=== PATIENT | male | born 1955 | race Caucasian/White ===

== ENCOUNTER 2016-09-07 13:17 | Emergency (ER) | END 2016-09-07 21:20 | disposition home or self-care (01) | DX: R42 Dizziness and giddiness (principal); I10 Essential (primary) hypertension; E11.9 Type 2 diabetes mellitus without complications; W01.0XXA Fall on same level from slipping, tripping and stumbling without subsequent striking against object, initial encounter; Y92.9 Unspecified place or not applicable; Z79.84 Long term (current) use of oral hypoglycemic drugs; Z79.82 Long term (current) use of aspirin; Z79.4 Long term (current) use of insulin | CPT/HCPCS: 36415; 70450; 71010; 74176; 80053; 82962; 83690; 84484; 85025; 93005; 96361; 96372; 96374; 96375; J1815; J2270; J2405; J7030; Z7502 ==

== ENCOUNTER 2017-02-17 12:23 | Inpatient (IN) | payer OTHER ==
[~2017-02-17] VITALS: Ht 170.2 cm; Wt 81.0 kg
[~2017-02-17 12:23] MED LIST: ASPI-664 PO; GABA300C16 PO; LANT3I SC; LISI20TA11 PO; MECL12.574 PO; SITA1TAB5 PO
[2017-02-17] MEDS ORDERED: SOD CHLORIDE 0.9% 1,000 ML IV STA (13:41)
[2017-02-17] MEDS ORDERED: ONDANSETRON 4 MG INJ IV STA (13:41)
[2017-02-17 13:57] LABS: ADD SCAN DIFF NO
[2017-02-17 13:58] LABS: BASOPHILS % 0.2 % (0.0-2.0); EOSINOPHILS # 0.1 10^3/ul (0.0-0.5); EOSINOPHILS % 0.9 % (0.0-7.0); HEMATOCRIT 38.5 % (42.0-52.0); LYMPHOCYTES # 0.8 10^3/ul (0.8-2.9); LYMPHOCYTES % 6.7 % (15.0-51.0); MEAN CORPUSCULAR HGB CONC 36.4 g/dl (32.0-37.0); MEAN CORPUSCULAR VOLUME 87.9 fl (82.0-101.0); MEAN PLATELET VOLUME 12.3 fl (7.4-10.4); MONOCYTE # 0.4 10^3/ul (0.3-0.9); MONOCYTES % 3.3 % (0.0-11.0); NEUTROPHIL # 10.6 10^3/ul (1.6-7.5); NEUTROPHILS % 88.4 % (39.0-77.0); PLATELET COUNT 194 10^3/UL (140-415); RED BLOOD COUNT 4.38 10^6/ul (4.70-6.10); RED CELL DISTRIBUTION WIDTH 12.2 % (11.5-14.5)
[2017-02-17] MEDS ORDERED: MECLIZINE 12.5 MG TAB PO ONE (14:00)
[2017-02-17 14:15] LABS: INR 1.01; PROTIME 13.3 Sec (12.2-14.2)
[2017-02-17 14:16] LABS: PARTIAL THROMBOPLASTIN TIME 24.1 Sec (25.0-35.0)
[2017-02-17] MEDS ORDERED: INSULIN LISPRO 100 UNIT/ML VIAL SC STA (14:31)
[2017-02-17 14:34] LABS: ALANINE AMINOTRANSFERASE 37 IU/L (13-69); ALBUMIN 4.4 g/dl (3.3-4.9); ALBUMIN/GLOBULIN RATIO 1.57; ALKALINE PHOSPHATASE 114 IU/L (42-121); AMYLASE 74 U/L (11-123); ANION GAP 18 (8-16); ASPARTATE AMINO TRANSFERASE 25 IU/L (15-46); BILIRUBIN,INDIRECT 0.4 mg/dl (0-1.1); BILIRUBIN,TOTAL 0.4 mg/dl (0.2-1.3); BLOOD UREA NITROGEN 21 mg/dl (7-20); CALCIUM 8.9 mg/dl (8.4-10.2); CARBON DIOXIDE 23 mmol/L (21-31); CHLORIDE 103 mmol/L (97-110); CREATININE 0.99 mg/dl (0.61-1.24); GLUCOSE 377 mg/dl (70-220); POTASSIUM 4.5 mmol/L (3.5-5.1); SODIUM 139 mmol/L (135-144); TOTAL PROTEIN 7.2 g/dl (6.1-8.1)
[2017-02-17 14:49] LABS: TROPONIN-I < 0.012 ng/ml (0.00-0.12)
--- NOTE | 2017-02-17 14:51 | RADRPT ---
PROCEDURE: Chest Radiograph. CLINICAL INDICATION: Syncope TECHNIQUE: Single frontal chest radiograph. COMPARISON: Chest radiograph 09/07/2016 FINDINGS: Lung volumes are decreased with associated basilar atelectasis and central compressive change. No d efinite infiltrate or effusion is seen though evaluation of the lung bases is limited. The heart is magnified. The bones are intact. IMPRESSION: 1. Low lung volumes with basilar atelectasis and central compressive changes. 2. No definite evidence of acute cardiopulmonary disease. RPTAT: KK .Ronny Cole MD, MD Date Time Electronically viewed and signed by .Ronny Cole MD, MD on 02/17/2017 14:51 .B/
--- NOTE | 2017-02-17 15:47 | RADRPT ---
PROCEDURE: CT Brain without contrast. CLINICAL INDICATION: Syncope TECHNIQUE: A CT of the brain was performed on a multidetector CT scanner utilizing axial sections from the skull base through the vertex without contrast. Images were reviewed on a high-resolution Svpply workstation. Exam CTDI = 41.59 mGy and the DLP = 720.23 mGy-cm. One or more of the following dose reduction techniques were used: Automated exposure control Adjustment of the mA and/or kV according to patient size. Use of iterative reconstruction technique. COMPARISON: CT head 09/07/2016. FINDINGS: There is age appropriate mild generalized volume loss. There is no evidence of intracranial hemorrh age, mass effect or midline shift. No abnormal intra-axial or extra-axial fluid collections are see n. The density of the brain is normal and the leavitt/white matter differentiation is well preserved. The osseous structures are unremarkable. Paranasal sinuses are clear. There is suboccipital subcut aneous fatty infiltration left of the midline. IMPRESSION: 1. No intracranial hemorrhage, mass effect or midline shift. 2. Suboccipital subcutaneous fatty infiltration, not significantly changed. RPTAT: BB .Wu Claire MD, Date Time Electronically viewed and signed by .Wu Claire MD, on 02/17/2017 15:47 .O/
[2017-02-17] MEDS ORDERED: ASPIRIN (EC) 81 MG TAB PO ONE (17:30)
[2017-02-17] MEDS ORDERED: ONDANSETRON 4 MG INJ IV PRN (18:00)
[2017-02-17] MEDS ORDERED: ACETAMINOPHEN 325 MG TAB PO PRN ×2 (18:00→18:30)
--- NOTE | 2017-02-17 18:15 | ERA ---
ER Documentation Chief Complaint Date/Time DATE: 02/17/17 TIME: 18:12 Chief Complaint "passed out, hit head, x 1 hour ago HPI This is a very pleasant 61-year-old male that presents to the emergency department after he stated he had a brief transient loss of consciousness, with loss of postural tone, that lasted for roughly 30 seconds, roughly 1 hour prior to arrival. The patient also indicates he had a similar episode at 7 AM yesterday, over 24 hours prior to arrival. The patient stated prior to the syncope episode he felt lightheaded and dizzy. He felt as though the room was spinning around him but denied any tinnitus. The patient denies any shortness of breath at rest or exertion. The patient also denies any chest pain or pressure that radiates to the neck arm back or jaw. His stated that she had witnessed his last syncope episode that occurred an hour prior to arrival and he had fallen and hit the back of his head onto a tiled surface. He states he is feeling very nauseous but again has not experienced any hemoptysis hematemesis or melanotic stools. ROS All systems reviewed and are negative except as per history of present illness. Medications Home Meds Reported Medications Aspirin* (Aspirin* EC) 81 Mg Tablet.dr, 81 MG PO DAILY, TAB 09/07/16 Gabapentin* (Gabapentin*) 300 Mg Capsule, 300 MG PO TID, #90 CAP 09/07/16 Sitagliptin Phos/Metformin HCl (Janumet 50-1,000 mg Tablet) 1 Each Tablet, 1 EACH PO WITH BREAKFAST DINNE, TAB 09/07/16 Lisinopril* (Lisinopril*) 20 Mg Tablet, 20 MG PO DAILY, #30 TAB 09/07/16 Insulin Glargine* (Lantus*) 100 Unit/Ml Soln, 20 UNIT SC QHS, #1 VIAL 09/07/16 Discontinued Scripts Meclizine Hcl* (Antivert*) 12.5 Mg Tab, 25 MG PO Q6H Y for DIZZINESS, #20 TAB Prov:MONA SALGADO MD 09/07/16 Allergies Allergies: Coded Allergies: No Known Allergy (Unverified , 02/17/17) PMhx/Soc History of Surgery: No Anesthesia Reaction: No Hx Neurological Disorder: Yes Hx Respiratory Disorders: No Hx Cardiac Disorders: Yes (HTN) Hx Psychiatric Problems: No Hx Miscellaneous Medical Probl: Yes (DM, PVD, diabetic foot ulcers, neuropathy) Hx Alcohol Use: No Hx Substance Use: No Hx Tobacco Use: No Smoking Status: Never smoker Physical Exam Vitals Vital Signs Date Time Temp Pulse Resp B/P Pulse Ox O2 Delivery O2 Flow Rate FiO2 02/17/17 16:58 53 16 180/73 100 Room Air 02/17/17 12:25 97.2 57 20 159/80 100 Physical Exam Constitutional:Well-developed. Well-nourished. HEENT:Normocephalic. Atraumatic.Pupils were equal round reactive to light. Moist mucous membranes.No tonsillar exudates. No nasal septal hematoma. No hemotympanum. No bulging erythremia the tympanic membranes. Neck: No nuchal rigidity. No lymphadenopathy. No posterior cervical spine tenderness or step-offs. Respiratory: Not using accessory muscles of respiration.Lungs were clear to auscultation bilaterally. No rhonchi. No rales. No wheezing. Cardiovascular: Regular rate regular rhythm.No murmurs. No rubs were appreciated.S1, S2 normal. Distal pulses are palpable 2+ bilaterally. GI: Abdomen was soft. Nontender. Non Distended. No pulsatile abdominal masses or bruits. No rebound. No guarding. Bowel sounds were present and normal. Muscle skeletal: Full range of motion of both the upper and lower extremities bilaterally.Normal muscle tone.No assymetrical calf tenderness or swelling. Skin: No petechia, no purpura. No lesions on the palms or the soles of the feet. No maculopapular rash. NEURO: Patient was alert, awake, orientated x3.No facial droop. Gait observed and normal with no ataxia.Speech had regular rate and rhythm. No focal neurological deficits. No nystagmus Result Diagram: 02/17/17 1351 02/17/17 1351 Results 24 hrs Laboratory Tests Test 02/17/17 13:33 02/17/17 13:51 02/17/17 14:51 Bedside Glucose 367mg/dL 330mg/dL White Blood Count 12.010^3/ul Red Blood Count 4.3810^6/ul Hemoglobin 14.0g/dl Hematocrit 38.5% Mean Corpuscular Volume 87.9fl Mean Corpuscular Hemoglobin 32.0pg Mean Corpuscular Hemoglobin Concent 36.4g/dl Red Cell Distribution Width 12.2% Platelet Count 74592^3/UL Mean Platelet Volume 12.3fl Neutrophils % 88.4% Lymphocytes % 6.7% Monocytes % 3.3% Eosinophils % 0.9% Basophils % 0.2% Nucleated Red Blood Cells % 0.0/100WBC Neutrophils # 10.610^3/ul Lymphocytes # 0.810^3/ul Monocytes # 0.410^3/ul Eosinophils # 0.110^3/ul Basophils # 0.010^3/ul Nucleated Red Blood Cells # 0.010^3/ul Prothrombin Time 13.3Sec Prothrombin Time Ratio 1.0 INR International Normalized Ratio 1.01 Activated Partial Thromboplast Time 24.1Sec Sodium Level 139mmol/L Potassium Level 4.5mmol/L Chloride Level 103mmol/L Carbon Dioxide Level 23mmol/L Anion Gap 18 Blood Urea Nitrogen 21mg/dl Creatinine 0.99mg/dl Glucose Level 377mg/dl Calcium Level 8.9mg/dl Total Bilirubin 0.4mg/dl Direct Bilirubin 0.00mg/dl Indirect Bilirubin 0.4mg/dl Aspartate Amino Transf (AST/SGOT) 25IU/L Alanine Aminotransferase (ALT/SGPT) 37IU/L Alkaline Phosphatase 114IU/L Troponin I < 0.012ng/ml Total Protein 7.2g/dl Albumin 4.4g/dl Globulin 2.80g/dl Albumin/Globulin Ratio 1.57 Amylase Level 74U/L Lipase 69U/L Current Medications Medications (Trade) Dose Ordered Sig/Leelee Route PRN Reason Start Time Stop Time Status Last Admin Dose Admin Sodium Chloride (NS) 1,000 ml @ 1,000 mls/hr Q1H STAT IV 02/17/17 13:41 02/17/17 14:40 DC 02/17/17 14:04 Ondansetron HCl (Zofran Inj) 4 mg ONCE STAT IV 02/17/17 13:41 02/17/17 13:44 DC 02/17/17 13:59 Meclizine HCl (Antivert) 25 mg ONCE ONCE PO 02/17/17 14:00 02/17/17 14:01 DC 02/17/17 13:59 Insulin Human Lispro (Humalog) 10 unit ONCE STAT SC 02/17/17 14:31 02/17/17 14:32 DC 02/17/17 14:58 Aspirin (Halfprin) 81 mg ONCE ONCE PO 02/17/17 17:30 02/17/17 17:31 DC 02/17/17 17:46 Ondansetron HCl (Zofran Inj) 4 mg ER BRIDGE PRN IV NAUSEA AND/OR VOMITING 02/17/17 18:00 02/18/17 17:59 Acetaminophen (Tylenol Tab) 650 mg ER BRIDGE PRN PO MILD PAIN/FEVER 02/17/17 18:00 02/18/17 17:59 Aspirin (Halfprin) 81 mg DAILY PO 02/18/17 09:00 UNV Gabapentin (Neurontin) 300 mg TID PO 02/17/17 21:00 UNV Insulin Glargine (Lantus) 20 unit QHS SC 02/17/17 21:00 UNV Lisinopril (Zestril) 20 mg DAILY PO 02/18/17 09:00 UNV Procedures/MDM The patient presented to the emergency department with a transient loss of consciousness with loss of postural tone, suggestive of a syncope episode. The differential diagnosis of syncope is vast but my workup considered common benign disorders to life-threatening processes. Therefore my differential diagnosis included but was not limited to reflex-mediated syncope such as vasovagal or carotid sinus syncope from coughing, sneezing, micturition, or GI stimulation (eg, defecation). Other etiologies in my workup included orthostatic hypotension which could cause syncope from an abrupt drop in venous return to heart from volume depletion. An EKG and cardiac enzymes were obtained to rule out cardiac arrhythmias or ischemia. Cardiopulmonary disease such as valvular disease, hypertrophic cardiomyopathy, pericardial tamponade, or pulmonary embolism were considered as a factor causing the patients syncope episode. The patient had no difference in blood pressure in both arms that could suggest aortic dissection or subclavian steal syndrome. Rectal exam was negative for fecal occult blood that could suggest GI bleeding. Ancillary laboratory work was obtained to evaluate for metabolic or electrolyte abnormalities. The patient had no witnessed brief tonic movements that could suggest postictal confusion. The patient was placed on a cardiac surgeon, continuous pulse oximetry and IV access established by nursing staff. The patient received a liter bolus of 0.9 normal saline IV Zofran and meclizine. I obtained a CT scan of the patient's head given his symptoms and there is no signs of intracerebral hemorrhage mass-effect or midline shift. 12 Lead EKG tracing ordered and reviewed by myself showed: Sinus bradycardia 52 bpm and no arrhythmia. IL interval normal. QRS duration normal. No ST segment elevation No ST segment depression. No changes consistent with acute ischemia. Left axis deviation The patient is a known history of diabetes. He had hyperglycemia without ketosis. His blood glucose resolved with IV fluids I did feel the patient required admission for further evaluation into the syncope episodes. He will be admitted to the hospitalist Dr. Holloway in serious condition for observation to the telemetry service Departure Diagnosis: Primary Impression: Syncope Qualified Code: R55 - Syncope, unspecified syncope type Additional Impression: Hyperglycemia without ketosis Condition: Serious JUHI HALL Feb 17, 2017 18:15
--- NOTE | 2017-02-17 18:27 | HP ---
Date/Time of Note Date/Time of Note DATE: 02/17/17 TIME: 18:20 Assessment/Plan VTE Prophylaxis VTE Prophylaxis Intervention: SCD's Assessment/Plan Assessment/Plan 61 yo M with DM2 with neuropathy, presents with 3 syncopal episodes in the past 2 days. Broad differential includes hypoglycemia (given poor PO in recent days) , cardiogenic syncope/arrhythmia, autonomic neuropathy, v other. No chest pain and troponin negative speaks against UT. PLAN cont tele orthostatic vital signs TTE ordered cont home insulin with accuchecks and SSI PT/OT evals cont home BP meds NS given hyperglycemia HR a little on the low side. Not on bb at home. cont tele HPI/ROS Admit Date/Time Admit Date/Time Hx of Present Illness CC: syncope hebrew language line used to facilitate communication 61 yo M with pmhx diabetes cb neuropathy, HTN presents with report of 3 episodes of ALOC since yesterday. Per , pt passed out yesterday and 5p and 8p and again this morning. During all 3 episodes pt was seated, began to appear diaphoretic then lost consciousness for ~1 minute. Pt also reports poor appetite with decreased PO intake over this interval, with occ vomiting. NO chest pain or SOB. No tongue biting or shaking or loss of bladder control associated with episodes. Pt never checks his blood sugars during episodes. No recent changes to his home meds. Also states he feels diffusely weak x 1 hr after each episode PMH/Family/Social Past Surgical History Past Surgical Hx: no surgical history Social History Smoking Status: Never smoker Exam/Review of Systems Vital Signs Vitals Vital Signs Date Time Temp Pulse Resp B/P Pulse Ox O2 Delivery O2 Flow Rate FiO2 02/17/17 16:58 53 16 180/73 100 Room Air 02/17/17 12:25 97.2 Exam Exam nad, sitting up in bed, voraciously eating sandwich MMM EOMI no mrg lungs clear abd soft no rashes no LE edema CN 2-12intact sensoirum grossly intact to light touch bl U and LEs, 5/5 strength bl U and LEs Labs Result Diagram: 02/17/17 1351 02/17/17 1351 Medications Medications Current Medications Aspirin (Halfprin) 81 mg DAILY PO ; Start 02/18/17 at 09:00; Status UNV Gabapentin (Neurontin) 300 mg TID PO ; Start 02/17/17 at 21:00; Status UNV Insulin Glargine (Lantus) 20 unit QHS SC ; Start 02/17/17 at 21:00; Status UNV Lisinopril (Zestril) 20 mg DAILY PO ; Start 02/18/17 at 09:00; Status UNV Procedures Procedures labs notable for mildly elevated WBCs, sig hyperglycemia, CXR clear, head CT clear TERESE WATERMAN MD Feb 17, 2017 18:27
[2017-02-17] MEDS ORDERED: DOCUSATE SODIUM 100 MG CAP PO PRN (18:30)
[2017-02-17] MEDS ORDERED: MAGNESIUM HYDROXIDE 30ML CUP PO PRN (18:30)
[2017-02-17] MEDS ORDERED: NACL 0.9% 3 ML SYG IV SCH (18:30)
[2017-02-17] MEDS ORDERED: HYDROCODONE/APAP (5/325) TAB PO PRN (18:30)
[2017-02-17] MEDS ORDERED: DEXTROSE 50% 50 ML SYRINGE IV PRN ×2 (19:00)
[2017-02-17] MEDS ORDERED: GLUCOSE GEL 15 GRAM TUBE BUCCAL PRN (19:00)
[2017-02-17] MEDS ORDERED: GLUCAGON 1 MG INJ IM PRN (19:00)
[2017-02-17] MEDS ORDERED: GLUCOSE GEL 15 GRAM TUBE PO PRN ×2 (19:00)
[2017-02-17 20:36] VITALS: TEMP 98.9
[2017-02-17 21:33] VITALS: PULSE 61
[2017-02-17 21:53] VITALS: Ht 170.2 cm; Wt 81.0 kg
[2017-02-17] MEDS: GABAPENTIN 300 MG CAP PO SCH (22:42)
[2017-02-17] MEDS: INSULIN GLARGINE [LANtus] 3 ML PEN SC SCH (22:45)
[2017-02-17] MEDS: SOD CHLORIDE 0.9% 1,000 ML IV SCH (22:45)
[2017-02-17] MEDS: INSULIN ASPART [NOVOLOG] 3 ML PEN SC SCH (22:57)
[2017-02-18] VITALS (15 sets, daily range): BP systolic 143–183; BP diastolic 72–82; PULSE 52–95; RESP 17–19
[2017-02-18] MEDS: hydrALAzine 20 MG INJ IV PRN (01:23)
[2017-02-18] MEDS: SOD CHLORIDE 0.9% 1,000 ML IV SCH ×4 (01:24→23:45)
[2017-02-18] MEDS: ACCU-CHEK XX SCH (01:44)
[2017-02-18 06:32] LABS: ADD SCAN DIFF NO
[2017-02-18 06:37] LABS: BASOPHILS % 0.2 % (0.0-2.0); EOSINOPHILS # 0.2 10^3/ul (0.0-0.5); EOSINOPHILS % 1.7 % (0.0-7.0); HEMATOCRIT 35.6 % (42.0-52.0); HEMOGLOBIN 12.7 g/dl (14.0-18.0); LYMPHOCYTES # 1.4 10^3/ul (0.8-2.9); LYMPHOCYTES % 16.4 % (15.0-51.0); MEAN CORPUSCULAR HEMOGLOBIN 31.9 pg (29.0-33.0); MEAN CORPUSCULAR HGB CONC 35.7 g/dl (32.0-37.0); MEAN CORPUSCULAR VOLUME 89.4 fl (82.0-101.0); MONOCYTE # 0.4 10^3/ul (0.3-0.9); NEUTROPHIL # 6.7 10^3/ul (1.6-7.5); NEUTROPHILS % 76.4 % (39.0-77.0); PLATELET COUNT 184 10^3/UL (140-415); RED BLOOD COUNT 3.98 10^6/ul (4.70-6.10); RED CELL DISTRIBUTION WIDTH 12.7 % (11.5-14.5); WHITE BLOOD COUNT 8.8 10^3/ul (4.8-10.8)
[2017-02-18] MEDS: INSULIN ASPART [NOVOLOG] 3 ML PEN SC SCH ×4 (08:05→20:46)
[2017-02-18] MEDS: LISINOPRIL 20 MG TAB PO SCH (08:43)
[2017-02-18] MEDS: ASPIRIN (EC) 81 MG TAB PO SCH (08:43)
[2017-02-18] MEDS: GABAPENTIN 300 MG CAP PO SCH ×3 (08:43→20:43)
[2017-02-18] MEDS: ENOXAPARIN 40 MG/0.4 ML SYG SC SCH (09:11)
--- NOTE | 2017-02-18 13:07 | PN ---
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 Given hyperglycemia and elevated a1c suspect autonomic neuropathy v dehydration from osmotic dieuresis from hyperglycemia PLAN cont tele orthostatic vital signs TTE ordered cont home insulin with accuchecks and SSI PT/OT evals cont home BP meds NS given hyperglycemia HR a little on the low side. Not on bb at home. cont tele DM education and RD evals if TTE nl and HR remains >50 on tele, will likely discharge in the AM Subjective 24 Hr Interval Summary Free Text/Dictation Family member served as front desk agent Pt feeling a little better. Was not totally adherent to DM med regimen at home Exam/Review of Systems Vital Signs Vitals Vital Signs Date Time Temp Pulse Resp B/P Pulse Ox O2 Delivery O2 Flow Rate FiO2 02/18/17 12:26 64 02/18/17 12:22 98.5 18 165/78 96 02/18/17 12:20 Room Air Intake and Output 02/17/17 02/17/17 02/18/17 15:00 23:00 07:00 Intake Total 1640 ml Balance 1640 ml Exam nad laying in bed no mrg lungs clear abd soft no rashes a1c 11.6 Results Result Diagram: 02/18/17 0617 02/17/17 1351 Results 24 hrs Laboratory Tests Test 02/17/17 13:33 02/17/17 13:51 02/17/17 14:51 02/17/17 22:16 Bedside Glucose 367 H 330 H 265 H White Blood Count 12.0 H Red Blood Count 4.38 L Hemoglobin 14.0 Hematocrit 38.5 L Mean Corpuscular Volume 87.9 Mean Corpuscular Hemoglobin 32.0 Mean Corpuscular Hemoglobin Concent 36.4 Red Cell Distribution Width 12.2 Platelet Count 194 Mean Platelet Volume 12.3 H Neutrophils % 88.4 H Lymphocytes % 6.7 L Monocytes % 3.3 Eosinophils % 0.9 Basophils % 0.2 Nucleated Red Blood Cells % 0.0 Neutrophils # 10.6 H Lymphocytes # 0.8 Monocytes # 0.4 Eosinophils # 0.1 Basophils # 0.0 Nucleated Red Blood Cells # 0.0 Prothrombin Time 13.3 Prothrombin Time Ratio 1.0 INR International Normalized Ratio 1.01 Activated Partial Thromboplast Time 24.1 L Sodium Level 139 Potassium Level 4.5 Chloride Level 103 Carbon Dioxide Level 23 Anion Gap 18 H Blood Urea Nitrogen 21 H Creatinine 0.99 Glucose Level 377 H Calcium Level 8.9 Total Bilirubin 0.4 Direct Bilirubin 0.00 Indirect Bilirubin 0.4 Aspartate Amino Transf (AST/SGOT) 25 Alanine Aminotransferase (ALT/SGPT) 37 Alkaline Phosphatase 114 Troponin I < 0.012 Total Protein 7.2 Albumin 4.4 Globulin 2.80 Albumin/Globulin Ratio 1.57 Amylase Level 74 Lipase 69 Test 02/18/17 01:25 02/18/17 06:17 02/18/17 07:47 02/18/17 12:03 Bedside Glucose 151 162 217 White Blood Count 8.8 # Red Blood Count 3.98 L Hemoglobin 12.7 L Hematocrit 35.6 L Mean Corpuscular Volume 89.4 Mean Corpuscular Hemoglobin 31.9 Mean Corpuscular Hemoglobin Concent 35.7 Red Cell Distribution Width 12.7 Platelet Count 184 Mean Platelet Volume 12.0 H Neutrophils % 76.4 Lymphocytes % 16.4 Monocytes % 5.0 Eosinophils % 1.7 Basophils % 0.2 Nucleated Red Blood Cells % 0.0 Neutrophils # 6.7 Lymphocytes # 1.4 Monocytes # 0.4 Eosinophils # 0.2 Basophils # 0.0 Nucleated Red Blood Cells # 0.0 Hemoglobin A1c 11.4 H Medications Medications Current Medications Aspirin (Halfprin) 81 mg DAILY PO Last administered on 02/18/17 08:43; Admin Dose 81 MG; Start 02/18/17 at 09:00 Gabapentin (Neurontin) 300 mg TID PO Last administered on 02/18/17 12:36; Admin Dose 300 MG; Start 02/17/17 at 21:00 Insulin Glargine (Lantus) 20 unit QHS SC Last administered on 02/17/17 22:45; Admin Dose 20 UNIT; Start 02/17/17 at 21:00 Lisinopril (Zestril) 20 mg DAILY PO Last administered on 02/18/17 08:43; Admin Dose 20 MG; Start 02/18/17 at 09:00 Acetaminophen (Tylenol Tab) 650 mg Q6H PRN PO PAIN LEVEL 1-3 OR FEVER; Start at 18:30 Acetaminophen/ Hydrocodone Bitart ([place] (5/325)) 1 tab Q6H PRN PO MODERATE PAIN LEVEL 4-6; Start 02/17/17 at 18:30 Docusate Sodium (Colace) 100 mg Q12H PRN PO CONSTIPATION; Start 02/17/17 at 18: 30 Magnesium Hydroxide (Milk Of Mag) 30 ml DAILY PRN PO CONSTIPATION; Start at 18:30 Enoxaparin Sodium (Lovenox) 40 mg DAILY SC Last administered on 02/18/17 09:11 ; Admin Dose 40 MG; Start 02/18/17 at 09:00 Diagnostic Test (Pha) 1 ea 1 ea 02 XX ; Start 02/18/17 at 02:00 Sodium Chloride (NS) 1,000 ml @ 125 mls/hr Q8H IV Last administered on 01:24; Admin Dose 125 MLS/HR; Start 02/17/17 at 19:00 Miscellaneous Information 1 ea NOTE XX ; Start 02/17/17 at 19:00 Glucose (Glutose) 15 gm Q15M PRN PO DECREASED GLUCOSE; Start 02/17/17 at 19:00 Glucose (Glutose) 22.5 gm Q15M PRN PO DECREASED GLUCOSE; Start 02/17/17 at 19: 00 Dextrose (D50w Syringe) 25 ml Q15M PRN IV DECREASED GLUCOSE; Start 02/17/17 at 19:00 Dextrose (D50w Syringe) 50 ml Q15M PRN IV DECREASED GLUCOSE; Start 02/17/17 at 19:00 Glucagon (Glucagen) 1 mg Q15M PRN IM DECREASED GLUCOSE; Start 02/17/17 at 19:00 Glucose (Glutose) 15 gm Q15M PRN BUCCAL DECREASED GLUCOSE; Start 02/17/17 at 19 :00 Hydralazine HCl (Apresoline) 10 mg Q6H PRN IV SBP >160 Last administered on 01:23; Admin Dose 10 MG; Start 02/18/17 at 00:30 TERESE WATERMAN MD Feb 18, 2017 13:07
--- NOTE | 2017-02-18 14:26 | RADRPT ---
Echocardiogram Report Patient Name: TC CID Gender: Male Date: 1955 Study Date: 18-Feb-2017 Health Education Assistant: Apple [facility] Location: [id number] Ref. Physician: TERESE WATERMAN Quality: Adequate Procedures: Transthoracic echocardiogram with complete 2D, M-Mode, and doppler examination. Indications: Syncope. 2D/M Mode Doppler Measurement Value Normal Ranges Measurement Value Normal Ranges LVIDd 2D 5.0 3.5 - 5.6 cm AV Peak Malcolm 2.1 m/sec LVIDs 2D 3.3 2.1 - 4.1 cm AV Peak PG 18.0 mmHg FS 2D 32.9 % LVOT Peak Malcolm 1.2 m/sec LVPWd 2D 1.1 0.6 - 1.1 cm LVOT Peak PG 6.0 mmHg IVSd 2D 1.1 0.6 - 1.1 cm MV E Peak Malcolm 0.8 m/sec IVS/LVPW 2D 1.0 MV A Peak Malcolm 0.9 m/sec AoR Diam 2D 2.3 2.0 - 3.7 cm MV E/A 0.9 LA/Ao 2D 2 0 - 1 MV Decel Time 271 msec EDV 2D 122.0 cm3 MV E/A 0.9 ESV 2D 36.9 cm3 TR Peak Malcolm 3.2 m/sec LA Dimen 2D 4.4 2.3 - 4.0 cm TR Peak PG 41.0 mmHg RVSP 45.0 mmHg Findings Left Ventricle: Normal left ventricular systolic function. Normal left ventricular cavity size. Mild concentric left ventricular hypertrophy. Ejection fraction is visually estimated at 60 %. Tissue Doppler/Mitral Doppler indices are consistent with impaired relaxation (Stage I diastolic dysfunction). Right Ventricle: Normal right ventricular size. Normal right ventricular systolic function. Left Atrium: There is mild enlargement of left atrium. Right Atrium: The right atrium is normal in size. Mitral Valve: Normal appearance and function of the mitral valve with trace physiologic regurgitation. Trace mitral regurgitation. Aortic Valve: No significant aortic stenosis or insufficiency. Aortic sclerosis without stenosis. Tricuspid Valve: Normal appearance of the tricuspid valve. Estimated peak PA systolic pressure 45 mmHg. There is mild tricuspid regurgitation. Pulmonic Valve: Pulmonic valve not well visualized. There is trace pulmonic regurgitation. Pericardium: Normal pericardium with no significant pericardial effusion. Aorta: Normal aortic root. IVC: Normal size and normal respiratory collapse consistent with normal right atrial pressure. Conclusions 1.Normal left ventricular systolic function. Normal left ventricular cavity size. Mild concentric left ventricular hypertrophy. Ejection fraction is visually estimated at 60 %. Tissue Doppler/Mitral Doppler indices are consistent with impaired relaxation (Stage I diastolic dysfunction). 2.No significant valvular stenosis or regurgitation seen. 3.Estimated peak PA systolic pressure 45 mmHg based on RA pressure of 3 mmHg. Electronically Signed By: Wali Valente 18-Feb-2017 14:25:08 0700 Patient Name: TC CID Study Date: 18-Feb-2017 [id number]
[2017-02-18] MEDS: INSULIN GLARGINE [LANtus] 3 ML PEN SC SCH (20:46)
[2017-02-19] VITALS (15 sets, daily range): BP systolic 140–188; BP diastolic 57–83; PULSE 40–74; RESP 18–20
[2017-02-19] MEDS: SOD CHLORIDE 0.9% 1,000 ML IV SCH ×3 (02:28→11:00)
[2017-02-19] MEDS: ACCU-CHEK XX SCH (02:28)
[2017-02-19] MEDS: INSULIN ASPART [NOVOLOG] 3 ML PEN SC SCH ×2 (07:47→11:53)
[2017-02-19] MEDS: ENOXAPARIN 40 MG/0.4 ML SYG SC SCH (08:44)
[2017-02-19] MEDS: GABAPENTIN 300 MG CAP PO SCH ×2 (09:05→12:21)
[2017-02-19] MEDS: LISINOPRIL 20 MG TAB PO SCH (09:05)
[2017-02-19] MEDS: ASPIRIN (EC) 81 MG TAB PO SCH (09:05)
[2017-02-19] MEDS: hydrALAzine 20 MG INJ IV PRN (12:21)
--- NOTE | 2017-02-19 14:00 | PDOCDIS ---
Discharge Instructions CONDITION Patient Condition: Stable HOME CARE INSTRUCTIONS: Special Diet: CARB CONTROLLED FOLLOW UP/APPOINTMENTS Follow-up Plan Follow up with your regular doctor within 5 days. Your diabetes is very poorly controlled. Talk to your regular doctor about increasing your insulin. The diabetes has likely adversely impacted the nerves in your blood vessels that are supposed to squeeze when you change positions. This likely contributed to you passing out. In addition, your heart rate went down to 40 when you were sleeping. Please ask your regular doctor if he/she wants you to see a heart doctor. Claudio un seguimiento con villa mdico habitual dentro de los 5 chavis. Villa diabetes est muy mal controlada. Hable con villa mdico habitual sobre el aumento de la insulina. La diabetes probablemente frey afectado negativamente los nervios de los vasos sanguneos que se supone que deben apretar cuando cambia de posicin. Probablemente esto contribuy a que te desmayes. Adems, villa ritmo cardaco baj a 40 cuando usted estaba durmiendo. Pregntele a villa mdico si quiere que consulte a un mdico del umer. TERESE WATERMAN MD Feb 19, 2017 13:59
--- NOTE | 2017-02-19 14:02 | DS ---
Date/Time of Note Date/Time of Note DATE: 02/19/17 TIME: 14:01 Discharge Summary Admission/Discharge Info Admit Date/Time Feb 18, 2017 at 11:10 Discharge Date/Time Patient Condition: Stable Procedures TTE Conclusions 1. Normal left ventricular systolic function. Normal left ventricular cavity size. Mild concentric left ventricular hypertrophy. Ejection fraction is visually estimated at 60 %. Tissue Doppler/Mitral Doppler indices are consistent with impaired relaxation (Stage I diastolic dysfunction). 2. No significant valvular stenosis or regurgitation seen. 3. Estimated peak PA systolic pressure 45 mmHg based on RA pressure of 3 NCCT head: 1. No intracranial hemorrhage, mass effect or midline shift. 2. Suboccipital subcutaneous fatty infiltration, not significantly changed. a1c 11.4 orthostatic vitals: + 7.15 (HR increased 25 bpm between from supine to standing) Hx of Present Illness CC: syncope vietnamese language line used to facilitate communication 61 yo M with pmhx diabetes cb neuropathy, HTN presents with report of 3 episodes of ALOC since yesterday. Per , pt passed out yesterday and 5p and 8p and again this morning. During all 3 episodes pt was seated, began to appear diaphoretic then lost consciousness for ~1 minute. Pt also reports poor appetite with decreased PO intake over this interval, with occ vomiting. NO chest pain or SOB. No tongue biting or shaking or loss of bladder control associated with episodes. Pt never checks his blood sugars during episodes. No recent changes to his home meds. Also states he feels diffusely weak x 1 hr after each episode Hospital Course No further syncopal episodes following admission. TTE and neuroimaging unremarkable. Pt with very poor diabetes control-->a1c 11.4. Home insulin continued with SSI. Of note, pt found to have + orthostatics (HR increased 25 bpm between supine and standing). Suspect autonomic neuropathy contributing to syncope. HR berna 40 while asleep. Otherwise consistently >50. no changes from admit meds. pt advised to f/u with PCP for further w/u Home Meds Reported Medications Aspirin* (Aspirin* EC) 81 Mg Tablet., 81 MG PO DAILY, TAB 09/07/16 Gabapentin* (Gabapentin*) 300 Mg Capsule, 300 MG PO TID, #90 CAP 09/07/16 Sitagliptin Phos/Metformin HCl (Janumet 50-1,000 mg Tablet) 1 Each Tablet, 1 EACH PO WITH BREAKFAST DINNE, TAB 09/07/16 Lisinopril* (Lisinopril*) 20 Mg Tablet, 20 MG PO DAILY, #30 TAB 09/07/16 Insulin Glargine* (Lantus*) 100 Unit/Ml Soln, 20 UNIT SC QHS, #1 VIAL 09/07/16 Discontinued Scripts Meclizine Hcl* (Antivert*) 12.5 Mg Tab, 25 MG PO Q6H Y for DIZZINESS, #20 TAB Prov:MONA SALGADO MD 09/07/16 Follow-up Plan f/u with PCP within 5 days for improved BG control, possibly cardiology eval for HR berna 40 while asleep Primary Care Provider [place] [facility] Time spent on discharge: > 30 minutes Pending Labs Laboratory Tests Test 02/18/17 17:59 02/18/17 20:15 02/19/17 02:19 02/19/17 07:46 Bedside Glucose 256mg/dL (70-220) 222mg/dL (70-220) 114mg/dL (70-220) 137mg/dL (70-220) Test 02/19/17 11:52 Bedside Glucose 309mg/dL (70-220) TERESE WATERMAN MD Feb 19, 2017 14:02
== END 2017-02-19 15:30 | disposition home or self-care (01) | DRG 74 ==
LOC: E/R 12:23 → TEL 17:36 → UNDOADMOB 21:27 → OBSVTOIN 02-18 11:10 → TEL 02-18 19:18
PROVIDERS: ADMIT Internal Medicine; ATTEND Internal Medicine
DX: E11.43 Type 2 diabetes mellitus with diabetic autonomic (poly)neuropathy (principal); E11.65 Type 2 diabetes mellitus with hyperglycemia; I10 Essential (primary) hypertension
CPT/HCPCS: 36415; 70450; 71010; 80053; 82150; 82962; 83036; 83690; 84484; 85025; 85610; 85730; 93005; 93306; 96372; 96374; G0378; J0360; J1650; J1815; J2405; J7030

== ENCOUNTER 2018-01-13 23:34 | Emergency (ER) | END 2018-01-14 02:07 | disposition home or self-care (01) ==

== ENCOUNTER 2018-05-09 02:19 | Inpatient (IN) | END 2018-05-15 18:18 | disposition home or self-care (01) | DRG 571 ==

== ENCOUNTER 2018-10-23 08:53 | Emergency (ER) | payer MEDICARE, OTHER ==
[~2018-10-23] VITALS: Ht 170.2 cm; Wt 90.1 kg
[~2018-10-23 08:53] MED LIST changes: +ACET500C5 PO; +AMLO-147 PO; -ASPI-664 PO; +ASPI-817 PO; +CIPR750T3 PO; +HYDR-3601 PO; +Insulin Glargine SC; -LANT3I SC; +LISI-471 PO; -LISI20TA11 PO; -MECL12.574 PO; +METO-335 PO; +OFLO5DRO46 BOTH EYES
[2018-10-23 08:59] VITALS: Ht 170.2 cm; Wt 90.1 kg
--- NOTE | 2018-10-23 09:59 | ERD ---
ER Documentation Chief Complaint Chief Complaint diabetic foot ( left toe) HPI 63-year-old man complaining of pain swelling, ulcer to the right foot times a few months, states it is getting worse. He has pressure ulcer to the plantar aspect of the ball of the right foot and has had discharge for the last few months, states his last course of antibiotics was about a year ago. Patient denies fevers or chills, no vomiting or diarrhea, no chest pain or shortness of breath. ROS All systems reviewed and are negative except as per history of present illness. Medications Home Meds Active Scripts Sulfamethoxazole/Trimethoprim* (Bactrim Ds* Tablet) 1 Each Tablet, 1 TAB PO DAILY, #10 TAB Prov:ONEIDA SOUSA MD 10/23/18 Cephalexin* (Keflex*) 500 Mg Capsule, 500 MG PO QID for 10 Days, CAP Prov:ONEIDA SOUSA MD 10/23/18 Reported Medications Insulin Glargine,Hum.rec.anlog (Basaglar Kwikpen U-100) 100 Unit/1 Ml Insuln.pen, 50 UNIT SC QHS, EA 10/23/18 Insulin Lispro (Humalog Kwikpen U-100) 100 Unit/1 Ml Insuln.pen, 20 UNIT SQ BID WITH MEALS, EA 10 MINUTES BEFORE MEALS 10/23/18 Atorvastatin* (Atorvastatin*) 40 Mg Tablet, 40 MG PO QHS, #30 TAB 10/23/18 Sitagliptin* (Januvia*) 100 Mg Tablet, 100 MG PO DAILY, #30 TAB 10/23/18 Metoprolol Succinate* (Toprol XL*) 25 Mg Tab.sr.24h, 25 MG PO DAILY, #30 TAB 05/09/18 Amlodipine Besylate* (Amlodipine Besylate*) 10 Mg Tablet, 10 MG PO DAILY, #30 TAB 05/09/18 Aspirin* (Aspirin* EC) 81 Mg Tablet.dr, 81 MG PO DAILY, TAB 09/07/16 Gabapentin* (Gabapentin*) 300 Mg Capsule, 300 MG PO TID, #90 CAP 09/07/16 Lisinopril* (Lisinopril*) 20 Mg Tablet, 20 MG PO DAILY, #30 TAB 09/07/16 Discontinued Reported Medications Ofloxacin* (Ocuflox*) 0.3%-5 Ml Ophth Drops, 1 DROP BOTH EYES QID, BOTTLE 05/09/18 Discontinued Scripts Ciprofloxacin Hcl* (Ciprofloxacin Hcl*) 750 Mg Tablet, 750 MG PO BID for 7 Days, #14 TAB Prov:LINDSEY CAMPBELL. 05/15/18 [Insulin Glargine] 100 UNITS/ML SOLN No Conflict Check, 32 UNITS SC QHS, #1 BOTTLE 3 Refills Prov:LINDSEY CAMPBELL S. 05/15/18 Hydrocodone Bit-Acetaminophen (Hydrocodone Bit-APAP) 5-325MG Tablet, 1 TAB PO Q6H PRN for MODERATE PAIN LEVEL 4-6, #14 TAB Prov:LINDSEY CAMPBELL S. 05/15/18 Sitagliptin Phos/Metformin HCl (Janumet 50-1,000 mg Tablet) 1 Each Tablet, 1 EACH PO WITH BREAKFAST DINNE, #60 TAB 3 Refills Prov:LINDSEY CAMPBELL S. 05/15/18 Acetaminophen* (Tylophen*) 500 Mg Capsule, 1 CAP PO Q6H PRN for PAIN AND OR ELEVATED TEMP, #20 CAP Prov:BHUMI PATTEN NP 01/14/18 Allergies Allergies: Coded Allergies: No Known Allergy (Unverified , 10/23/18) PMhx/Soc Chronic lower extremity ulcerations, hypertension, diabetes mellitus History of Surgery: No Anesthesia Reaction: No Hx Neurological Disorder: No Hx Respiratory Disorders: No Hx Cardiac Disorders: Yes (HTN) Hx Psychiatric Problems: No Hx Miscellaneous Medical Probl: No Hx Alcohol Use: No Hx Substance Use: No Hx Tobacco Use: No FmHx Family History: diabetes Physical Exam Vitals Vital Signs Date Temp Pulse Resp B/P (MAP) Pulse Ox O2 O2 Flow FiO2 Time Delivery Rate 10/23/18 57 16 164/89 98 Room Air 11:48 (114) 10/23/18 97.4 78 18 188/93 97 08:59 (124) Physical Exam GENERAL: Well-developed, well-nourished, well-hydrated, afebrile, no apparent distress HEENT: Moist mucous membranes, pink conjunctiva, no cervical spine tenderness or step-off deformities, no goiter, no jaundice or icterus, extraocular movements intact without pain. No submandibular induration, and no pharyngeal erythema CARDIAC: Regular rate and rhythm, no murmurs rubs or gallops LUNGS: Clear bilaterally no wheezing crackles or stridor SKIN: Warm and dry to touch, quarter sized circular ulcer to the plantar aspect of the right foot near the first MTP joint, no purulent discharge or surrounding skin induration noted EXTREMITIES: No clubbing cyanosis, 1+ pitting edema in the lower extremities bilaterally. Calves are bilaterally symmetrical, no Homans sign, no popliteal cord sign. Distal pulses equal and bilateral PSYCH: Normal affect without agitation or irritability Result Diagram: 10/23/18 1042 10/23/18 1042 Results 24 hrs Laboratory Tests Test 10/23/18 10:42 10/23/18 11:43 White Blood Count 7.4 10^3/ul Red Blood Count 4.27 10^6/ul Hemoglobin 12.7 g/dl Hematocrit 35.9 % Mean Corpuscular Volume 84.1 fl Mean Corpuscular Hemoglobin 29.7 pg Mean Corpuscular Hemoglobin Concent 35.4 g/dl Red Cell Distribution Width 13.0 % Platelet Count 209 10^3/UL Mean Platelet Volume 12.0 fl Immature Granulocytes % 0.500 % Neutrophils % 74.8 % Lymphocytes % 15.3 % Monocytes % 5.4 % Eosinophils % 3.6 % Basophils % 0.4 % Nucleated Red Blood Cells % 0.0 /100WBC Immature Granulocytes # 0.040 10^3/ul Neutrophils # 5.6 10^3/ul Lymphocytes # 1.1 10^3/ul Monocytes # 0.4 10^3/ul Eosinophils # 0.3 10^3/ul Basophils # 0.0 10^3/ul Nucleated Red Blood Cells # 0.0 10^3/ul Sodium Level 133 mmol/L Potassium Level 4.8 mmol/L Chloride Level 102 mmol/L Carbon Dioxide Level 25 mmol/L Anion Gap 6 Blood Urea Nitrogen 20 mg/dl Creatinine 1.33 mg/dl Est Glomerular Filtrat Rate mL/min 54 mL/min Glucose Level 484 mg/dl Calcium Level 8.4 mg/dl Total Bilirubin 0.4 mg/dl Direct Bilirubin 0.00 mg/dl Indirect Bilirubin 0.4 mg/dl Aspartate Amino Transf (AST/SGOT) 22 IU/L Alanine Aminotransferase (ALT/SGPT) 21 IU/L Alkaline Phosphatase 170 IU/L Total Protein 6.1 g/dl Albumin 2.8 g/dl Globulin 3.30 g/dl Albumin/Globulin Ratio 0.84 Lipase 67 U/L Bedside Glucose 425 mg/dL Current Medications Medications Dose Sig/Leelee Start Time Status Last (Trade) Ordered Route PRN Stop Time Admin Dose Reason Admin Clonidine 0.1 mg ONCE ONCE 10/23/18 DC 10/23/18 (Catapres) PO 10:30 10:35 10/23/18 10:31 Sodium 500 ml @ Q1H STAT 10/23/18 DC 10/23/18 Chloride 500 mls/hr IV 10:04 10:34 10/23/18 11:03 Ketorolac 15 mg ONCE STAT 10/23/18 DC 10/23/18 Tromethamine IV 10:04 10:35 (Toradol) 10/23/18 10:07 Insulin 12 unit ONCE ONCE 10/23/18 DC 10/23/18 Human SC 11:30 11:46 Lispro 10/23/18 11:31 (Humalog) Procedures/MDM IV line was established patient was placed on monitoring coordinator rhythm strip revealed a sinus rhythm at about 80 bpm with upright P and T waves. Patient was afebrile, wound cultures have been ordered results are pending I will follow-up. I administered Toradol 15 mg IV x1 and clonidine 0.1 mg p.o. for hypertension. X-ray left foot 3V Interpreted by me: Bones: No fracture Joints: Arthritic changes noted throughout the foot Foreign body: None CBC and electrolytes were unremarkable although blood sugar was elevated at 484, no signs of DKA. Liver function tests were normal Patient also received 1 L normal saline IV and lispro insulin subcutaneous injection. Patient's blood sugar improved and is falling and he has no complaints of pain. He is able to ambulate without difficulty and will be given a prescription for 2 separate antibiotics times 10 days and I recommend that he follow-up at wound clinic on fourth floor. Patient also has a PMD. Differential diagnoses considered, included but not limited to acute coronary syndrome, pulmonary embolism, aortic dissection, abdominal aortic aneurysm, sepsis, stroke, meningitis, encephalitis, pneumonia, appendicitis, cholecystitis, bowel obstruction, pyelonephritis, nephrolithiasis, cystitis, as well as metabolic, hematologic, and electrolyte abnormalities. As well as abscess, cellulitis, fractures, and dislocations. Patient feels much better at this time, and vital signs are normal, symptoms have improved. I did give strict instructions to return to the ED if symptoms continue or worsen, patient will otherwise follow-up with primary care physician. Patient understood instructions and agreed to plan. Disclaimer: Inadvertent spelling and grammatical errors are likely due to EHR/dictation software use and do not reflect on the overall quality of patient care. Also, please note that the electronic time recorded on this note does not necessarily reflect the actual time of the patient encounter. Departure Diagnosis: Primary Impression: Diabetic foot ulcer Diabetic foot ulcer location: toe Diabetes mellitus type: type 2 Laterality: left Non-pressure ulcer stage: limited to breakdown of skin Qualified Codes: E11.621 - Type 2 diabetes mellitus with foot ulcer; L97.521 - Non-pressure chronic ulcer of other part of left foot limited to breakdown of skin Additional Impression: Hyperglycemia Condition: Good ONEIDA SOUSA MD Oct 23, 2018 09:59
[2018-10-23] MEDS ORDERED: SOD CHLORIDE 0.9% 500 ML IV STA (10:04)
[2018-10-23] MEDS ORDERED: KETOROLAC 15 MG INJ IV STA (10:04)
[2018-10-23] MEDS ORDERED: SITA100T11 PO (10:32)
[2018-10-23] MEDS ORDERED: ATOR40TA68 PO (10:33)
[2018-10-23] MEDS ORDERED: INSU100I12 SQ (10:34)
[2018-10-23] MEDS ORDERED: INSU100I33 SC (10:35)
[2018-10-23] MEDS ORDERED: INSULIN LISPRO 100 UNIT/ML VIAL SC ONE (11:30)
[2018-10-23] MEDS ORDERED: SULF1TAB31 PO (12:43)
[2018-10-23] MEDS ORDERED: CEPH-443 PO (12:43)
[2018-10-23] MEDS ORDERED: INSULIN REGULAR, HUMAN 100 UNIT/1 ML 3ML VIAL IVP STA (13:22)
[2018-10-23] MEDS ORDERED: SOD CHLORIDE 0.9% 1,000 ML IV ONE (13:30)
[2018-10-23] MEDS ORDERED: DEXTROSE 50% 50 ML SYRINGE IV PRN (13:30)
[2018-10-23 14:36] VITALS: BP 143/78; PULSE 72; RESP 18
== END 2018-10-23 14:38 | disposition home or self-care (01) ==
LOC: E/R 08:53
DX: E11.621 Type 2 diabetes mellitus with foot ulcer (principal); L97.521 Non-pressure chronic ulcer of other part of left foot limited to breakdown of skin; E11.65 Type 2 diabetes mellitus with hyperglycemia; I10 Essential (primary) hypertension
CPT/HCPCS: 36415; 73630; 80053; 82962; 83690; 85025; 87070; 96372; 96374; 96375; 99284; J1815; J1885; J7030; J7040

== ENCOUNTER 2018-12-24 11:18 | Inpatient (IN) | payer MEDICARE, OTHER ==
[~2018-12-24] VITALS: Ht 172.7 cm; Wt 87.8 kg
[~2018-12-24 11:18] MED LIST changes: -ACET500C5 PO; +ATOR40TA68 PO; +CEPH-443 PO; -CIPR750T3 PO; -HYDR-3601 PO; +INSU100I12 SQ; +INSU100I33 SC; -Insulin Glargine SC; -OFLO5DRO46 BOTH EYES; +SITA100T11 PO; -SITA1TAB5 PO; +SULF1TAB31 PO
[2018-12-24] MEDS ORDERED: VANCOMYCIN 1 GM (PMX) 250 ML IVPB ONE (12:30)
[2018-12-24] MEDS ORDERED: PIPER-TAZO 3.375 GM IV (PMX) 100 ML IVPB ONE (12:30)
[2018-12-24] MEDS ORDERED: morphine 2 MG INJ IV PRN (13:00)
[2018-12-24] MEDS ORDERED: DOCUSATE SODIUM 100 MG CAP PO PRN (13:00)
[2018-12-24] MEDS ORDERED: MAGNESIUM HYDROXIDE 30ML CUP PO PRN (13:00)
[2018-12-24] MEDS ORDERED: HYDROCODONE/APAP (5/325) TAB PO PRN ×2 (13:00)
[2018-12-24] MEDS ORDERED: ONDANSETRON 4 MG INJ IV PRN (13:00)
[2018-12-24] MEDS ORDERED: NACL 0.9% 3 ML SYG IV SCH (13:00)
[2018-12-24] MEDS ORDERED: INSULIN LISPRO 100 UNIT/ML VIAL SC ONE (13:30)
[2018-12-24] MEDS ORDERED: VANCOMYCIN IV PER PHARMACY XX SCH (13:30)
[2018-12-24] MEDS ORDERED: SOD CHLORIDE 0.9% 1,000 ML IV ONE (13:30)
[2018-12-24] MEDS ORDERED: ACCU-CHEK XX ONE (13:30)
--- NOTE | 2018-12-24 13:50 | HP ---
Date/Time of Note Date/Time of Note DATE: 12/24/18 TIME: 13:35 Assessment/Plan VTE Prophylaxis SCD applied (from Nsg): Yes Pharmacological prophylaxis: NA/contraindicated Pharm contraindication: low risk/ambulating Lines/Catheters IV Catheter Type (from Nrsg): Saline Lock Assessment/Plan Assessment/Plan 1. Right toe abrasion/erythema - Patient failed outpatient antibiotics with increase in swelling - ID consulted for antibiotic recommendations - Podiatry consulted for recommendations - Continue broad spectrum IV antibiotic - Xray results noted but will order MRI to rule out osteomyelitis - pain control 2. Uncontrolled diabetes Mellitus - A1c noted, 13 - Diabetic education consultation placed - Lantus continued and will adjust as needed - ISS and accuchecks 3. MAMTA on ?CKD - possibly secondary to ATN but in setting of poorly controlled sugars will check renal US for medical disease - IVF on board and avoid nephrotoxic agents - will hold PASHA inhibitor - If no improvement, will consult nephrology 4. Hyponatremia - due to hyperglycemia. Corrected Na is 138 5. Anemia - will check iron levels - most likely in setting of infection and chronic disease 6. Diet - Carb controlled 7. DVT ppx - SCD 8. Disposition - Admit to Med/surg for treatment and evaluation of right toe ulcer Result Diagram: 12/24/18 1216 12/24/18 1216 Results 24hrs Laboratory Tests Test 12/24/18 12:16 12/24/18 12:17 White Blood Count 15.5 #H Red Blood Count 4.17 L Hemoglobin 12.5 L Hematocrit 35.8 L Mean Corpuscular Volume 85.9 Mean Corpuscular Hemoglobin 30.0 Mean Corpuscular Hemoglobin Concent 34.9 Red Cell Distribution Width 12.2 Platelet Count 275 # Mean Platelet Volume 12.2 H Immature Granulocytes % 0.500 H Neutrophils % 88.6 H Lymphocytes % 4.8 L Monocytes % 5.7 Eosinophils % 0.1 Basophils % 0.3 Nucleated Red Blood Cells % 0.0 Immature Granulocytes # 0.070 H Neutrophils # 13.7 H Lymphocytes # 0.8 Monocytes # 0.9 Eosinophils # 0.0 Basophils # 0.0 Nucleated Red Blood Cells # 0.0 Sodium Level 127 L Potassium Level 4.5 Chloride Level 96 L Carbon Dioxide Level 24 Anion Gap 7 Blood Urea Nitrogen 27 H Creatinine 1.75 H Est Glomerular Filtrat Rate mL/min 39 L Glucose Level 562 *H Hemoglobin A1c 13.2 H Calcium Level 8.0 L Total Bilirubin 0.5 Direct Bilirubin 0.00 Indirect Bilirubin 0.5 Aspartate Amino Transf (AST/SGOT) 17 Alanine Aminotransferase (ALT/SGPT) 14 Alkaline Phosphatase 175 H Total Protein 6.1 Albumin 2.7 L Globulin 3.40 H Albumin/Globulin Ratio 0.79 Urine Color YELLOW Urine Clarity SLIGHTLY CLOUDY A Urine pH 6.0 Urine Specific [place] 1.025 Urine Ketones TRACE A Urine Nitrite NEGATIVE Urine Bilirubin NEGATIVE Urine Urobilinogen NEGATIVE Urine Leukocyte Esterase NEGATIVE Urine Microscopic RBC 6 H Urine Microscopic WBC 2 Urine Hemoglobin 1+ H Urine Glucose 3+ H Urine Total Protein 3+ H HPI/ROS Admit Date/Time Admit Date/Time 12/24/18 Hx of Present Illness 63 yo M with PMH Diabetes mellitus, HTN, and HLD presented to ED with worsening swelling and redness of right 4th toe over the last 2 weeks. Patient believes its secondary to irritation from his shoes. Denies any severe pain and sensation is intact. Denies any fevers, chills, nausea, vomiting, chest pain, shortness of breath, abdominal issues, or urinary issues. He does not follow with a anchorer regularly. He tried outpatient PO antibiotics with no improvement in erythema and swelling. ROS All 12 systems reviewed and pertinent positives as per HPI. All others negative. Constitutional: No chills, No fatigue, No nausea Eyes: No discharge ENT: No congestion Respiratory: No cough, No shortness of breath, No sputum, No wheezing Cardiovascular: No chest pain, No lightheadedness, No palpitations Gastrointestinal: No pain, No constipation, No diarrhea, No nausea, No vomiting Genitourinary: no complaints Musculoskeletal: swelling (right foot swelling lateral aspect) Skin: erythema, skin lesions Neurologic: No confusion, No focal-weakness, No syncope Endocrine: no complaints Lymphatic: no complaints Psychological: nl mood/affect Immunologic: no complaints PMH/Family/Social Past Medical History Medical History: diabetes, high cholesterol, hypertension Medications Current Medications Vancomycin HCl 250 ml @ 125 mls/hr ONCE ONCE IVPB ; Start 12/24/18 at 12:30; Stop 12/24/18 at 14:29 Amlodipine Besylate (Norvasc) 10 mg DAILY PO ; Start 12/25/18 at 09:00; Status UNV Aspirin (Halfprin) 81 mg DAILY PO ; Start 12/25/18 at 09:00; Status UNV Atorvastatin Calcium (Lipitor) 40 mg QHS PO ; Start 12/24/18 at 21:00; Status UNV Gabapentin (Neurontin) 300 mg TID PO ; Start 12/24/18 at 13:00; Status UNV Metoprolol Succinate (Toprol Xl) 25 mg DAILY PO ; Start 12/25/18 at 09:00; Status UNV IV Flush (NS 3 ml) 3 ml PER PROTOCOL IV ; Start 12/24/18 at 13:00; Status UNV Ondansetron HCl (Zofran Inj) 4 mg Q6H PRN IV NAUSEA/VOMITING; Start 12/24/18 at 13:00; Status UNV Acetaminophen (Tylenol Tab) 650 mg Q6H PRN PO .PAIN 1-3 OR TEMP; Start 12/24/18 at 13:00; Status UNV Acetaminophen/ Hydrocodone Bitart ([place] (5/325)) 1 tab Q6H PRN PO .MOD PAIN 4- 6; Start 12/24/18 at 13:00; Status UNV Acetaminophen/ Hydrocodone Bitart (Vining (5/325)) 2 tab Q6H PRN PO .SEVERE PAIN 7-10; Start 12/24/18 at 13:00; Status UNV Morphine Sulfate (morphine) 2 mg Q4H PRN IV .SEVERE PAIN 7-10; Start 12/24/18 at 13:00; Status UNV Docusate Sodium (Colace) 100 mg Q12H PRN PO .CONSTIPATION; Start 12/24/18 at 13:00; Status UNV Magnesium Hydroxide (Milk Of Mag) 30 ml DAILY PRN PO .CONSTIPATION; Start 12/24/18 at 13:00; Status UNV Vancomycin HCl (Vanco Iv Per Pharmacy) VANCOMYCIN PER PHARMACY PER PROTOCOL XX ; Start 12/24/18 at 13:30; Status UNV Piperacillin Sod/ Tazobactam Sod 100 ml @ 200 mls/hr Q8 IVPB ; Start 12/24/18 at 14:00; Status UNV Sodium Chloride 1,000 ml @ 1,000 mls/hr Q1H ONCE IV ; Start 12/24/18 at 13:30; Stop 12/24/18 at 14:29 Insulin Glargine (Lantus) 35 unit BID SC ; Start 12/24/18 at 21:00; Status UNV Sodium Chloride 1,000 ml @ 75 mls/hr [id number] IV ; Start 12/24/18 at 14:00; Status UNV Insulin Aspart (Novolog Insulin Pen) NOVOLOG *MODERATE* ALGORITHM WITH MEALS BEDTIME SC ; Start 12/24/18 at 18:00; Status UNV Miscellaneous Information (* Miscellaneous Pharmacy Order) Discontinue all previ... ONCE ONCE XX ; Start 12/24/18 at 14:00; Stop 12/24/18 at 14:01; Status UNV Coded Allergies: No Known Allergy (Unverified , 10/23/18) Past Surgical History Past Surgical Hx: no surgical history Family History Significant Family History: no pertinent family hx Social History Alcohol Use: none Smoking Status: Never smoker Drug Use: none Exam/Review of Systems Vital Signs Vitals Vital Signs Date Temp Pulse Resp B/P (MAP) Pulse Ox O2 O2 Flow FiO2 Time Delivery Rate 12/24/18 98.6 88 16 168/82 99 11:23 (110) Exam Exam General: Patient is well-developed well-nourished. no acute distress. HEENT: Atraumatic, normocephalic. The pupils are equal, round and reactive. Extraocular motor are intact Neck: Supple with full range of motion. No rigidity or meningismus Chest: Nontender Lungs: Clear to auscultation bilaterally no crackles rales or wheezing Heart: Normal S1-S2, Regular rhythm and rate. No murmur, S3, or S4 Abdomen: Soft , nontender, nondistended , bowel sounds are present. No guarding no rebound tenderness , No masses or organomegaly. No costovertebral temporal angle mass Extremities: moving all extremities. no edema or clubbing appreciated. Skin: demarcated area of erythema right lateral aspect of foot. Abrasion appreciated right 4th toe with erythema, swelling, and purple hue. no purulent drainage appreciated. Neurologic: Normal mental status, speech normal, cranial nerves II through XII are intact, motor and sensory are intact, no focal weakness Additional Comments Home medications reviewed PROCEDURE: XR RIGHT FOOT. CLINICAL INDICATION: Toe pain. Injury. History of diabetes. TECHNIQUE: Three views of the right foot were obtained. COMPARISON: No prior studies are available for comparison. FINDINGS: There is mild arthrosis of the first metatarsal phalangeal joint and minimal hallux valgus. No evidence for fracture. Atherosclerotic calcifications are seen. No evidence for bone destructive or erosive change. There is calcaneal en thesopathy.. IMPRESSION: 1. No fracture identified. 2. Calcaneal enthesopathy. 3. No evidence for bone destructive or erosive change. 4. Atherosclerosis. RPTAT: XX .Suman Flores MD, MD Date Time Electronically viewed and signed by .Suman Flores MD, MD on 12/24/2018 13:12 JAD POWERS MD December 24, 2018 13:50
[2018-12-24 15:09] VITALS: Ht 172.7 cm; Wt 87.8 kg
[2018-12-24 15:24] VITALS: BP 143/74; PULSE 77; RESP 18
[2018-12-24] MEDS ORDERED: GLUCOSE GEL 15 GRAM TUBE BUCCAL PRN (15:30)
[2018-12-24] MEDS ORDERED: GLUCOSE GEL 15 GRAM TUBE PO PRN ×2 (15:30)
[2018-12-24] MEDS ORDERED: GLUCAGON 1 MG INJ IM PRN (15:30)
[2018-12-24] MEDS ORDERED: DEXTROSE 50% 50 ML SYRINGE IV PRN ×2 (15:30)
[2018-12-24] MEDS: GABAPENTIN 300 MG CAP PO SCH ×2 (15:55→22:08)
[2018-12-24] MEDS ORDERED: VANCOMYCIN 750 MG (PMX) 250 ML IVPB SCH (16:00)
[2018-12-24] MEDS: SOD CHLORIDE 0.9% 1,000 ML IV SCH ×2 (16:09→18:50)
--- NOTE | 2018-12-24 16:23 | ERD ---
ER Documentation Chief Complaint Chief Complaint rt foot pain x 2 weeks from injury from shower door HPI Patient is a 63-year-old male with past medical history of DM type II, insulin- dependent with poor compliance, hypertension, hyperlipidemia, who presents to the ER for concerns of discoloration and skin peeling of his right fourth toe. Patient states for last 2 weeks he is noticed that his fourth toe has been "purple". Patient states he was drying his toe off today after showering and the skin peeled off. Patient states he often does not feel pain on his foot pain on his feet patient states that he often does not feel pain on his feet secondary to diabetic neuropathy. Patient denies any fevers or chills. Patient denies any falls or trauma. ROS All systems reviewed and are negative except as per history of present illness. Medications Home Meds Active Scripts Sulfamethoxazole/Trimethoprim* (Bactrim Ds* Tablet) 1 Each Tablet, 1 TAB PO DAILY, #10 TAB Prov:ONEIDA SOUSA MD 10/23/18 Cephalexin* (Keflex*) 500 Mg Capsule, 500 MG PO QID for 10 Days, CAP Prov:ONEIDA SOUSA MD 10/23/18 Reported Medications Insulin Glargine,Hum.rec.anlog (Basaglar Kwikpen U-100) 100 Unit/1 Ml Insuln.pen, 50 UNIT SC QHS, EA 10/23/18 Insulin Lispro (Humalog Kwikpen U-100) 100 Unit/1 Ml Insuln.pen, 20 UNIT SQ BID WITH MEALS, EA 10 MINUTES BEFORE MEALS 10/23/18 Atorvastatin* (Atorvastatin*) 40 Mg Tablet, 40 MG PO QHS, #30 TAB 10/23/18 Sitagliptin* (Januvia*) 100 Mg Tablet, 100 MG PO DAILY, #30 TAB 10/23/18 Metoprolol Succinate* (Toprol XL*) 25 Mg Tab.sr.24h, 25 MG PO DAILY, #30 TAB 05/09/18 Amlodipine Besylate* (Amlodipine Besylate*) 10 Mg Tablet, 10 MG PO DAILY, #30 TAB 05/09/18 Aspirin* (Aspirin* EC) 81 Mg Tablet.dr, 81 MG PO DAILY, TAB 09/07/16 Gabapentin* (Gabapentin*) 300 Mg Capsule, 300 MG PO TID, #90 CAP 2/1/17 Lisinopril* (Lisinopril*) 20 Mg Tablet, 20 MG PO DAILY, #30 TAB 09/07/16 Allergies Allergies: Coded Allergies: No Known Allergy (Unverified , 10/23/18) PMhx/Soc History of Surgery: No Anesthesia Reaction: No Hx Neurological Disorder: No Hx Respiratory Disorders: No Hx Cardiac Disorders: Yes (HTN, HLD) Hx Psychiatric Problems: No Hx Miscellaneous Medical Probl: No Hx Alcohol Use: No Hx Substance Use: No Hx Tobacco Use: No Smoking Status: Never smoker FmHx Family History: diabetes Physical Exam Vitals Vital Signs Date Temp Pulse Resp B/P (MAP) Pulse Ox O2 O2 Flow FiO2 Time Delivery Rate 12/24/18 98.6 88 16 168/82 99 11:23 (110) Physical Exam GENERAL: Well-developed, well-nourished male. Appears in no acute distress. HEAD: Normocephalic, atraumatic. EYES: Pupils are equally reactive bilaterally. EOMs grossly intact. No conjunctival erythema. ENT: Moist mucous membranes. No uvula deviation. No kissing tonsils. NECK: Supple. No meningismus. Normal range of motion of the neck. LUNG: Clear to auscultation bilaterally. No rhonchi, wheezing, rales or coarse breath sounds. HEART: Regular rate and rhythm. No murmurs, rubs or gallops. EXTREMITIES: Equal pulses bilaterally. No peripheral clubbing, cyanosis or edema. No unilateral leg swelling. NEUROLOGIC: Alert and oriented. Moving all four extremities without any difficulty. Normal speech. Steady gait. SKIN: 4th toe discoloration noted. Toe appears to be purple in color. Skin a vulsion with macerated skin noted to the fourth right digit. No bleeding or purulent drainage at this time. 14cm x 5 cm area redness and swelling noted down to the midfoot. No streaking. Mild warmth. Area was marked and dated. Result Diagram: 12/24/18 1216 12/24/18 1216 Results 24 hrs Laboratory Tests Test 12/24/18 12:16 12/24/18 12:17 White Blood Count 15.5 10^3/ul Red Blood Count 4.17 10^6/ul Hemoglobin 12.5 g/dl Hematocrit 35.8 % Mean Corpuscular Volume 85.9 fl Mean Corpuscular Hemoglobin 30.0 pg Mean Corpuscular Hemoglobin Concent 34.9 g/dl Red Cell Distribution Width 12.2 % Platelet Count 275 10^3/UL Mean Platelet Volume 12.2 fl Immature Granulocytes % 0.500 % Neutrophils % 88.6 % Lymphocytes % 4.8 % Monocytes % 5.7 % Eosinophils % 0.1 % Basophils % 0.3 % Nucleated Red Blood Cells % 0.0 /100WBC Immature Granulocytes # 0.070 10^3/ul Neutrophils # 13.7 10^3/ul Lymphocytes # 0.8 10^3/ul Monocytes # 0.9 10^3/ul Eosinophils # 0.0 10^3/ul Basophils # 0.0 10^3/ul Nucleated Red Blood Cells # 0.0 10^3/ul Sodium Level 127 mmol/L Potassium Level 4.5 mmol/L Chloride Level 96 mmol/L Carbon Dioxide Level 24 mmol/L Anion Gap 7 Blood Urea Nitrogen 27 mg/dl Creatinine 1.75 mg/dl Est Glomerular Filtrat Rate mL/min 39 mL/min Glucose Level 562 mg/dl Hemoglobin A1c 13.2 % Calcium Level 8.0 mg/dl Total Bilirubin 0.5 mg/dl Direct Bilirubin 0.00 mg/dl Indirect Bilirubin 0.5 mg/dl Aspartate Amino Transf (AST/SGOT) 17 IU/L Alanine Aminotransferase (ALT/SGPT) 14 IU/L Alkaline Phosphatase 175 IU/L Total Protein 6.1 g/dl Albumin 2.7 g/dl Globulin 3.40 g/dl Albumin/Globulin Ratio 0.79 Urine Color YELLOW Urine Clarity SLIGHTLY CLOUDY Urine pH 6.0 Urine Specific [place] 1.025 Urine Ketones TRACE mg/dL Urine Nitrite NEGATIVE mg/dL Urine Bilirubin NEGATIVE mg/dL Urine Urobilinogen NEGATIVE mg/dL Urine Leukocyte Esterase NEGATIVE [place]/ul Urine Microscopic RBC 6 /HPF Urine Microscopic WBC 2 /HPF Urine Hemoglobin 1+ mg/dL Urine Glucose 3+ mg/dL Urine Total Protein 3+ mg/dl Current Medications Medications Dose Sig/Leelee Start Time Status Last (Trade) Ordered Route PRN Stop Time Admin Dose Reason Admin Piperacillin 100 ml @ ONCE ONCE 12/24/18 DC 12/24/18 Sod/ 200 mls/hr IVPB 12:30 12:46 Tazobactam 12/24/18 12:59 Sod Vancomycin 250 ml @ ONCE ONCE 12/24/18 DC 12/24/18 HCl 125 mls/hr IVPB 12:30 13:35 12/24/18 14:29 Procedures/MDM ED COURSE: The patient was stable throughout ED course. I kept the patient and/or family informed of laboratory and diagnostic imaging results throughout the ED course. DIAGNOSTIC IMAGING: Read by radiologist. DIAGNOSTIC IMAGING REPORT Patient: TC CID : [id number] Age: 63 Sex: M MR #: [id number] DOS: 12/24/18 1212 Ordering MD: SASHA PEPE PA-C Location: [facility] Room/Bed: PROCEDURE: XR RIGHT FOOT. CLINICAL INDICATION: Toe pain. Injury. History of diabetes. TECHNIQUE: Three views of the right foot were obtained. COMPARISON: No prior studies are available for comparison. FINDINGS: There is mild arthrosis of the first metatarsal phalangeal joint and minimal hallux valgus. No evidence for fracture. Atherosclerotic calcifications are seen. No evidence for bone destructive or erosive change. There is calcaneal enthesopathy.. IMPRESSION: 1. No fracture identified. 2. Calcaneal enthesopathy. 3. No evidence for bone destructive or erosive change. 4. Atherosclerosis. RPTAT: XX .Suman Flores MD, MD Date Time Electronically viewed and signed by .Suman Flores MD, MD on 12/24/2018 13:12 .T/ CC: SASHA PEPE PA-C [id number] PROCEDURES: None. MEDICATIONS GIVEN: Zosyn, vancomycin, IV fluids, Humalog Patient tolerated medication well with no adverse reactions. Patient reported improvement in pain. MEDICAL DECISION MAKING: Patient is a 63-year-old male with past medical history of DM type II, insulin- dependent with poor compliance, hypertension, hyperlipidemia, presents the ER for concerns of right 4th toe discoloration as well as swelling and redness to his right foot. Patient denies any fevers or chills. Vital signs were reviewed. Patient is afebrile. Patient was not hypoxic. Patient was hemodynamically stable. Patient was nontoxic in appearance. IV line was established. Blood work was obtained. Patient's WBC count was noted to be 15.5. Hemoglobin was noted to be 12.5, hematocrit of 35.8. CBC showed no evidence of systemic infection or severe anemia. CMP showed sodium of 127, chloride of 96, BUN of 24, creatinine of 1.75, GFR of 39, glucose of 56. Liver enzymes within normal limits. Bicarb is within normal limits. Urine did show trace ketones and 3+ glucose. No evidence of DKA at this time. Patient was given IV fluids and Humalog for concerns of hyperglycemia. Patient also has signs of acute renal injury. Likely due to dehydration and poor diabetes control however patient will require further work-up. X-ray imaging of the foot was unremarkable. No evidence of fracture dislocation. Case was discussed with supervising physician Dr. Sousa. Dr. Sousa will assist with admitting patient to the appropriate hospitalist team. Patient will be admitted for further management and work-up of his toe necrosis, cellulitis of his foot, hyperglycemia, acute renal injury. Patient was given Zosyn and vancomycin here in the ER prior to being admitted. Blood cultures were obtained prior to antibiotic administration. Patient was stable throughout ED course. Low suspicion for sepsis at this time. Departure Diagnosis: Primary Impression: Toe necrosis Additional Impressions: Hyperglycemia Cellulitis of foot, right Dehydration Uncontrolled diabetes mellitus Diabetes mellitus type: other specified (including CARMEN) Glycemic state: with hyperglycemia Qualified Codes: E13.65 - Other specified diabetes mellitus with hyperglycemia Acute renal injury Condition: SASHA Jay PA-C December 24, 2018 16:23
--- NOTE | 2018-12-24 17:29 | CONS ---
Assessment/Plan Assessment/Plan Assessment/Plan (Daily) Diabetic foot ulcers b/l R foot cellulitis DM2 with peripheral neuropathy MAMTA on CKD Leukocytosis Anemia Plan Consent was obtained and performed excisional debridement of left foot ulcer of skin/subQ using a scalpel blade. Biofilm and hyperkeratotic tissue was removed. 1cm2 of area was debrided. Wound cultures were obtained of the right 4th digit wound site. Plan for OR debridement tomorrow for right 4th digit. NPO after midnight tonight and prepare consent. Dressing instructions provided to the nursing staff. 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 Continue with IV abx as recommended. Non invasive arterial studies ordered. X-rays ordered and reviewed, MRI studies pending. Consultation Date/Type/Reason Admit Date/Time 12/24/18 Date/Time of Note DATE: 12/24/18 TIME: 17:17 Hx of Present Illness 63 y/o diabetic M patient presents to the floor with bilateral wounds to his feet. Patient states his shoes were causing a lot of friction rubbing and leading to ulcerations of both feet. Patient states ulcerations began 2 weeks ago. Patient had attempted conservative local wound care but did not appreciate any improvement. Patient states he had previously followed up in the wound care clinic but has not returned for some time. Denies any fevers, chills, nausea, vomiting, chest pain, shortness of breath, abdominal issues, or urinary issues. He does not follow with a family practitioner regularly. He tried outpatient PO antib iotics with no improvement in erythema and swelling. ROS Negative except for HPI Past Medical History Medical History: diabetes, high cholesterol, hypertension Home Meds Active Scripts Sulfamethoxazole/Trimethoprim* (Bactrim Ds* Tablet) 1 Each Tablet, 1 TAB PO DAILY, #10 TAB Prov:ONEIDA SOUSA MD 10/23/18 Cephalexin* (Keflex*) 500 Mg Capsule, 500 MG PO QID for 10 Days, CAP Prov:ONEIDA SOUSA MD 10/23/18 Reported Medications Insulin Glargine,Hum.rec.anlog (Basaglar Kwikpen U-100) 100 Unit/1 Ml Insuln.pen, 50 UNIT SC QHS, EA 10/23/18 Insulin Lispro (Humalog Kwikpen U-100) 100 Unit/1 Ml Insuln.pen, 20 UNIT SQ BID WITH MEALS, EA 10 MINUTES BEFORE MEALS 10/23/18 Atorvastatin* (Atorvastatin*) 40 Mg Tablet, 40 MG PO QHS, #30 TAB 10/23/18 Sitagliptin* (Januvia*) 100 Mg Tablet, 100 MG PO DAILY, #30 TAB 10/23/18 Metoprolol Succinate* (Toprol XL*) 25 Mg Tab.sr.24h, 25 MG PO DAILY, #30 TAB 05/09/18 Amlodipine Besylate* (Amlodipine Besylate*) 10 Mg Tablet, 10 MG PO DAILY, #30 TAB 05/09/18 Aspirin* (Aspirin* EC) 81 Mg Tablet.dr, 81 MG PO DAILY, TAB 09/07/16 Gabapentin* (Gabapentin*) 300 Mg Capsule, 300 MG PO TID, #90 CAP 09/07/16 Lisinopril* (Lisinopril*) 20 Mg Tablet, 20 MG PO DAILY, #30 TAB 09/07/16 Medications Current Medications Amlodipine Besylate (Norvasc) 10 mg DAILY PO ; Start 12/25/18 at 09:00 Aspirin (Halfprin) 81 mg DAILY PO ; Start 12/25/18 at 09:00 Atorvastatin Calcium (Lipitor) 40 mg QHS PO ; Start 12/24/18 at 21:00 Gabapentin (Neurontin) 300 mg TID PO Last administered on 12/24/18at 15:55; Admin Dose 300 MG; Start 12/24/18 at 13:00 Metoprolol Succinate (Toprol Xl) 25 mg DAILY PO ; Start 12/25/18 at 09:00 IV Flush (NS 3 ml) 3 ml PER PROTOCOL IV ; Start 12/24/18 at 13:00 Ondansetron HCl (Zofran Inj) 4 mg Q6H PRN IV NAUSEA/VOMITING; Start 12/24/18 at 13:00 Acetaminophen (Tylenol Tab) 650 mg Q6H PRN PO .PAIN 1-3 OR TEMP; Start 12/24/18 at 13:00 Acetaminophen/ Hydrocodone Bitart ([place] (5/325)) 1 tab Q6H PRN PO .MOD PAIN 4- 6; Start 12/24/18 at 13:00 Acetaminophen/ Hydrocodone Bitart ([place] (5/325)) 2 tab Q6H PRN PO .SEVERE PAIN 7-10; Start 12/24/18 at 13:00 Morphine Sulfate (morphine) 2 mg Q4H PRN IV .SEVERE PAIN 7-10; Start 12/24/18 at 13:00 Docusate Sodium (Colace) 100 mg Q12H PRN PO .CONSTIPATION; Start 12/24/18 at 1 3:00 Magnesium Hydroxide (Milk Of Mag) 30 ml DAILY PRN PO .CONSTIPATION; Start 12/24/18 at 13:00 Vancomycin HCl (Vanco Iv Per Pharmacy) VANCOMYCIN PER PHARMACY PER PROTOCOL XX ; Start 12/24/18 at 13:30 Piperacillin Sod/ Tazobactam Sod 100 ml @ 200 mls/hr Q8 IVPB ; Start 12/24/18 at 22:00 Insulin Glargine (Lantus) 35 units BID SC ; Start 12/24/18 at 21:00 Sodium Chloride 1,000 ml @ 75 mls/hr [id number] IV ; Start 12/24/18 at 14:00 Insulin Aspart (Novolog Insulin Pen) NOVOLOG *MODERATE* ALGORITHM WITH MEALS BEDTIME SC ; Start 12/24/18 at 18:00 Hydralazine HCl (Apresoline) 10 mg Q4H PRN IV SBP >170; Start 12/24/18 at 14:00 Miscellaneous Information 1 ea NOTE XX ; Start 12/24/18 at 15:30 Glucose (Glutose) 15 gm Q15M PRN PO DECREASED GLUCOSE; Start 12/24/18 at 15:30 Glucose (Glutose) 22.5 gm Q15M PRN PO DECREASED GLUCOSE; Start 12/24/18 at 15:30 Dextrose (D50w Syringe) 25 ml Q15M PRN IV DECREASED GLUCOSE; Start 12/24/18 at 15:30 Dextrose (D50w Syringe) 50 ml Q15M PRN IV DECREASED GLUCOSE; Start 12/24/18 at 15:30 Glucagon (Glucagen) 1 mg Q15M PRN IM DECREASED GLUCOSE; Start 12/24/18 at 15:30 Glucose (Glutose) 15 gm Q15M PRN BUCCAL DECREASED GLUCOSE; Start 12/24/18 at 15:30 Vancomycin/Sodium Chloride 250 ml @ 125 mls/hr ONCE IVPB Last administered on 12/24/18at 15:57; Admin Dose 125 MLS/HR; Start 12/24/18 at 16:00; Stop 12/24/18 at 17:59 Vancomycin HCl 250 ml @ 125 mls/hr Q24H IVPB ; Start 12/25/18 at 16:00 Allergies: Coded Allergies: No Known Allergy (Unverified , 10/23/18) Past Surgical History Past Surgical Hx: no surgical history Social History Alcohol Use: none Smoking Status: Never smoker Drug Use: none Exam/Review of Systems Exam Vitals Vital Signs Date Temp Pulse Resp B/P (MAP) Pulse Ox O2 O2 Flow FiO2 Time Delivery Rate 12/24/18 97.7 77 18 143/74 99 Room Air 15:24 (97) Exam DP/PT pulses palpable Absent protective sensations. Left foot plantar 1st metatarsal ulceration 1 x 1 x 0.2cm no purulence to the wound bed, no probing to bone, no erythema Left 4th digit ulcer 1.5 x 3 x 0.4cm ulcer with scant purulence appreciated, wound probing to bone, and erythema extending from 4th digit No pain on palpation to ulceration sites Muscle strength 5/5 in all compartments of the foot Pedal hairs present. Results Result Diagram: 12/24/18 1216 12/24/18 1216 Results 24hrs Laboratory Tests Test 12/24/18 12:16 12/24/18 12:17 12/24/18 13:39 12/24/18 14:24 White Blood Count 15.5 #H Red Blood Count 4.17 L Hemoglobin 12.5 L Hematocrit 35.8 L Mean Corpuscular 85.9 Volume Mean Corpuscular 30.0 Hemoglobin Mean Corpuscular 34.9 Hemoglobin Concen t Red Cell 12.2 Distribution Width Platelet Count 275 # Mean Platelet 12.2 H Volume Immature 0.500 H Granulocytes % Neutrophils % 88.6 H Lymphocytes % 4.8 L Monocytes % 5.7 Eosinophils % 0.1 Basophils % 0.3 Nucleated Red 0.0 Blood Cells % Immature 0.070 H Granulocytes # Neutrophils # 13.7 H Lymphocytes # 0.8 Monocytes # 0.9 Eosinophils # 0.0 Basophils # 0.0 Nucleated Red 0.0 Blood Cells # Sodium Level 127 L Potassium Level 4.5 Chloride Level 96 L Carbon Dioxide 24 Level Anion Gap 7 Blood Urea 27 H Nitrogen Creatinine 1.75 H Est Glomerular 39 L Filtrat Rate mL/min Glucose Level 562 *H Hemoglobin A1c 13.2 H Calcium Level 8.0 L Total Bilirubin 0.5 Direct Bilirubin 0.00 Indirect 0.5 Bilirubin Aspartate Amino 17 Transf (AST/SGOT) Alanine 14 Aminotransferase (ALT/SGPT) Alkaline 175 H Phosphatase Total Protein 6.1 Albumin 2.7 L Globulin 3.40 H Albumin/Globulin 0.79 Ratio Urine Color YELLOW Urine Clarity SLIGHTLY CLOUDY A Urine pH 6.0 Urine Specific 1.025 [place] Urine Ketones TRACE A Urine Nitrite NEGATIVE Urine Bilirubin NEGATIVE Urine NEGATIVE Urobilinogen Urine Leukocyte NEGATIVE Esterase Urine Microscopic 6 H RBC Urine Microscopic 2 WBC Urine Hemoglobin 1+ H Urine Glucose 3+ H Urine Total 3+ H Protein Bedside Glucose 497 *H 504 *H Test 12/24/18 16:10 Bedside Glucose 331 H Medications Medication Current Medications Amlodipine Besylate (Norvasc) 10 mg DAILY PO ; Start 12/25/18 at 09:00 Aspirin (Halfprin) 81 mg DAILY PO ; Start 12/25/18 at 09:00 Atorvastatin Calcium (Lipitor) 40 mg QHS PO ; Start 12/24/18 at 21:00 Gabapentin (Neurontin) 300 mg TID PO Last administered on 12/24/18at 15:55; Admin Dose 300 MG; Start 12/24/18 at 13:00 Metoprolol Succinate (Toprol Xl) 25 mg DAILY PO ; Start 12/25/18 at 09:00 IV Flush (NS 3 ml) 3 ml PER PROTOCOL IV ; Start 12/24/18 at 13:00 Ondansetron HCl (Zofran Inj) 4 mg Q6H PRN IV NAUSEA/VOMITING; Start 12/24/18 at 13:00 Acetaminophen (Tylenol Tab) 650 mg Q6H PRN PO .PAIN 1-3 OR TEMP; Start 12/24/18 at 13:00 Acetaminophen/ Hydrocodone Bitart ([place] (5/325)) 1 tab Q6H PRN PO .MOD PAIN 4- 6; Start 12/24/18 at 13:00 Acetaminophen/ Hydrocodone Bitart ([place] (5/325)) 2 tab Q6H PRN PO .SEVERE PAIN 7-10; Start 12/24/18 at 13:00 Morphine Sulfate (morphine) 2 mg Q4H PRN IV .SEVERE PAIN 7-10; Start 12/24/18 at 13:00 Docusate Sodium (Colace) 100 mg Q12H PRN PO .CONSTIPATION; Start 12/24/18 at 13:00 Magnesium Hydroxide (Milk Of Mag) 30 ml DAILY PRN PO .CONSTIPATION; Start 12/24/18 at 13:00 Vancomycin HCl (Vanco Iv Per Pharmacy) VANCOMYCIN PER PHARMACY PER PROTOCOL XX ; Start 12/24/18 at 13:30 Piperacillin Sod/ Tazobactam Sod 100 ml @ 200 mls/hr Q8 IVPB ; Start 12/24/18 at 22:00 Insulin Glargine (Lantus) 35 units BID SC ; Start 12/24/18 at 21:00 Sodium Chloride 1,000 ml @ 75 mls/hr [id number] IV ; Start 12/24/18 at 14:00 Insulin Aspart (Novolog Insulin Pen) NOVOLOG *MODERATE* ALGORITHM WITH MEALS BEDTIME SC ; Start 12/24/18 at 18:00 Hydralazine HCl (Apresoline) 10 mg Q4H PRN IV SBP >170; Start 12/24/18 at 14:00 Miscellaneous Information 1 ea NOTE XX ; Start 12/24/18 at 15:30 Glucose (Glutose) 15 gm Q15M PRN PO DECREASED GLUCOSE; Start 12/24/18 at 15:30 Glucose (Glutose) 22.5 gm Q15M PRN PO DECREASED GLUCOSE; Start 12/24/18 at 15:30 Dextrose (D50w Syringe) 25 ml Q15M PRN IV DECREASED GLUCOSE; Start 12/24/18 at 15:30 Dextrose (D50w Syringe) 50 ml Q15M PRN IV DECREASED GLUCOSE; Start 12/24/18 at 15:30 Glucagon (Glucagen) 1 mg Q15M PRN IM DECREASED GLUCOSE; Start 12/24/18 at 15:30 Glucose (Glutose) 15 gm Q15M PRN BUCCAL DECREASED GLUCOSE; Start 12/24/18 at 15 :30 Vancomycin/Sodium Chloride 250 ml @ 125 mls/hr ONCE IVPB Last administered on 12/24/18at 15:57; Admin Dose 125 MLS/HR; Start 12/24/18 at 16:00; Stop 12/24/18 at 17:59 Vancomycin HCl 250 ml @ 125 mls/hr Q24H IVPB ; Start 12/25/18 at 16:00 ROSE GUSMAN DPM December 24, 2018 17:29
[2018-12-24] MEDS: INSULIN ASPART [NOVOLOG] 3 ML PEN SC SCH ×2 (18:49→22:13)
[2018-12-24 19:45] VITALS: BP 146/75; PULSE 77; RESP 17
[2018-12-24] MEDS ORDERED: INSULIN GLARGINE [LANtus] 3 ML PEN SC SCH (21:00)
[2018-12-24] MEDS: ATORVASTATIN 40 MG TAB PO SCH (22:08)
[2018-12-24] MEDS: INSULIN GLARGINE [LANTus] (100 UNITS/ML) SYG SC SCH (22:12)
[2018-12-24] MEDS: PIPER-TAZO 3.375 GM IV (PMX) 100 ML IVPB SCH (22:13)
[2018-12-25] VITALS (10 sets, daily range): BP systolic 108–163; BP diastolic 63–77; PULSE 60–80; RESP 13–20
--- NOTE | 2018-12-25 01:12 | CONS ---
DATE OF ADMISSION: 12/24/2018 DATE OF CONSULTATION: 12/24/2018 TYPE OF CONSULTATION: Infectious Disease. REASON FOR CONSULTATION: Antibiotic management. HISTORY OF PRESENT ILLNESS: Farhad Barrientos is a 63-year-old male with right foot pain for 2 weeks se condary to an injury from a shower door. His problems include: 1. Adult-onset diabetes mellitus with insulin dependency and poor compliance. 2. Hypertension. 3. Hyperlipidemia. The patient presents with discoloration and skin peeling of his right 4th toe which has gone on for t he last 2 weeks. His fourth toe has been purple. He was showering and the skin peeled off today and he does not feel any pain in his feet secondary to diabetic neuropathy. The patient was on Bactrim and Keflex. He has a history of hypertension and hyperlipidemia as well. PAST MEDICAL HISTORY: As outlined. FAMILY HISTORY: Noncontributory. SOCIAL HISTORY: Does not smoke, drink or abuse drugs. ALLERGIES: NONE TO PENICILLIN, SULFA OR FOODS. MEDICATIONS: Per chart. REVIEW OF SYSTEMS: As per HPI. ANCILLARY LABORATORY DATA: In the emergency room, his white count is 15.5, H and H of 12.5 and 35.8, platelet count 275,000. BUN and creatinine 27/1.75. Random glucose of 562. HOSPITAL COURSE: The patient was seen by Dr. Cantu in podiatric consultation. He noted right fo ot cellulitis, diabetes with peripheral neuropathy, acute renal failure on top of chronic renal failu re, leukocytosis and anemia. He performed an excisional debridement of left foot ulcer of the skin a nd subcutaneous tissue using a scalpel blade. Biofilm hyperkeratotic tissue were removed. Cultures were done. Plan for OR debridement tomorrow for right 4th digit. MRI studies pending. PHYSICAL EXAMINATION: GENERAL: The patient is well-developed, well-nourished male, awake, responsive, in no acute distress . VITAL SIGNS: Stable. He is afebrile. SKIN: As noted, he has 4th toe discoloration which was debrided and now is bandaged. HEENT: Within normal limits. NECK: Supple. LYMPH NODES: None palpable. CHEST: Decreased breath sounds at the bases. HEART: Without murmur or gallop. ABDOMEN: Soft, nontender, without organosplenomegaly or masses. EXTREMITIES: Right foot is bandaged. He had a 14 x 5 cm area of redness and swelling noted. IMPRESSION AND PLAN: As we said before, his white count was 15.5. His neutrophils were 89%. The pa amy was started on vancomycin and Zosyn. I will dictate my findings to the hospitalist and Dr. Augustine dueñas. Dictated By: SACHIN FOX MD, JD/KENNETH Conf#: [id number] DID#: [id number]
[2018-12-25] MEDS: PIPER-TAZO 3.375 GM IV (PMX) 100 ML IVPB SCH ×2 (05:51→13:32)
[2018-12-25] MEDS: Insulin NOVOLOG SS MODERATE Algorithm(NPO/TPN/ENTERAL FEEDS) SC SCH ×4 (05:52→17:33)
[2018-12-25] MEDS: ASPIRIN (EC) 81 MG TAB PO SCH (08:52)
[2018-12-25] MEDS: GABAPENTIN 300 MG CAP PO SCH ×3 (08:52→20:07)
[2018-12-25] MEDS: AMLODIPINE 10 MG TAB PO SCH (08:54)
[2018-12-25] MEDS: METOPROLOL (XL) 25 MG TAB PO SCH (08:54)
[2018-12-25] MEDS ORDERED: INSULIN ASPART [NOVOLOG] 3 ML PEN SC SCH ×2 (09:00→21:00)
[2018-12-25] MEDS ORDERED: LISINOPRIL 20 MG TAB PO SCH (09:00)
[2018-12-25] MEDS: INSULIN GLARGINE [LANTus] (100 UNITS/ML) SYG SC SCH ×2 (09:04→21:33)
[2018-12-25] MEDS ORDERED: POLYMYXIN/BACITRACIN 1L IRRIG ONE (10:53)
[2018-12-25] MEDS ORDERED: PROPOFOL 0 ML ONE (10:58)
[2018-12-25] MEDS ORDERED: FENTAnyl 50 MCG/ML VIAL ONE (10:58)
[2018-12-25] MEDS ORDERED: MIDAZOLAM 1 MG/ML 2 ML INJ ONE (10:58)
--- NOTE | 2018-12-25 11:05 | PREAC ---
Date/Time of Note Date/Time of Note DATE: 12/25/18 TIME: 11:04 Anesthesia Eval and Record Evaluation Time Pre-Procedure Interview DATE: 12/25/18 TIME: 11:04 Age 63 Sex male NPO: 8 hrs Preoperative diagnosis Diabetic Ulcer R. Foot Planned procedure I&D Past Medical History Past Medical History: Includes Cardio: HTN, Dyslipidemia Endo: Diabetes GI: Obesity Surgery & Anesthesia Issues No known issue Meds Anticoagulation: No Beta Rio within 24 hr: Yes Active Scripts Sulfamethoxazole/Trimethoprim* (Bactrim Ds* Tablet) 1 Each Tablet, 1 TAB PO DAILY, #10 TAB Prov:ONEIDA SOUSA MD 10/23/18 Cephalexin* (Keflex*) 500 Mg Capsule, 500 MG PO QID for 10 Days, CAP Prov:ONEIDA SOUSA MD 10/23/18 Reported Medications Insulin Glargine,Hum.rec.anlog (Basaglar Kwikpen U-100) 100 Unit/1 Ml Insuln.pen, 50 UNIT SC QHS, EA 10/23/18 Insulin Lispro (Humalog Kwikpen U-100) 100 Unit/1 Ml Insuln.pen, 20 UNIT SQ BID WITH MEALS, EA 10 MINUTES BEFORE MEALS 10/23/18 Atorvastatin* (Atorvastatin*) 40 Mg Tablet, 40 MG PO QHS, #30 TAB 10/23/18 Sitagliptin* (Januvia*) 100 Mg Tablet, 100 MG PO DAILY, #30 TAB 10/23/18 Metoprolol Succinate* (Toprol XL*) 25 Mg Tab.sr.24h, 25 MG PO DAILY, #30 TAB 05/09/18 Amlodipine Besylate* (Amlodipine Besylate*) 10 Mg Tablet, 10 MG PO DAILY, #30 TAB 05/09/18 Aspirin* (Aspirin* EC) 81 Mg Tablet.dr, 81 MG PO DAILY, TAB 09/07/16 Gabapentin* (Gabapentin*) 300 Mg Capsule, 300 MG PO TID, #90 CAP 09/07/16 Lisinopril* (Lisinopril*) 20 Mg Tablet, 20 MG PO DAILY, #30 TAB 09/07/16 Current Medications Amlodipine Besylate (Norvasc) 10 mg DAILY PO Last administered on 12/25/18at 08:54; Admin Dose 10 MG; Start 12/25/18 at 09:00 Aspirin (Halfprin) 81 mg DAILY PO ; Start 12/25/18 at 09:00 Atorvastatin Calcium (Lipitor) 40 mg QHS PO Last administered on 12/24/18at 22:08; Admin Dose 40 MG; Start 12/24/18 at 21:00 Gabapentin (Neurontin) 300 mg TID PO Last administered on 12/24/18at 22:08; Admin Dose 300 MG; Start 12/24/18 at 13:00 Metoprolol Succinate (Toprol Xl) 25 mg DAILY PO Last administered on 12/25/18at 08:54; Admin Dose 25 MG; Start 12/25/18 at 09:00 IV Flush (NS 3 ml) 3 ml PER PROTOCOL IV ; Start 12/24/18 at 13:00 Ondansetron HCl (Zofran Inj) 4 mg Q6H PRN IV NAUSEA/VOMITING; Start 12/24/18 at 13:00 Acetaminophen (Tylenol Tab) 650 mg Q6H PRN PO .PAIN 1-3 OR TEMP; Start 12/24/18 at 13:00 Acetaminophen/ Hydrocodone Bitart ([place] (5/325)) 1 tab Q6H PRN PO .MOD PAIN 4- 6; Start 12/24/18 at 13:00 Acetaminophen/ Hydrocodone Bitart ([place] (5/325)) 2 tab Q6H PRN PO .SEVERE PAIN 7-10; Start 12/24/18 at 13:00 Morphine Sulfate (morphine) 2 mg Q4H PRN IV .SEVERE PAIN 7-10; Start 12/24/18 at 13:00 Docusate Sodium (Colace) 100 mg Q12H PRN PO .CONSTIPATION; Start 12/24/18 at 13:00 Magnesium Hydroxide (Milk Of Mag) 30 ml DAILY PRN PO .CONSTIPATION; Start 12/24/18 at 13:00 Vancomycin HCl (Vanco Iv Per Pharmacy) VANCOMYCIN PER PHARMACY PER PROTOCOL XX ; Start 12/24/18 at 13:30 Piperacillin Sod/ Tazobactam Sod 100 ml @ 200 mls/hr Q8 IVPB Last administered on 12/25/18at 05:51; Admin Dose 200 MLS/HR; Start 12/24/18 at 22:00 Insulin Glargine (Lantus) 35 units BID SC Last administered on 12/25/18at 09:04; Admin Dose 35 UNITS; Start 12/24/18 at 21:00 Sodium Chloride 1,000 ml @ 75 mls/hr [id number] IV Last administered on 12/24/18at 18:50; Admin Dose 75 MLS/HR; Start 12/24/18 at 14:00 Hydralazine HCl (Apresoline) 10 mg Q4H PRN IV SBP >170; Start 12/24/18 at 14:00 Miscellaneous Information 1 ea NOTE XX ; Start 12/24/18 at 15:30 Glucose (Glutose) 15 gm Q15M PRN PO DECREASED GLUCOSE; Start 12/24/18 at 15:30 Glucose (Glutose) 22.5 gm Q15M PRN PO DECREASED GLUCOSE; Start 12/24/18 at 15:30 Dextrose (D50w Syringe) 25 ml Q15M PRN IV DECREASED GLUCOSE; Start 12/24/18 at 15:30 Dextrose (D50w Syringe) 50 ml Q15M PRN IV DECREASED GLUCOSE; Start 12/24/18 at 15:30 Glucagon (Glucagen) 1 mg Q15M PRN IM DECREASED GLUCOSE; Start 12/24/18 at 15:30 Glucose (Glutose) 15 gm Q15M PRN BUCCAL DECREASED GLUCOSE; Start 12/24/18 at 15:30 Vancomycin HCl 250 ml @ 125 mls/hr Q24H IVPB ; Start 12/25/18 at 16:00 Insulin Aspart (Novolog Insulin Pen) (Adult SC Insulin - Moder... Q4 SC Last administered on 12/25/18at 09:04; Admin Dose 4 UNIT; Start 12/25/18 at 05:00 Meds reviewed: Yes Allergies Coded Allergies: No Known Allergy (Unverified , 10/23/18) Allergies Reviewed: Yes Labs/Studies Labs Reviewed: Reviewed by anesthesiologist Result Diagram: 12/25/18 0645 12/25/18 0645 Laboratory Tests 12/25/18 06:45 test: N/A Pre-procedure Exam Last vitals Vital Signs Date Temp Pulse Resp B/P (MAP) Pulse Ox O2 O2 Flow FiO2 Time Delivery Rate 12/25/18 97.8 68 18 160/77 95 07:54 (104) 12/24/18 Room Air 15:24 Airway: Adequate mouth opening Mallampati: Mallampati III Teeth: Normal Lung: Normal Heart: Normal ASA Physical Status ASA physical status: 3 Emergency: None Planned Anesthetic General/MAC: LMA Pre-operative Attestations Prior to commencing anesthesia and surgery, the patient was re-evaluated, there was verification of: *The patient's identity *The results of appropriate recent lab work and preoperative vital signs *The above evaluation not changing prior to induction *Anesthetic plan, risk benefits, alternative and complications discussed with patient/family; questions answered; patient/family understands, accepts and wishes to proceed. JEFFREY BRITTON MD December 25, 2018 11:05
[2018-12-25] MEDS ORDERED: PROPOFOL 20 ML ONE (11:11)
--- NOTE | 2018-12-25 11:16 | HPN ---
Date/Time of Note Date/Time of Note DATE: 12/25/18 TIME: 11:16 Interval H&P Admission Note Pt. seen H&P reviewed: No system changes ROSE GUSMAN DPM December 25, 2018 11:16
[2018-12-25] MEDS ORDERED: LIDOCAINE 2% (MDV) 20 ML INJ ONE (11:31)
--- NOTE | 2018-12-25 12:11 | SIPON ---
Date/Time of Note Date/Time of Note DATE: 12/25/18 TIME: 12:11 Operative Report Preoperative Diagnosis Right foot diabetic ulcer R foot cellulitis Right foot abscess DM2 with peripheral neuropathy Right foot osteomyelitis Right foot gangrene Postoperative Diagnosis Right foot diabetic ulcer R foot cellulitis Right foot abscess DM2 with peripheral neuropathy Right foot osteomyelitis Right foot gangrene Operation/Procedure Performed Excisional debridement Right 4th digit arthroplasty Surgeon see signature line virtual office assistant none Anesthesia: MAC Estimated blood loss: 0 - 10 ml's Transfusion Required none Specimen right 4th digit bone pathology right 4th digit wound culture Grafts/Implants none Complications none ROSE GUSMAN DPM December 25, 2018 12:11
--- NOTE | 2018-12-25 12:17 | PAC ---
Date/Time of Note Date/Time of Note DATE: 12/25/18 TIME: 12:17 Post-Anesthesia Notes Post-Anesthesia Note Last documented vital signs Vital Signs Date Temp Pulse Resp B/P (MAP) Pulse Ox O2 O2 Flow FiO2 Time Delivery Rate 12/25/18 97.8 68 18 160/77 95 07:54 (104) 12/24/18 Room Air 15:24 Activity: WNL Respiratory function: WNL Cardiovascular function: WNL Mental status: Baseline Pain reasonably controlled: Yes Hydration appropriate: Yes Nausea/Vomiting absent: Yes JEFFREY BRITTON MD December 25, 2018 12:17
--- NOTE | 2018-12-25 12:17 | OPR ---
Date/Time of Note Date/Time of Note DATE: 12/25/18 TIME: 12:17 Operative Report Preoperative Diagnosis Right foot diabetic ulcer R foot cellulitis Right foot abscess DM2 with peripheral neuropathy Right foot osteomyelitis Right foot gangrene Postoperative Diagnosis Right foot diabetic ulcer R foot cellulitis Right foot abscess DM2 with peripheral neuropathy Right foot osteomyelitis Right foot gangrene Operation/Procedure Performed Excisional debridement Right 4th digit arthroplasty Surgeon see signature line Forming Machine Upkeep Mechanic Helper none Anesthesia Type: MAC Estimated Blood Loss: 0 - 10 ml's Transfusion none Specimen right 4th digit bone pathology right 4th digit wound culture Grafts/Implants none Complications none Indications 63 y/o poorly controlled diabetic patient who had a 4th digit ulcer which developed gangrene and osteomyelitis. There is concern for distal phalanx 5th digit osteomyelitis however there is no wound communicating to the bone for the 5th digit. Patient was amenable to surgical intervention for the 4th digit and excisional debridement. The 4th digit has poor prognosis and understands that a digit amputation is likely. All of the patient's questions and concerns were addressed and no promises or guarantees were given. Procedure Description Patient was brought into the OR and placed on the OR table in the supine position. The right lower extremity was scrubbed, prepped, and draped in the usual aseptic manner. A formal time out was conducted,. Attention was directed to the right 4th digit. There was gangrene tissue noted to the dorsal aspect of the digit which extended to the lateral aspect. The dimensions of the wound was 3 x 1.5cm indeterminate depth. Excisional debridement of skin/subQ/fascia was performed using a scalpel and pickup/scissors. Necrotic and fibrotic tissue was removed. 4.5cm2 area was debrided. There was exposed bone which had a leavitt and chung appearance. There was 2mL of purulence that was also removed from the wound bed. Subsequently, using a sagittal saw on power a right 4th digit arthroplasty was performed where by the head of the proximal phalanx and middle phalanx were removed and sent for pathology studies. Copious irrigation was utilized at the surgical site. Wound cultures were also obtained. Local anesthesia was used for a digital block. The surgical site was packed with 1/4in iodoform packing, and betadine 4x4 gauze, and wrapped with dry sterile dressings. Patient was transferred to PACU with vital signs and neurovascular status intact. ROSE GUSMAN DPM December 25, 2018 12:17
[2018-12-25] MEDS ORDERED: ACETAMINOPHEN 325 MG TAB PO ONE (13:00)
[2018-12-25] MEDS: SOD CHLORIDE 0.9% 1,000 ML IV SCH (13:20)
--- NOTE | 2018-12-25 15:31 | CONS ---
Assessment/Plan Assessment/Plan Hospital Course (Demo Recall) No acute events overnight patient is awake looks comfortable denies pain no fevers overnight. WBC today 10.2 neutrophils 78.9 ESR on admission to 125 BUN 28 creatinine 1.89 Microbiology: Blood cultures preliminary negative wound culture pending MRI of right foot revealed osteomyelitis of the mid to distal fourth proximal phalanx and the fourth middle phalanx no evidence of acute fracture renal ultrasound showed several alissa unremarkable Allergies none Antimicrobials: Vancomycin, Zosyn Physical examination: Well-developed elderly man who is awake in no distress. Head atraumatic normocephalic neck is supple chest rise symmetrical breath sounds diminished bases heart: S1-S2 abdomen soft bowel sounds present extremities with bilateral lower extremities dressing intact Assessment: 1. Right foot cellulitis with osteomyelitis of the toe, status post surgical intervention this morning 2. Diabetes with diabetic neuropathy 3. Acute on chronic kidney disease Plan: Patient is stable, will change Zosyn to cefepime, continue vancomycin, monitor renal function closely and follow final cultures and report of surgical operation Consultation Date/Type/Reason Admit Date/Time December 24, 2018 at 12:42 Initial Consult Date Type of Consult id Date/Time of Note DATE: 12/25/18 TIME: 15:30 Exam/Review of Systems Exam Vitals Vital Signs Date Temp Pulse Resp B/P (MAP) Pulse Ox O2 O2 Flow FiO2 Time Delivery Rate 12/25/18 97.6 68 16 140/73 96 14:45 (95) 12/25/18 Room Air 13:27 Intake and Output 12/24/18 12/24/18 12/25/18 1515:00 23:00 07:00 IntakeIntake Total 100 ml 1250 ml BalanceBalance 100 ml 1250 ml Results Result Diagram: 12/25/18 0645 12/25/18 0645 Results 24hrs Laboratory Tests Test 12/24/18 16:10 12/24/18 18:47 12/24/18 19:18 12/24/18 22:09 Bedside Glucose 331 H 199 284 H Erythrocyte 125 H Sedimentation Rate C-Reactive Protein 19.1 H Procalcitonin 0.47 H Test 12/25/18 02:44 12/25/18 05:42 12/25/18 06:45 12/25/18 08:58 Bedside Glucose 241 H 232 H 195 White Blood Count 10.2 # Red Blood Count 3.67 L Hemoglobin 10.9 L Hematocrit 31.7 L Mean Corpuscular 86.4 Volume Mean Corpuscular 29.7 Hemoglobin Mean Corpuscular 34.4 Hemoglobin Concent Red Cell 12.3 Distribution Width Platelet Count 237 Mean Platelet Volume 11.8 H Immature 0.300 Granulocytes % Neutrophils % 78.9 H Lymphocytes % 12.1 L Monocytes % 7.0 Eosinophils % 1.4 Basophils % 0.3 Nucleated Red Blood 0.0 Cells % Immature 0.030 Granulocytes # Neutrophils # 8.1 H Lymphocytes # 1.2 Monocytes # 0.7 Eosinophils # 0.1 Basophils # 0.0 Nucleated Red Blood 0.0 Cells # Sodium Level 132 L Potassium Level 4.1 Chloride Level 102 Carbon Dioxide Level 25 Anion Gap 5 Blood Urea Nitrogen 28 H Creatinine 1.89 H Est Glomerular 36 L Filtrat Rate mL/min Glucose Level 218 # Calcium Level 7.7 L Magnesium Level 1.9 Iron Level 11 L Total Iron Binding 165 L Capacity Percent Iron 7 L Saturation Test 12/25/18 10:56 12/25/18 13:14 Bedside Glucose 186 168 Medications Medication Current Medications Amlodipine Besylate (Norvasc) 10 mg DAILY PO Last administered on 12/25/18at 08:54; Admin Dose 10 MG; Start 12/25/18 at 09:00 Aspirin (Halfprin) 81 mg DAILY PO ; Start 12/25/18 at 09:00 Atorvastatin Calcium (Lipitor) 40 mg QHS PO Last administered on 12/24/18at 22:08; Admin Dose 40 MG; Start 12/24/18 at 21:00 Gabapentin (Neurontin) 300 mg TID PO Last administered on 12/24/18at 22:08; Admin Dose 300 MG; Start 12/24/18 at 13:00 Metoprolol Succinate (Toprol Xl) 25 mg DAILY PO Last administered on 12/25/18at 08:54; Admin Dose 25 MG; Start 12/25/18 at 09:00 IV Flush (NS 3 ml) 3 ml PER PROTOCOL IV ; Start 12/24/18 at 13:00 Ondansetron HCl (Zofran Inj) 4 mg Q6H PRN IV NAUSEA/VOMITING; Start 12/24/18 at 13:00 Acetaminophen (Tylenol Tab) 650 mg Q6H PRN PO .PAIN 1-3 OR TEMP; Start 12/24/18 at 13:00 Acetaminophen/ Hydrocodone Bitart ([place] (5/325)) 1 tab Q6H PRN PO .MOD PAIN 4- 6; Start 12/24/18 at 13:00 Acetaminophen/ Hydrocodone Bitart ([place] (5/325)) 2 tab Q6H PRN PO .SEVERE PAIN 7-10; Start 12/24/18 at 13:00 Morphine Sulfate (morphine) 2 mg Q4H PRN IV .SEVERE PAIN 7-10; Start 12/24/18 at 13:00 Docusate Sodium (Colace) 100 mg Q12H PRN PO .CONSTIPATION; Start 12/24/18 at 13:00 Magnesium Hydroxide (Milk Of Mag) 30 ml DAILY PRN PO .CONSTIPATION; Start 12/24/18 at 13:00 Vancomycin HCl (Vanco Iv Per Pharmacy) VANCOMYCIN PER PHARMACY PER PROTOCOL XX ; Start 12/24/18 at 13:30 Piperacillin Sod/ Tazobactam Sod 100 ml @ 200 mls/hr Q8 IVPB Last administered on 12/25/18at 13:32; Admin Dose 200 MLS/HR; Start 12/24/18 at 22:00 Insulin Glargine (Lantus) 35 units BID SC Last administered on 12/25/18at 09:04; Admin Dose 35 UNITS; Start 12/24/18 at 21:00 Sodium Chloride 1,000 ml @ 75 mls/hr [id number] IV Last administered on 12/25/18at 13:20; Admin Dose 75 MLS/HR; Start 12/24/18 at 14:00 Hydralazine HCl (Apresoline) 10 mg Q4H PRN IV SBP >170; Start 12/24/18 at 14:00 Miscellaneous Information 1 ea NOTE XX ; Start 12/24/18 at 15:30 Glucose (Glutose) 15 gm Q15M PRN PO DECREASED GLUCOSE; Start 12/24/18 at 15:30 Glucose (Glutose) 22.5 gm Q15M PRN PO DECREASED GLUCOSE; Start 12/24/18 at 15:30 Dextrose (D50w Syringe) 25 ml Q15M PRN IV DECREASED GLUCOSE; Start 12/24/18 at 15:30 Dextrose (D50w Syringe) 50 ml Q15M PRN IV DECREASED GLUCOSE; Start 12/24/18 at 15:30 Glucagon (Glucagen) 1 mg Q15M PRN IM DECREASED GLUCOSE; Start 12/24/18 at 15:30 Glucose (Glutose) 15 gm Q15M PRN BUCCAL DECREASED GLUCOSE; Start 12/24/18 at 15:30 Vancomycin HCl 250 ml @ 125 mls/hr Q24H IVPB ; Start 12/25/18 at 16:00 Insulin Aspart (Novolog Insulin Pen) (Adult SC Insulin - Moder... Q4 SC Last administered on 12/25/18at 13:17; Admin Dose 2 UNIT; Start 12/25/18 at 05:00 PARK DUEÑAS NP December 25, 2018 15:31
[2018-12-25] MEDS ORDERED: VANCOMYCIN 1 GM 250 ML IVPB SCH (16:00)
--- NOTE | 2018-12-25 16:13 | PN ---
Date/Time of Note Date/Time of Note DATE: 12/25/18 TIME: 16:13 Objective Vitals Vital Signs Date Temp Pulse Resp B/P (MAP) Pulse Ox O2 O2 Flow FiO2 Time Delivery Rate 12/25/18 97.6 68 16 140/73 96 14:45 (95) 12/25/18 Room Air 13:27 Intake and Output 12/24/18 12/24/18 12/25/18 1515:00 23:00 07:00 IntakeIntake Total 100 ml 1250 ml BalanceBalance 100 ml 1250 ml Results Result Diagram: 12/25/1845 12/25/1845 Medications Medications Current Medications Amlodipine Besylate (Norvasc) 10 mg DAILY PO Last administered on 12/25/18at 08:54; Admin Dose 10 MG; Start 12/25/18 at 09:00 Aspirin (Halfprin) 81 mg DAILY PO ; Start 12/25/18 at 09:00 Atorvastatin Calcium (Lipitor) 40 mg QHS PO Last administered on 12/24/18at 22:08; Admin Dose 40 MG; Start 12/24/18 at 21:00 Gabapentin (Neurontin) 300 mg TID PO Last administered on 12/24/18at 22:08; Admin Dose 300 MG; Start 12/24/18 at 13:00 Metoprolol Succinate (Toprol Xl) 25 mg DAILY PO Last administered on 12/25/18at 08:54; Admin Dose 25 MG; Start 12/25/18 at 09:00 IV Flush (NS 3 ml) 3 ml PER PROTOCOL IV ; Start 12/24/18 at 13:00 Ondansetron HCl (Zofran Inj) 4 mg Q6H PRN IV NAUSEA/VOMITING; Start 12/24/18 at 13:00 Acetaminophen (Tylenol Tab) 650 mg Q6H PRN PO .PAIN 1-3 OR TEMP; Start 12/24/18 at 13:00 Acetaminophen/ Hydrocodone Bitart ([place] (5/325)) 1 tab Q6H PRN PO .MOD PAIN 4- 6; Start 12/24/18 at 13:00 Acetaminophen/ Hydrocodone Bitart ([place] (5/325)) 2 tab Q6H PRN PO .SEVERE PAIN 7-10; Start 12/24/18 at 13:00 Morphine Sulfate (morphine) 2 mg Q4H PRN IV .SEVERE PAIN 7-10; Start 12/24/18 at 13:00 Docusate Sodium (Colace) 100 mg Q12H PRN PO .CONSTIPATION; Start 12/24/18 at 13:00 Magnesium Hydroxide (Milk Of Mag) 30 ml DAILY PRN PO .CONSTIPATION; Start 12/24/18 at 13:00 Vancomycin HCl (Vanco Iv Per Pharmacy) VANCOMYCIN PER PHARMACY PER PROTOCOL XX ; Start 12/24/18 at 13:30 Insulin Glargine (Lantus) 35 units BID SC Last administered on 12/25/18at 09:04; Admin Dose 35 UNITS; Start 12/24/18 at 21:00 Sodium Chloride 1,000 ml @ 75 mls/hr [id number] IV Last administered on 12/25/18at 13:20; Admin Dose 75 MLS/HR; Start 12/24/18 at 14:00 Hydralazine HCl (Apresoline) 10 mg Q4H PRN IV SBP >170; Start 12/24/18 at 14:00 Miscellaneous Information 1 ea NOTE XX ; Start 12/24/18 at 15:30 Glucose (Glutose) 15 gm Q15M PRN PO DECREASED GLUCOSE; Start 12/24/18 at 15:30 Glucose (Glutose) 22.5 gm Q15M PRN PO DECREASED GLUCOSE; Start 12/24/18 at 15:30 Dextrose (D50w Syringe) 25 ml Q15M PRN IV DECREASED GLUCOSE; Start 12/24/18 at 15:30 Dextrose (D50w Syringe) 50 ml Q15M PRN IV DECREASED GLUCOSE; Start 12/24/18 at 15:30 Glucagon (Glucagen) 1 mg Q15M PRN IM DECREASED GLUCOSE; Start 12/24/18 at 15:30 Glucose (Glutose) 15 gm Q15M PRN BUCCAL DECREASED GLUCOSE; Start 12/24/18 at 15:30 Vancomycin HCl 250 ml @ 125 mls/hr Q24H IVPB ; Start 12/25/18 at 16:00 Insulin Aspart (Novolog Insulin Pen) (Adult SC Insulin - Moder... Q4 SC Last administered on 12/25/18at 13:17; Admin Dose 2 UNIT; Start 12/25/18 at 05:00 Cefepime HCl 50 ml @ 100 mls/hr Q12 IVPB ; Start 12/25/18 at 21:00 VTE Prophylaxis Risk score (from Nsg)>0 risk: 2 SCD applied (from Ns): Yes Lines/Catheters IV Catheter Type: Strange in Place: No Assessment/Plan Hospital Course Subjective Patient doing well status post surgery Objective Physical exam General: Patient is laying in bed and answers questions appropriately Mentation: Patient is alert and oriented 4, Head: Normocephalic atraumatic Eyes: EOMI, pupils reactive to light Neck: Supple, nontender, midline Respiratory: Clear to auscultation bilaterally Cardiovascular: regular rate, no obvious murmurs Gastrointestinal: non-tender to palpation, bowel sounds heard. Neurological: Moves all extremities spontaneously Skin: Surgical site, bandage, CDI Assessment/Plan 1. Right toe osteomyelitis, status post excisional debridement and right fourth digit arthroplasty - ID consulted for antibiotic recommendations - Podiatry performed surgery on December 25, 2018 - Continue broad spectrum IV antibiotic -Pending pathology taken during surgery - pain control 2. Uncontrolled diabetes Mellitus - A1c noted, 13 - Diabetic education consultation placed - Lantus continued and will adjust as needed - ISS and accuchecks 3. MAMTA on ?CKD - possibly secondary to ATN? Nephrology consulted - IVF on board and avoid nephrotoxic agents - will hold PASHA inhibitor 4. Hyponatremia - due to hyperglycemia. Resolving 5. Anemia -Low iron levels - most likely in setting of infection and chronic disease 6. Diet - Carb controlled 7. DVT ppx - SCD 8. Disposition -Nephrology recommendations appreciated, will touch base with infectious disease and podiatry for further antibiotic recommendations and eventual discharge recommendations that will be upcoming. ONEIDA PAUL December 25, 2018 16:13
[2018-12-25] MEDS: ATORVASTATIN 40 MG TAB PO SCH (20:07)
[2018-12-25] MEDS: CEFEPIME 1GM/50 ML (PMX) 50 ML IVPB SCH (20:07)
[2018-12-25] MEDS: Insulin NOVOLOG SS MODERATE Algorithm (SS with meals and bedtime) SC SCH (21:32)
[2018-12-26 02:06] VITALS: BP 146/71; PULSE 75; RESP 18
[2018-12-26] MEDS: SOD CHLORIDE 0.9% 1,000 ML IV SCH ×2 (05:15→08:17)
[2018-12-26] MEDS: Insulin NOVOLOG SS MODERATE Algorithm (SS with meals and bedtime) SC SCH ×4 (07:56→20:41)
[2018-12-26] MEDS: INSULIN GLARGINE [LANTus] (100 UNITS/ML) SYG SC SCH ×2 (07:58→20:42)
[2018-12-26 08:15] VITALS: BP 133/64; PULSE 73; RESP 18
--- NOTE | 2018-12-26 08:33 | CONS ---
DATE OF ADMISSION: 12/24/2018 DATE OF CONSULTATION: 12/26/2018 TYPE OF CONSULTATION: Nephrology. REASON FOR CONSULTATION: Acute kidney injury, chronic kidney disease. PHYSICIAN REQUESTING CONSULT: Dr. Willoughby. HISTORY OF PRESENT ILLNESS: This is a 63-year-old male with a past medical history of diabetes, hype rtension, dyslipidemia who presents to [facility] with worsening redness of her rig ht 4th toe. The patient states that he believes the etiology was due to irritation of shoes. He den ies any severe pain. The patient, as a result, came into the emergency room and was subsequently adm itted for evaluation of cellulitis of his right foot and toe. The patient was placed on antibiotic t herapy. In terms of patient's renal history, the patient denies any prior history of having chronic kidney di sease or acute kidney injury. He denies any hemoptysis, hematemesis or hematochezia. The patient do es take Bactrim as well as PASHA inhibitor in outpatient. He denied any NSAID use. PAST MEDICAL HISTORY: History of diabetes, history of hypertension, history of anemia. PAST SURGICAL HISTORY: None. FAMILY HISTORY: No family history of kidney disease. SOCIAL HISTORY: He does not drink, smoke or do drugs. MEDICATIONS: The patient's medications have been reviewed. REVIEW OF SYSTEMS: A 14-point review of systems was conducted. Pertinent positives stated in HPI, o therwise negative. PHYSICAL EXAMINATION: VITAL SIGNS: Blood pressure is 146/71, respirations 18, pulse 75, temperature 98.4. HEENT: Head is normocephalic. NECK: Supple. HEART: Regular rate. LUNGS: Show diminished breath sounds at the base. ABDOMEN: Soft, nontender to palpation without rebound or guarding. EXTREMITIES: Negative for clubbing, cyanosis. Noted dressings over the patient's right foot. DERMATOLOGIC: No rashes. MUSCULOSKELETAL: No joint effusion. NEUROLOGIC: No change in exam. LABORATORY DATA: Reviewed. ASSESSMENT AND PLAN: 1. Nonoliguric acute kidney injury with previous baseline creatinine around 1.1 to 1.2 mg/dL. Etiol ogy of current acute kidney injury may be multifactorial secondary to PASHA inhibitor, Bactrim effect, possibility of tubular injury is a consideration. The patient's initial urinalysis shows only mild p yuria, positive proteinuria. Lower suspicion for acute glomerulonephritis or vasculitis at this time . Recommendation is to check repeat UA with microanalysis. We will quantify patient's proteinuria. We would continue current antibiotic therapy, consider discontinuing vancomycin if possible. Will d eescalate IV fluids as the patient appears volume replete. We will otherwise continue supportive car e, renally dose all medications and avoid nephrotoxins. 2. Hypernatremia, likely secondary to acute kidney injury with decreased free water urinary excretio n. We will continue to monitor and limit free water intake. 3. Anemia with iron deficiency. The patient will be started on IV iron. 4. Mineral bone disorder, monitor calcium and phosphorus levels. 5. Hypertension. Continue current blood pressure regimen. 6. Diabetes. Continue current insulin regimen. 7. Right toe cellulitis. The patient is status post debridement and arthroplasty. We will continue to monitor. Followup with podiatry. Thank you, Dr. Willoughby, for this interesting consult. It will be a pleasure to follow the patient with lulú sal throughout the hospital course. Dictated By: HERB HOOD DO NR/NTS Conf#: [id number] DID#: [id number] CC: JAD POWERS MD; SACHIN FOX MD; ONEIDA WILLOUGHBY MD;*EndCC*
[2018-12-26] MEDS: GABAPENTIN 300 MG CAP PO SCH ×3 (09:34→20:41)
[2018-12-26] MEDS: FERROUS SULFATE (EC) 325 MG TAB PO SCH (09:34)
[2018-12-26] MEDS: ASPIRIN (EC) 81 MG TAB PO SCH (09:34)
[2018-12-26] MEDS: AMLODIPINE 10 MG TAB PO SCH (09:34)
[2018-12-26] MEDS: CEFEPIME 1GM/50 ML (PMX) 50 ML IVPB SCH (09:35)
[2018-12-26] MEDS: METOPROLOL (XL) 25 MG TAB PO SCH (09:35)
[2018-12-26 14:00] VITALS: BP 146/68; PULSE 65; RESP 17
--- NOTE | 2018-12-26 14:42 | PN ---
Date/Time of Note Date/Time of Note DATE: 12/26/18 TIME: 14:42 Objective Vitals Vital Signs Date Temp Pulse Resp B/P (MAP) Pulse Ox O2 O2 Flow FiO2 Time Delivery Rate 12/26/18 98.4 73 18 133/64 94 Room Air 08:15 (87) Intake and Output 12/25/18 12/25/18 12/26/18 1515:00 23:00 07:00 IntakeIntake Total 760 ml 975 ml 825 ml OutputOutput Total 5 ml 300 ml BalanceBalance 755 ml 675 ml 825 ml Results Result Diagram: 12/26/18 0630 12/26/18 0630 Medications Medications Current Medications Amlodipine Besylate (Norvasc) 10 mg DAILY PO Last administered on 12/26/18at 09:34; Admin Dose 10 MG; Start 12/25/18 at 09:00 Aspirin (Halfprin) 81 mg DAILY PO Last administered on 12/26/18at 09:34; Admin Dose 81 MG; Start 12/25/18 at 09:00 Atorvastatin Calcium (Lipitor) 40 mg QHS PO Last administered on 12/25/18at 20:07; Admin Dose 40 MG; Start 12/24/18 at 21:00 Gabapentin (Neurontin) 300 mg TID PO Last administered on 12/26/18at 12:44; Admin Dose 300 MG; Start 12/24/18 at 13:00 Metoprolol Succinate (Toprol Xl) 25 mg DAILY PO Last administered on 12/26/18at 09:35; Admin Dose 25 MG; Start 12/25/18 at 09:00 IV Flush (NS 3 ml) 3 ml PER PROTOCOL IV ; Start 12/24/18 at 13:00 Ondansetron HCl (Zofran Inj) 4 mg Q6H PRN IV NAUSEA/VOMITING; Start 12/24/18 at 13:00 Acetaminophen (Tylenol Tab) 650 mg Q6H PRN PO .PAIN 1-3 OR TEMP; Start 12/24/18 at 13:00 Acetaminophen/ Hydrocodone Bitart ([place] (5/325)) 1 tab Q6H PRN PO .MOD PAIN 4- 6; Start 12/24/18 at 13:00 Acetaminophen/ Hydrocodone Bitart ([place] (5/325)) 2 tab Q6H PRN PO .SEVERE PAIN 7-10; Start 12/24/18 at 13:00 Morphine Sulfate (morphine) 2 mg Q4H PRN IV .SEVERE PAIN 7-10; Start 12/24/18 at 13:00 Docusate Sodium (Colace) 100 mg Q12H PRN PO .CONSTIPATION; Start 12/24/18 at 13:00 Magnesium Hydroxide (Milk Of Mag) 30 ml DAILY PRN PO .CONSTIPATION; Start 12/24/18 at 13:00 Vancomycin HCl (Vanco Iv Per Pharmacy) VANCOMYCIN PER PHARMACY PER PROTOCOL XX ; Start 12/24/18 at 13:30 Insulin Glargine (Lantus) 35 units BID SC Last administered on 12/26/18at 07:58; Admin Dose 35 UNITS; Start 12/24/18 at 21:00 Sodium Chloride 1,000 ml @ 20 mls/hr Q24H IV Last administered on 12/26/18at 08:17; Admin Dose 20 MLS/HR; Start 12/24/18 at 14:00 Hydralazine HCl (Apresoline) 10 mg Q4H PRN IV SBP >170; Start 12/24/18 at 14:00 Miscellaneous Information 1 ea NOTE XX ; Start 12/24/18 at 15:30 Glucose (Glutose) 15 gm Q15M PRN PO DECREASED GLUCOSE; Start 12/24/18 at 15:30 Glucose (Glutose) 22.5 gm Q15M PRN PO DECREASED GLUCOSE; Start 12/24/18 at 15:30 Dextrose (D50w Syringe) 25 ml Q15M PRN IV DECREASED GLUCOSE; Start 12/24/18 at 15:30 Dextrose (D50w Syringe) 50 ml Q15M PRN IV DECREASED GLUCOSE; Start 12/24/18 at 15:30 Glucagon (Glucagen) 1 mg Q15M PRN IM DECREASED GLUCOSE; Start 12/24/18 at 15:30 Glucose (Glutose) 15 gm Q15M PRN BUCCAL DECREASED GLUCOSE; Start 12/24/18 at 15:30 Vancomycin HCl 250 ml @ 125 mls/hr Q24H IVPB Last administered on 12/25/18at 16:22; Admin Dose 125 MLS/HR; Start 12/25/18 at 16:00 Cefepime HCl 50 ml @ 100 mls/hr Q12 IVPB Last administered on 12/26/18at 09:35; Admin Dose 100 MLS/HR; Start 12/25/18 at 21:00 Ferrous Sulfate (Ferrous Sulfate (Ec)) 325 mg DAILY PO Last administered on 12/26/18at 09:34; Admin Dose 325 MG; Start 12/26/18 at 09:00 Insulin Aspart (Novolog Insulin Pen) (Adult SC Insulin - Moder... WITH MEALS B EDTIME SC Last administered on 12/26/18at 12:13; Admin Dose 6 UNIT; Start 12/25/18 at 21:00 VTE Prophylaxis Risk score (from Ns)>0 risk: 2 SCD applied (from Ns): Yes Lines/Catheters IV Catheter Type: Strange in Place: No Assessment/Plan Hospital Course Subjective Patient doing well status post surgery, does not complain of foot pain Objective Physical exam General: Patient is laying in bed and answers questions appropriately Mentation: Patient is alert and oriented 4, Head: Normocephalic atraumatic Eyes: EOMI, pupils reactive to light Neck: Supple, nontender, midline Respiratory: Clear to auscultation bilaterally Cardiovascular: regular rate, no obvious murmurs Gastrointestinal: non-tender to palpation, bowel sounds heard. Neurological: Moves all extremities spontaneously Skin: Surgical site, bandage, CDI Assessment/Plan 1. Right toe osteomyelitis, status post excisional debridement and right fourth digit arthroplasty - ID consulted for antibiotic recommendations - Podiatry performed surgery on December 25, 2018 - Continue broad spectrum IV antibiotic -Pending pathology taken during surgery - pain control 2. Uncontrolled diabetes Mellitus - A1c noted, 13 - Diabetic education consultation placed - Lantus continued and will adjust as needed - ISS and accuchecks 3. MAMTA on ?CKD - possibly secondary to ATN? Nephrology consulted - IVF on board and avoid nephrotoxic agents - will hold PASHA inhibitor 4. Hyponatremia - due to hyperglycemia. Resolving 5. Anemia -Low iron levels - most likely in setting of infection and chronic disease 6. Diet - Carb controlled 7. DVT ppx - SCD 8. Disposition -Nephrology recommendations appreciated, will touch base with infectious disease and podiatry for further antibiotic recommendations and eventual discharge recommendations that will be upcoming. ONEIDA PAUL December 26, 2018 14:42
--- NOTE | 2018-12-26 15:33 | CONS ---
Assessment/Plan Assessment/Plan Hospital Course (Demo Recall) Patient is awake looks comfortable no fevers overnight vital signs stable. Microbiology: Wound culture growing gamma hemolytic strep species, blood culture grew gram-positive rods 1 out of 2 sets Antimicrobials: Cefepime vancomycin MRI of right foot revealed osteomyelitis of the mid to distal fourth proximal phalanx and the fourth middle phalanx no evidence of acute fracture renal ultra sound showed several alissa unremarkable Allergies none Physical examination: Well-developed elderly man who is awake in no distress. Head atraumatic normocephalic neck is supple chest rise symmetrical breath sounds diminished bases heart: S1-S2 abdomen soft bowel sounds present extremities with bilateral lower extremities dressing intact Assessment: 1. Right foot cellulitis with osteomyelitis of the toe, status post surgical intervention 2. Diabetes with diabetic neuropathy 3. Acute on chronic kidney disease . Gram-positive philomena bacteremia consistent with contaminant Plan: Patient is stable, we will discontinue vancomycin, change cefepime to Rocephin, follow final cultures. Per discussion with podiatry patient will require staged debridement with likely amputation of infected toe and may not need to be on long-term IV antibiotics Consultation Date/Type/Reason Admit Date/Time December 24, 2018 at 12:42 Initial Consult Date Type of Consult id Date/Time of Note DATE: 12/26/18 TIME: 15:31 Exam/Review of Systems Exam Vitals Vital Signs Date Temp Pulse Resp B/P (MAP) Pulse Ox O2 O2 Flow FiO2 Time Delivery Rate 12/26/18 98.4 73 18 133/64 94 Room Air 08:15 (87) Intake and Output 12/25/18 12/25/18 12/26/18 1515:00 23:00 07:00 IntakeIntake Total 760 ml 975 ml 825 ml OutputOutput Total 5 ml 300 ml BalanceBalance 755 ml 675 ml 825 ml Results Result Diagram: 12/26/18 0630 12/26/18 0630 Results 24hrs Laboratory Tests Test 12/25/18 17:21 12/25/18 21:29 12/26/18 01:56 12/26/18 06:30 Bedside Glucose 287 H 271 H 237 H White Blood Count 9.3 Red Blood Count 3.37 L Hemoglobin 10.2 L Hematocrit 28.7 L Mean Corpuscular 85.2 Volume Mean Corpuscular 30.3 Hemoglobin Mean Corpuscular 35.5 Hemoglobin Concen t Red Cell 12.4 Distribution Width Platelet Count 243 Mean Platelet 12.0 H Volume Immature 0.500 H Granulocytes % Neutrophils % 74.1 Lymphocytes % 15.7 Monocytes % 7.7 Eosinophils % 1.8 Basophils % 0.2 Nucleated Red 0.0 Blood Cells % Immature 0.050 H Granulocytes # Neutrophils # 6.9 Lymphocytes # 1.5 Monocytes # 0.7 Eosinophils # 0.2 Basophils # 0.0 Nucleated Red 0.0 Blood Cells # Sodium Level 136 Potassium Level 3.6 Chloride Level 107 Carbon Dioxide 26 Level Anion Gap 3 L Blood Urea 20 Nitrogen Creatinine 1.74 H Est Glomerular 40 L Filtrat Rate mL/min Glucose Level 118 # Calcium Level 7.9 L Phosphorus Level 4.0 Magnesium Level 1.9 Test 12/26/18 07:56 12/26/18 10:00 12/26/18 12:10 Bedside Glucose 117 239 H Urine Color YELLOW Urine Clarity SLIGHTLY CLOUDY A Urine pH 6.0 Urine Specific 1.013 [place] Urine Ketones NEGATIVE Urine Nitrite NEGATIVE Urine Bilirubin NEGATIVE Urine NEGATIVE Urobilinogen Urine Leukocyte NEGATIVE Esterase Urine Microscopic 6 H RBC Urine Microscopic 4 WBC Urine Squamous FEW Epithelial Cells Urine Bacteria FEW A Urine Yeast FEW A (Budding) Urine Hemoglobin NEGATIVE Urine Random 66.66 Creatinine Urine Random 41 Sodium Urine Glucose 2+ H Urine Total Protein Medications Medication Current Medications Amlodipine Besylate (Norvasc) 10 mg DAILY PO Last administered on 12/26/18 09:34; Admin Dose 10 MG; Start 12/25/18 at 09:00 Aspirin (Halfprin) 81 mg DAILY PO Last administered on 12/26/18 09:34; Admin D ose 81 MG; Start 12/25/18 at 09:00 Atorvastatin Calcium (Lipitor) 40 mg QHS PO Last administered on 12/25/18at 20:07; Admin Dose 40 MG; Start 12/24/18 at 21:00 Gabapentin (Neurontin) 300 mg TID PO Last administered on 12/26/18at 12:44; Admin Dose 300 MG; Start 12/24/18 at 13:00 Metoprolol Succinate (Toprol Xl) 25 mg DAILY PO Last administered on 12/26/18at 09:35; Admin Dose 25 MG; Start 12/25/18 at 09:00 IV Flush (NS 3 ml) 3 ml PER PROTOCOL IV ; Start 12/24/18 at 13:00 Ondansetron HCl (Zofran Inj) 4 mg Q6H PRN IV NAUSEA/VOMITING; Start 12/24/18 at 13:00 Acetaminophen (Tylenol Tab) 650 mg Q6H PRN PO .PAIN 1-3 OR TEMP; Start 12/24/18 at 13:00 Acetaminophen/ Hydrocodone Bitart ([place] (5/325)) 1 tab Q6H PRN PO .MOD PAIN 4- 6; Start 12/24/18 at 13:00 Acetaminophen/ Hydrocodone Bitart ([place] (5/325)) 2 tab Q6H PRN PO .SEVERE PAIN 7-10; Start 12/24/18 at 13:00 Morphine Sulfate (morphine) 2 mg Q4H PRN IV .SEVERE PAIN 7-10; Start 12/24/18 at 13:00 Docusate Sodium (Colace) 100 mg Q12H PRN PO .CONSTIPATION; Start 12/24/18 at 13:00 Magnesium Hydroxide (Milk Of Mag) 30 ml DAILY PRN PO .CONSTIPATION; Start 12/24/18 at 13:00 Vancomycin HCl (Vanco Iv Per Pharmacy) VANCOMYCIN PER PHARMACY PER PROTOCOL XX ; Start 12/24/18 at 13:30 Insulin Glargine (Lantus) 35 units BID SC Last administered on 12/26/18at 07:58; Admin Dose 35 UNITS; Start 12/24/18 at 21:00 Hydralazine HCl (Apresoline) 10 mg Q4H PRN IV SBP >170; Start 12/24/18 at 14:00 Miscellaneous Information 1 ea NOTE XX ; Start 12/24/18 at 15:30 Glucose (Glutose) 15 gm Q15M PRN PO DECREASED GLUCOSE; Start 12/24/18 at 15:30 Glucose (Glutose) 22.5 gm Q15M PRN PO DECREASED GLUCOSE; Start 12/24/18 at 15:30 Dextrose (D50w Syringe) 25 ml Q15M PRN IV DECREASED GLUCOSE; Start 12/24/18 at 15:30 Dextrose (D50w Syringe) 50 ml Q15M PRN IV DECREASED GLUCOSE; Start 12/24/18 at 15:30 Glucagon (Glucagen) 1 mg Q15M PRN IM DECREASED GLUCOSE; Start 12/24/18 at 15:30 Glucose (Glutose) 15 gm Q15M PRN BUCCAL DECREASED GLUCOSE; Start 12/24/18 at 15:30 Vancomycin HCl 250 ml @ 125 mls/hr Q24H IVPB Last administered on 12/25/18at 16:22; Admin Dose 125 MLS/HR; Start 12/25/18 at 16:00 Cefepime HCl 50 ml @ 100 mls/hr Q12 IVPB Last administered on 12/26/18at 09:35; Admin Dose 100 MLS/HR; Start 12/25/18 at 21:00 Ferrous Sulfate (Ferrous Sulfate (Ec)) 325 mg DAILY PO Last administered on 12/26/18at 09:34; Admin Dose 325 MG; Start 12/26/18 at 09:00 Insulin Aspart (Novolog Insulin Pen) (Adult SC Insulin - Moder... WITH MEALS BEDTIME SC Last administered on 12/26/18at 12:13; Admin Dose 6 UNIT; Start 12/25/18 at 21:00 Insulin Aspart (Novolog Insulin Pen) 6 unit WITH MEALS SC ; Start 12/26/18 at 17:35 PARK DUEÑAS NP December 26, 2018 15:33
[2018-12-26] MEDS: CEFTRIAXONE 1 GM/50 ML (PMX) 50 ML IVPB SCH (16:02)
[2018-12-26] MEDS: INSULIN ASPART [NOVOLOG] 3 ML PEN SC SCH (17:35)
--- NOTE | 2018-12-26 19:00 | CONS ---
Assessment/Plan Assessment/Plan Assessment/Plan (Daily) Right foot diabetic ulcer R foot cellulitis Right foot abscess DM2 with peripheral neuropathy Right foot osteomyelitis Right foot gangrene Plan Discussed with patient that due to the osteomyelitis 4th digit amputation would be needed. Continue with antibiotics. Offload heels with pillows. Patient will be planned for OR procedure possibly Monday if there is OR availability. Otherwise plan for Monday procedure. Daily dressing changes. Wound Cx showing gamma hemolytic strep and strep group B. Consultation Date/Type/Reason Admit Date/Time December 24, 2018 at 12:42 Initial Consult Date Date/Time of Note DATE: 12/26/18 TIME: 18:58 24 HR Interval Summary Free Text/Dictation No acute events overnight Exam/Review of Systems Exam Vitals Vital Signs Date Temp Pulse Resp B/P (MAP) Pulse Ox O2 O2 Flow FiO2 Time Delivery Rate 12/26/18 98.4 73 18 133/64 94 Room Air 08:15 (87) Intake and Output 12/25/18 12/25/18 12/26/18 1515:00 23:00 07:00 IntakeIntake Total 760 ml 975 ml 825 ml OutputOutput Total 5 ml 300 ml BalanceBalance 755 ml 675 ml 825 ml Exam Surrounding skin edges with gangrene to surgery site Bone exposed which appears lindsey and yellow There is CFT less than 3 seconds to the medial aspect of the 4th digit Absent protective sensations. No proximal streaking appreciated. No ulceration appreciated to the right 5th digit and unable to probe to bone. Results Result Diagram: 12/26/18 0630 12/26/18 0630 Results 24hrs Laboratory Tests Test 12/25/18 21:29 12/26/18 01:56 12/26/18 06:30 12/26/18 07:56 Bedside Glucose 271 H 237 H 117 White Blood Count 9.3 Red Blood Count 3.37 L Hemoglobin 10.2 L Hematocrit 28.7 L Mean Corpuscular 85.2 Volume Mean Corpuscular 30.3 Hemoglobin Mean Corpuscular 35.5 Hemoglobin Concen t Red Cell 12.4 Distribution Width Platelet Count 243 Mean Platelet 12.0 H Volume Immature 0.500 H Granulocytes % Neutrophils % 74.1 Lymphocytes % 15.7 Monocytes % 7.7 Eosinophils % 1.8 Basophils % 0.2 Nucleated Red 0.0 Blood Cells % Immature 0.050 H Granulocytes # Neutrophils # 6.9 Lymphocytes # 1.5 Monocytes # 0.7 Eosinophils # 0.2 Basophils # 0.0 Nucleated Red 0.0 Blood Cells # Sodium Level 136 Potassium Level 3.6 Chloride Level 107 Carbon Dioxide 26 Level Anion Gap 3 L Blood Urea 20 Nitrogen Creatinine 1.74 H Est Glomerular 40 L Filtrat Rate mL/min Glucose Level 118 # Calcium Level 7.9 L Phosphorus Level 4.0 Magnesium Level 1.9 Test 12/26/18 10:00 12/26/18 12:10 12/26/18 17:31 Urine Color YELLOW Urine Clarity SLIGHTLY CLOUDY A Urine pH 6.0 Urine Specific 1.013 [place] Urine Ketones NEGATIVE Urine Nitrite NEGATIVE Urine Bilirubin NEGATIVE Urine NEGATIVE Urobilinogen Urine Leukocyte NEGATIVE Esterase Urine Microscopic 6 H RBC Urine Microscopic 4 WBC Urine Squamous FEW Epithelial Cells Urine Bacteria FEW A Urine Yeast FEW A (Budding) Urine Hemoglobin NEGATIVE Urine Random 66.66 Creatinine Urine Random 41 Sodium Urine Glucose 2+ H Urine Total Protein Bedside Glucose 239 H 196 Medications Medication Current Medications Amlodipine Besylate (Norvasc) 10 mg DAILY PO Last administered on 12/26/18 09:34; Admin Dose 10 MG; Start 12/25/18 at 09:00 Aspirin (Halfprin) 81 mg DAILY PO Last administered on 12/26/18 09:34; Admin Dose 81 MG; Start 12/25/18 at 09:00 Atorvastatin Calcium (Lipitor) 40 mg QHS PO Last administered on 12/25/18at 20:07; Admin Dose 40 MG; Start 12/24/18 at 21:00 Gabapentin (Neurontin) 300 mg TID PO Last administered on 12/26/18at 12:44; Admin Dose 300 MG; Start 12/24/18 at 13:00 Metoprolol Succinate (Toprol Xl) 25 mg DAILY PO Last administered on 12/26/18at 09:35; Admin Dose 25 MG; Start 12/25/18 at 09:00 IV Flush (NS 3 ml) 3 ml PER PROTOCOL IV ; Start 12/24/18 at 13:00 Ondansetron HCl (Zofran Inj) 4 mg Q6H PRN IV NAUSEA/VOMITING; Start 12/24/18 at 13:00 Acetaminophen (Tylenol Tab) 650 mg Q6H PRN PO .PAIN 1-3 OR TEMP; Start 12/24/18 at 13:00 Acetaminophen/ Hydrocodone Bitart ([place] (5/325)) 1 tab Q6H PRN PO .MOD PAIN 4- 6; Start 12/24/18 at 13:00 Acetaminophen/ Hydrocodone Bitart ([place] (5/325)) 2 tab Q6H PRN PO .SEVERE PAIN 7-10; Start 12/24/18 at 13:00 Morphine Sulfate (morphine) 2 mg Q4H PRN IV .SEVERE PAIN 7-10; Start 12/24/18 at 13:00 Docusate Sodium (Colace) 100 mg Q12H PRN PO .CONSTIPATION; Start 12/24/18 at 13:00 Magnesium Hydroxide (Milk Of Mag) 30 ml DAILY PRN PO .CONSTIPATION; Start 12/24/18 at 13:00 Insulin Glargine (Lantus) 35 units BID SC Last administered on 12/26/18at 07:58; Admin Dose 35 UNITS; Start 12/24/18 at 21:00 Hydralazine HCl (Apresoline) 10 mg Q4H PRN IV SBP >170; Start 12/24/18 at 14:00 Miscellaneous Information 1 ea NOTE XX ; Start 12/24/18 at 15:30 Glucose (Glutose) 15 gm Q15M PRN PO DECREASED GLUCOSE; Start 12/24/18 at 15:30 Glucose (Glutose) 22.5 gm Q15M PRN PO DECREASED GLUCOSE; Start 12/24/18 at 15:30 Dextrose (D50w Syringe) 25 ml Q15M PRN IV DECREASED GLUCOSE; Start 12/24/18 at 15:30 Dextrose (D50w Syringe) 50 ml Q15M PRN IV DECREASED GLUCOSE; Start 12/24/18 at 15:30 Glucagon (Glucagen) 1 mg Q15M PRN IM DECREASED GLUCOSE; Start 12/24/18 at 15:30 Glucose (Glutose) 15 gm Q15M PRN BUCCAL DECREASED GLUCOSE; Start 12/24/18 at 15:30 Ferrous Sulfate (Ferrous Sulfate (Ec)) 325 mg DAILY PO Last administered on 12/26/18at 09:34; Admin Dose 325 MG; Start 12/26/18 at 09:00 Insulin Aspart (Novolog Insulin Pen) (Adult SC Insulin - Moder... WITH MEALS BEDTIME SC Last administered on 12/26/18at 17:35; Admin Dose 4 UNIT; Start 12/25/18 at 21:00 Insulin Aspart (Novolog Insulin Pen) 6 unit WITH MEALS SC Last administered on 12/26/18at 17:35; Admin Dose 6 UNIT; Start 12/26/18 at 17:35 Ceftriaxone Sodium 50 ml @ 100 mls/hr Q24H IVPB Last administered on 12/26/18at 16:02; Admin Dose 100 MLS/HR; Start 12/26/18 at 16:00 ROSE GUSMAN DPM December 26, 2018 19:00
[2018-12-26 20:00] VITALS: BP 149/75; PULSE 71; RESP 18
[2018-12-26] MEDS: ATORVASTATIN 40 MG TAB PO SCH (20:40)
[2018-12-27 01:47] VITALS: BP 164/84; PULSE 84; RESP 18
[2018-12-27] MEDS: Insulin NOVOLOG SS MODERATE Algorithm (SS with meals and bedtime) SC SCH ×4 (07:52→21:10)
[2018-12-27 08:00] VITALS: BP 166/85; PULSE 65; RESP 17
[2018-12-27] MEDS: AMLODIPINE 10 MG TAB PO SCH (08:23)
[2018-12-27] MEDS: FERROUS SULFATE (EC) 325 MG TAB PO SCH (08:23)
[2018-12-27] MEDS: ASPIRIN (EC) 81 MG TAB PO SCH (08:23)
[2018-12-27] MEDS: METOPROLOL (XL) 25 MG TAB PO SCH (08:23)
[2018-12-27] MEDS: ASCORBIC ACID 500 MG TAB PO SCH ×2 (08:23→21:10)
[2018-12-27] MEDS: GABAPENTIN 300 MG CAP PO SCH ×3 (08:23→21:11)
[2018-12-27] MEDS: INSULIN GLARGINE [LANTus] (100 UNITS/ML) SYG SC SCH ×2 (08:24→21:11)
[2018-12-27] MEDS: INSULIN ASPART [NOVOLOG] 3 ML PEN SC SCH ×3 (08:26→17:37)
--- NOTE | 2018-12-27 09:37 | PN ---
DATE: 12/27/2018 SUBJECTIVE: The patient is stable, no events overnight. No fevers, chills, nausea or vomiting. OBJECTIVE: VITAL SIGNS: Blood pressure is 166/85, respirations 17, pulse 85, temperature 97.6. HEENT: Head is normocephalic. NECK: Supple. HEART: Regular rate. LUNGS: Show diminished breath sounds at the base. ABDOMEN: Soft, nontender to palpation. No rebound or guarding. EXTREMITIES: Negative for clubbing, cyanosis. Positive dressing clean, dry, and intact. DERMATOLOGIC: No rashes. MUSCULOSKELETAL: No joint effusion. NEUROLOGIC: No change in exam. MEDICATIONS: Reviewed. LABORATORY DATA: Reviewed. ASSESSMENT AND PLAN: 1. Nonoliguric acute kidney injury on top of chronic kidney disease with previous baseline creatinin e around 1.3 to 1.4 mg/dL. Etiology of acute kidney injury may be multifactorial secondary to PASHA in hibitor effect, Bactrim effect, questionable tubular injury. Renal function has improved in last 24 hours. At this point, we will continue current treatment plan, supportive care, renally dose all med ications. 2. Hypernatremia, improved. Continue to monitor. 3. Anemia with iron deficiency, we will start the patient on IV iron. 4. Mineral bone disorder. Monitor calcium and phosphorus levels. 5. Diabetes. Continue current insulin regimen. 6. Right toe cellulitis, status post debridement. Continue to monitor. Continue wound care, follow up with podiatry. Dictated By: HERB HOOD DO NR/NTS Conf#: [id number] DID#: [id number] CC: SACHIN FOX MD; ONEIDA PAUL MD; JAD POWERS MD;*EndCC*
[2018-12-27 10:39] VITALS: BP 179/86; PULSE 62
[2018-12-27] MEDS: hydrALAzine 20 MG INJ IV PRN (10:39)
[2018-12-27 11:10] VITALS: BP 147/79; PULSE 69
--- NOTE | 2018-12-27 13:44 | PN ---
Date/Time of Note Date/Time of Note DATE: 12/27/18 TIME: 13:43 Objective Vitals Vital Signs Date Temp Pulse Resp B/P (MAP) Pulse Ox O2 O2 Flow FiO2 Time Delivery Rate 12/27/18 69 147/79 11:10 (101) 12/27/18 97.7 17 96 Room Air 08:00 Intake and Output 12/26/18 12/26/18 12/27/18 1515:00 23:00 07:00 IntakeIntake Total 995 ml 250 ml 240 ml OutputOutput Total 600 ml 1350 ml 740 ml BalanceBalance 395 ml -1100 ml -500 ml Results Result Diagram: 12/27/18 0553 12/27/18 0553 Medications Medications Current Medications Amlodipine Besylate (Norvasc) 10 mg DAILY PO Last administered on 12/27/18at 08:23; Admin Dose 10 MG; Start 12/25/18 at 09:00 Aspirin (Halfprin) 81 mg DAILY PO Last administered on 12/27/18 08:23; Admin Dose 81 MG; Start 12/25/18 at 09:00 Atorvastatin Calcium (Lipitor) 40 mg QHS PO Last administered on 12/26/18 20:40; Admin Dose 40 MG; Start 12/24/18 at 21:00 Gabapentin (Neurontin) 300 mg TID PO Last administered on 12/27/18at 12:03; Admin Dose 300 MG; Start 12/24/18 at 13:00 Metoprolol Succinate (Toprol Xl) 25 mg DAILY PO Last administered on 12/27/18 08:23; Admin Dose 25 MG; Start 12/25/18 at 09:00 IV Flush (NS 3 ml) 3 ml PER PROTOCOL IV ; Start 12/24/18 at 13:00 Ondansetron HCl (Zofran Inj) 4 mg Q6H PRN IV NAUSEA/VOMITING; Start 12/24/18 at 13:00 Acetaminophen (Tylenol Tab) 650 mg Q6H PRN PO .PAIN 1-3 OR TEMP; Start 12/24/18 at 13:00 Acetaminophen/ Hydrocodone Bitart ([place] (5/325)) 1 tab Q6H PRN PO .MOD PAIN 4- 6; Start 12/24/18 at 13:00 Acetaminophen/ Hydrocodone Bitart ([place] (5/325)) 2 tab Q6H PRN PO .SEVERE PAIN 7-10; Start 12/24/18 at 13:00 Morphine Sulfate (morphine) 2 mg Q4H PRN IV .SEVERE PAIN 7-10; Start 12/24/18 at 13:00 Docusate Sodium (Colace) 100 mg Q12H PRN PO .CONSTIPATION; Start 12/24/18 at 13:00 Magnesium Hydroxide (Milk Of Mag) 30 ml DAILY PRN PO .CONSTIPATION; Start 12/24/18 at 13:00 Insulin Glargine (Lantus) 35 units BID SC Last administered on 12/27/18at 08:24; Admin Dose 35 UNITS; Start 12/24/18 at 21:00 Hydralazine HCl (Apresoline) 10 mg Q4H PRN IV SBP >170 Last administered on 12/27/18at 10:39; Admin Dose 10 MG; Start 12/24/18 at 14:00 Miscellaneous Information 1 ea NOTE XX ; Start 12/24/18 at 15:30 Glucose (Glutose) 15 gm Q15M PRN PO DECREASED GLUCOSE; Start 12/24/18 at 15:30 Glucose (Glutose) 22.5 gm Q15M PRN PO DECREASED GLUCOSE; Start 12/24/18 at 15:30 Dextrose (D50w Syringe) 25 ml Q15M PRN IV DECREASED GLUCOSE; Start 12/24/18 at 15:30 Dextrose (D50w Syringe) 50 ml Q15M PRN IV DECREASED GLUCOSE; Start 12/24/18 at 15:30 Glucagon (Glucagen) 1 mg Q15M PRN IM DECREASED GLUCOSE; Start 12/24/18 at 15:30 Glucose (Glutose) 15 gm Q15M PRN BUCCAL DECREASED GLUCOSE; Start 12/24/18 at 15:30 Ferrous Sulfate (Ferrous Sulfate (Ec)) 325 mg DAILY PO Last administered on 12/27/18at 08:23; Admin Dose 325 MG; Start 12/26/18 at 09:00 Insulin Aspart (Novolog Insulin Pen) (Adult SC Insulin - Moder... WITH MEALS BEDTIME SC Last administered on 12/27/18at 12:05; Admin Dose 6 UNIT; Start 12/25/18 at 21:00 Ceftriaxone Sodium 50 ml @ 100 mls/hr Q24H IVPB Last administered on 12/26/18at 16:02; Admin Dose 100 MLS/HR; Start 12/26/18 at 16:00 Ascorbic Acid (Vitamin C) 500 mg BID PO Last administered on 12/27/18at 08:23; Admin Dose 500 MG; Start 12/27/18 at 09:00 Insulin Aspart (Novolog Insulin Pen) 8 unit WITH MEALS SC ; Start 12/27/18 at 17:35 VTE Prophylaxis Risk score (from [facility] [place])>0 risk: 2 SCD applied (from [facility] [place]): Yes Lines/Catheters IV Catheter Type: Strange in Place: No Assessment/Plan Hospital Course Subjective Patient doing well status post surgery, does not complain of foot pain Objective Physical exam General: Patient is laying in bed and answers questions appropriately Mentation: Patient is alert and oriented 4, Head: Normocephalic atraumatic Eyes: EOMI, pupils reactive to light Neck: Supple, nontender, midline Respiratory: Clear to auscultation bilaterally Cardiovascular: regular rate, no obvious murmurs Gastrointestinal: non-tender to palpation, bowel sounds heard. Neurological: Moves all extremities spontaneously Skin: Surgical site, bandage, CDI Assessment/Plan 1. Right toe osteomyelitis, status post excisional debridement and right fourth digit arthroplasty - ID consulted for antibiotic recommendations - Podiatry performed surgery on December 25, 2018 - Continue broad spectrum IV antibiotic -Pending pathology taken during surgery - pain control 2. Uncontrolled diabetes Mellitus - A1c noted, 13 - Diabetic education consultation placed - Lantus continued and will adjust as needed - ISS and accuchecks 3. MAMTA on ?CKD - possibly secondary to ATN? Nephrology consulted - IVF on board and avoid nephrotoxic agents - will hold PASHA inhibitor 4. Hyponatremia - due to hyperglycemia. Resolving 5. Anemia -Low iron levels - most likely in setting of infection and chronic disease 6. Diet - Carb controlled 7. DVT ppx - SCD 8. Disposition -possible additional surgery tomorrow or next week. ONEIDA PAUL December 27, 2018 13:44
[2018-12-27 14:00] VITALS: BP 157/74; PULSE 71; RESP 18
--- NOTE | 2018-12-27 16:13 | CONS ---
Assessment/Plan Assessment/Plan Hospital Course (Demo Recall) Patient is awake looks comfortable no fevers overnight Microbiology: Wound culture growing strep staph aureus, blood culture grew gram-positive rods 1 out of 2 sets Antimicrobials: Rocephin vancomycin MRI of right foot revealed osteomyelitis of the mid to distal fourth proximal phalanx and the fourth middle phalanx no evidence of acute fracture renal ultrasound showed several alissa unremarkable Allergies none Physical examination: Well-developed elderly man who is awake in no distress. Head atraumatic normocephalic neck is supple chest rise symmetrical breath sounds diminished bases heart: S1-S2 abdomen soft bowel sounds present extremities with bilateral lower extremities dressing intact Assessment: 1. Right foot cellulitis with osteomyelitis of the toe, status post surgical intervention 2. Diabetes with diabetic neuropathy 3. Acute on chronic kidney disease . Gram-positive philomena bacteremia consistent with contaminant Plan: Patient is stable, restart vancomycin until we get final wound cultures, repeat blood cultures. Per discussion with podiatry patient will require staged debridement with likely amputation of infected toe and may not need to be on l gypsy-term IV antibiotics Consultation Date/Type/Reason Admit Date/Time December 24, 2018 at 12:42 Initial Consult Date Type of Consult id Date/Time of Note DATE: 12/27/18 TIME: 16:12 Exam/Review of Systems Exam Vitals Vital Signs Date Temp Pulse Resp B/P (MAP) Pulse Ox O2 O2 Flow FiO2 Time Delivery Rate 12/27/18 98.2 71 18 157/74 97 14:00 (101) 12/27/18 Room Air 08:00 Intake and Output 12/26/18 12/26/18 12/27/18 1515:00 23:00 07:00 IntakeIntake Total 995 ml 250 ml 240 ml OutputOutput Total 600 ml 1350 ml 740 ml BalanceBalance 395 ml -1100 ml -500 ml Results Result Diagram: 12/27/18 0553 12/27/18 0553 Results 24hrs Laboratory Tests Test 12/26/18 17:31 12/26/18 19:24 12/26/18 20:38 12/27/18 02:06 Bedside Glucose 196 232 H 128 Erythrocyte 130 H Sedimentation Rate C-Reactive Protein 14.7 H Procalcitonin 0.34 H Test 12/27/18 05:53 12/27/18 07:52 12/27/18 12:02 White Blood Count 9.1 Red Blood Count 3.62 L Hemoglobin 10.9 L Hematocrit 31.2 L Mean Corpuscular 86.2 Volume Mean Corpuscular 30.1 Hemoglobin Mean Corpuscular 34.9 Hemoglobin Concent Red Cell 12.0 Distribution Width Platelet Count 274 Mean Platelet Volume 11.1 H Immature 0.400 Granulocytes % Neutrophils % 69.2 Lymphocytes % 20.4 Monocytes % 7.3 Eosinophils % 2.5 Basophils % 0.2 Nucleated Red Blood 0.0 Cells % Immature 0.040 H Granulocytes # Neutrophils # 6.3 Lymphocytes # 1.9 Monocytes # 0.7 Eosinophils # 0.2 Basophils # 0.0 Nucleated Red Blood 0.0 Cells # Sodium Level 140 Potassium Level 3.9 Chloride Level 110 Carbon Dioxide Level 27 Anion Gap 3 L Blood Urea Nitrogen 17 Creatinine 1.59 H Est Glomerular 44 L Filtrat Rate mL/min Glucose Level 95 Calcium Level 8.0 L Phosphorus Level 4.1 Magnesium Level 2.0 Bedside Glucose 95 258 H Medications Medication Current Medications Amlodipine Besylate (Norvasc) 10 mg DAILY PO Last administered on 12/27/18 08:23; Admin Dose 10 MG; Start 12/25/18 at 09:00 Aspirin (Halfprin) 81 mg DAILY PO Last administered on 12/27/18 08:23; Admin Dose 81 MG; Start 12/25/18 at 09:00 Atorvastatin Calcium (Lipitor) 40 mg QHS PO Last administered on 12/26/18 20:40; Admin Dose 40 MG; Start 12/24/18 at 21:00 Gabapentin (Neurontin) 300 mg TID PO Last administered on 12/27/18 12:03; Admin Dose 300 MG; Start 12/24/18 at 13:00 Metoprolol Succinate (Toprol Xl) 25 mg DAILY PO Last administered on 12/27/18 08:23; Admin Dose 25 MG; Start 12/25/18 at 09:00 IV Flush (NS 3 ml) 3 ml PER PROTOCOL IV ; Start 12/24/18 at 13:00 Ondansetron HCl (Zofran Inj) 4 mg Q6H PRN IV NAUSEA/VOMITING; Start 12/24/18 at 13:00 Acetaminophen (Tylenol Tab) 650 mg Q6H PRN PO .PAIN 1-3 OR TEMP; Start 12/24/18 at 13:00 Acetaminophen/ Hydrocodone Bitart ([place] (5/325)) 1 tab Q6H PRN PO .MOD PAIN 4- 6; Start 12/24/18 at 13:00 Acetaminophen/ Hydrocodone Bitart ([place] (5/325)) 2 tab Q6H PRN PO .SEVERE PAIN 7-10; Start 12/24/18 at 13:00 Morphine Sulfate (morphine) 2 mg Q4H PRN IV .SEVERE PAIN 7-10; Start 12/24/18 at 13:00 Docusate Sodium (Colace) 100 mg Q12H PRN PO .CONSTIPATION; Start 12/24/18 at 13:00 Magnesium Hydroxide (Milk Of Mag) 30 ml DAILY PRN PO .CONSTIPATION; Start 12/24/18 at 13:00 Insulin Glargine (Lantus) 35 units BID SC Last administered on 12/27/18at 08:24; Admin Dose 35 UNITS; Start 12/24/18 at 21:00 Hydralazine HCl (Apresoline) 10 mg Q4H PRN IV SBP >170 Last administered on 12/27/18at 10:39; Admin Dose 10 MG; Start 12/24/18 at 14:00 Miscellaneous Information 1 ea NOTE XX ; Start 12/24/18 at 15:30 Glucose (Glutose) 15 gm Q15M PRN PO DECREASED GLUCOSE; Start 12/24/18 at 15:30 Glucose (Glutose) 22.5 gm Q15M PRN PO DECREASED GLUCOSE; Start 12/24/18 at 15:30 Dextrose (D50w Syringe) 25 ml Q15M PRN IV DECREASED GLUCOSE; Start 12/24/18 at 15:30 Dextrose (D50w Syringe) 50 ml Q15M PRN IV DECREASED GLUCOSE; Start 12/24/18 at 15:30 Glucagon (Glucagen) 1 mg Q15M PRN IM DECREASED GLUCOSE; Start 12/24/18 at 15:30 Glucose (Glutose) 15 gm Q15M PRN BUCCAL DECREASED GLUCOSE; Start 12/24/18 at 15:30 Ferrous Sulfate (Ferrous Sulfate (Ec)) 325 mg DAILY PO Last administered on 12/27/18at 08:23; Admin Dose 325 MG; Start 12/26/18 at 09:00 Insulin Aspart (Novolog Insulin Pen) (Adult SC Insulin - Moder... WITH MEALS BEDTIME SC Last administered on 12/27/18at 12:05; Admin Dose 6 UNIT; Start 12/25/18 at 21:00 Ceftriaxone Sodium 50 ml @ 100 mls/hr Q24H IVPB Last administered on 12/26/18at 16:02; Admin Dose 100 MLS/HR; Start 12/26/18 at 16:00 Ascorbic Acid (Vitamin C) 500 mg BID PO Last administered on 12/27/18at 08:23; Admin Dose 500 MG; Start 12/27/18 at 09:00 Insulin Aspart (Novolog Insulin Pen) 8 unit WITH MEALS SC ; Start 12/27/18 at 17:35 PARK DUEÑAS NP December 27, 2018 16:13
[2018-12-27] MEDS: CEFTRIAXONE 1 GM/50 ML (PMX) 50 ML IVPB SCH (16:25)
[2018-12-27] MEDS ORDERED: VANCOMYCIN IV PER PHARMACY XX SCH (16:30)
[2018-12-27] MEDS: VANCOMYCIN HCL 1.25 GM in SOD CHLORIDE 0.9% 250 ML IVPB SCH (17:39)
[2018-12-27 20:44] VITALS: BP 107/58; PULSE 72; RESP 16
[2018-12-27] MEDS: ATORVASTATIN 40 MG TAB PO SCH (21:10)
[2018-12-28] VITALS (13 sets, daily range): BP systolic 117–181; BP diastolic 72–91; PULSE 62–90; RESP 16–23
[2018-12-28] MEDS: INSULIN ASPART [NOVOLOG] 3 ML PEN SC SCH ×7 (01:27→17:26)
[2018-12-28] MEDS: GABAPENTIN 300 MG CAP PO SCH ×3 (08:01→20:07)
[2018-12-28] MEDS: ASPIRIN (EC) 81 MG TAB PO SCH (08:01)
[2018-12-28] MEDS: ASCORBIC ACID 500 MG TAB PO SCH ×2 (08:01→20:07)
[2018-12-28] MEDS: AMLODIPINE 10 MG TAB PO SCH (08:01)
[2018-12-28] MEDS: METOPROLOL (XL) 25 MG TAB PO SCH (08:01)
[2018-12-28] MEDS: FERROUS SULFATE (EC) 325 MG TAB PO SCH (08:01)
--- NOTE | 2018-12-28 08:59 | PREAC ---
Date/Time of Note Date/Time of Note DATE: 12/28/18 TIME: 08:56 Anesthesia Eval and Record Evaluation Time Pre-Procedure Interview DATE: 12/28/18 TIME: 08:56 Age 63 Sex male NPO: 8 hrs (lunch 12/27/18) Preoperative diagnosis right foot osteomyelitis Planned procedure right 4th digit amputation Past Medical History Past Medical History: Includes Cardio: HTN, Dyslipidemia Endo: Diabetes (uncontrolled DM [id number]) Renal: MAMTA (MAMTA on CKD) GI: Obesity Heme: Anemia Surgery & Anesthesia Issues No known issue Meds Anticoagulation: No Beta Rio within 24 hr: Yes Active Scripts Sulfamethoxazole/Trimethoprim* (Bactrim Ds* Tablet) 1 Each Tablet, 1 TAB PO DAILY, #10 TAB Prov:ONEIDA SOUSA MD 10/23/18 Cephalexin* (Keflex*) 500 Mg Capsule, 500 MG PO QID for 10 Days, CAP Prov:ONEIDA SOUSA MD 10/23/18 Reported Medications Insulin Glargine,Hum.rec.anlog (Basaglar Kwikpen U-100) 100 Unit/1 Ml Insuln.pen, 50 UNIT SC QHS, EA 10/23/18 Insulin Lispro (Humalog Kwikpen U-100) 100 Unit/1 Ml Insuln.pen, 20 UNIT SQ BID WITH MEALS, EA 10 MINUTES BEFORE MEALS 10/23/18 Atorvastatin* (Atorvastatin*) 40 Mg Tablet, 40 MG PO QHS, #30 TAB 10/23/18 Sitagliptin* (Januvia*) 100 Mg Tablet, 100 MG PO DAILY, #30 TAB 10/23/18 Metoprolol Succinate* (Toprol XL*) 25 Mg Tab.sr.24h, 25 MG PO DAILY, #30 TAB 05/09/18 Amlodipine Besylate* (Amlodipine Besylate*) 10 Mg Tablet, 10 MG PO DAILY, #30 TAB 05/09/18 Aspirin* (Aspirin* EC) 81 Mg Tablet.dr, 81 MG PO DAILY, TAB 09/07/16 Gabapentin* (Gabapentin*) 300 Mg Capsule, 300 MG PO TID, #90 CAP 09/07/16 Lisinopril* (Lisinopril*) 20 Mg Tablet, 20 MG PO DAILY, #30 TAB 09/07/16 Current Medications Amlodipine Besylate (Norvasc) 10 mg DAILY PO Last administered on 12/27/18 08:23; Admin Dose 10 MG; Start 12/25/18 at 09:00 Aspirin (Halfprin) 81 mg DAILY PO Last administered on 12/27/18 08:23; Admin Dose 81 MG; Start 12/25/18 at 09:00 Atorvastatin Calcium (Lipitor) 40 mg QHS PO Last administered on 12/27/18 21:10; Admin Dose 40 MG; Start 12/24/18 at 21:00 Gabapentin (Neurontin) 300 mg TID PO Last administered on 12/27/18 21:11; Admin Dose 300 MG; Start 12/24/18 at 13:00 Metoprolol Succinate (Toprol Xl) 25 mg DAILY PO Last administered on 12/27/18 08:23; Admin Dose 25 MG; Start 12/25/18 at 09:00 IV Flush (NS 3 ml) 3 ml PER PROTOCOL IV ; Start 12/24/18 at 13:00 Ondansetron HCl (Zofran Inj) 4 mg Q6H PRN IV NAUSEA/VOMITING; Start 12/24/18 at 13:00 Acetaminophen (Tylenol Tab) 650 mg Q6H PRN PO .PAIN 1-3 OR TEMP; Start 12/24/18 at 13:00 Acetaminophen/ Hydrocodone Bitart ([place] (5/325)) 1 tab Q6H PRN PO .MOD PAIN 4- 6; Start 12/24/18 at 13:00 Acetaminophen/ Hydrocodone Bitart ([place] (5/325)) 2 tab Q6H PRN PO .SEVERE PAIN 7-10; Start 12/24/18 at 13:00 Morphine Sulfate (morphine) 2 mg Q4H PRN IV .SEVERE PAIN 7-10; Start 12/24/18 at 13:00 Docusate Sodium (Colace) 100 mg Q12H PRN PO .CONSTIPATION; Start 12/24/18 at 13:00 Magnesium Hydroxide (Milk Of Mag) 30 ml DAILY PRN PO .CONSTIPATION; Start 12/24/18 at 13:00 Insulin Glargine (Lantus) 35 units BID SC Last administered on 12/27/18 21:11; Admin Dose 35 UNITS; Start 12/24/18 at 21:00 Hydralazine HCl (Apresoline) 10 mg Q4H PRN IV SBP >170 Last administered on 5/23/19at 10:39; Admin Dose 10 MG; Start 12/24/18 at 14:00 Miscellaneous Information 1 ea NOTE XX ; Start 12/24/18 at 15:30 Glucose (Glutose) 15 gm Q15M PRN PO DECREASED GLUCOSE; Start 12/24/18 at 15:30 Glucose (Glutose) 22.5 gm Q15M PRN PO DECREASED GLUCOSE; Start 12/24/18 at 15:30 Dextrose (D50w Syringe) 25 ml Q15M PRN IV DECREASED GLUCOSE; Start 12/24/18 at 15:30 Dextrose (D50w Syringe) 50 ml Q15M PRN IV DECREASED GLUCOSE; Start 12/24/18 at 15:30 Glucagon (Glucagen) 1 mg Q15M PRN IM DECREASED GLUCOSE; Start 12/24/18 at 15:30 Glucose (Glutose) 15 gm Q15M PRN BUCCAL DECREASED GLUCOSE; Start 12/24/18 at 15:30 Ferrous Sulfate (Ferrous Sulfate (Ec)) 325 mg DAILY PO Last administered on 12/27/18at 08:23; Admin Dose 325 MG; Start 12/26/18 at 09:00 Ceftriaxone Sodium 50 ml @ 100 mls/hr Q24H IVPB Last administered on 12/27/18at 16:25; Admin Dose 100 MLS/HR; Start 12/26/18 at 16:00 Ascorbic Acid (Vitamin C) 500 mg BID PO Last administered on 12/27/18at 21:10; Admin Dose 500 MG; Start 12/27/18 at 09:00 Insulin Aspart (Novolog Insulin Pen) 8 unit WITH MEALS SC Last administered on 12/27/18at 17:37; Admin Dose 8 UNIT; Start 12/27/18 at 17:35 Vancomycin HCl (Vanco Iv Per Pharmacy) VANCOMYCIN PER PHARMACY PER PROTOCOL XX ; Start 12/27/18 at 16:30 Vancomycin HCl 1.25 gm/Sodium Chloride 250 ml @ 83.333 mls/ hr Q24H IVPB Last administered on 12/27/18at 17:39; Admin Dose 83.333 MLS/HR; Start 12/27/18 at 18:30 Insulin Aspart (Novolog Insulin Pen) NOVOLOG *MODERATE* ALGORI... Q4 SC Last administered on 12/28/18at 01:27; Admin Dose 4 UNIT; Start 12/28/18 at 01:00 Meds reviewed: Yes Allergies Coded Allergies: No Known Allergy (Unverified , 10/23/18) Allergies Reviewed: Yes Labs/Studies Labs Reviewed: Reviewed by anesthesiologist Result Diagram: 12/27/18 0553 12/28/18 0656 Laboratory Tests 12/28/18 06:56 test: N/A Studies: ECG (ordered, results pending. ) Pre-procedure Exam Last vitals Vital Signs Date Temp Pulse Resp B/P (MAP) Pulse Ox O2 O2 Flow FiO2 Time Delivery Rate 12/28/18 98.1 71 16 117/72 97 Room Air 07:30 (87) Airway: Adequate mouth opening, Adequate thyromental dist Mallampati: Mallampati II Teeth: Normal Lung: Normal Heart: Normal ASA Physical Status ASA physical status: 3 Emergency: None Planned Anesthetic General/MAC: LMA Nerve block: Other (popliteal or ankle block per surgeon and anesthesiologist ) Planned Pain Management Single shot nerve block, Parenteral pain med, Local by surgeon Pre-operative Attestations Prior to commencing anesthesia and surgery, the patient was re-evaluated, there was verification of: *The patient's identity *The results of appropriate recent lab work and preoperative vital signs *The above evaluation not changing prior to induction *Anesthetic plan, risk benefits, alternative and complications discussed with patient/family; questions answered; patient/family understands, accepts and w ishes to proceed. QI DUNHAM December 28, 2018 08:59
[2018-12-28] MEDS: INSULIN GLARGINE [LANTus] (100 UNITS/ML) SYG SC SCH ×2 (09:00→20:20)
[2018-12-28] MEDS: DEXTROSE 5%-0.45% NACL 1,000 ML IV SCH ×2 (09:50→16:04)
--- NOTE | 2018-12-28 10:06 | PN ---
DATE: 12/28/2018 SUBJECTIVE: The patient is stable, no events overnight. No fevers, chills, nausea or vomiting. OBJECTIVE: VITAL SIGNS: Blood pressure is 117/72, pulse 71, respirations 16, temperature 98.1. HEENT: Head is normocephalic. NECK: Supple. HEART: Regular rate. LUNGS: Show diminished breath sounds at the base. ABDOMEN: Soft, nontender to palpation without rebound or guarding. EXTREMITIES: Negative for clubbing, cyanosis, no edema. DERMATOLOGIC: No rashes. MUSCULOSKELETAL: No joint effusion. NEUROLOGIC: No change in exam. MEDICATIONS: Have been reviewed. LABORATORY DATA: Has been reviewed. ASSESSMENT AND PLAN: 1. Nonoliguric acute kidney injury on top of chronic kidney disease with previous baseline creatinin e 1.3 to 1.4 mg/dL. Etiology of acute kidney injury is multifactorial. Renal function has been impr oving. Continue current treatment plan, supportive care, renally dose all meds. 2. Hypernatremia, improved. 3. Anemia with iron deficiency. Continue IV iron. Monitor hemoglobin and hematocrit levels. 4. Mineral bone disorder, monitor calcium and phosphorus levels. 5. Diabetes. Continue current insulin regimen. 6. Right foot cellulitis, osteomyelitis. The patient is status post intervention, pending further s urgical debridement today. Follow up with podiatry. Dictated By: HERB CORDON/KENNETH Conf#: [id number] DID#: [id number] CC: JAD POWERS MD;*EndCC*
[2018-12-28] MEDS ORDERED: INSULIN GLARGINE [LANTus] (100 UNITS/ML) SYG SC ONE (10:30)
--- NOTE | 2018-12-28 12:20 | HPN ---
Date/Time of Note Date/Time of Note DATE: 12/28/18 TIME: 12:20 Interval H&P Admission Note Pt. seen H&P reviewed: No system changes ROSE GUSMAN DPM December 28, 2018 12:20
--- NOTE | 2018-12-28 12:29 | PN ---
Date/Time of Note Date/Time of Note DATE: 12/28/18 TIME: 12:29 Objective Vitals Vital Signs Date Temp Pulse Resp B/P (MAP) Pulse Ox O2 O2 Flow FiO2 Time Delivery Rate 12/28/18 98.1 71 16 117/72 97 Room Air 07:30 (87) Intake and Output 12/27/18 12/27/18 12/28/18 1515:00 23:00 07:00 IntakeIntake Total 600 ml 720.000 ml OutputOutput Total 1200 ml 400 ml BalanceBalance -600 ml 320.000 ml Results Result Diagram: 12/27/18 0553 12/28/18 0656 Medications Medications Current Medications Amlodipine Besylate (Norvasc) 10 mg DAILY PO Last administered on 12/27/18at 08:23; Admin Dose 10 MG; Start 12/25/18 at 09:00 Aspirin (Halfprin) 81 mg DAILY PO Last administered on 12/27/18at 08:23; Admin Dose 81 MG; Start 12/25/18 at 09:00 Atorvastatin Calcium (Lipitor) 40 mg QHS PO Last administered on 12/27/18at 21:10; Admin Dose 40 MG; Start 12/24/18 at 21:00 Gabapentin (Neurontin) 300 mg TID PO Last administered on 12/27/18at 21:11; Admin Dose 300 MG; Start 12/24/18 at 13:00 Metoprolol Succinate (Toprol Xl) 25 mg DAILY PO Last administered on 12/27/18at 08:23; Admin Dose 25 MG; Start 12/25/18 at 09:00 IV Flush (NS 3 ml) 3 ml PER PROTOCOL IV ; Start 12/24/18 at 13:00 Ondansetron HCl (Zofran Inj) 4 mg Q6H PRN IV NAUSEA/VOMITING; Start 12/24/18 at 13:00 Acetaminophen (Tylenol Tab) 650 mg Q6H PRN PO .PAIN 1-3 OR TEMP; Start 12/24/18 at 13:00 Acetaminophen/ Hydrocodone Bitart ([place] (5/325)) 1 tab Q6H PRN PO .MOD PAIN 4- 6; Start 12/24/18 at 13:00 Acetaminophen/ Hydrocodone Bitart ([place] (5/325)) 2 tab Q6H PRN PO .SEVERE PAIN 7-10; Start 12/24/18 at 13:00 Morphine Sulfate (morphine) 2 mg Q4H PRN IV .SEVERE PAIN 7-10; Start 12/24/18 at 13:00 Docusate Sodium (Colace) 100 mg Q12H PRN PO .CONSTIPATION; Start 12/24/18 at 13:00 Magnesium Hydroxide (Milk Of Mag) 30 ml DAILY PRN PO .CONSTIPATION; Start 12/24/18 at 13:00 Insulin Glargine (Lantus) 35 units BID SC Last administered on 12/27/18at 21:11; Admin Dose 35 UNITS; Start 12/24/18 at 21:00 Hydralazine HCl (Apresoline) 10 mg Q4H PRN IV SBP >170 Last administered on 12/27/18at 10:39; Admin Dose 10 MG; Start 12/24/18 at 14:00 Miscellaneous Information 1 ea NOTE XX ; Start 12/24/18 at 15:30 Glucose (Glutose) 15 gm Q15M PRN PO DECREASED GLUCOSE; Start 12/24/18 at 15:30 Glucose (Glutose) 22.5 gm Q15M PRN PO DECREASED GLUCOSE; Start 12/24/18 at 15:30 Dextrose (D50w Syringe) 25 ml Q15M PRN IV DECREASED GLUCOSE; Start 12/24/18 at 15:30 Dextrose (D50w Syringe) 50 ml Q15M PRN IV DECREASED GLUCOSE; Start 12/24/18 at 15:30 Glucagon (Glucagen) 1 mg Q15M PRN IM DECREASED GLUCOSE; Start 12/24/18 at 15:30 Glucose (Glutose) 15 gm Q15M PRN BUCCAL DECREASED GLUCOSE; Start 12/24/18 at 15:30 Ferrous Sulfate (Ferrous Sulfate (Ec)) 325 mg DAILY PO Last administered on 12/27/18at 08:23; Admin Dose 325 MG; Start 12/26/18 at 09:00 Ceftriaxone Sodium 50 ml @ 100 mls/hr Q24H IVPB Last administered on 12/27/18at 16:25; Admin Dose 100 MLS/HR; Start 12/26/18 at 16:00 Ascorbic Acid (Vitamin C) 500 mg BID PO Last administered on 12/27/18at 21:10; Admin Dose 500 MG; Start 12/27/18 at 09:00 Insulin Aspart (Novolog Insulin Pen) 8 unit WITH MEALS SC Last administered on 12/27/18at 17:37; Admin Dose 8 UNIT; Start 12/27/18 at 17:35 Vancomycin HCl (Vanco Iv Per Pharmacy) VANCOMYCIN PER PHARMACY PER PROTOCOL XX ; Start 12/27/18 at 16:30 Vancomycin HCl 1.25 gm/Sodium Chloride 250 ml @ 83.333 mls/ hr Q24H IVPB Last administered on 12/27/18at 17:39; Admin Dose 83.333 MLS/HR; Start 12/27/18 at 18:30 Insulin Aspart (Novolog Insulin Pen) NOVOLOG *MODERATE* ALGORI... Q4 SC Last administered on 12/28/18at 01:27; Admin Dose 4 UNIT; Start 12/28/18 at 01:00 Dextrose/Sodium Chloride 1,000 ml @ 120 mls/hr Q8H20M IV Last administered on 12/28/18at 09:50; Admin Dose 120 MLS/HR; Start 12/28/18 at 10:00 VTE Prophylaxis Risk score (from Ns)>0 risk: 2 SCD applied (from [facility] [place] Yes Lines/Catheters IV Catheter Type: Strange in Place: No Assessment/Plan Hospital Course Subjective Patient awaiting repeat surgery today Objective Physical exam General: Patient is laying in bed and answers questions appropriately Mentation: Patient is alert and oriented 4, Head: Normocephalic atraumatic Eyes: EOMI, pupils reactive to light Neck: Supple, nontender, midline Respiratory: Clear to auscultation bilaterally Cardiovascular: regular rate, no obvious murmurs Gastrointestinal: non-tender to palpation, bowel sounds heard. Neurological: Moves all extremities spontaneously Skin: Surgical site, bandage, CDI Assessment/Plan 1. Right toe osteomyelitis, status post excisional debridement and right fourth digit arthroplasty - ID consulted for antibiotic recommendations - Podiatry performed surgery on December 25, 2018, repeat pending, possibly today - Continue broad spectrum IV antibiotic -Pending pathology taken during surgery - pain control 2. Uncontrolled diabetes Mellitus - A1c noted, 13 - Diabetic education consultation placed - Lantus continued and will adjust as needed - ISS and accuchecks 3. MAMTA on ?CKD - possibly secondary to ATN? Nephrology consulted - IVF on board and avoid nephrotoxic agents - will hold PASHA inhibitor 4. Hyponatremia - due to hyperglycemia. Resolving 5. Anemia -Low iron levels - most likely in setting of infection and chronic disease 6. Diet - Carb controlled 7. DVT ppx - SCD 8. Disposition -possible additional surgery today/tomorrow/monday ONEIDA PAUL December 28, 2018 12:29
[2018-12-28] MEDS ORDERED: BUPIVACAINE 0.5% (SDV) 30 ML INJ ONE (13:26)
[2018-12-28] MEDS ORDERED: BUPIVACAINE 0.5% 30 ML VIAL INJ ONE (14:00)
[2018-12-28] MEDS ORDERED: POLYMYXIN/BACITRACIN 1L IRRIG IRR ONE (14:20)
--- NOTE | 2018-12-28 14:49 | SIPON ---
Date/Time of Note Date/Time of Note DATE: 12/28/18 TIME: 14:48 Operative Report Preoperative Diagnosis Right 4th digit osteomyelitis Right foot diabetic ulcer DM2 with peripheral neuropathy Postoperative Diagnosis Right 4th digit osteomyelitis Right foot diabetic ulcer DM2 with peripheral neuropathy Operation/Procedure Performed Right 4th digit amputation Surgeon see signature line media assistant none Anesthesia: MAC Estimated blood loss: 0 - 10 ml's Transfusion Required none Specimen right 4th digit pathology right 4th digit wound culture Grafts/Implants none Complications none ROSE GUSMAN DPM December 28, 2018 14:48
--- NOTE | 2018-12-28 14:50 | OPR ---
Date/Time of Note Date/Time of Note DATE: 12/28/18 TIME: 14:50 Operative Report Preoperative Diagnosis Right 4th digit osteomyelitis Right foot diabetic ulcer DM2 with peripheral neuropathy Postoperative Diagnosis Right 4th digit osteomyelitis Right foot diabetic ulcer DM2 with peripheral neuropathy Operation/Procedure Performed Right 4th digit amputation Surgeon see signature line Director Plans none Anesthesia Type: MAC Estimated Blood Loss: 0 - 10 ml's Transfusion none Specimen right 4th digit pathology right 4th digit wound culture Grafts/Implants none Complications none Indications 63 y/o diabetic M patient with a right 4th digit ulceration, and confirmed osteomyelitis. There was gangrenous changes and an initial partial 4th digit amputation was performed the and skin edges of the toe were allowed to be demarcated. At this time the skin edges were demarcated and is amenable to complete the total 4th digit amputation. Addressed all of the patient's questions and concerns no promises or guarantees were given. Procedure Description Patient was brought into the OR and placed on the OR table in the supine position. The right lower extremity was scrubbed, prepped, and draped in the usual aseptic manner. A formal time out was conducted. Attention was directed to the right 4th digit where there was exposed bone of the proximal phalanx which had a leavitt and chung appearance. There was surrounding rim of gangrenous tissue to the periphery of the wound site. The ulceration measured 2.6 x 1.4 x 0.9cm. there was a fibrogranular wound bed. No active purulent drainage can be appreciated at this time. Capillary refill time to the distal aspect of the digit was less than 3 seconds. Using a scalpel the bone and soft tissue contents of the digit was disarticulated from the 4th metatarsophalangeal joint. Copious antibiotic infused saline irrigation was used at the ulceration site. Right 4th digit wound culture was obtained and right 4th digit was sent for pathology. The remaining viable skin flap of the digit was used to flap back to provide coverage to the amputation site. Dry sterile dressings were applied to the right foot and surgical site. Patient was transferred to PACU with vital signs stable and neurovascular status intact. ROSE GUSMAN DPM December 28, 2018 14:50
--- NOTE | 2018-12-28 14:57 | CONS ---
Assessment/Plan Assessment/Plan Hospital Course (Demo Recall) No acute events. Patient is status post surgical intervention, right fourth digit amputation Microbiology: Wound culture growing strep, oxacillin sensitive staph aureus, coag negative staph species, blood culture grew Corynebacterium Antimicrobials: Rocephin vancomycin MRI of right foot revealed osteomyelitis of the mid to distal fourth proximal phalanx and the fourth middle phalanx no evidence of acute fracture renal ultrasound showed several alissa unremarkable Allergies none Physical examination: Well-developed elderly man who is awake in no distress. Head atraumatic normocephalic neck is supple chest rise symmetrical breath sounds diminished bases heart: S1-S2 abdomen soft bowel sounds present extremities with bilateral lower extremities dressing intact Assessment: 1. Right foot cellulitis with osteomyelitis of the toe, status post debridement with amputation 2. Diabetes with diabetic neuropathy 3. Acute on chronic kidney disease . Gram-positive philomena bacteremia consistent with contaminant Plan: Patient is stable, dc vancomycin continue other antibiotics, wound care per podiatry recommendations. Patient may not need to be on long-term IV antibiotics, will discuss with podiatry final recommendations Consultation Date/Type/Reason Admit Date/Time December 24, 2018 at 12:42 Initial Consult Date Type of Consult id Date/Time of Note DATE: 12/28/18 TIME: 14:54 Exam/Review of Systems Exam Vitals Vital Signs Date Temp Pulse Resp B/P (MAP) Pulse Ox O2 O2 Flow FiO2 Time Delivery Rate 12/28/18 98.1 71 16 117/72 97 Room Air 07:30 (87) Intake and Output 12/27/18 12/27/18 12/28/18 1515:00 23:00 07:00 IntakeIntake Total 600 ml 720.000 ml OutputOutput Total 1200 ml 400 ml BalanceBalance -600 ml 320.000 ml Results Result Diagram: 12/27/18 0553 12/28/18 0656 Results 24hrs Laboratory Tests Test 12/27/18 17:34 12/27/18 21:08 12/28/18 01:22 12/28/18 05:49 Bedside Glucose 151 220 217 95 Test 12/28/18 06:56 12/28/18 09:17 12/28/18 10:39 Sodium Level 140 Potassium Level 3.7 Chloride Level 110 Carbon Dioxide Level 27 Anion Gap 3 L Blood Urea Nitrogen 16 Creatinine 1.43 H Est Glomerular 50 L Filtrat Rate mL/min Glucose Level 91 Calcium Level 8.1 L Phosphorus Level 4.0 Magnesium Level 1.9 Bedside Glucose 107 118 Medications Medication Current Medications Amlodipine Besylate (Norvasc) 10 mg DAILY PO Last administered on 12/27/18at 08:23; Admin Dose 10 MG; Start 12/25/18 at 09:00 Aspirin (Halfprin) 81 mg DAILY PO Last administered on 12/27/18 08:23; Admin Dose 81 MG; Start 12/25/18 at 09:00 Atorvastatin Calcium (Lipitor) 40 mg QHS PO Last administered on 12/27/18 21:10; Admin Dose 40 MG; Start 12/24/18 at 21:00 Gabapentin (Neurontin) 300 mg TID PO Last administered on 12/27/18 21:11; Admin Dose 300 MG; Start 12/24/18 at 13:00 Metoprolol Succinate (Toprol Xl) 25 mg DAILY PO Last administered on 12/27/18 08:23; Admin Dose 25 MG; Start 12/25/18 at 09:00 IV Flush (NS 3 ml) 3 ml PER PROTOCOL IV ; Start 12/24/18 at 13:00 Ondansetron HCl (Zofran Inj) 4 mg Q6H PRN IV NAUSEA/VOMITING; Start 12/24/18 at 13:00 Acetaminophen (Tylenol Tab) 650 mg Q6H PRN PO .PAIN 1-3 OR TEMP; Start 12/24/18 at 13:00 Acetaminophen/ Hydrocodone Bitart ([place] (5/325)) 1 tab Q6H PRN PO .MOD PAIN 4- 6; Start 12/24/18 at 13:00 Acetaminophen/ Hydrocodone Bitart ([place] (5/325)) 2 tab Q6H PRN PO .SEVERE PAIN 7-10; Start 12/24/18 at 13:00 Morphine Sulfate (morphine) 2 mg Q4H PRN IV .SEVERE PAIN 7-10; Start 12/24/18 at 13:00 Docusate Sodium (Colace) 100 mg Q12H PRN PO .CONSTIPATION; Start 12/24/18 at 13:00 Magnesium Hydroxide (Milk Of Mag) 30 ml DAILY PRN PO .CONSTIPATION; Start 12/24/18 at 13:00 Insulin Glargine (Lantus) 35 units BID SC Last administered on 12/27/18at 21:11; Admin Dose 35 UNITS; Start 12/24/18 at 21:00 Hydralazine HCl (Apresoline) 10 mg Q4H PRN IV SBP >170 Last administered on 12/27/18at 10:39; Admin Dose 10 MG; Start 12/24/18 at 14:00 Miscellaneous Information 1 ea NOTE XX ; Start 12/24/18 at 15:30 Glucose (Glutose) 15 gm Q15M PRN PO DECREASED GLUCOSE; Start 12/24/18 at 15:30 Glucose (Glutose) 22.5 gm Q15M PRN PO DECREASED GLUCOSE; Start 12/24/18 at 15:30 Dextrose (D50w Syringe) 25 ml Q15M PRN IV DECREASED GLUCOSE; Start 12/24/18 at 15:30 Dextrose (D50w Syringe) 50 ml Q15M PRN IV DECREASED GLUCOSE; Start 12/24/18 at 15:30 Glucagon (Glucagen) 1 mg Q15M PRN IM DECREASED GLUCOSE; Start 12/24/18 at 15:30 Glucose (Glutose) 15 gm Q15M PRN BUCCAL DECREASED GLUCOSE; Start 12/24/18 at 15:30 Ferrous Sulfate (Ferrous Sulfate (Ec)) 325 mg DAILY PO Last administered on 12/27/18at 08:23; Admin Dose 325 MG; Start 12/26/18 at 09:00 Ceftriaxone Sodium 50 ml @ 100 mls/hr Q24H IVPB Last administered on 12/27/18at 16:25; Admin Dose 100 MLS/HR; Start 12/26/18 at 16:00 Ascorbic Acid (Vitamin C) 500 mg BID PO Last administered on 12/27/18at 21:10; Admin Dose 500 MG; Start 12/27/18 at 09:00 Insulin Aspart (Novolog Insulin Pen) 8 unit WITH MEALS SC Last administered on 12/27/18at 17:37; Admin Dose 8 UNIT; Start 12/27/18 at 17:35 Vancomycin HCl (Vanco Iv Per Pharmacy) VANCOMYCIN PER PHARMACY PER PROTOCOL XX ; Start 12/27/18 at 16:30 Vancomycin HCl 1.25 gm/Sodium Chloride 250 ml @ 83.333 mls/ hr Q24H IVPB Last administered on 12/27/18at 17:39; Admin Dose 83.333 MLS/HR; Start 12/27/18 at 18:30 Insulin Aspart (Novolog Insulin Pen) NOVOLOG *MODERATE* ALGORI... Q4 SC Last administered on 12/28/18at 01:27; Admin Dose 4 UNIT; Start 12/28/18 at 01:00 Dextrose/Sodium Chloride 1,000 ml @ 120 mls/hr Q8H20M IV Last administered on 12/28/18at 09:50; Admin Dose 120 MLS/HR; Start 12/28/18 at 10:00 PARK DUEÑAS NP December 28, 2018 14:57
[2018-12-28] MEDS: hydrALAzine 20 MG INJ IV PRN (15:31)
[2018-12-28] MEDS: CEFTRIAXONE 1 GM/50 ML (PMX) 50 ML IVPB SCH (16:00)
[2018-12-28] MEDS: Insulin NOVOLOG SS MODERATE Algorithm (SS with meals and bedtime) SC SCH ×2 (17:27→20:14)
[2018-12-28] MEDS: VANCOMYCIN HCL 1.25 GM in SOD CHLORIDE 0.9% 250 ML IVPB SCH ×2 (17:28→18:30)
[2018-12-28] MEDS ORDERED: INSULIN ASPART [NOVOLOG] 3 ML PEN SC SCH (17:35)
--- NOTE | 2018-12-28 18:52 | RADRPT ---
Vent Rate: 66 bpm RR Interval: 904 msec [place] Interval: 172 msec QRS Duration: 93 msec QT Interval: 398 msec QTC Interval: 419 msec P-R-T [place]: 40 - -31 - 20 degrees Sinus rhythm...normal P axis, V-rate 50- 99 Left axis deviation...QRS axis (-30,-90) Electronically Signed By: Mohan Barahona
[2018-12-28] MEDS: ATORVASTATIN 40 MG TAB PO SCH (20:07)
[2018-12-28] MEDS: ACETAMINOPHEN 325 MG TAB PO PRN (20:12)
[2018-12-29 01:44] VITALS: BP 154/77; PULSE 73; RESP 18
[2018-12-29] MEDS: ACCUCHECK AT 2AM (Patients on SS coverage) XX SCH (02:00)
[2018-12-29] MEDS: ACETAMINOPHEN 325 MG TAB PO PRN (02:32)
[2018-12-29 07:30] VITALS: BP 153/72; PULSE 70; RESP 16
[2018-12-29] MEDS: Insulin NOVOLOG SS MODERATE Algorithm (SS with meals and bedtime) SC SCH ×4 (08:00→21:00)
[2018-12-29] MEDS: INSULIN ASPART [NOVOLOG] 3 ML PEN SC SCH ×3 (08:48→17:23)
[2018-12-29] MEDS: INSULIN GLARGINE [LANTus] (100 UNITS/ML) SYG SC SCH ×2 (08:49→21:30)
[2018-12-29] MEDS: GABAPENTIN 300 MG CAP PO SCH ×3 (08:50→21:23)
[2018-12-29] MEDS: ASPIRIN (EC) 81 MG TAB PO SCH (08:50)
[2018-12-29] MEDS: AMLODIPINE 10 MG TAB PO SCH (08:51)
[2018-12-29] MEDS: FERROUS SULFATE (EC) 325 MG TAB PO SCH (08:51)
[2018-12-29] MEDS: METOPROLOL (XL) 25 MG TAB PO SCH (08:51)
[2018-12-29] MEDS: ASCORBIC ACID 500 MG TAB PO SCH ×2 (08:51→21:23)
--- NOTE | 2018-12-29 09:24 | PN ---
DATE: 12/29/2018 SUBJECTIVE: The patient is stable, no events overnight. No fevers, chills, nausea or vomiting. OBJECTIVE: VITAL SIGNS: Blood pressure is 153/72, pulse 70, respirations 16, temperature 98.2. HEENT: Head is normocephalic. NECK: Supple. HEART: Regular rate. LUNGS: Show diminished breath sounds at the base. ABDOMEN: Soft, nontender to palpation without rebound or guarding. EXTREMITIES: Negative for clubbing, cyanosis, no edema. DERMATOLOGIC: No rashes. MUSCULOSKELETAL: No joint effusion. NEUROLOGIC: No change in exam. MEDICATIONS: The patient's medications have been reviewed. LABORATORY DATA: Reviewed. ASSESSMENT AND PLAN: 1. Nonoliguric acute kidney injury on top of chronic kidney disease with previous baseline creatinin e of 1.3 to 1.4 mg/dL. Etiology of acute kidney injury is multifactorial. Renal function is improvi ng, currently at baseline. Continue current treatment plans, supportive care, renally dose all medic ations. 2. Hypernatremia, improved. 3. Anemia with iron deficiency. Continue IV iron. Monitor hemoglobin and hematocrit levels. 4. Mineral bone disorder, monitor calcium and phosphorus levels. 5. Diabetes. Continue current insulin regimen. 6. Osteomyelitis, right foot ulcer. The patient is status post amputation of fourth digit. Continu e to monitor. Follow up with podiatry. Continue wound care. Continue antibiotic therapy. Dictated By: HERB HOOD DO NR/NTS Conf#: [id number] DID#: [id number] CC: JAD POWERS MD; SACHIN FOX MD; ONEIDA PAUL MD;*EndCC*
--- NOTE | 2018-12-29 11:01 | CONS ---
Assessment/Plan Assessment/Plan Assessment/Plan (Daily) Right 4th digit osteomyelitis and gangrene - s/p R 4th digit amputation (DOS: 12/28/18) Left foot diabetic ulceration R foot cellulitis Right foot abscess - resolved DM2 with peripheral neuropathy Plan Patient may weight bear as tolerated with surgical shoe to the right foot. Recommend PO abx for 10-14 days. Offload heels with pillows. Right foot dressings to remain clean dry and intact. Left foot daily dressing changes with dakins irrigation betadine 4x4 gauze, kerlix and chanda wrap. Patient stable from podiatry standpoint to follow up in outpatient wound clinic at [facility]. Appreciate ID recommendations for antibiotics. Consultation Date/Type/Reason Admit Date/Time December 24, 2018 at 12:42 Initial Consult Date Date/Time of Note DATE: 12/29/18 TIME: 11:01 24 HR Interval Summary Free Text/Dictation No acute events overnight. Exam/Review of Systems Exam Vitals Vital Signs Date Temp Pulse Resp B/P (MAP) Pulse Ox O2 O2 Flow FiO2 Time Delivery Rate 12/29/18 98.2 70 16 153/72 95 Room Air 07:30 (99) Intake and Output 12/28/18 12/28/18 12/29/18 1515:00 23:00 07:00 IntakeIntake Total 490 ml 540 ml 800 ml OutputOutput Total 3 ml 1900 ml BalanceBalance 487 ml 540 ml -1100 ml Exam Mild ecchymosis noted to the medial portion of surgical site R 4th digit amputation skin incision sites approximated with suture without dehiscence or gapping Absent protective sensations CFT less than 3 seconds Left plantar 1st metatarsal ulcer site with dry granular ulceration 1 x 1 x 0.2cm with mild hyperkeratotic tissue, does not probe to bone, no purulent drainage, no proximal streaking or erythema. Results Result Diagram: 12/29/18 0556 12/29/18 0556 Results 24hrs Laboratory Tests Test 12/28/18 16:00 12/28/18 17:23 12/28/18 20:09 12/29/18 02:26 Bedside Glucose 104 175 272 H 123 Test 12/29/18 05:56 12/29/18 07:54 White Blood Count 10.0 Red Blood Count 3.56 L Hemoglobin 10.7 L Hematocrit 30.6 L Mean Corpuscular 86.0 Volume Mean Corpuscular 30.1 Hemoglobin Mean Corpuscular 35.0 Hemoglobin Concent Red Cell 12.3 Distribution Width Platelet Count 328 Mean Platelet Volume 10.9 H Immature 0.400 Granulocytes % Neutrophils % 75.6 Lymphocytes % 13.8 L Monocytes % 7.6 Eosinophils % 2.4 Basophils % 0.2 Nucleated Red Blood 0.0 Cells % Immature 0.040 H Granulocytes # Neutrophils # 7.5 Lymphocytes # 1.4 Monocytes # 0.8 Eosinophils # 0.2 Basophils # 0.0 Nucleated Red Blood 0.0 Cells # Sodium Level 139 Potassium Level 3.5 Chloride Level 109 Carbon Dioxide Level 26 Anion Gap 4 L Blood Urea Nitrogen 13 Creatinine 1.30 H Est Glomerular 55 L Filtrat Rate mL/min Glucose Level 91 Calcium Level 7.8 L Phosphorus Level 4.4 Magnesium Level 1.7 Bedside Glucose 96 Medications Medication Current Medications Amlodipine Besylate (Norvasc) 10 mg DAILY PO Last administered on 12/29/18 08:51; Admin Dose 10 MG; Start 12/25/18 at 09:00 Aspirin (Halfprin) 81 mg DAILY PO Last administered on 12/29/18 08:50; Admin Dose 81 MG; Start 12/25/18 at 09:00 Atorvastatin Calcium (Lipitor) 40 mg QHS PO Last administered on 12/28/18 20:07; Admin Dose 40 MG; Start 12/24/18 at 21:00 Gabapentin (Neurontin) 300 mg TID PO Last administered on 12/29/18 08:50; Admin Dose 300 MG; Start 12/24/18 at 13:00 Metoprolol Succinate (Toprol Xl) 25 mg DAILY PO Last administered on 12/29/18 08:51; Admin Dose 25 MG; Start 12/25/18 at 09:00 IV Flush (NS 3 ml) 3 ml PER PROTOCOL IV ; Start 12/24/18 at 13:00 Ondansetron HCl (Zofran Inj) 4 mg Q6H PRN IV NAUSEA/VOMITING; Start 12/24/18 at 13:00 Acetaminophen (Tylenol Tab) 650 mg Q6H PRN PO .PAIN 1-3 OR TEMP Last administered on 12/29/18 02:32; Admin Dose 650 MG; Start 12/24/18 at 13:00 Acetaminophen/ Hydrocodone Bitart ([place] (5/325)) 1 tab Q6H PRN PO .MOD PAIN 4- 6; Start 12/24/18 at 13:00 Acetaminophen/ Hydrocodone Bitart ([place] (5/325)) 2 tab Q6H PRN PO .SEVERE PAIN 7-10; Start 12/24/18 at 13:00 Morphine Sulfate (morphine) 2 mg Q4H PRN IV .SEVERE PAIN 7-10 Last administered on 12/28/18at 20:06; Admin Dose 2 MG; Start 12/24/18 at 13:00 Docusate Sodium (Colace) 100 mg Q12H PRN PO .CONSTIPATION Last administered on 12/28/18at 20:07; Admin Dose 100 MG; Start 12/24/18 at 13:00 Magnesium Hydroxide (Milk Of Mag) 30 ml DAILY PRN PO .CONSTIPATION; Start 12/24/18 at 13:00 Hydralazine HCl (Apresoline) 10 mg Q4H PRN IV SBP >170 Last administered on 12/28/18at 15:31; Admin Dose 10 MG; Start 12/24/18 at 14:00 Miscellaneous Information 1 ea NOTE XX ; Start 12/24/18 at 15:30 Glucose (Glutose) 15 gm Q15M PRN PO DECREASED GLUCOSE; Start 12/24/18 at 15:30 Glucose (Glutose) 22.5 gm Q15M PRN PO DECREASED GLUCOSE; Start 12/24/18 at 15:30 Dextrose (D50w Syringe) 25 ml Q15M PRN IV DECREASED GLUCOSE; Start 12/24/18 at 15:30 Dextrose (D50w Syringe) 50 ml Q15M PRN IV DECREASED GLUCOSE; Start 12/24/18 at 15:30 Glucagon (Glucagen) 1 mg Q15M PRN IM DECREASED GLUCOSE; Start 12/24/18 at 15:30 Glucose (Glutose) 15 gm Q15M PRN BUCCAL DECREASED GLUCOSE; Start 12/24/18 at 15:30 Ferrous Sulfate (Ferrous Sulfate (Ec)) 325 mg DAILY PO Last administered on 12/29/18at 08:51; Admin Dose 325 MG; Start 12/26/18 at 09:00 Ceftriaxone Sodium 50 ml @ 100 mls/hr Q24H IVPB Last administered on 12/28/18at 16:00; Admin Dose 100 MLS/HR; Start 12/26/18 at 16:00 Ascorbic Acid (Vitamin C) 500 mg BID PO Last administered on 12/29/18at 08:51; Admin Dose 500 MG; Start 12/27/18 at 09:00 Insulin Aspart (Novolog Insulin Pen) 8 unit WITH MEALS SC Last administered on 12/29/18at 08:48; Admin Dose 8 UNIT; Start 12/27/18 at 17:35 Vancomycin HCl (Vanco Iv Per Pharmacy) VANCOMYCIN PER PHARMACY PER PROTOCOL XX ; Start 12/27/18 at 16:30 Vancomycin HCl 1.25 gm/Sodium Chloride 250 ml @ 83.333 mls/ hr Q24H IVPB Last administered on 12/28/18at 18:30; Admin Dose 83.333 MLS/HR; Start 12/27/18 at 18:30 Insulin Aspart (Novolog Insulin Pen) (Adult SC Insulin - Moder... WITH MEALS BEDTIME SC Last administered on 12/28/18at 20:14; Admin Dose 3 UNIT; Start 12/28/18 at 18:05 Diagnostic Test (Pha) (Accu-Chek) 1 ea 02 XX ; Start 12/29/18 at 02:00 Insulin Glargine (Lantus) 35 units BID SC ; Start 12/29/18 at 21:00 ROSE GUSMAN DPM December 29, 2018 11:01
[2018-12-29] MEDS: DAKINS 0.0125%(1/40) 473 ML SOLUTION TP SCH (13:00)
--- NOTE | 2018-12-29 14:03 | CONS ---
Assessment/Plan Assessment/Plan Hospital Course (Demo Recall) ID PROGRESS NOTE CURRENT ABX: DAY #=> Ceftriaxone s/p Vanco IV DC'd 12/28/18 12/29/18 0556 12/29/18 0556 24H INTERVAL SUMMARY * A/A/O, no fevers, VSS, NAD -- BLEXT feet are wrapped -- he tells me that he wants crutches to help him ambulate at home -- There is a walker at bedside, I explained to him that I will let others know about this request in my notes; however my role is limited to making ABX recommendations only. IMAGING * 12/27/18 CXR: * 12/24/09 MRI FOOT: IMPRESSION: * 1. Osteomyelitis of the mid to distal fourth proximal phalanx, and the fourth middle phalanx. * 2. Osteomyelitis at the tuft of the distal phalanx of the fifth digit, with osseous destruction. * 3. No evident acute fracture. * 4. Hallux valgus and bunion. * 5. Early neuropathic changes in the right forefoot. MICRO/OTHER * 12/28/18 TOE CX: GRAM STAIN Final POLYMORPH. LEUKOCYTE NONE SEEN . NO ORGANISM SEEN WOUND CULTURE Preliminary No growth after 1 day * 12/25/18 BCX (-) * 12/25/18 TOE CX: WOUND CULTURE Final Organism 1 GAMMA HEMOLYTIC STREP SPP QUANTITY 2+ Organism 2 STREP AGALACTIAE - (GROUP B) QUANTITY SCANT GROWTH * 12/24/18 R-4TH TOE: WOUND CULTURE Final Organism 1 GAMMA HEMOLYTIC STREP SPP QUANTITY 4+ Organism 2 STREP AGALACTIAE - (GROUP B) QUANTITY 2+ Organism 3 STAPHYLOCOCCUS AUREUS QUANTITY SCANT GROWTH Organism 4 COAGULASE NEGATIVE STAPH QUANTITY 2+ * 12/24/18 BCX (+) / bottles only : Organism 1 CORYNEBACTERIUM SPECIES PHYSICAL EXAMINATION: GENERAL: VSS, NAD, HEENT: AT, NC, NECK: WNL CHEST: Equal chest rise bilaterally without dyspnea on observation ABD: Soft, ND EXTREMITIES: Warm, dry SKIN: No rash, no diaphoresis ID ASSESSMENT 63 yo M admit with: Right 4th digit osteomyelitis and gangrene - s/p R 4th digit amputation (DOS: 12/28/18) Left foot diabetic ulceration R foot cellulitis Right foot abscess - resolved DM2 with peripheral neuropathy Acute on chronic kidney disease Gram-positive philomena bacteremia consistent with contaminant (?)MRSA Nares ABX ALLERGIES: NKDA INVASIVES: PIV CURRENT ABX: DAY # =>Ceftriaxone s/p Vanco IV DC'd 12/28/18 ID RECOMMENDATIONS/PLAN: 1. When cleared for DC home - may DC home on Augmentin 875mg po Q12H x 14 days which is approved for [place] Guide to ABX Management for diabetic foot infection. 2. Patient is requesting crutches to help him ambulate at home -- There is a walker at bedside, I explained to him that I will let others know about this request in my notes; however my role is limited to making ABX recommendations only. . Consultation Date/Type/Reason Admit Date/Time December 24, 2018 at 12:42 Initial Consult Date Date/Time of Note DATE: 12/29/18 TIME: 14:03 Exam/Review of Systems Exam Vitals Vital Signs Date Temp Pulse Resp B/P (MAP) Pulse Ox O2 O2 Flow FiO2 Time Delivery Rate 12/29/18 98.2 70 16 153/72 95 Room Air 07:30 (99) Intake and Output 12/28/18 12/28/18 12/29/18 1515:00 23:00 07:00 IntakeIntake Total 490 ml 540 ml 800 ml OutputOutput Total 3 ml 1900 ml BalanceBalance 487 ml 540 ml -1100 ml Results Result Diagram: 12/29/18 0556 12/29/18 0556 Results 24hrs Laboratory Tests Test 12/28/18 16:00 12/28/18 17:23 12/28/18 20:09 12/29/18 02:26 Bedside Glucose 104 175 272 H 123 Test 12/29/18 05:56 12/29/18 07:54 12/29/18 12:08 White Blood Count 10.0 Red Blood Count 3.56 L Hemoglobin 10.7 L Hematocrit 30.6 L Mean Corpuscular 86.0 Volume Mean Corpuscular 30.1 Hemoglobin Mean Corpuscular 35.0 Hemoglobin Concent Red Cell 12.3 Distribution Width Platelet Count 328 Mean Platelet Volume 10.9 H Immature 0.400 Granulocytes % Neutrophils % 75.6 Lymphocytes % 13.8 L Monocytes % 7.6 Eosinophils % 2.4 Basophils % 0.2 Nucleated Red Blood 0.0 Cells % Immature 0.040 H Granulocytes # Neutrophils # 7.5 Lymphocytes # 1.4 Monocytes # 0.8 Eosinophils # 0.2 Basophils # 0.0 Nucleated Red Blood 0.0 Cells # Sodium Level 139 Potassium Level 3.5 Chloride Level 109 Carbon Dioxide Level 26 Anion Gap 4 L Blood Urea Nitrogen 13 Creatinine 1.30 H Est Glomerular 55 L Filtrat Rate mL/min Glucose Level 91 Calcium Level 7.8 L Phosphorus Level 4.4 Magnesium Level 1.7 Bedside Glucose 96 140 Medications Medication Current Medications Amlodipine Besylate (Norvasc) 10 mg DAILY PO Last administered on 12/29/18 08:51; Admin Dose 10 MG; Start 12/25/18 at 09:00 Aspirin (Halfprin) 81 mg DAILY PO Last administered on 12/29/18 08:50; Admin Dose 81 MG; Start 12/25/18 at 09:00 Atorvastatin Calcium (Lipitor) 40 mg QHS PO Last administered on 12/28/18 20:07; Admin Dose 40 MG; Start 12/24/18 at 21:00 Gabapentin (Neurontin) 300 mg TID PO Last administered on 12/29/18 12:37; Admin Dose 300 MG; Start 12/24/18 at 13:00 Metoprolol Succinate (Toprol Xl) 25 mg DAILY PO Last administered on 12/29/18 08:51; Admin Dose 25 MG; Start 12/25/18 at 09:00 IV Flush (NS 3 ml) 3 ml PER PROTOCOL IV ; Start 12/24/18 at 13:00 Ondansetron HCl (Zofran Inj) 4 mg Q6H PRN IV NAUSEA/VOMITING; Start 12/24/18 at 13:00 Acetaminophen (Tylenol Tab) 650 mg Q6H PRN PO .PAIN 1-3 OR TEMP Last administered on 12/29/18 02:32; Admin Dose 650 MG; Start 12/24/18 at 13:00 Acetaminophen/ Hydrocodone Bitart ([place] (5/325)) 1 tab Q6H PRN PO .MOD PAIN 4- 6; Start 12/24/18 at 13:00 Acetaminophen/ Hydrocodone Bitart ([place] (5/325)) 2 tab Q6H PRN PO .SEVERE PAIN 7-10; Start 12/24/18 at 13:00 Morphine Sulfate (morphine) 2 mg Q4H PRN IV .SEVERE PAIN 7-10 Last administered on 12/28/18 20:06; Admin Dose 2 MG; Start 12/24/18 at 13:00 Docusate Sodium (Colace) 100 mg Q12H PRN PO .CONSTIPATION Last administered on 12/28/18 20:07; Admin Dose 100 MG; Start 12/24/18 at 13:00 Magnesium Hydroxide (Milk Of Mag) 30 ml DAILY PRN PO .CONSTIPATION; Start 12/24/18 at 13:00 Hydralazine HCl (Apresoline) 10 mg Q4H PRN IV SBP >170 Last administered on 12/28/18 15:31; Admin Dose 10 MG; Start 12/24/18 at 14:00 Miscellaneous Information 1 ea NOTE XX ; Start 12/24/18 at 15:30 Glucose (Glutose) 15 gm Q15M PRN PO DECREASED GLUCOSE; Start 12/24/18 at 15:30 Glucose (Glutose) 22.5 gm Q15M PRN PO DECREASED GLUCOSE; Start 12/24/18 at 15:30 Dextrose (D50w Syringe) 25 ml Q15M PRN IV DECREASED GLUCOSE; Start 12/24/18 at 15:30 Dextrose (D50w Syringe) 50 ml Q15M PRN IV DECREASED GLUCOSE; Start 12/24/18 at 15:30 Glucagon (Glucagen) 1 mg Q15M PRN IM DECREASED GLUCOSE; Start 12/24/18 at 15:30 Glucose (Glutose) 15 gm Q15M PRN BUCCAL DECREASED GLUCOSE; Start 12/24/18 at 15:30 Ferrous Sulfate (Ferrous Sulfate (Ec)) 325 mg DAILY PO Last administered on 12/29/18 08:51; Admin Dose 325 MG; Start 12/26/18 at 09:00 Ceftriaxone Sodium 50 ml @ 100 mls/hr Q24H IVPB Last administered on 12/28/18 16:00; Admin Dose 100 MLS/HR; Start 12/26/18 at 16:00 Ascorbic Acid (Vitamin C) 500 mg BID PO Last administered on 12/29/18 08:51; Admin Dose 500 MG; Start 12/27/18 at 09:00 Insulin Aspart (Novolog Insulin Pen) 8 unit WITH MEALS SC Last administered on 12/29/18 12:37; Admin Dose 8 UNIT; Start 12/27/18 at 17:35 Vancomycin HCl (Vanco Iv Per Pharmacy) VANCOMYCIN PER PHARMACY PER PROTOCOL XX ; Start 12/27/18 at 16:30 Vancomycin HCl 1.25 gm/Sodium Chloride 250 ml @ 83.333 mls/ hr Q24H IVPB Last administered on 12/28/18at 18:30; Admin Dose 83.333 MLS/HR; Start 12/27/18 at 18:30 Insulin Aspart (Novolog Insulin Pen) (Adult SC Insulin - Moder... WITH MEALS BEDTIME SC Last administered on 12/28/18at 20:14; Admin Dose 3 UNIT; Start 12/28/18 at 18:05 Diagnostic Test (Pha) (Accu-Chek) 1 ea 02 XX ; Start 12/29/18 at 02:00 Insulin Glargine (Lantus) 35 units BID SC ; Start 12/29/18 at 21:00 Sodium Hypochlorite (Dakins Diluted ()) 1 applic DAILY TP ; Start 12/29/18 at 13:00 ROBINSON ACUÑA NP December 29, 2018 14:03
--- NOTE | 2018-12-29 16:01 | PN ---
Date/Time of Note Date/Time of Note DATE: 12/29/18 TIME: 15:58 Assessment/Plan VTE Prophylaxis Risk score (from Nsg)>0 risk: 5 SCD applied (from Nsg): Yes Pharmacological prophylaxis: heparin Lines/Catheters IV Catheter Type (from Nrsg): Saline Lock Urinary Cath still in place: No Assessment/Plan Hospital Course SUBJECTIVE: B/L feet pain well controlled. OBJECTIVE: Physical Exam General: Adequately build 63 year-old male lying in bed in no apparent distress. HEENT: Normocephalic, atraumatic. Eyes: Anicteric sclerae, conjunctivae clear. ENT: Nasal septum midline, oral mucosa moist. Neck supple, no JVD noticed. Respiratory: Bilaterally clear breath sounds. No use of accessory muscles of respiration. No adventitious breath sounds. Cardiovascular: S1, S2 heard. Regular rate and rhythm. Abdomen: Soft, nontender, and nondistended. Bowel sounds positive in all 4 quadrants. Genitourinary: Deferred. Extremities: No cyanosis, no clubbing, no edema. Bilateral lower extremity Storm wrap. Neurologic: Cranial nerves II through XII grossly intact. The patient is awake, alert, and oriented. Skin: Normal skin turgor. No skin rashes. Labs & Vitals per chart ASSESSMENT & PLAN 61-year-old male with comorbidities including diabetes mellitus, hypertension, and peripheral neuropathy who presented to the emergency room with a chief complaint of right foot diabetic ulcer and was admitted to inpatient setting for further treatment and evaluation. 1. Right foot diabetic ulcer. -Status post right foot excisional debridement and a right fourth digit arthroplasty on 12/25/2018. -Local dressing changes as per podiatry. 2. Right fourth digit osteomyelitis. -Status post right fourth digit amputation on 12/28/2018. -Continue antimicrobials as per ID. -Local dressing changes as per podiatry. 3. Left foot diabetic ulceration. -Continue local wound care as per ID. 4. Diabetes mellitus. -Uncontrolled. Hemoglobin A1c 13. -Continue sliding scale insulin along with pre-meal insulin and basal insulin. 5. Acute on chronic kidney disease. -Being followed by nephrology. -Use nephrotoxic drugs with caution. 6. Normocytic, normochromic anemia -Underlying iron deficiency. -Continue iron supplements. 7. Hypertension. -Continue antihypertensives. 8. Dyslipidemia. -Continue statins. 9. Fluids, electrolytes, and nutrition. -Carbohydrate controlled diet. 10. DVT prophylaxis. -Subcutaneous heparin. 11. Plan. -Continue antimicrobials as per ID. -Continue physical therapy. -May need HHPT upon discharge. The patient was seen in collaboration with . Result Diagram: 12/29/18 0556 12/29/18 0556 Results 24hrs Laboratory Tests Test 12/28/18 16:00 12/28/18 17:23 12/28/18 20:09 12/29/18 02:26 Bedside Glucose 104 175 272 H 123 Test 12/29/18 05:56 12/29/18 07:54 12/29/18 12:08 White Blood Count 10.0 Red Blood Count 3.56 L Hemoglobin 10.7 L Hematocrit 30.6 L Mean Corpuscular 86.0 Volume Mean Corpuscular 30.1 Hemoglobin Mean Corpuscular 35.0 Hemoglobin Concent Red Cell 12.3 Distribution Width Platelet Count 328 Mean Platelet Volume 10.9 H Immature 0.400 Granulocytes % Neutrophils % 75.6 Lymphocytes % 13.8 L Monocytes % 7.6 Eosinophils % 2.4 Basophils % 0.2 Nucleated Red Blood 0.0 Cells % Immature 0.040 H Granulocytes # Neutrophils # 7.5 Lymphocytes # 1.4 Monocytes # 0.8 Eosinophils # 0.2 Basophils # 0.0 Nucleated Red Blood 0.0 Cells # Sodium Level 139 Potassium Level 3.5 Chloride Level 109 Carbon Dioxide Level 26 Anion Gap 4 L Blood Urea Nitrogen 13 Creatinine 1.30 H Est Glomerular 55 L Filtrat Rate mL/min Glucose Level 91 Calcium Level 7.8 L Phosphorus Level 4.4 Magnesium Level 1.7 Bedside Glucose 96 140 Exam/Review of Systems Exam Vitals Vital Signs Date Temp Pulse Resp B/P (MAP) Pulse Ox O2 O2 Flow FiO2 Time Delivery Rate 12/29/18 98.2 70 16 153/72 95 Room Air 07:30 (99) Intake and Output 12/28/18 12/28/18 12/29/18 1515:00 23:00 07:00 IntakeIntake Total 490 ml 540 ml 800 ml OutputOutput Total 3 ml 1900 ml BalanceBalance 487 ml 540 ml -1100 ml Results Results 24hrs Laboratory Tests Test 12/28/18 16:00 12/28/18 17:23 12/28/18 20:09 12/29/18 02:26 Bedside Glucose 104 175 272 H 123 Test 12/29/18 05:56 12/29/18 07:54 12/29/18 12:08 White Blood Count 10.0 Red Blood Count 3.56 L Hemoglobin 10.7 L Hematocrit 30.6 L Mean Corpuscular 86.0 Volume Mean Corpuscular 30.1 Hemoglobin Mean Corpuscular 35.0 Hemoglobin Concent Red Cell 12.3 Distribution Width Platelet Count 328 Mean Platelet Volume 10.9 H Immature 0.400 Granulocytes % Neutrophils % 75.6 Lymphocytes % 13.8 L Monocytes % 7.6 Eosinophils % 2.4 Basophils % 0.2 Nucleated Red Blood 0.0 Cells % Immature 0.040 H Granulocytes # Neutrophils # 7.5 Lymphocytes # 1.4 Monocytes # 0.8 Eosinophils # 0.2 Basophils # 0.0 Nucleated Red Blood 0.0 Cells # Sodium Level 139 Potassium Level 3.5 Chloride Level 109 Carbon Dioxide Level 26 Anion Gap 4 L Blood Urea Nitrogen 13 Creatinine 1.30 H Est Glomerular 55 L Filtrat Rate mL/min Glucose Level 91 Calcium Level 7.8 L Phosphorus Level 4.4 Magnesium Level 1.7 Bedside Glucose 96 140 Medications Medication Current Medications Amlodipine Besylate (Norvasc) 10 mg DAILY PO Last administered on 12/29/18 08 :51; Admin Dose 10 MG; Start 12/25/18 at 09:00 Aspirin (Halfprin) 81 mg DAILY PO Last administered on 12/29/18 08:50; Admin Dose 81 MG; Start 12/25/18 at 09:00 Atorvastatin Calcium (Lipitor) 40 mg QHS PO Last administered on 12/28/18 20:07; Admin Dose 40 MG; Start 12/24/18 at 21:00 Gabapentin (Neurontin) 300 mg TID PO Last administered on 12/29/18 12:37; Admin Dose 300 MG; Start 12/24/18 at 13:00 Metoprolol Succinate (Toprol Xl) 25 mg DAILY PO Last administered on 12/29/18 08:51; Admin Dose 25 MG; Start 12/25/18 at 09:00 IV Flush (NS 3 ml) 3 ml PER PROTOCOL IV ; Start 12/24/18 at 13:00 Ondansetron HCl (Zofran Inj) 4 mg Q6H PRN IV NAUSEA/VOMITING; Start 12/24/18 at 13:00 Acetaminophen (Tylenol Tab) 650 mg Q6H PRN PO .PAIN 1-3 OR TEMP Last administered on 12/29/18at 02:32; Admin Dose 650 MG; Start 12/24/18 at 13:00 Acetaminophen/ Hydrocodone Bitart ([place] (5/325)) 1 tab Q6H PRN PO .MOD PAIN 4- 6; Start 12/24/18 at 13:00 Acetaminophen/ Hydrocodone Bitart ([place] (5/325)) 2 tab Q6H PRN PO .SEVERE PAIN 7-10; Start 12/24/18 at 13:00 Morphine Sulfate (morphine) 2 mg Q4H PRN IV .SEVERE PAIN 7-10 Last administered on 12/28/18at 20:06; Admin Dose 2 MG; Start 12/24/18 at 13:00 Docusate Sodium (Colace) 100 mg Q12H PRN PO .CONSTIPATION Last administered on 12/28/18at 20:07; Admin Dose 100 MG; Start 12/24/18 at 13:00 Magnesium Hydroxide (Milk Of Mag) 30 ml DAILY PRN PO .CONSTIPATION; Start 12/24/18 at 13:00 Hydralazine HCl (Apresoline) 10 mg Q4H PRN IV SBP >170 Last administered on 12/28/18at 15:31; Admin Dose 10 MG; Start 12/24/18 at 14:00 Miscellaneous Information 1 ea NOTE XX ; Start 12/24/18 at 15:30 Glucose (Glutose) 15 gm Q15M PRN PO DECREASED GLUCOSE; Start 12/24/18 at 15:30 Glucose (Glutose) 22.5 gm Q15M PRN PO DECREASED GLUCOSE; Start 12/24/18 at 15:30 Dextrose (D50w Syringe) 25 ml Q15M PRN IV DECREASED GLUCOSE; Start 12/24/18 at 15:30 Dextrose (D50w Syringe) 50 ml Q15M PRN IV DECREASED GLUCOSE; Start 12/24/18 at 15:30 Glucagon (Glucagen) 1 mg Q15M PRN IM DECREASED GLUCOSE; Start 12/24/18 at 15:30 Glucose (Glutose) 15 gm Q15M PRN BUCCAL DECREASED GLUCOSE; Start 12/24/18 at 15:30 Ferrous Sulfate (Ferrous Sulfate (Ec)) 325 mg DAILY PO Last administered on 12/29/18at 08:51; Admin Dose 325 MG; Start 12/26/18 at 09:00 Ceftriaxone Sodium 50 ml @ 100 mls/hr Q24H IVPB Last administered on 12/28/18at 16:00; Admin Dose 100 MLS/HR; Start 12/26/18 at 16:00 Ascorbic Acid (Vitamin C) 500 mg BID PO Last administered on 12/29/18 08:51; Admin Dose 500 MG; Start 12/27/18 at 09:00 Insulin Aspart (Novolog Insulin Pen) 8 unit WITH MEALS SC Last administered on 12/29/18at 12:37; Admin Dose 8 UNIT; Start 12/27/18 at 17:35 Insulin Aspart (Novolog Insulin Pen) (Adult SC Insulin - Moder... WITH MEALS BEDTIME SC Last administered on 12/28/18at 20:14; Admin Dose 3 UNIT; Start 12/28/18 at 18:05 Diagnostic Test (Pha) (Accu-Chek) 1 ea 02 XX ; Start 12/29/18 at 02:00 Insulin Glargine (Lantus) 35 units BID SC ; Start 12/29/18 at 21:00 Sodium Hypochlorite (Dakins Diluted (/40)) 1 applic DAILY TP ; Start 12/29/18 at 13:00 SANJAY MORAN NP December 29, 2018 16:01
[2018-12-29] MEDS: CEFTRIAXONE 1 GM/50 ML (PMX) 50 ML IVPB SCH (16:54)
[2018-12-29 19:47] VITALS: BP 133/66; PULSE 69; RESP 20
[2018-12-29] MEDS ORDERED: HEPARIN 5,000 UNIT/1 ML VIAL ONE (20:51)
[2018-12-29] MEDS: ATORVASTATIN 40 MG TAB PO SCH (21:23)
[2018-12-29] MEDS: HEPARIN 5,000 UNIT/1 ML VIAL SC SCH (21:24)
[2018-12-30] MEDS: ACCUCHECK AT 2AM (Patients on SS coverage) XX SCH (02:00)
[2018-12-30 02:06] VITALS: BP 135/65; PULSE 61; RESP 18
[2018-12-30] MEDS: HEPARIN 5,000 UNIT/1 ML VIAL SC SCH ×3 (06:30→20:25)
[2018-12-30 07:27] VITALS: BP 160/69; PULSE 61; RESP 16
--- NOTE | 2018-12-30 07:49 | PN ---
Date/Time of Note Date/Time of Note DATE: 12/30/18 TIME: 07:49 Assessment/Plan VTE Prophylaxis Risk score (from Nsg)>0 risk: 6 SCD applied (from Nsg): Yes Pharmacological prophylaxis: heparin Lines/Catheters IV Catheter Type (from Nrsg): Saline Lock Urinary Cath still in place: No Assessment/Plan Hospital Course SUBJECTIVE: B/L feet pain well controlled. OBJECTIVE: Physical Exam General: Adequately build 63 year-old male lying in bed in no apparent distress. HEENT: Normocephalic, atraumatic. Eyes: Anicteric sclerae, conjunctivae clear. ENT: Nasal septum midline, oral mucosa moist. Neck supple, no JVD noticed. Respiratory: Bilaterally clear breath sounds. No use of accessory muscles of respiration. No adventitious breath sounds. Cardiovascular: S1, S2 heard. Regular rate and rhythm. Abdomen: Soft, nontender, and nondistended. Bowel sounds positive in all 4 quadrants. Genitourinary: Deferred. Extremities: No cyanosis, no clubbing, no edema. Bilateral lower extremity Storm wrap. Neurologic: Cranial nerves II through XII grossly intact. The patient is awake, alert, and oriented. Skin: Normal skin turgor. No skin rashes. Labs & Vitals per chart ASSESSMENT & PLAN 61-year-old male with comorbidities including diabetes mellitus, hypertension, and peripheral neuropathy who presented to the emergency room with a chief complaint of right foot diabetic ulcer and was admitted to inpatient setting for further treatment and evaluation. 1. Right foot diabetic ulcer. -Status post right foot excisional debridement and a right fourth digit arthroplasty on 12/25/2018. -Local dressing changes as per podiatry. 2. Right fourth digit osteomyelitis. -Status post right fourth digit amputation on 12/28/2018. -Continue antimicrobials as per ID. -Local dressing changes as per podiatry. 3. Left foot diabetic ulceration. -Continue local wound care as per ID. 4. Diabetes mellitus. -Uncontrolled. Hemoglobin A1c 13. -Continue sliding scale insulin along with pre-meal insulin and basal insulin. 5. Acute on chronic kidney disease. -Being followed by nephrology. -Use nephrotoxic drugs with caution. 6. Normocytic, normochromic anemia -Underlying iron deficiency. -Continue iron supplements. 7. Hypertension. -Continue antihypertensives. 8. Dyslipidemia. -Continue statins. 9. Fluids, electrolytes, and nutrition. -Carbohydrate controlled diet. 10. DVT prophylaxis. -Subcutaneous heparin. 11. Plan. -Continue antimicrobials as per ID. -Obtain physical therapy re-evaluation. -May need HHPT upon discharge. Case management order put in. The patient was seen in collaboration with . Result Diagram: 12/30/18 0608 12/30/18 0608 Results 24hrs Laboratory Tests Test 12/29/18 07:54 12/29/18 12:08 12/29/18 17:06 12/29/18 21:25 Bedside Glucose 96 140 129 133 Test 12/30/18 06:08 White Blood Count 9.8 Red Blood Count 3.73 L Hemoglobin 11.2 L Hematocrit 32.2 L Mean Corpuscular 86.3 Volume Mean Corpuscular 30.0 Hemoglobin Mean Corpuscular 34.8 Hemoglobin Concent Red Cell 12.0 Distribution Width Platelet Count 352 Mean Platelet Volume 10.5 H Immature 0.500 H Granulocytes % Neutrophils % 80.3 H Lymphocytes % 10.7 L Monocytes % 6.6 Eosinophils % 1.6 Basophils % 0.3 Nucleated Red Blood 0.0 Cells % Immature 0.050 H Granulocytes # Neutrophils # 7.9 H Lymphocytes # 1.1 Monocytes # 0.7 Eosinophils # 0.2 Basophils # 0.0 Nucleated Red Blood 0.0 Cells # Sodium Level 140 Potassium Level 3.7 Chloride Level 107 Carbon Dioxide Level 28 Anion Gap 5 Blood Urea Nitrogen 13 Creatinine 1.33 H Est Glomerular 54 L Filtrat Rate mL/min Glucose Level 80 Calcium Level 7.9 L Phosphorus Level 4.7 Magnesium Level 1.9 Exam/Review of Systems Exam Vitals Vital Signs Date Temp Pulse Resp B/P (MAP) Pulse Ox O2 O2 Flow FiO2 Time Delivery Rate 12/30/18 98.2 61 18 135/65 97 02:06 (88) 12/29/18 Room Air 07:30 Intake and Output 12/29/18 12/29/18 12/30/18 1515:00 23:00 07:00 IntakeIntake Total 480 ml 800 ml OutputOutput Total 750 ml 350 ml BalanceBalance 480 ml 50 ml -350 ml Results Results 24hrs Laboratory Tests Test 12/29/18 07:54 12/29/18 12:08 12/29/18 17:06 12/29/18 21:25 Bedside Glucose 96 140 129 133 Test 12/30/18 06:08 White Blood Count 9.8 Red Blood Count 3.73 L Hemoglobin 11.2 L Hematocrit 32.2 L Mean Corpuscular 86.3 Volume Mean Corpuscular 30.0 Hemoglobin Mean Corpuscular 34.8 Hemoglobin Concent Red Cell 12.0 Distribution Width Platelet Count 352 Mean Platelet Volume 10.5 H Immature 0.500 H Granulocytes % Neutrophils % 80.3 H Lymphocytes % 10.7 L Monocytes % 6.6 Eosinophils % 1.6 Basophils % 0.3 Nucleated Red Blood 0.0 Cells % Immature 0.050 H Granulocytes # Neutrophils # 7.9 H Lymphocytes # 1.1 Monocytes # 0.7 Eosinophils # 0.2 Basophils # 0.0 Nucleated Red Blood 0.0 Cells # Sodium Level 140 Potassium Level 3.7 Chloride Level 107 Carbon Dioxide Level 28 Anion Gap 5 Blood Urea Nitrogen 13 Creatinine 1.33 H Est Glomerular 54 L Filtrat Rate mL/min Glucose Level 80 Calcium Level 7.9 L Phosphorus Level 4.7 Magnesium Level 1.9 Medications Medication Current Medications Amlodipine Besylate (Norvasc) 10 mg DAILY PO Last administered on 12/29/18 08:51; Admin Dose 10 MG; Start 12/25/18 at 09:00 Aspirin (Halfprin) 81 mg DAILY PO Last administered on 12/29/18 08:50; Admin Dose 81 MG; Start 12/25/18 at 09:00 Atorvastatin Calcium (Lipitor) 40 mg QHS PO Last administered on 12/29/18 21:23; Admin Dose 40 MG; Start 12/24/18 at 21:00 Gabapentin (Neurontin) 300 mg TID PO Last administered on 12/29/18 21:23; Admin Dose 300 MG; Start 12/24/18 at 13:00 Metoprolol Succinate (Toprol Xl) 25 mg DAILY PO Last administered on 12/29/18 08:51; Admin Dose 25 MG; Start 12/25/18 at 09:00 IV Flush (NS 3 ml) 3 ml PER PROTOCOL IV ; Start 12/24/18 at 13:00 Ondansetron HCl (Zofran Inj) 4 mg Q6H PRN IV NAUSEA/VOMITING; Start 12/24/18 at 13:00 Acetaminophen (Tylenol Tab) 650 mg Q6H PRN PO .PAIN 1-3 OR TEMP Last administered on 5/25/19at 02:32; Admin Dose 650 MG; Start 12/24/18 at 13:00 Acetaminophen/ Hydrocodone Bitart ([place] (5/325)) 1 tab Q6H PRN PO .MOD PAIN 4- 6; Start 12/24/18 at 13:00 Acetaminophen/ Hydrocodone Bitart ([place] (5/325)) 2 tab Q6H PRN PO .SEVERE PAIN 7-10; Start 12/24/18 at 13:00 Morphine Sulfate (morphine) 2 mg Q4H PRN IV .SEVERE PAIN 7-10 Last administered on 12/28/18 20:06; Admin Dose 2 MG; Start 12/24/18 at 13:00 Docusate Sodium (Colace) 100 mg Q12H PRN PO .CONSTIPATION Last administered on 12/28/18at 20:07; Admin Dose 100 MG; Start 12/24/18 at 13:00 Magnesium Hydroxide (Milk Of Mag) 30 ml DAILY PRN PO .CONSTIPATION; Start 12/24/18 at 13:00 Hydralazine HCl (Apresoline) 10 mg Q4H PRN IV SBP >170 Last administered on 12/28/18at 15:31; Admin Dose 10 MG; Start 12/24/18 at 14:00 Miscellaneous Information 1 ea NOTE XX ; Start 12/24/18 at 15:30 Glucose (Glutose) 15 gm Q15M PRN PO DECREASED GLUCOSE; Start 12/24/18 at 15:30 Glucose (Glutose) 22.5 gm Q15M PRN PO DECREASED GLUCOSE; Start 12/24/18 at 15:30 Dextrose (D50w Syringe) 25 ml Q15M PRN IV DECREASED GLUCOSE; Start 12/24/18 at 15:30 Dextrose (D50w Syringe) 50 ml Q15M PRN IV DECREASED GLUCOSE; Start 12/24/18 at 15:30 Glucagon (Glucagen) 1 mg Q15M PRN IM DECREASED GLUCOSE; Start 12/24/18 at 15:30 Glucose (Glutose) 15 gm Q15M PRN BUCCAL DECREASED GLUCOSE; Start 12/24/18 at 15:30 Ferrous Sulfate (Ferrous Sulfate (Ec)) 325 mg DAILY PO Last administered on 12/29/18at 08:51; Admin Dose 325 MG; Start 12/26/18 at 09:00 Ceftriaxone Sodium 50 ml @ 100 mls/hr Q24H IVPB Last administered on 12/29/18 16:54; Admin Dose 100 MLS/HR; Start 12/26/18 at 16:00 Ascorbic Acid (Vitamin C) 500 mg BID PO Last administered on 12/29/18 21:23; Admin Dose 500 MG; Start 12/27/18 at 09:00 Insulin Aspart (Novolog Insulin Pen) 8 unit WITH MEALS SC Last administered on 12/29/18 17:23; Admin Dose 8 UNIT; Start 12/27/18 at 17:35 Insulin Aspart (Novolog Insulin Pen) (Adult SC Insulin - Moder... WITH MEALS BEDTIME SC Last administered on 12/28/18 20:14; Admin Dose 3 UNIT; Start 12/28/18 at 18:05 Diagnostic Test (Pha) (Accu-Chek) 1 ea 02 XX ; Start 12/29/18 at 02:00 Insulin Glargine (Lantus) 35 units BID SC Last administered on 12/29/18 21:30; Admin Dose 35 UNITS; Start 12/29/18 at 21:00 Sodium Hypochlorite (Dakins Diluted (/40)) 1 applic DAILY TP ; Start 12/29/18 at 13:00 Heparin Sodium (Porcine) (Heparin (5000 Units/1ml)) 5,000 unit Q8 SC Last administered on 12/30/18 06:30; Admin Dose 5,000 UNIT; Start 12/29/18 at 22:00 SANJAY MORAN NP December 30, 2018 07:49
[2018-12-30] MEDS: Insulin NOVOLOG SS MODERATE Algorithm (SS with meals and bedtime) SC SCH ×4 (08:00→20:20)
[2018-12-30] MEDS: INSULIN ASPART [NOVOLOG] 3 ML PEN SC SCH ×3 (08:11→17:25)
[2018-12-30] MEDS: INSULIN GLARGINE [LANTus] (100 UNITS/ML) SYG SC SCH ×2 (08:11→20:24)
[2018-12-30] MEDS: ASCORBIC ACID 500 MG TAB PO SCH ×2 (08:11→20:19)
[2018-12-30] MEDS: FERROUS SULFATE (EC) 325 MG TAB PO SCH (08:12)
[2018-12-30] MEDS: METOPROLOL (XL) 25 MG TAB PO SCH (08:12)
[2018-12-30] MEDS: ASPIRIN (EC) 81 MG TAB PO SCH (08:12)
[2018-12-30] MEDS: GABAPENTIN 300 MG CAP PO SCH ×3 (08:12→20:19)
[2018-12-30] MEDS: AMLODIPINE 10 MG TAB PO SCH (08:13)
[2018-12-30] MEDS: DAKINS 0.0125%(1/40) 473 ML SOLUTION TP SCH (08:13)
--- NOTE | 2018-12-30 10:59 | PN ---
DATE: 12/30/2018 SUBJECTIVE: The patient is stable, no events overnight. No fever, chills, nausea or vomiting. OBJECTIVE: VITAL SIGNS: Blood pressure is 160/69, pulse 61, respirations 16, temperature 97.4. HEENT: Head is normocephalic. NECK: Supple. HEART: Regular rate. LUNGS: Show diminished breath sounds at the base. ABDOMEN: Soft, nontender to palpation without rebound or guarding. EXTREMITIES: Negative for clubbing, cyanosis, no edema. DERMATOLOGIC: No rashes. MUSCULOSKELETAL: No joint effusion. NEUROLOGIC: No change in exam. MEDICATIONS: The patient's medications have been reviewed. LABORATORY DATA: Has been reviewed. ASSESSMENT AND PLAN: 1. Nonoliguric acute kidney injury on top of chronic kidney disease with previous baseline creatinin e 1.3 to 1.4 mg/dL. Etiology of MAMTA is multifactorial. Renal function is improving. Continue [facility] nt treatment plan, supportive care, renally dose all medications. Patient's renal function appears t o be back to previous baseline. 2. Hypernatremia, improved. 3. Anemia with iron deficiency. Continue IV iron. Monitor hemoglobin and hematocrit levels. 4. Mineral bone disorder. Monitor calcium and phosphorus levels. 5. Diabetes. Continue current insulin regimen. 6. Right foot osteomyelitis as the patient is status post amputation fourth digit. Continue to [facility]. Continue wound care, podiatry care and antibiotic therapy. Dictated By: HERB HOOD DO NR/NTS Conf#: [id number] DID#: [id number] CC: ONEIDA PAUL MD; JAD POWERS MD; SACHIN FOX MD;*End*
[2018-12-30 14:31] VITALS: BP 126/67; PULSE 66; RESP 16
[2018-12-30] MEDS: CEFTRIAXONE 1 GM/50 ML (PMX) 50 ML IVPB SCH (15:03)
--- NOTE | 2018-12-30 18:35 | CONS ---
Assessment/Plan Assessment/Plan Hospital Course (Demo Recall) ID PROGRESS NOTE CURRENT ABX: DAY #=> Ceftriaxone s/p Vanco IV DC'd 12/28/18 12/30/18 0608 12/30/18 0608 24H INTERVAL SUMMARY * Doing well -- no new issues -- A/A/O, no fevers, VSS, NAD -- BLEXT feet are wrapped IMAGING * 12/27/18 CXR: * 12/24/09 MRI FOOT: IMPRESSION: * 1. Osteomyelitis of the mid to distal fourth proximal phalanx, and the fourth middle phalanx. * 2. Osteomyelitis at the tuft of the distal phalanx of the fifth digit, with osseous destruction. * 3. No evident acute fracture. * 4. Hallux valgus and bunion. * 5. Early neuropathic changes in the right forefoot. MICRO/OTHER * 12/28/18 TOE CX: WOUND CULTURE Preliminary Organism 1 GAMMA HEMOLYTIC STREP SPP QUANTITY SCANT GROWTH * 12/25/18 BCX (-) * 12/25/18 TOE CX: WOUND CULTURE Final Organism 1 GAMMA HEMOLYTIC STREP SPP QUANTITY 2+ Organism 2 STREP AGALACTIAE - (GROUP B) QUANTITY SCANT GROWTH * 12/24/18 R-4TH TOE: WOUND CULTURE Final Organism 1 GAMMA HEMOLYTIC STREP SPP QUANTITY 4+ Organism 2 STREP AGALACTIAE - (GROUP B) QUANTITY 2+ Organism 3 STAPHYLOCOCCUS AUREUS QUANTITY SCANT GROWTH Organism 4 COAGULASE NEGATIVE STAPH QUANTITY 2+ * 12/24/18 BCX (+) 1/2 bottles only : Organism 1 CORYNEBACTERIUM SPECIES PHYSICAL EXAMINATION: GENERAL: VSS, NAD, HEENT: AT, NC, NECK: WNL CHEST: Equal chest rise bilaterally without dyspnea on observation ABD: Soft, ND EXTREMITIES: Warm, dry -- BLEXT DSG c/D/I SKIN: No rash, no diaphoresis ID ASSESSMENT 63 yo M admit with: Right 4th digit osteomyelitis and gangrene - s/p R 4th digit amputation (DOS: 12/28/18) Left foot diabetic ulceration R foot cellulitis Right foot abscess - resolved DM2 with peripheral neuropathy Acute on chronic kidney disease Gram-positive philomena bacteremia consistent with contaminant (?)MRSA Nares ABX ALLERGIES: NKDA INVASIVES: PIV CURRENT ABX: DAY # =>Ceftriaxone s/p Vanco IV DC'd 5/24/19 ID RECOMMENDATIONS/PLAN: 1. When cleared for DC home - december DC home on Augmentin 875mg po Q12H x 14 days which is approved for [place] Guide to ABX Management for diabetic foot infection. . Consultation Date/Type/Reason Admit Date/Time December 24, 2018 at 12:42 Initial Consult Date Date/Time of Note DATE: 12/30/18 TIME: 18:32 Exam/Review of Systems Exam Vitals Vital Signs Date Temp Pulse Resp B/P (MAP) Pulse Ox O2 O2 Flow FiO2 Time Delivery Rate 12/30/18 97.6 66 16 126/67 96 Room Air 14:31 (86) Intake and Output 12/29/18 12/29/18 12/30/18 1515:00 23:00 07:00 IntakeIntake Total 480 ml 800 ml OutputOutput Total 750 ml 350 ml BalanceBalance 480 ml 50 ml -350 ml Results Result Diagram: 12/30/18 0608 12/30/18 0608 Results 24hrs Laboratory Tests Test 12/29/18 21:25 12/30/18 06:08 12/30/18 07:56 12/30/18 12:03 Bedside Glucose 133 87 121 White Blood Count 9.8 Red Blood Count 3.73 L Hemoglobin 11.2 L Hematocrit 32.2 L Mean Corpuscular 86.3 Volume Mean Corpuscular 30.0 Hemoglobin Mean Corpuscular 34.8 Hemoglobin Concent Red Cell 12.0 Distribution Width Platelet Count 352 Mean Platelet Volume 10.5 H Immature 0.500 H Granulocytes % Neutrophils % 80.3 H Lymphocytes % 10.7 L Monocytes % 6.6 Eosinophils % 1.6 Basophils % 0.3 Nucleated Red Blood 0.0 Cells % Immature 0.050 H Granulocytes # Neutrophils # 7.9 H Lymphocytes # 1.1 Monocytes # 0.7 Eosinophils # 0.2 Basophils # 0.0 Nucleated Red Blood 0.0 Cells # Sodium Level 140 Potassium Level 3.7 Chloride Level 107 Carbon Dioxide Level 28 Anion Gap 5 Blood Urea Nitrogen 13 Creatinine 1.33 H Est Glomerular 54 L Filtrat Rate mL/min Glucose Level 80 Calcium Level 7.9 L Phosphorus Level 4.7 Magnesium Level 1.9 Test 12/30/18 17:06 Bedside Glucose 144 Medications Medication Current Medications Amlodipine Besylate (Norvasc) 10 mg DAILY PO Last administered on 12/30/18at 08:13; Admin Dose 10 MG; Start 12/25/18 at 09:00 Aspirin (Halfprin) 81 mg DAILY PO Last administered on 12/30/18 08:12; Admin Dose 81 MG; Start 12/25/18 at 09:00 Atorvastatin Calcium (Lipitor) 40 mg QHS PO Last administered on 12/29/18 21: 23; Admin Dose 40 MG; Start 12/24/18 at 21:00 Gabapentin (Neurontin) 300 mg TID PO Last administered on 12/30/18 12:21; Admin Dose 300 MG; Start 12/24/18 at 13:00 Metoprolol Succinate (Toprol Xl) 25 mg DAILY PO Last administered on 12/30/18 08:12; Admin Dose 25 MG; Start 12/25/18 at 09:00 IV Flush (NS 3 ml) 3 ml PER PROTOCOL IV ; Start 12/24/18 at 13:00 Ondansetron HCl (Zofran Inj) 4 mg Q6H PRN IV NAUSEA/VOMITING; Start 12/24/18 at 13:00 Acetaminophen (Tylenol Tab) 650 mg Q6H PRN PO .PAIN 1-3 OR TEMP Last administered on 12/29/18 02:32; Admin Dose 650 MG; Start 12/24/18 at 13:00 Acetaminophen/ Hydrocodone Bitart ([place] (5/325)) 1 tab Q6H PRN PO .MOD PAIN 4- 6; Start 12/24/18 at 13:00 Acetaminophen/ Hydrocodone Bitart ([place] (5/325)) 2 tab Q6H PRN PO .SEVERE PAIN 7-10; Start 12/24/18 at 13:00 Morphine Sulfate (morphine) 2 mg Q4H PRN IV .SEVERE PAIN 7-10 Last administered on 12/28/18 20:06; Admin Dose 2 MG; Start 12/24/18 at 13:00 Docusate Sodium (Colace) 100 mg Q12H PRN PO .CONSTIPATION Last administered on 12/28/18 20:07; Admin Dose 100 MG; Start 12/24/18 at 13:00 Magnesium Hydroxide (Milk Of Mag) 30 ml DAILY PRN PO .CONSTIPATION; Start 12/24/18 at 13:00 Hydralazine HCl (Apresoline) 10 mg Q4H PRN IV SBP >170 Last administered on 5/24/19at 15:31; Admin Dose 10 MG; Start 12/24/18 at 14:00 Miscellaneous Information 1 ea NOTE XX ; Start 12/24/18 at 15:30 Glucose (Glutose) 15 gm Q15M PRN PO DECREASED GLUCOSE; Start 12/24/18 at 15:30 Glucose (Glutose) 22.5 gm Q15M PRN PO DECREASED GLUCOSE; Start 12/24/18 at 15:30 Dextrose (D50w Syringe) 25 ml Q15M PRN IV DECREASED GLUCOSE; Start 12/24/18 at 15:30 Dextrose (D50w Syringe) 50 ml Q15M PRN IV DECREASED GLUCOSE; Start 12/24/18 at 15:30 Glucagon (Glucagen) 1 mg Q15M PRN IM DECREASED GLUCOSE; Start 12/24/18 at 15:30 Glucose (Glutose) 15 gm Q15M PRN BUCCAL DECREASED GLUCOSE; Start 12/24/18 at 15:30 Ferrous Sulfate (Ferrous Sulfate (Ec)) 325 mg DAILY PO Last administered on 12/30/18at 08:12; Admin Dose 325 MG; Start 12/26/18 at 09:00 Ceftriaxone Sodium 50 ml @ 100 mls/hr Q24H IVPB Last administered on 12/30/18at 15:03; Admin Dose 100 MLS/HR; Start 12/26/18 at 16:00 Ascorbic Acid (Vitamin C) 500 mg BID PO Last administered on 12/30/18at 08:11; Admin Dose 500 MG; Start 12/27/18 at 09:00 Insulin Aspart (Novolog Insulin Pen) 8 unit WITH MEALS SC Last administered on 12/30/18at 17:25; Admin Dose 8 UNIT; Start 12/27/18 at 17:35 Insulin Aspart (Novolog Insulin Pen) (Adult SC Insulin - Moder... WITH MEALS B EDTIME SC Last administered on 12/30/18at 17:26; Admin Dose 2 UNIT; Start 12/28/18 at 18:05 Diagnostic Test (Pha) (Accu-Chek) 1 ea 02 XX ; Start 12/29/18 at 02:00 Insulin Glargine (Lantus) 35 units BID SC Last administered on 12/30/18at 08:11; Admin Dose 35 UNITS; Start 12/29/18 at 21:00 Sodium Hypochlorite (Dakins Diluted ()) 1 applic DAILY TP Last administered on 12/30/18at 08:13; Admin Dose 1 APPLIC; Start 12/29/18 at 13:00 Heparin Sodium (Porcine) (Heparin (5000 Units/1ml)) 5,000 unit Q8 SC Last administered on 12/30/18at 15:03; Admin Dose 5,000 UNIT; Start 12/29/18 at 22:00 ROBINSON ACUÑA NP December 30, 2018 18:35
[2018-12-30 20:00] VITALS: BP 152/75; PULSE 67; RESP 18
[2018-12-30] MEDS: ATORVASTATIN 40 MG TAB PO SCH (20:19)
[2018-12-31] MEDS: ACCUCHECK AT 2AM (Patients on SS coverage) XX SCH (01:41)
[2018-12-31 02:00] VITALS: BP 140/68; PULSE 68; RESP 18
[2018-12-31] MEDS: HEPARIN 5,000 UNIT/1 ML VIAL SC SCH ×3 (05:53→21:31)
[2018-12-31 07:30] VITALS: BP 145/67; PULSE 74; RESP 17
[2018-12-31] MEDS: Insulin NOVOLOG SS MODERATE Algorithm (SS with meals and bedtime) SC SCH ×4 (08:00→21:00)
[2018-12-31] MEDS: FERROUS SULFATE (EC) 325 MG TAB PO SCH (08:15)
[2018-12-31] MEDS: ASCORBIC ACID 500 MG TAB PO SCH ×2 (08:16→21:30)
[2018-12-31] MEDS: ASPIRIN (EC) 81 MG TAB PO SCH (08:16)
[2018-12-31] MEDS: METOPROLOL (XL) 25 MG TAB PO SCH (08:18)
[2018-12-31] MEDS: AMLODIPINE 10 MG TAB PO SCH (08:18)
[2018-12-31] MEDS: GABAPENTIN 300 MG CAP PO SCH ×3 (08:18→21:30)
[2018-12-31] MEDS: INSULIN ASPART [NOVOLOG] 3 ML PEN SC SCH ×3 (08:19→17:18)
[2018-12-31] MEDS: INSULIN GLARGINE [LANTus] (100 UNITS/ML) SYG SC SCH ×2 (08:21→21:32)
--- NOTE | 2018-12-31 08:53 | PN ---
DATE: 12/31/2018 SUBJECTIVE: The patient is stable, no events overnight. OBJECTIVE: VITAL SIGNS: Blood pressure is 140/68, respiration 18, pulse 68, temperature 98.4. HEENT: Head is normocephalic. NECK: Supple. HEART: Regular rate. LUNGS: Show diminished breath sounds at the base. ABDOMEN: Soft, nontender to palpation without rebound or guarding. EXTREMITIES: Negative for clubbing, cyanosis, no edema. DERMATOLOGIC: No rashes. MUSCULOSKELETAL: No joint effusion. NEUROLOGIC: No change in exam. MEDICATIONS: Reviewed. LABORATORY DATA: Reviewed. ASSESSMENT AND PLAN: 1. Nonoliguric acute kidney injury on top of chronic kidney disease stage III with a baseline creati nine of 1.3 to 1.4 mg/dL. Etiology of acute kidney injury is multifactorial. Renal function is impr se, currently at baseline. Continue current treatment plan, supportive care and renally dose all m edications. 2. Chronic kidney disease, stage III. The patient is currently in acute kidney injury as stated abo ve. Continue disease factor modification. 3. Hypernatremia, improved. 4. Anemia with iron deficiency. The patient is completing course of IV iron. Monitor hemoglobin an d hematocrit levels. We will give Epogen as needed. 5. Mineral bone disorder, monitor calcium and phosphorus levels. 6. Diabetes. Continue current insulin regimen. 7. Right foot osteomyelitis, status post amputation. Continue wound care, continue antibiotic thera py. Followup with podiatry. Dictated By: HERB HOOD DO NR/NTS Conf#: [id number] DID#: [id number] CC: ONEIDA PAUL MD; JAD POWERS MD; SACHIN FOX MD;*EndCC*
[2018-12-31] MEDS: DAKINS 0.0125%(1/40) 473 ML SOLUTION TP SCH (12:02)
[2018-12-31 14:00] VITALS: BP 155/75; PULSE 65; RESP 17
--- NOTE | 2018-12-31 15:06 | PN ---
Date/Time of Note Date/Time of Note DATE: 12/31/18 TIME: 15:05 Assessment/Plan VTE Prophylaxis Risk score (from Nsg)>0 risk: 6 SCD applied (from Nsg): Yes Pharmacological prophylaxis: heparin Lines/Catheters IV Catheter Type (from Nrsg): Saline Lock Urinary Cath still in place: No Assessment/Plan Hospital Course SUBJECTIVE: B/L feet pain well controlled. OBJECTIVE: Physical Exam General: Adequately build 63 year-old male lying in bed in no apparent distress. HEENT: Normocephalic, atraumatic. Eyes: Anicteric sclerae, conjunctivae clear. ENT: Nasal septum midline, oral mucosa moist. Neck supple, no JVD noticed. Respiratory: Bilaterally clear breath sounds. No use of accessory muscles of respiration. No adventitious breath sounds. Cardiovascular: S1, S2 heard. Regular rate and rhythm. Abdomen: Soft, nontender, and nondistended. Bowel sounds positive in all 4 quadrants. Genitourinary: Deferred. Extremities: No cyanosis, no clubbing, no edema. Bilateral lower extremity Storm wrap. Neurologic: Cranial nerves II through XII grossly intact. The patient is awake, alert, and oriented. Skin: Normal skin turgor. No skin rashes. Labs & Vitals per chart ASSESSMENT & PLAN 61-year-old male with comorbidities including diabetes mellitus, hypertension, and peripheral neuropathy who presented to the emergency room with a chief complaint of right foot diabetic ulcer and was admitted to inpatient setting for further treatment and evaluation. 1. Right foot diabetic ulcer. -Status post right foot excisional debridement and a right fourth digit arthroplasty on 12/25/2018. -Local dressing changes as per podiatry. 2. Right fourth digit osteomyelitis. -Status post right fourth digit amputation on 12/28/2018. -Continue antimicrobials as per ID. -Local dressing changes as per podiatry. 3. Left foot diabetic ulceration. -Continue local wound care as per ID. 4. Diabetes mellitus. -Uncontrolled. Hemoglobin A1c 13. -Continue sliding scale insulin along with pre-meal insulin and basal insulin. 5. Acute on chronic kidney disease. -Being followed by nephrology. -Use nephrotoxic drugs with caution. 6. Normocytic, normochromic anemia -Underlying iron deficiency. -Continue iron supplements. 7. Hypertension. -Continue antihypertensives. 8. Dyslipidemia. -Continue statins. 9. Fluids, electrolytes, and nutrition. -Carbohydrate controlled diet. 10. DVT prophylaxis. -Subcutaneous heparin. 11. Plan. -Continue antimicrobials as per ID. -Obtain physical therapy re-evaluation. -May need HHPT upon discharge. The patient was seen in collaboration with . Result Diagram: 12/31/18 0543 12/31/18 0543 Results 24hrs Laboratory Tests Test 12/30/18 17:06 12/30/18 20:16 12/31/18 05:43 12/31/18 08:06 Bedside Glucose 144 108 91 White Blood Count 7.8 # Red Blood Count 3.61 L Hemoglobin 10.8 L Hematocrit 31.6 L Mean Corpuscular 87.5 Volume Mean Corpuscular 29.9 Hemoglobin Mean Corpuscular 34.2 Hemoglobin Concent Red Cell 11.9 Distribution Width Platelet Count 344 Mean Platelet Volume 10.4 Immature 0.400 Granulocytes % Neutrophils % 68.9 Lymphocytes % 18.7 Monocytes % 7.1 Eosinophils % 4.5 Basophils % 0.4 Nucleated Red Blood 0.0 Cells % Immature 0.030 Granulocytes # Neutrophils # 5.3 Lymphocytes # 1.5 Monocytes # 0.6 Eosinophils # 0.4 Basophils # 0.0 Nucleated Red Blood 0.0 Cells # Sodium Level 139 Potassium Level 4.0 Chloride Level 108 Carbon Dioxide Level 27 Anion Gap 4 L Blood Urea Nitrogen 17 Creatinine 1.32 H Est Glomerular 54 L Filtrat Rate mL/min Glucose Level 108 Calcium Level 7.9 L Phosphorus Level 4.1 Magnesium Level 1.8 Test 12/31/18 11:58 Bedside Glucose 144 Exam/Review of Systems Exam Vitals Vital Signs Date Temp Pulse Resp B/P (MAP) Pulse Ox O2 O2 Flow FiO2 Time Delivery Rate 12/31/18 97.8 74 17 145/67 99 Room Air 07:30 (93) Intake and Output 12/30/18 12/30/18 12/31/18 1515:00 23:00 07:00 IntakeIntake Total 600 ml 290 ml 800 ml OutputOutput Total 1600 ml BalanceBalance 600 ml 290 ml -800 ml Results Results 24hrs Laboratory Tests Test 12/30/18 17:06 12/30/18 20:16 12/31/18 05:43 12/31/18 08:06 Bedside Glucose 144 108 91 White Blood Count 7.8 # Red Blood Count 3.61 L Hemoglobin 10.8 L Hematocrit 31.6 L Mean Corpuscular 87.5 Volume Mean Corpuscular 29.9 Hemoglobin Mean Corpuscular 34.2 Hemoglobin Concent Red Cell 11.9 Distribution Width Platelet Count 344 Mean Platelet Volume 10.4 Immature 0.400 Granulocytes % Neutrophils % 68.9 Lymphocytes % 18.7 Monocytes % 7.1 Eosinophils % 4.5 Basophils % 0.4 Nucleated Red Blood 0.0 Cells % Immature 0.030 Granulocytes # Neutrophils # 5.3 Lymphocytes # 1.5 Monocytes # 0.6 Eosinophils # 0.4 Basophils # 0.0 Nucleated Red Blood 0.0 Cells # Sodium Level 139 Potassium Level 4.0 Chloride Level 108 Carbon Dioxide Level 27 Anion Gap 4 L Blood Urea Nitrogen 17 Creatinine 1.32 H Est Glomerular 54 L Filtrat Rate mL/min Glucose Level 108 Calcium Level 7.9 L Phosphorus Level 4.1 Magnesium Level 1.8 Test 12/31/18 11:58 Bedside Glucose 144 Medications Medication Current Medications Amlodipine Besylate (Norvasc) 10 mg DAILY PO Last administered on 12/31/18 08:18; Admin Dose 10 MG; Start 12/25/18 at 09:00 Aspirin (Halfprin) 81 mg DAILY PO Last administered on 12/31/18 08:16; Admin Dose 81 MG; Start 12/25/18 at 09:00 Atorvastatin Calcium (Lipitor) 40 mg QHS PO Last administered on 12/30/18 20:19; Admin Dose 40 MG; Start 12/24/18 at 21:00 Gabapentin (Neurontin) 300 mg TID PO Last administered on 12/31/18 12:04; Ad min Dose 300 MG; Start 12/24/18 at 13:00 Metoprolol Succinate (Toprol Xl) 25 mg DAILY PO Last administered on 12/31/18 08:18; Admin Dose 25 MG; Start 12/25/18 at 09:00 IV Flush (NS 3 ml) 3 ml PER PROTOCOL IV ; Start 12/24/18 at 13:00 Ondansetron HCl (Zofran Inj) 4 mg Q6H PRN IV NAUSEA/VOMITING; Start 12/24/18 at 13:00 Acetaminophen (Tylenol Tab) 650 mg Q6H PRN PO .PAIN 1-3 OR TEMP Last adminis tered on 12/29/18 02:32; Admin Dose 650 MG; Start 12/24/18 at 13:00 Acetaminophen/ Hydrocodone Bitart ([place] (5/325)) 1 tab Q6H PRN PO .MOD PAIN 4- 6; Start 12/24/18 at 13:00 Acetaminophen/ Hydrocodone Bitart ([place] (5/325)) 2 tab Q6H PRN PO .SEVERE PAIN 7-10; Start 12/24/18 at 13:00 Morphine Sulfate (morphine) 2 mg Q4H PRN IV .SEVERE PAIN 7-10 Last administered on 12/28/18at 20:06; Admin Dose 2 MG; Start 12/24/18 at 13:00 Docusate Sodium (Colace) 100 mg Q12H PRN PO .CONSTIPATION Last administered on 12/28/18at 20:07; Admin Dose 100 MG; Start 12/24/18 at 13:00 Magnesium Hydroxide (Milk Of Mag) 30 ml DAILY PRN PO .CONSTIPATION; Start 12/24/18 at 13:00 Hydralazine HCl (Apresoline) 10 mg Q4H PRN IV SBP >170 Last administered on 12/28/18at 15:31; Admin Dose 10 MG; Start 12/24/18 at 14:00 Miscellaneous Information 1 ea NOTE XX ; Start 12/24/18 at 15:30 Glucose (Glutose) 15 gm Q15M PRN PO DECREASED GLUCOSE; Start 12/24/18 at 15:30 Glucose (Glutose) 22.5 gm Q15M PRN PO DECREASED GLUCOSE; Start 12/24/18 at 15:30 Dextrose (D50w Syringe) 25 ml Q15M PRN IV DECREASED GLUCOSE; Start 12/24/18 at 15:30 Dextrose (D50w Syringe) 50 ml Q15M PRN IV DECREASED GLUCOSE; Start 12/24/18 at 15:30 Glucagon (Glucagen) 1 mg Q15M PRN IM DECREASED GLUCOSE; Start 12/24/18 at 15:30 Glucose (Glutose) 15 gm Q15M PRN BUCCAL DECREASED GLUCOSE; Start 12/24/18 at 15:30 Ferrous Sulfate (Ferrous Sulfate (Ec)) 325 mg DAILY PO Last administered on 12/31/18at 08:15; Admin Dose 325 MG; Start 12/26/18 at 09:00 Ceftriaxone Sodium 50 ml @ 100 mls/hr Q24H IVPB Last administered on 12/30/18 15:03; Admin Dose 100 MLS/HR; Start 12/26/18 at 16:00 Ascorbic Acid (Vitamin C) 500 mg BID PO Last administered on 12/31/18 08:16; Admin Dose 500 MG; Start 12/27/18 at 09:00 Insulin Aspart (Novolog Insulin Pen) 8 unit WITH MEALS SC Last administered on 12/31/18 12:03; Admin Dose 8 UNIT; Start 12/27/18 at 17:35 Insulin Aspart (Novolog Insulin Pen) (Adult SC Insulin - Moder... WITH MEALS BEDTIME SC Last administered on 12/31/18 12:03; Admin Dose 2 UNIT; Start 12/28/18 at 18:05 Diagnostic Test (Pha) (Accu-Chek) 1 ea 02 XX ; Start 12/29/18 at 02:00 Insulin Glargine (Lantus) 35 units BID SC Last administered on 12/31/18 08:21; Admin Dose 35 UNITS; Start 12/29/18 at 21:00 Sodium Hypochlorite (Dakins Diluted (40)) 1 applic DAILY TP Last administered on 12/31/18 12:02; Admin Dose 1 APPLIC; Start 12/29/18 at 13:00 Heparin Sodium (Porcine) (Heparin (5000 Units/1ml)) 5,000 unit Q8 SC Last administered on 12/31/18 14:25; Admin Dose 5,000 UNIT; Start 12/29/18 at 22:00 SANJAY MORAN NP December 31, 2018 15:06
[2018-12-31] MEDS: CEFTRIAXONE 1 GM/50 ML (PMX) 50 ML IVPB SCH (15:33)
--- NOTE | 2018-12-31 16:54 | CONS ---
Assessment/Plan Assessment/Plan Hospital Course (Demo Recall) ID PROGRESS NOTE CURRENT ABX: DAY #=> Ceftriaxone s/p Vanco IV DC'd 12/28/18 12/31/18 0543 12/31/18 0543 24H INTERVAL SUMMARY * CLINICALLY STATUS QUO -- NO new issues, No complaints * -- A/A/O, no fevers, VSS, NAD -- BLEXT feet are wrapped IMAGING * 12/27/18 CXR: * 12/24/09 MRI FOOT: IMPRESSION: * 1. Osteomyelitis of the mid to distal fourth proximal phalanx, and the fourth middle phalanx. * 2. Osteomyelitis at the tuft of the distal phalanx of the fifth digit, with osseous destruction. * 3. No evident acute fracture. * 4. Hallux valgus and bunion. * 5. Early neuropathic changes in the right forefoot. MICRO/OTHER * 12/28/18 TOE CX: WOUND CULTURE Preliminary Organism 1 GAMMA HEMOLYTIC STREP SPP QUANTITY SCANT GROWTH * 12/25/18 BCX (-) * 12/25/18 TOE CX: WOUND CULTURE Final Organism 1 GAMMA HEMOLYTIC STREP SPP QUANTITY 2+ Organism 2 STREP AGALACTIAE - (GROUP B) QUANTITY SCANT GROWTH * 12/24/18 R-4TH TOE: WOUND CULTURE Final Organism 1 GAMMA HEMOLYTIC STREP SPP QUANTITY 4+ Organism 2 STREP AGALACTIAE - (GROUP B) QUANTITY 2+ Organism 3 STAPHYLOCOCCUS AUREUS QUANTITY SCANT GROWTH Organism 4 COAGULASE NEGATIVE STAPH QUANTITY 2+ * 12/24/18 BCX (+) 1/2 bottles only : Organism 1 CORYNEBACTERIUM SPECIES PHYSICAL EXAMINATION: GENERAL: VSS, NAD, HEENT: AT, NC, NECK: WNL CHEST: Equal chest rise bilaterally without dyspnea on observation ABD: Soft, ND EXTREMITIES: Warm, dry -- BLEXT DSG c/D/I SKIN: No rash, no diaphoresis ID ASSESSMENT 63 yo M admit with: Right 4th digit osteomyelitis and gangrene - s/p R 4th digit amputation (DOS: 12/28/18) Left foot diabetic ulceration R foot cellulitis Right foot abscess - resolved DM2 with peripheral neuropathy Acute on chronic kidney disease Gram-positive philomena bacteremia consistent with contaminant (-)MRSA Nares ABX ALLERGIES: NKDA INVASIVES: PIV CURRENT ABX: DAY # =>Ceftriaxone s/p Vanco IV DC'd 12/28/18 ID RECOMMENDATIONS/PLAN: 1. When cleared for DC home - may DC home on Augmentin 875mg po Q12H x 14 days which is approved for Normal Guide to ABX Management for diabetic foot infection. . Consultation Date/Type/Reason Admit Date/Time December 24, 2018 at 12:42 Initial Consult Date Date/Time of Note DATE: 12/31/18 TIME: 16:52 Exam/Review of Systems Exam Vitals Vital Signs Date Temp Pulse Resp B/P (MAP) Pulse Ox O2 O2 Flow FiO2 Time Delivery Rate 12/31/18 98.4 65 17 155/75 97 Room Air 14:00 (101) Intake and Output 12/30/18 12/30/18 12/31/18 1515:00 23:00 07:00 IntakeIntake Total 600 ml 290 ml 800 ml OutputOutput Total 1600 ml BalanceBalance 600 ml 290 ml -800 ml Results Result Diagram: 12/31/18 0543 12/31/18 0543 Results 24hrs Laboratory Tests Test 12/30/18 17:06 12/30/18 20:16 12/31/18 05:43 12/31/18 08:06 Bedside Glucose 144 108 91 White Blood Count 7.8 # Red Blood Count 3.61 L Hemoglobin 10.8 L Hematocrit 31.6 L Mean Corpuscular 87.5 Volume Mean Corpuscular 29.9 Hemoglobin Mean Corpuscular 34.2 Hemoglobin Concent Red Cell 11.9 Distribution Width Platelet Count 344 Mean Platelet Volume 10.4 Immature 0.400 Granulocytes % Neutrophils % 68.9 Lymphocytes % 18.7 Monocytes % 7.1 Eosinophils % 4.5 Basophils % 0.4 Nucleated Red Blood 0.0 Cells % Immature 0.030 Granulocytes # Neutrophils # 5.3 Lymphocytes # 1.5 Monocytes # 0.6 Eosinophils # 0.4 Basophils # 0.0 Nucleated Red Blood 0.0 Cells # Sodium Level 139 Potassium Level 4.0 Chloride Level 108 Carbon Dioxide Level 27 Anion Gap 4 L Blood Urea Nitrogen 17 Creatinine 1.32 H Est Glomerular 54 L Filtrat Rate mL/min Glucose Level 108 Calcium Level 7.9 L Phosphorus Level 4.1 Magnesium Level 1.8 Test 12/31/18 11:58 Bedside Glucose 144 Medications Medication Current Medications Amlodipine Besylate (Norvasc) 10 mg DAILY PO Last administered on 12/31/18at 08:18; Admin Dose 10 MG; Start 12/25/18 at 09:00 Aspirin (Halfprin) 81 mg DAILY PO Last administered on 12/31/18 08:16; Admin Dose 81 MG; Start 12/25/18 at 09:00 Atorvastatin Calcium (Lipitor) 40 mg QHS PO Last administered on 12/30/18 20:19; Admin Dose 40 MG; Start 12/24/18 at 21:00 Gabapentin (Neurontin) 300 mg TID PO Last administered on 12/31/18 12:04; Admin Dose 300 MG; Start 12/24/18 at 13:00 Metoprolol Succinate (Toprol Xl) 25 mg DAILY PO Last administered on 12/31/18 08:18; Admin Dose 25 MG; Start 12/25/18 at 09:00 IV Flush (NS 3 ml) 3 ml PER PROTOCOL IV ; Start 12/24/18 at 13:00 Ondansetron HCl (Zofran Inj) 4 mg Q6H PRN IV NAUSEA/VOMITING; Start 12/24/18 at 13:00 Acetaminophen (Tylenol Tab) 650 mg Q6H PRN PO .PAIN 1-3 OR TEMP Last administered on 12/29/18 02:32; Admin Dose 650 MG; Start 12/24/18 at 13:00 Acetaminophen/ Hydrocodone Bitart ([place] (5/325)) 1 tab Q6H PRN PO .MOD PAIN 4- 6; Start 12/24/18 at 13:00 Acetaminophen/ Hydrocodone Bitart ([place] (5/325)) 2 tab Q6H PRN PO .SEVERE PAIN 7-10; Start 12/24/18 at 13:00 Morphine Sulfate (morphine) 2 mg Q4H PRN IV .SEVERE PAIN 7-10 Last administered on 12/28/18 20:06; Admin Dose 2 MG; Start 12/24/18 at 13:00 Docusate Sodium (Colace) 100 mg Q12H PRN PO .CONSTIPATION Last administered on 12/28/18 20:07; Admin Dose 100 MG; Start 12/24/18 at 13:00 Magnesium Hydroxide (Milk Of Mag) 30 ml DAILY PRN PO .CONSTIPATION; Start 12/06 at 13:00 Hydralazine HCl (Apresoline) 10 mg Q4H PRN IV SBP >170 Last administered on 12/28/18at 15:31; Admin Dose 10 MG; Start 12/24/18 at 14:00 Miscellaneous Information 1 ea NOTE XX ; Start 12/24/18 at 15:30 Glucose (Glutose) 15 gm Q15M PRN PO DECREASED GLUCOSE; Start 12/24/18 at 15:30 Glucose (Glutose) 22.5 gm Q15M PRN PO DECREASED GLUCOSE; Start 12/24/18 at 15:30 Dextrose (D50w Syringe) 25 ml Q15M PRN IV DECREASED GLUCOSE; Start 12/24/18 at 15:30 Dextrose (D50w Syringe) 50 ml Q15M PRN IV DECREASED GLUCOSE; Start 12/24/18 at 15:30 Glucagon (Glucagen) 1 mg Q15M PRN IM DECREASED GLUCOSE; Start 12/24/18 at 15:30 Glucose (Glutose) 15 gm Q15M PRN BUCCAL DECREASED GLUCOSE; Start 12/24/18 at 15:30 Ferrous Sulfate (Ferrous Sulfate (Ec)) 325 mg DAILY PO Last administered on 12/31/18at 08:15; Admin Dose 325 MG; Start 12/26/18 at 09:00 Ceftriaxone Sodium 50 ml @ 100 mls/hr Q24H IVPB Last administered on 12/31/18at 15:33; Admin Dose 100 MLS/HR; Start 12/26/18 at 16:00 Ascorbic Acid (Vitamin C) 500 mg BID PO Last administered on 12/31/18at 08:16; Admin Dose 500 MG; Start 12/27/18 at 09:00 Insulin Aspart (Novolog Insulin Pen) 8 unit WITH MEALS SC Last administered on 12/31/18at 12:03; Admin Dose 8 UNIT; Start 12/27/18 at 17:35 Insulin Aspart (Novolog Insulin Pen) (Adult SC Insulin - Moder... WITH MEALS BEDTIME SC Last administered on 12/31/18at 12:03; Admin Dose 2 UNIT; Start 12/28/18 at 18:05 Diagnostic Test (Pha) (Accu-Chek) 1 ea 02 XX ; Start 12/29/18 at 02:00 Insulin Glargine (Lantus) 35 units BID SC Last administered on 12/31/18at 08:21; Admin Dose 35 UNITS; Start 12/29/18 at 21:00 Sodium Hypochlorite (Dakins Diluted (40)) 1 applic DAILY TP Last administered on 12/31/18at 12:02; Admin Dose 1 APPLIC; Start 12/29/18 at 13:00 Heparin Sodium (Porcine) (Heparin (5000 Units/1ml)) 5,000 unit Q8 SC Last administered on 12/31/18at 14:25; Admin Dose 5,000 UNIT; Start 12/29/18 at 22:00 ROBINSON ACUÑA NP December 31, 2018 16:54
[2018-12-31 20:35] VITALS: BP 158/83; PULSE 65; RESP 16
[2018-12-31] MEDS: ATORVASTATIN 40 MG TAB PO SCH (21:34)
[2019-01-01] MEDS: ACCUCHECK AT 2AM (Patients on SS coverage) XX SCH (00:36)
[2019-01-01 02:33] VITALS: BP 143/74; PULSE 65; RESP 16
[2019-01-01] MEDS: HEPARIN 5,000 UNIT/1 ML VIAL SC SCH ×2 (05:12→14:38)
[2019-01-01 07:40] VITALS: BP 159/78; PULSE 56; RESP 16
[2019-01-01] MEDS: Insulin NOVOLOG SS MODERATE Algorithm (SS with meals and bedtime) SC SCH ×2 (08:00→12:00)
[2019-01-01] MEDS: GABAPENTIN 300 MG CAP PO SCH ×2 (08:05→12:27)
[2019-01-01] MEDS: AMLODIPINE 10 MG TAB PO SCH (08:05)
[2019-01-01] MEDS: ASPIRIN (EC) 81 MG TAB PO SCH (08:05)
[2019-01-01] MEDS: FERROUS SULFATE (EC) 325 MG TAB PO SCH (08:05)
[2019-01-01] MEDS: ASCORBIC ACID 500 MG TAB PO SCH (08:06)
[2019-01-01] MEDS: METOPROLOL (XL) 25 MG TAB PO SCH (08:06)
[2019-01-01] MEDS: INSULIN ASPART [NOVOLOG] 3 ML PEN SC SCH ×2 (08:07→12:25)
[2019-01-01] MEDS: INSULIN GLARGINE [LANTus] (100 UNITS/ML) SYG SC SCH (08:08)
[2019-01-01] MEDS: DAKINS 0.0125%(1/40) 473 ML SOLUTION TP SCH (08:09)
--- NOTE | 2019-01-01 08:55 | PN ---
DATE: 01/01/2019 SUBJECTIVE: The patient is stable. No events overnight. OBJECTIVE: VITAL SIGNS: Blood pressure is 159/78, pulse 56, respirations 16, temperature 97.4. HEENT: Head is normocephalic. NECK: Supple. HEART: Regular rate. LUNGS: Show diminished breath sounds at the base. ABDOMEN: Soft, nontender to palpation without rebound or guarding. EXTREMITIES: Negative for clubbing, cyanosis, no edema. The patient has a dressing over ulcer, it i s clean, dry and intact. DERMATOLOGIC: No rashes. MUSCULOSKELETAL: No joint effusion. NEUROLOGIC: No change in exam. MEDICATIONS: Reviewed. LABORATORY DATA: Reviewed. ASSESSMENT AND PLAN: 1. Nonoliguric acute kidney injury on top of chronic kidney disease stage III with baseline creatini ne between 1.3 and 1.4 mg/dL. Etiology of acute kidney injury is multifactorial. Renal function is improved, currently at baseline. Continue current treatment plan, supportive care and renally dose a ll medications. 2. Chronic kidney disease stage III. The patient is currently in acute kidney injury as stated joelv e. Continue disease factor modification. 3. Hypernatremia, improved. 4. Anemia with iron deficiency. The patient is completing course of IV iron. Monitor hemoglobin an d hematocrit levels. 5. Mineral bone disorder, monitor calcium and phosphorus levels. 6. Diabetes. Continue current insulin regimen. 7. Right foot osteomyelitis. The patient is status post amputation of fourth toe. Continue wound c are. Continue antibiotic therapy. Follow up with podiatry. Dictated By: HERB HODO DO NR/NTS Conf#: [id number] DID#: [id number] CC: ONEIDA PAUL MD; JAD POWERS MD; SACHIN FOX MD;*EndCC*
[2019-01-01] MEDS ORDERED: AMOX1TAB10 PO (12:27)
--- NOTE | 2019-01-01 12:31 | PDOCDIS ---
Discharge Instructions CONDITION [id number] Patient Condition: [id number] Stable HOME CARE INSTRUCTIONS: [id number] Diet Instructions: [id number] Low Fat /Cholesterol (Low carbohydrate) [id number] Special Diet: Blizi0n Low carbohydrate FOLLOW UP/APPOINTMENTS Follow-up Plan Dr. Mcrae/Dr. Cantu at [facility] wound care clinic. . OTHER ORDERS: Other Orders: 1. Resume home medications. 2. Follow a low-cholesterol, low carbohydrate diet. 3. Follow-up with podiatry Dr. Mcare/Dr. Cantu in 1 week. Please call for appointment. 4. Resume activities with as tolerated. 5. Please go to the nearest emergency room if you have any significant pain in the feet, persistent fevers, or any other unusual signs/symptoms. SANJAY MORAN NP January 01, 2019 12:31
--- NOTE | 2019-01-01 12:35 | DS ---
Date/Time of Note Date/Time of Note DATE: 01/01/19 TIME: 12:34 Discharge Summary Admission/Discharge Info Admit Date/Time December 24, 2018 at 12:42 Discharge Date/Time Discharge Diagnosis 1. Right foot diabetic ulcer. Status post right foot excisional debridement and a right fourth digit arthroplasty on 12/25/2018. 2. Right fourth digit osteomyelitis. Status post right fourth digit amputation on 12/28/2018. 3. Left foot diabetic ulceration. 4. Diabetes mellitus. Hemoglobin A1c 13. 5. Acute on chronic kidney disease. 6. Normocytic, normochromic anemia 7. Hypertension. 8. Dyslipidemia. Patient Condition: Stable Consults 1. Yovani Cantu DPM, Podiatry. 2. Harinder Phillips MD, Infectious Diseases. 3. Miguel Byrne DO, Nephrology. Procedures DATE: 12/25/18 TIME: 12:17 Operative Report Operative Report Preoperative Diagnosis Right foot diabetic ulcer R foot cellulitis Right foot abscess DM2 with peripheral neuropathy Right foot osteomyelitis Right foot gangrene Postoperative Diagnosis Right foot diabetic ulcer R foot cellulitis Right foot abscess DM2 with peripheral neuropathy Right foot osteomyelitis Right foot gangrene Operation/Procedure Performed Excisional debridement Right 4th digit arthroplasty DATE: 12/28/18 TIME: 14:50 Operative Report Operative Report Preoperative Diagnosis Right 4th digit osteomyelitis Right foot diabetic ulcer DM2 with peripheral neuropathy Postoperative Diagnosis Right 4th digit osteomyelitis Right foot diabetic ulcer DM2 with peripheral neuropathy Operation/Procedure Performed Right 4th digit amputation Right Foot MRI IMPRESSION: 1. Osteomyelitis of the mid to distal fourth proximal phalanx, and the fourth middle phalanx. 2. Osteomyelitis at the tuft of the distal phalanx of the fifth digit, with osseous destruction. 3. No evident acute fracture. 4. Hallux valgus and bunion. 5. Early neuropathic changes in the right forefoot. Hx of Present Illness This is a 61-year-old male with comorbidities including diabetes mellitus, hypertension, and peripheral neuropathy who presented to the emergency room with a chief complaint of right foot diabetic ulcer and was admitted to inpatient setting for further treatment and evaluation. Hospital Course ID, podiatry, and nephrology consult was obtained. The patient underwent an excisional debridement and right fourth digit arthroplasty on 12/25/2018. The patient underwent a right foot MRI that was showing evidence of osteomyelitis of the fourth proximal phalanx and fourth middle phalanx. Therefore, the patient underwent a right fourth digit amputation on 12/28/2018. Cultures from the wound in the right toe showed polymicrobials. The patient was maintained on antimicrobials as per ID. The patient also had a left foot diabetic ulceration. The patient was provided with local wound care as per podiatry recommendations. The patient has underlying diabetes mellitus. The patient's hemoglobin A1c was found to be 13. The patient was continued on sliding scale insulin along with pre-meal insulin and basal insulin. The patient had evidence of acute on chronic kidney disease. The patient was being followed by nephrology. Nephrotoxic drugs were used with caution on this patient. The patient had underlying normocytic normochromic anemia. The patient was also noticed to have underlying iron deficiency. The patient was maintained on iron supplements. He has underlying hypertension and he was maintained on antihypertensives for the same. He has a history of dyslipidemia.. He was continued on statins for the same. Status post surgery, the patient had difficulty in ambulation. Therefore, the patient was evaluated by physical therapy. The patient was instructed on crutch walking. The patient had relatively prolonged hospital course because of the delay in physical therapy to see the patient in a timely fashion because of the long weekend. Home health was arranged for home physical therapy and home safety evaluation. The patient's antimicrobials will be switched to oral upon discharge. Discharge Instructions 1. Resume home medications. 2. Follow a low-cholesterol, low carbohydrate diet. 3. Follow-up with podiatry Dr. Mcrae/Dr. Cantu in 1 week. Please call for appointment. 4. Resume activities with as tolerated. 5. Please go to the nearest emergency room if you have any significant pain in the feet, persistent fevers, or any other unusual signs/symptoms. The patient verbalized understanding of his discharge instructions At this time I would like to thank all the consultants for seeing the patient, doing the necessary procedures, and providing clinical recommendations. The patient was seen in collaboration with . Home Meds Active Scripts Ferrous Sulfate* (Ferrous Sulfate*) 325 Mg Tabec, 325 MG PO DAILY, #60 TAB Prov:SANJAY MORAN PAIN MANAGEMENT PHYSICIAN 01/01/19 Amoxicillin/Potassium Clav (Amox-Clav 875-125 mg Tablet) 875-125 mg Tab, 1 TAB PO BID for 14 Days, #28 TAB Prov:SANJAY MORAN NP 01/01/19 Reported Medications Insulin Glargine,Hum.rec.anlog (Basaglar Kwikpen U-100) 100 Unit/1 Ml Insuln.pen, 50 UNIT SC QHS, EA 10/23/18 Insulin Lispro (Humalog Kwikpen U-100) 100 Unit/1 Ml Insuln.pen, 20 UNIT SQ BID WITH MEALS, EA 10 MINUTES BEFORE MEALS 10/23/18 Atorvastatin* (Atorvastatin*) 40 Mg Tablet, 40 MG PO QHS, #30 TAB 10/23/18 Sitagliptin* (Januvia*) 100 Mg Tablet, 100 MG PO DAILY, #30 TAB 10/23/18 Metoprolol Succinate* (Toprol XL*) 25 Mg Tab.sr.24h, 25 MG PO DAILY, #30 TAB 05/09/18 Amlodipine Besylate* (Amlodipine Besylate*) 10 Mg Tablet, 10 MG PO DAILY, #30 TAB 05/09/18 Aspirin* (Aspirin* EC) 81 Mg Tablet.dr, 81 MG PO DAILY, TAB 09/07/16 Gabapentin* (Gabapentin*) 300 Mg Capsule, 300 MG PO TID, #90 CAP 09/07/16 Lisinopril* (Lisinopril*) 20 Mg Tablet, 20 MG PO DAILY, #30 TAB 09/07/16 Discontinued Scripts Sulfamethoxazole/Trimethoprim* (Bactrim Ds* Tablet) 1 Each Tablet, 1 TAB PO DAILY, #10 TAB Prov:ONEIDA SOUSA MD 10/23/18 Cephalexin* (Keflex*) 500 Mg Capsule, 500 MG PO QID for 10 Days, CAP Prov:ONEIDA SOUSA MD 10/23/18 Follow-up Plan Dr. Mcrae/Dr. Cantu at [facility] wound care clinic. . Primary Care Provider Not On Staff Doctor Time spent on discharge: > 30 minutes Pending Labs Laboratory Tests Test 12/31/18 17:01 12/31/18 21:28 01/01/19 05:16 01/01/19 07:59 Bedside 126 118 87 Glucose mg/dL (70-220) mg/dL (70-220) mg/dL (70-220) White Blood 9.8 Count 10^3/ul (4.8-1 0.8) Red Blood 3.75 Count 10^6/ul (4.70- 6.10) Hemoglobin 11.2 g/dl (14.0-18. 0) Hematocrit 32.4 % (42.0-52.0) Mean 86.4 Corpuscular fl (82.0-101.0 Volume ) Mean 29.9 Corpuscular pg (29.0-33.0) Hemoglobin Mean 34.6 Corpuscular g/dl (32.0-37. Hemoglobin Conc 0) ent Red Cell 11.9 Distribution % (11.5-14.5) Width Platelet Count 398 10^3/UL (140-4 15) Mean Platelet 10.5 Volume fl (7.4-10.4) Immature 0.500 Granulocytes % % (0.001-0.429 ) Neutrophils % 73.2 % (39.0-77.0) Lymphocytes % 17.2 % (15.0-51.0) Monocytes % 5.9 % (0.0-11.0) Eosinophils % 2.9 % (0.0-7.0) Basophils % 0.3 % (0.0-2.0) Nucleated Red 0.0 Blood Cells % /100WBC (0.0-0 .0) Immature 0.050 Granulocytes # 10^3/ul (0.0-0 .031) Neutrophils # 7.2 10^3/ul (1.6-7 .5) Lymphocytes # 1.7 10^3/ul (0.8-2 .9) Monocytes # 0.6 10^3/ul (0.3-0 .9) Eosinophils # 0.3 10^3/ul (0.0-0 .5) Basophils # 0.0 10^3/ul (0.0-0 .1) Nucleated Red 0.0 Blood Cells # 10^3/ul (0.0-0 .0) Sodium Level 139 mmol/L (135-14 4) Potassium 3.7 Level mmol/L (3.5-5. 1) Chloride Level 108 mmol/L (97-110 ) Carbon Dioxide 28 Level mmol/L (21-31) Anion Gap 3 (5-13) Blood Urea 20 Nitrogen mg/dl (7-20) Creatinine 1.40 mg/dl (0.61-1. 24) Est Glomerular 51 Filtrat mL/min (>60) Rate mL/min Glucose Level 64 mg/dl (70-220) Calcium Level 8.4 mg/dl (8.4-10. 2) Phosphorus 4.4 Level mg/dl (2.5-4.9 ) Magnesium 1.9 Level mg/dl (1.7-2.5 ) Test 01/01/19 12:22 Bedside 134 Glucose mg/dL (70-220) SANJAY MORAN NP January 01, 2019 12:35
[2019-01-01] MEDS ORDERED: FER325 PO (12:37)
[2019-01-01 14:15] VITALS: BP 167/84; PULSE 64; RESP 16
--- NOTE | 2019-01-01 14:22 | CONS ---
Assessment/Plan Assessment/Plan Hospital Course (Demo Recall) No events overnight patient is afebrile awake in no distress no fevers Microbiology: Wound culture growing strep, oxacillin sensitive staph aureus, coag negative staph species, blood culture grew Corynebacterium Antimicrobials: Rocephin MRI of right foot revealed osteomyelitis of the mid to distal fourth proximal phalanx and the fourth middle phalanx no evidence of acute fracture renal u ltrasound showed several alissa unremarkable Allergies none Physical examination: Well-developed elderly man who is awake in no distress. Head atraumatic normocephalic neck is supple chest rise symmetrical breath sounds diminished bases heart: S1-S2 abdomen soft bowel sounds present extremities with bilateral lower extremities dressing intact Assessment: 1. Right foot cellulitis with osteomyelitis of the toe, status post debridement with toe amputation 2. Diabetes with diabetic neuropathy 3. Acute on chronic kidney disease . Gram-positive philomena bacteremia consistent with contaminant Plan: Remains stable, anticipate discharge on oral Augmentin Consultation Date/Type/Reason Admit Date/Time December 24, 2018 at 12:42 Initial Consult Date Type of Consult id Date/Time of Note DATE: 01/01/19 TIME: 14:21 Exam/Review of Systems Exam Vitals Vital Signs Date Temp Pulse Resp B/P (MAP) Pulse Ox O2 O2 Flow FiO2 Time Delivery Rate 01/01/19 97.9 64 16 167/84 96 Room Air 14:15 (111) Intake and Output 12/31/18 12/31/18 01/01/19 1515:00 23:00 07:00 IntakeIntake Total 420 ml 450 ml OutputOutput Total 400 ml 600 ml BalanceBalance 20 ml 450 ml -600 ml Results Result Diagram: 01/01/19 0516 01/01/19 0516 Results 24hrs Laboratory Tests Test 12/31/18 17:01 12/31/18 21:28 01/01/19 05:16 01/01/19 07:59 Bedside Glucose 126 118 87 White Blood Count 9.8 # Red Blood Count 3.75 L Hemoglobin 11.2 L Hematocrit 32.4 L Mean Corpuscular 86.4 Volume Mean Corpuscular 29.9 Hemoglobin Mean Corpuscular 34.6 Hemoglobin Concent Red Cell 11.9 Distribution Width Platelet Count 398 Mean Platelet Volume 10.5 H Immature 0.500 H Granulocytes % Neutrophils % 73.2 Lymphocytes % 17.2 Monocytes % 5.9 Eosinophils % 2.9 Basophils % 0.3 Nucleated Red Blood 0.0 Cells % Immature 0.050 H Granulocytes # Neutrophils # 7.2 Lymphocytes # 1.7 Monocytes # 0.6 Eosinophils # 0.3 Basophils # 0.0 Nucleated Red Blood 0.0 Cells # Sodium Level 139 Potassium Level 3.7 Chloride Level 108 Carbon Dioxide Level 28 Anion Gap 3 L Blood Urea Nitrogen 20 Creatinine 1.40 H Est Glomerular 51 L Filtrat Rate mL/min Glucose Level 64 #L Calcium Level 8.4 Phosphorus Level 4.4 Magnesium Level 1.9 Test 01/01/19 12:22 Bedside Glucose 134 Medications Medication Current Medications Amlodipine Besylate (Norvasc) 10 mg DAILY PO Last administered on 01/01/19 08:05; Admin Dose 10 MG; Start 12/25/18 at 09:00 Aspirin (Halfprin) 81 mg DAILY PO Last administered on 01/01/19 08:05; Admin Dose 81 MG; Start 12/25/18 at 09:00 Atorvastatin Calcium (Lipitor) 40 mg QHS PO Last administered on 12/31/18 21:34; Admin Dose 40 MG; Start 12/24/18 at 21:00 Gabapentin (Neurontin) 300 mg TID PO Last administered on 01/01/19 12:27; Admin Dose 300 MG; Start 12/24/18 at 13:00 Metoprolol Succinate (Toprol Xl) 25 mg DAILY PO Last administered on 01/01/19 08:06; Admin Dose 25 MG; Start 12/25/18 at 09:00 IV Flush (NS 3 ml) 3 ml PER PROTOCOL IV ; Start 12/24/18 at 13:00 Ondansetron HCl (Zofran Inj) 4 mg Q6H PRN IV NAUSEA/VOMITING; Start 12/24/18 at 13:00 Acetaminophen (Tylenol Tab) 650 mg Q6H PRN PO .PAIN 1-3 OR TEMP Last administered on 12/29/18 02:32; Admin Dose 650 MG; Start 12/24/18 at 13:00 Acetaminophen/ Hydrocodone Bitart ([place] (5/325)) 1 tab Q6H PRN PO .MOD PAIN 4- 6; Start 12/24/18 at 13:00 Acetaminophen/ Hydrocodone Bitart ([place] (5/325)) 2 tab Q6H PRN PO .SEVERE PAIN 7-10; Start 12/24/18 at 13:00 Morphine Sulfate (morphine) 2 mg Q4H PRN IV .SEVERE PAIN 7-10 Last administered on 12/28/18 20:06; Admin Dose 2 MG; Start 12/24/18 at 13:00 Docusate Sodium (Colace) 100 mg Q12H PRN PO .CONSTIPATION Last administered on 12/28/18 20:07; Admin Dose 100 MG; Start 12/24/18 at 13:00 Magnesium Hydroxide (Milk Of Mag) 30 ml DAILY PRN PO .CONSTIPATION; Start 12/24/18 at 13:00 Hydralazine HCl (Apresoline) 10 mg Q4H PRN IV SBP >170 Last administered on 12/28/18at 15:31; Admin Dose 10 MG; Start 12/24/18 at 14:00 Miscellaneous Information 1 ea NOTE XX ; Start 12/24/18 at 15:30 Glucose (Glutose) 15 gm Q15M PRN PO DECREASED GLUCOSE; Start 12/24/18 at 15:30 Glucose (Glutose) 22.5 gm Q15M PRN PO DECREASED GLUCOSE; Start 12/24/18 at 15:30 Dextrose (D50w Syringe) 25 ml Q15M PRN IV DECREASED GLUCOSE; Start 12/24/18 at 15:30 Dextrose (D50w Syringe) 50 ml Q15M PRN IV DECREASED GLUCOSE; Start 12/24/18 at 15:30 Glucagon (Glucagen) 1 mg Q15M PRN IM DECREASED GLUCOSE; Start 12/24/18 at 15:30 Glucose (Glutose) 15 gm Q15M PRN BUCCAL DECREASED GLUCOSE; Start 12/24/18 at 15:30 Ferrous Sulfate (Ferrous Sulfate (Ec)) 325 mg DAILY PO Last administered on 01/01/19at 08:05; Admin Dose 325 MG; Start 12/26/18 at 09:00 Ceftriaxone Sodium 50 ml @ 100 mls/hr Q24H IVPB Last administered on 12/31/18at 15:33; Admin Dose 100 MLS/HR; Start 12/26/18 at 16:00 Ascorbic Acid (Vitamin C) 500 mg BID PO Last administered on 01/01/19at 08:06; Admin Dose 500 MG; Start 12/27/18 at 09:00 Insulin Aspart (Novolog Insulin Pen) 8 unit WITH MEALS SC Last administered on 01/01/19 12:25; Admin Dose 8 UNIT; Start 12/27/18 at 17:35 Insulin Aspart (Novolog Insulin Pen) (Adult SC Insulin - Moder... WITH MEALS BEDTIME SC Last administered on 12/31/18 12:03; Admin Dose 2 UNIT; Start 12/28/18 at 18:05 Diagnostic Test (Pha) (Accu-Chek) 1 ea 02 XX ; Start 12/29/18 at 02:00 Insulin Glargine (Lantus) 35 units BID SC Last administered on 01/01/19 08:08; Admin Dose 35 UNITS; Start 12/29/18 at 21:00 Sodium Hypochlorite (Dakins Diluted ()) 1 applic DAILY TP Last administered on 01/01/19 08:09; Admin Dose 1 APPLIC; Start 12/29/18 at 13:00 Heparin Sodium (Porcine) (Heparin (5000 Units/1ml)) 5,000 unit Q8 SC Last administered on 01/01/19 05:12; Admin Dose 5,000 UNIT; Start 12/29/18 at 22:00 PARK DUEÑAS NP January 01, 2019 14:22
[2019-01-01] MEDS ORDERED: hydrALAzine 20 MG INJ IV ONE (15:00)
[2019-01-01 15:41] VITALS: BP 110/57
== END 2019-01-01 16:00 | disposition home health service (06) | DRG 239 ==
LOC: FTE 11:18 → PP2 12:42
PROVIDERS: ADMIT Internal Medicine; ATTEND Internal Medicine
PROC: 0JBQ0ZZ Excision of Right Foot Subcutaneous Tissue and Fascia, Open Approach (ICD-10-PCS; 2018-12-24)
PROC: 0JBQ0ZZ Excision of Right Foot Subcutaneous Tissue and Fascia, Open Approach (ICD-10-PCS; 2018-12-25)
PROC: 0Y6V0Z1 Detachment at Right 4th Toe, High, Open Approach (ICD-10-PCS; 2018-12-25)
PROC: 0Y6M0Z7 Detachment at Right Foot, Complete 4th Ray, Open Approach (ICD-10-PCS; principal; 2018-12-28 15:30)
DX: E11.52 Type 2 diabetes mellitus with diabetic peripheral angiopathy with gangrene (principal); N17.0 Acute kidney failure with tubular necrosis; L03.115 Cellulitis of right lower limb; M86.8X7 Other osteomyelitis, ankle and foot; E87.1 Hypo-osmolality and hyponatremia; L02.611 Cutaneous abscess of right foot; E11.621 Type 2 diabetes mellitus with foot ulcer; E11.69 Type 2 diabetes mellitus with other specified complication; E11.65 Type 2 diabetes mellitus with hyperglycemia; E11.22 Type 2 diabetes mellitus with diabetic chronic kidney disease; I12.9 Hypertensive chronic kidney disease with stage 1 through stage 4 chronic kidney disease, or unspecified chronic kidney disease; D50.9 Iron deficiency anemia, unspecified; E83.89 Other disorders of mineral metabolism; E11.40 Type 2 diabetes mellitus with diabetic neuropathy, unspecified; E78.5 Hyperlipidemia, unspecified; M21.611 Bunion of right foot; M20.11 Hallux valgus (acquired), right foot; N18.3 Chronic kidney disease, stage 3 (moderate); Z79.4 Long term (current) use of insulin
CPT/HCPCS: 36415; 73630; 73718; 76775; 80048; 80053; 81001; 81003; 82043; 82962; 83036; 83540; 83735; 84100; 84145; 84155; 84300; 85025; 85651; 86140; 87070; 87081; 87102; 88304; 88305; 88311; 93005; 97161; 97162; J0360; J0692; J0696; J1644; J1815; J2250; J2270; J2543; J3010; J3370; J7030; J7042; J7050

== ENCOUNTER 2019-02-12 17:31 | Inpatient (IN) | payer MEDICARE, OTHER ==
[~2019-02-12] VITALS: Ht 170.2 cm; Wt 92.3 kg
[2019-02-12] VITALS (11 sets, daily range): BP systolic 137–181; BP diastolic 72–100; PULSE 58–65; RESP 16–21; Ht 170.2 cm; Wt 92.3 kg
[~2019-02-12 17:31] MED LIST changes: +AMOX1TAB10 PO; -CEPH-443 PO; +FER325 PO; -SULF1TAB31 PO
[2019-02-12] MEDS ORDERED: VANCOMYCIN IV PER PHARMACY XX SCH (18:30)
[2019-02-12] MEDS ORDERED: ACETAMINOPHEN 325 MG TAB PO PRN (18:30)
[2019-02-12] MEDS ORDERED: INSULIN LISPRO 100 UNIT/ML VIAL SC SCH (18:30)
[2019-02-12] MEDS ORDERED: ONDANSETRON 4 MG INJ IV PRN (18:30)
[2019-02-12] MEDS ORDERED: NACL 0.9% 3 ML SYG IV SCH (18:30)
[2019-02-12] MEDS ORDERED: HYDROCODONE/APAP (5/325) TAB PO PRN (18:30)
--- NOTE | 2019-02-12 18:45 | HP ---
Date/Time of Note Date/Time of Note DATE: 02/12/19 TIME: 18:30 Assessment/Plan VTE Prophylaxis SCD applied (from Nsg): No SCD contraindicated: other (PVD) Pharmacological prophylaxis: heparin Assessment/Plan Assessment/Plan 63 yo man history of peripheral arterial disease, type II diabetes, HTN, and neuropathy admitted from podiatry clinic for diabetic foot ulcer requiring debridement. #Diabetic foot ulcer - NPO, IV fluids, plan for OR tonight per Dr. Cantu - osei Mireles - May need Dr. Rader to consult as well for PAD. #Diabetes type II - Continue home glargine 50, lispro 20 BID. - also insulin sliding scale, will check A1C #HTN - Cont home antihypertensives #DLD - Cont home statin DVT: heparin GI: None HPI/ROS Admit Date/Time Admit Date/Time Feb 12, 2019 at 17:31 Hx of Present Illness Mr. Barrientos is a 63 yo man history of peripheral arterial disease, type II diabetes, HTN, and neuropathy admitted from podiatry clinic for diabetic foot ulcer requiring debridement. The patient was recently hospitalized from 12/24-01/01 here at [facility] where he got a digit amputation for infected ulcer with osteomyelitis. Since then has been on Augmentin. He has been feeling fine, denies any symptoms. Came to [facility] today for scheduled visit. Dr. Cantu was concerned that he appeared to have a new large ulcer possibly with exposed metatarsal, so admitted with plan for OR tonight. ROS The patient denies fever, chills, night sweats, weight loss, anorexia, headaches, dizziness, vision changes, vertigo, dysphagia, sore throat, nausea, vomiting, abdominal pain, chest pain/pressure/palpitations, dyspnea, cough, diarrhea, constipation, dysuria, hematuria. PMH/Family/Social Past Medical History Type II diabetes HTN Neuropathy Peripheral arterial disease Medications Current Medications Sodium Chloride 1,000 ml @ 75 mls/hr [id number] IV ; Start 02/12/19 at 18:24; Status UNV IV Flush (NS 3 ml) 3 ml PER PROTOCOL IV ; Start 02/12/19 at 18:30; Status UNV Ondansetron HCl (Zofran Inj) 4 mg Q6H PRN IV NAUSEA/VOMITING; Start 02/12/19 at 18:30; Status UNV Acetaminophen (Tylenol Tab) 650 mg Q6H PRN PO .PAIN 1-3 OR TEMP; Start 02/12/19 at 18:30; Status UNV Acetaminophen/ Hydrocodone Bitart ([place] (5/325)) 1 tab Q6H PRN PO SEVERE PAIN LEVEL 7-10; Start 02/12/19 at 18:30; Status UNV Heparin Sodium (Porcine) (Heparin (5000 Units/1ml)) 5,000 unit Q12 SC ; Start 02/12/19 at 21:00; Status UNV Vancomycin HCl (Vanco Iv Per Pharmacy) VANCOMYCIN PER PHARMACY PER PROTOCOL XX ; Start 02/12/19 at 18:30; Status UNV Piperacillin Sod/ Tazobactam Sod 100 ml @ 200 mls/hr Q6 IVPB ; Start 02/13/19 at 00:00; Status UNV Amlodipine Besylate (Norvasc) 10 mg DAILY PO ; Start 02/13/19 at 09:00; Status UNV Aspirin (Halfprin) 81 mg DAILY PO ; Start 02/13/19 at 09:00; Status UNV Atorvastatin Calcium (Lipitor) 40 mg QHS PO ; Start 02/12/19 at 21:00; Status UNV Gabapentin (Neurontin) 300 mg TID PO ; Start 02/12/19 at 21:00; Status UNV Insulin Glargine (Lantus) 50 unit QHS SC ; Start 02/12/19 at 21:00; Status UNV Lisinopril (Zestril) 20 mg DAILY PO ; Start 02/13/19 at 09:00; Status UNV Metoprolol Succinate (Toprol Xl) 25 mg DAILY PO ; Start 02/13/19 at 09:00; Status UNV Coded Allergies: No Known Allergy (Unverified , 10/23/18) Past Surgical History Right foot 4th digit amputation and dbridements Family History Significant Family History: no pertinent family hx Social History Lives with his sister. Alcohol Use: none Smoking Status: Never smoker Drug Use: none Exam/Review of Systems Exam Exam Gen: Well appearing man sitting up in bed in no distress Eyes: PERRL, no icterus HEENT: Moist mucous membranes, clear oropharynx. Neck: No lymphadenopathy, no JVD Card: Regular rate and rhythm, no murmurs Pulm: Clear to auscultation bilaterally Abd: Soft, nontender, nondistended. Ext: R foot with deep ulcer between 1st and 2nd digits, packed. No surrounding erythema. Very poor sensation on great toe and along 4-5th digits. L foot poor sensation most distal toes to light touch. No ulcers. 2+ DP and PT pulses. Skin: warm, dry, well perfused. KANG TILLMAN MD Feb 12, 2019 18:40
--- NOTE | 2019-02-12 19:00 | HPN ---
Date/Time of Note Date/Time of Note DATE: 02/12/19 TIME: 19:00 Interval H&P Admission Note Pt. seen H&P reviewed: No system changes ROSE GUSMAN DPYany Feb 12, 2019 19:00
[2019-02-12] MEDS ORDERED: VANCOMYCIN HCL 1.75 GM in SOD CHLORIDE 0.9% 500 ML IVPB SCH (20:00)
[2019-02-12] MEDS: SOD CHLORIDE 0.9% 1,000 ML IV SCH (20:01)
[2019-02-12] MEDS: PIPER-TAZO 3.375 GM IV (PMX) 100 ML IVPB SCH (20:01)
[2019-02-12] MEDS ORDERED: SEVOFLURANE 15 MIN ONE (20:45)
--- NOTE | 2019-02-12 20:51 | PREAC ---
Date/Time of Note Date/Time of Note DATE: 02/12/19 TIME: 20:50 Anesthesia Eval and Record Evaluation Time Pre-Procedure Interview DATE: 02/12/19 TIME: 20:50 Age 63 Sex male NPO: 8 hrs Preoperative diagnosis cellulitis Planned procedure I&D Past Medical History Past Medical History: Includes Cardio: HTN, Dyslipidemia Endo: Diabetes Surgery & Anesthesia Issues No known issue Meds Anticoagulation: No Beta Rio within 24 hr: Yes Reason Beta Rio not given: Pt. not on B-Rio Active Scripts Ferrous Sulfate* (Ferrous Sulfate*) 325 Mg Tabec, 325 MG PO DAILY, #60 TAB Prov:SANJAY MORAN HANSARD REPORTER 01/01/19 Amoxicillin/Potassium Clav (Amox-Clav 875-125 mg Tablet) 875-125 mg Tab, 1 TAB PO BID for 14 Days, #28 TAB Prov:SANJAY MORAN HANSARD REPORTER 01/01/19 Reported Medications Insulin Glargine,Hum.rec.anlog (Basaglar Kwikpen U-100) 100 Unit/1 Ml Insuln.pen, 50 UNIT SC QHS, EA 10/23/18 Insulin Lispro (Humalog Kwikpen U-100) 100 Unit/1 Ml Insuln.pen, 20 UNIT SQ BID WITH MEALS, EA 10 MINUTES BEFORE MEALS 10/23/18 Atorvastatin* (Atorvastatin*) 40 Mg Tablet, 40 MG PO QHS, #30 TAB 10/23/18 Sitagliptin* (Januvia*) 100 Mg Tablet, 100 MG PO DAILY, #30 TAB 10/23/18 Metoprolol Succinate* (Toprol XL*) 25 Mg Tab.sr.24h, 25 MG PO DAILY, #30 TAB 05/09/18 Amlodipine Besylate* (Amlodipine Besylate*) 10 Mg Tablet, 10 MG PO DAILY, #30 TAB 05/09/18 Aspirin* (Aspirin* EC) 81 Mg Tablet.dr, 81 MG PO DAILY, TAB 09/07/16 Gabapentin* (Gabapentin*) 300 Mg Capsule, 300 MG PO TID, #90 CAP 09/07/16 Lisinopril* (Lisinopril*) 20 Mg Tablet, 20 MG PO DAILY, #30 TAB 09/07/16 Current Medications Sodium Chloride 1,000 ml @ 75 mls/hr [id number] IV Last administered on 02/12/19at 20:01; Admin Dose 75 MLS/HR; Start 02/12/19 at 18:24 IV Flush (NS 3 ml) 3 ml PER PROTOCOL IV ; Start 02/12/19 at 18:30 Ondansetron HCl (Zofran Inj) 4 mg Q6H PRN IV NAUSEA/VOMITING; Start 02/12/19 at 18:30 Acetaminophen (Tylenol Tab) 650 mg Q6H PRN PO .PAIN 1-3 OR TEMP; Start 02/12/19 at 18:30 Acetaminophen/ Hydrocodone Bitart ([place] (5/325)) 1 tab Q6H PRN PO SEVERE PAIN LEVEL 7-10; Start 02/12/19 at 18:30 Heparin Sodium (Porcine) (Heparin (5000 Units/1ml)) 5,000 unit Q12 SC ; Start 02/12/19 at 21:00 Vancomycin HCl (Vanco Iv Per Pharmacy) VANCOMYCIN PER PHARMACY PER PROTOCOL XX ; Start 02/12/19 at 18:30 Piperacillin Sod/ Tazobactam Sod 100 ml @ 200 mls/hr Q6 IVPB Last administered on 02/12/19at 20:01; Admin Dose 200 MLS/HR; Start 02/12/19 at 18:43 Amlodipine Besylate (Norvasc) 10 mg DAILY PO ; Start 02/13/19 at 09:00 Aspirin (Halfprin) 81 mg DAILY PO ; Start 02/13/19 at 09:00 Atorvastatin Calcium (Lipitor) 40 mg QHS PO ; Start 02/12/19 at 21:00 Gabapentin (Neurontin) 300 mg TID PO ; Start 02/12/19 at 21:00 Insulin Glargine (Lantus) 50 unit QHS SC ; Start 02/12/19 at 21:00 Lisinopril (Zestril) 20 mg DAILY PO ; Start 02/13/19 at 09:00 Metoprolol Succinate (Toprol Xl) 25 mg DAILY PO ; Start 02/13/19 at 09:00 Diagnostic Test (Pha) (Accu-Chek) XX ; Start 02/13/19 at 02:00 Insulin Aspart (Novolog Insulin Pen) NOVOLOG *MODERATE* ALGORITHM WITH MEALS BEDTIME SC ; Start 02/12/19 at 21:00 Vancomycin HCl 1.75 gm/Sodium Chloride 500 ml @ 125 mls/hr NOW IVPB ; Start 02/12/19 at 20:00; Stop 02/12/19 at 23:00 Insulin Aspart (Novolog Insulin Pen) 20 unit BID WITH MEALS SC ; Start 02/12/19 at 20:00 Meds reviewed: Yes Allergies Coded Allergies: No Known Allergy (Unverified , 10/23/18) Allergies Reviewed: Yes Labs/Studies Labs Reviewed: Reviewed by anesthesiologist Result Diagram: 02/12/19 1856 02/12/19 1855 Laboratory Tests 02/12/19 18:55 02/12/19 18:56 test: N/A Pre-procedure Exam Last vitals Vital Signs Date Temp Pulse Resp B/P (MAP) Pulse Ox O2 O2 Flow FiO2 Time Delivery Rate 02/12/19 97.8 58 18 177/100 100 Room Air 18:32 (125) Airway: Adequate mouth opening, Adequate thyromental dist Mallampati: Mallampati IV Teeth: Normal Lung: Normal Heart: Normal ASA Physical Status ASA physical status: 3 Emergency: None Pre-operative Attestations Prior to commencing anesthesia and surgery, the patient was re-evaluated, there was verification of: *The patient's identity *The results of appropriate recent lab work and preoperative vital signs *The above evaluation not changing prior to induction *Anesthetic plan, risk benefits, alternative and complications discussed with patient/family; questions answered; patient/family understands, accepts and wishes to proceed. BENITO LOREDO DO Feb 12, 2019 20:51
[2019-02-12] MEDS ORDERED: FENTAnyl 50 MCG/ML VIAL ONE (20:56)
[2019-02-12] MEDS ORDERED: MIDAZOLAM 1 MG/ML 2 ML INJ ONE (20:56)
[2019-02-12] MEDS ORDERED: PROPOFOL 20 ML ONE (20:56)
[2019-02-12] MEDS ORDERED: LIDOCAINE 2% (SDV) 5 ML INJ ONE (20:56)
[2019-02-12] MEDS ORDERED: LIDOCAINE 1% (MDV) 20 ML INJ ONE (20:57)
[2019-02-12] MEDS ORDERED: INSULIN GLARGINE [LANtus] 3 ML PEN SC SCH (21:00)
[2019-02-12] MEDS ORDERED: ROPIVACAINE 0.5 % 30 ML VIAL ONE (21:03)
[2019-02-12] MEDS ORDERED: ONDANSETRON 4 MG INJ ONE (21:10)
[2019-02-12] MEDS ORDERED: VANCOMYCIN 1 GM INJ ONE (21:28)
--- NOTE | 2019-02-12 21:58 | SIPON ---
Date/Time of Note Date/Time of Note DATE: 02/12/19 TIME: 21:57 Operative Report Preoperative Diagnosis Right foot diabetic ulcer Right foot osteomyelitis DM2 with peripheral neuropathy Postoperative Diagnosis Right foot diabetic ulcer Right foot osteomyelitis DM2 with peripheral neuropathy Operation/Procedure Performed Right foot excisional debridement Right foot bone resection Surgeon see signature line environmental services assistant none Anesthesia: general Estimated blood loss: 10 - 50 ml's Transfusion Required none Specimen right foot bone culture right foot bone pathology Grafts/Implants none Complications none ROSE GUSMAN DPM Feb 12, 2019 21:58
--- NOTE | 2019-02-12 22:05 | OPR ---
Date/Time of Note Date/Time of Note DATE: 02/12/19 TIME: 22:05 Operative Report Preoperative Diagnosis Right foot diabetic ulcer Right foot osteomyelitis DM2 with peripheral neuropathy Postoperative Diagnosis Right foot diabetic ulcer Right foot osteomyelitis DM2 with peripheral neuropathy Operation/Procedure Performed Right foot excisional debridement Right foot bone resection Surgeon see signature line Straddle Bug Driver none Anesthesia Type: general Estimated Blood Loss: 10 - 50 ml's Transfusion none Specimen right foot bone culture right foot bone pathology Grafts/Implants none Complications none Indications 63 y/o diabetic M patient with ulceration presented to wound clinic with bone protrusion and worsening appearance of ulceration. Patient was admitted from wound care clinic and amenable to surgical intervention. Addressed all of the patient's questions and concerns. No promises or guarantees were given. Procedure Description Patient was brought into the OR and placed in the supine position. The right lower extremity was scrubbed, prepped, and draped in the usual aseptic manner. A pre operative ankle block was provided by the anesthesia team. A formal time out was conducted. Attention was directed to the right foot where there is diabetic ulceration appreciated 3 x 2 x 1.8cm where there was bone exposed, no purulent drainage, no proximal streaking no foul odor. Excisional debridement was performed of the right foot diabetic ulcer of skin/subQ/fascia/muscle/bone. Non-viable bone was removed and fibrotic tissue was removed using pickup/scissors and rongeurs. Bone was sent for pathology and culture studies. An incision was made to level of the 4th metatarsal bone to further explore the extent of the infection. There was noted friable bone distally, upon further inspection of the proximal aspect of the 4th metatarsal there was more viable bone present. Using a sagittal saw on power a partial resection of the metatarsal was performed and bone was sent for specimen study. Copious antibiotic infused saline irrigation was used at the surgical site and application of vancomycin powder was applied. No tunneling, purulence or clinical signs of infection was appreciated. There was adequate perfusion noted to the surgical site. Using 3-0 nylon the skin edges were reapproximated to facilitate wound closure. Betadine adaptic, 4x4 betadine gauze, kerlix and chanda wrap was applied to the right foot Patient was transferred to the PACU with vital signs stable and neurovascular status intact. ROSE GUSMAN DPM Feb 12, 2019 22:05
[2019-02-12] MEDS ORDERED: hydrALAzine 20 MG INJ ONE (22:15)
[2019-02-12] MEDS ORDERED: hydrALAzine 20 MG INJ IV ONE (22:30)
[2019-02-12] MEDS: INSULIN ASPART [NOVOLOG] 3 ML PEN SC SCH ×2 (22:54→23:09)
[2019-02-12] MEDS: ATORVASTATIN 40 MG TAB PO SCH (23:18)
[2019-02-12] MEDS: GABAPENTIN 300 MG CAP PO SCH (23:18)
[2019-02-12] MEDS: HEPARIN 5,000 UNIT/1 ML VIAL SC SCH (23:20)
[2019-02-12] MEDS ORDERED: INSULIN GLARGINE [LANTus] (100 UNITS/ML) SYG SC ONE ×2 (23:30)
[2019-02-13] VITALS (7 sets, daily range): BP systolic 112–187; BP diastolic 55–86; PULSE 60–85; RESP 18–20
[2019-02-13] MEDS: PIPER-TAZO 3.375 GM IV (PMX) 100 ML IVPB SCH ×4 (00:59→17:34)
[2019-02-13] MEDS: ACCU-CHEK XX SCH (01:05)
[2019-02-13] MEDS: SOD CHLORIDE 0.9% 1,000 ML IV SCH ×2 (02:05→18:49)
[2019-02-13] MEDS: INSULIN ASPART [NOVOLOG] 3 ML PEN SC SCH ×6 (08:00→20:24)
[2019-02-13] MEDS: GABAPENTIN 300 MG CAP PO SCH ×3 (08:36→20:25)
[2019-02-13] MEDS: AMLODIPINE 10 MG TAB PO SCH (08:36)
[2019-02-13] MEDS: METOPROLOL (XL) 25 MG TAB PO SCH (08:38)
[2019-02-13] MEDS: HEPARIN 5,000 UNIT/1 ML VIAL SC SCH ×2 (08:38→21:47)
[2019-02-13] MEDS: LISINOPRIL 20 MG TAB PO SCH (08:38)
[2019-02-13] MEDS: ASPIRIN (EC) 81 MG TAB PO SCH (08:38)
--- NOTE | 2019-02-13 15:19 | PN ---
Date/Time of Note Date/Time of Note DATE: 02/13/19 TIME: 15:16 Assessment/Plan VTE Prophylaxis Risk score (from Ns)>0 risk: 2 SCD applied (from Ns): No SCD contraindicated: low risk/ambulating Pharmacological prophylaxis: heparin Lines/Catheters IV Catheter Type (from Nrs): Peripheral IV Assessment/Plan Assessment/Plan 63 yo man history of peripheral arterial disease, type II diabetes, HTN, and neuropathy admitted from podiatry clinic for diabetic foot ulcer requiring debridement. #Diabetic foot ulcer - s/p debridement 02/12 - osei Mireles - vascular workup. #Diabetes type II - Continue home glargine 50, lispro 20 BID. - also insulin sliding scale, will check A1C #HTN - Cont home antihypertensives #DLD - Cont home statin DVT: heparin GI: None Result Diagram: 02/13/1931 02/13/1931 Results 24hrs Laboratory Tests Test 02/12/19 18:55 02/12/19 18:56 02/12/19 19:37 02/12/19 22:53 Prothrombin Time 14.4 Prothrombin Time 1.1 Ratio INR International 1.11 Normalized Ratio Activated 42.3 H Partial Thromboplast Time Sodium Level 140 Potassium Level 4.7 Chloride Level 109 Carbon Dioxide Level 28 Anion Gap 3 L Blood Urea Nitrogen 20 Creatinine 1.88 H Est Glomerular 36 L Filtrat Rate mL/min Glucose Level 117 Calcium Level 8.3 L White Blood Count 10.0 Red Blood Count 3.55 L Hemoglobin 10.4 L Hematocrit 30.9 L Mean Corpuscular 87.0 Volume Mean Corpuscular 29.3 Hemoglobin Mean Corpuscular 33.7 Hemoglobin Concent Red Cell Distribution 13.2 Width Platelet Count 363 Mean Platelet Volume 10.9 H Immature Granulocytes 0.600 H % Neutrophils % 72.8 Lymphocytes % 16.7 Monocytes % 5.5 Eosinophils % 4.1 Basophils % 0.3 Nucleated Red Blood 0.0 Cells % Immature Granulocytes 0.060 H # Neutrophils # 7.3 Lymphocytes # 1.7 Monocytes # 0.6 Eosinophils # 0.4 Basophils # 0.0 Nucleated Red Blood 0.0 Cells # Bedside Glucose 113 99 Test 02/13/19 06:31 02/13/19 08:08 02/13/19 11:43 White Blood Count 9.2 Red Blood Count 3.38 L Hemoglobin 9.8 L Hematocrit 29.6 L Mean Corpuscular 87.6 Volume Mean Corpuscular 29.0 Hemoglobin Mean Corpuscular 33.1 Hemoglobin Concent Red Cell Distribution 13.5 Width Platelet Count 294 Mean Platelet Volume 11.2 H Immature Granulocytes 0.200 % Neutrophils % 79.8 H Lymphocytes % 10.3 L Monocytes % 5.5 Eosinophils % 4.0 Basophils % 0.2 Nucleated Red Blood 0.0 Cells % Immature Granulocytes 0.020 # Neutrophils # 7.3 Lymphocytes # 1.0 Monocytes # 0.5 Eosinophils # 0.4 Basophils # 0.0 Nucleated Red Blood 0.0 Cells # Sodium Level 142 Potassium Level 4.4 Chloride Level 113 H Carbon Dioxide Level 24 Anion Gap 5 Blood Urea Nitrogen 18 Creatinine 1.71 H Est Glomerular 40 L Filtrat Rate mL/min Glucose Level 152 Hemoglobin A1c 8.5 H Calcium Level 8.0 L Phosphorus Level 4.2 Magnesium Level 1.8 Total Bilirubin 0.3 Direct Bilirubin 0.00 Indirect Bilirubin 0.3 Aspartate Amino 18 Transf (AST/SGOT) Alanine 22 Aminotransferase (ALT /SGPT) Alkaline Phosphatase 110 Total Protein 6.0 L Albumin 2.4 L Globulin 3.60 H Albumin/Globulin 0.66 Ratio Thyroid Stimulating 1.300 Hormone (TSH) Bedside Glucose 127 79 Subjective 24 Hr Interval Summary Free Text/Dictation Went to OR last night. Doing well this morning. Exam/Review of Systems Exam Vitals Vital Signs Date Temp Pulse Resp B/P (MAP) Pulse Ox O2 O2 Flow FiO2 Time Delivery Rate 02/13/19 60 148/70 12:29 (96) 02/13/19 97.5 18 98 Room Air 08:33 Intake and Output 02/12/19 02/12/19 02/13/19 1515:00 23:00 07:00 IntakeIntake Total 600 ml 1945 ml OutputOutput Total 5 ml 1200 ml BalanceBalance 595 ml 745 ml Exam Gen: Well appearing man sitting up in bed in no distress Eyes: PERRL, no icterus HEENT: Moist mucous membranes, clear oropharynx. Neck: No lymphadenopathy, no JVD Card: Regular rate and rhythm, no murmurs Pulm: Clear to auscultation bilaterally Abd: Soft, nontender, nondistended. Ext: R foot bandaged L foot poor sensation most distal toes to light touch. No ulcers. 2+ DP and PT pulses. Skin: warm, dry, well perfused. Results Results 24hrs Laboratory Tests Test 02/12/19 18:55 02/12/19 18:56 02/12/19 19:37 02/12/19 22:53 Prothrombin Time 14.4 Prothrombin Time 1.1 Ratio INR International 1.11 Normalized Ratio Activated 42.3 H Partial Thromboplast Time Sodium Level 140 Potassium Level 4.7 Chloride Level 109 Carbon Dioxide Level 28 Anion Gap 3 L Blood Urea Nitrogen 20 Creatinine 1.88 H Est Glomerular 36 L Filtrat Rate mL/min Glucose Level 117 Calcium Level 8.3 L White Blood Count 10.0 Red Blood Count 3.55 L Hemoglobin 10.4 L Hematocrit 30.9 L Mean Corpuscular 87.0 Volume Mean Corpuscular 29.3 Hemoglobin Mean Corpuscular 33.7 Hemoglobin Concent Red Cell Distribution 13.2 Width Platelet Count 363 Mean Platelet Volume 10.9 H Immature Granulocytes 0.600 H % Neutrophils % 72.8 Lymphocytes % 16.7 Monocytes % 5.5 Eosinophils % 4.1 Basophils % 0.3 Nucleated Red Blood 0.0 Cells % Immature Granulocytes 0.060 H # Neutrophils # 7.3 Lymphocytes # 1.7 Monocytes # 0.6 Eosinophils # 0.4 Basophils # 0.0 Nucleated Red Blood 0.0 Cells # Bedside Glucose 113 99 Test 02/13/19 06:31 02/13/19 08:08 02/13/19 11:43 White Blood Count 9.2 Red Blood Count 3.38 L Hemoglobin 9.8 L Hematocrit 29.6 L Mean Corpuscular 87.6 Volume Mean Corpuscular 29.0 Hemoglobin Mean Corpuscular 33.1 Hemoglobin Concent Red Cell Distribution 13.5 Width Platelet Count 294 Mean Platelet Volume 11.2 H Immature Granulocytes 0.200 % Neutrophils % 79.8 H Lymphocytes % 10.3 L Monocytes % 5.5 Eosinophils % 4.0 Basophils % 0.2 Nucleated Red Blood 0.0 Cells % Immature Granulocytes 0.020 # Neutrophils # 7.3 Lymphocytes # 1.0 Monocytes # 0.5 Eosinophils # 0.4 Basophils # 0.0 Nucleated Red Blood 0.0 Cells # Sodium Level 142 Potassium Level 4.4 Chloride Level 113 H Carbon Dioxide Level 24 Anion Gap 5 Blood Urea Nitrogen 18 Creatinine 1.71 H Est Glomerular 40 L Filtrat Rate mL/min Glucose Level 152 Hemoglobin A1c 8.5 H Calcium Level 8.0 L Phosphorus Level 4.2 Magnesium Level 1.8 Total Bilirubin 0.3 Direct Bilirubin 0.00 Indirect Bilirubin 0.3 Aspartate Amino 18 Transf (AST/SGOT) Alanine 22 Aminotransferase (ALT /SGPT) Alkaline Phosphatase 110 Total Protein 6.0 L Albumin 2.4 L Globulin 3.60 H Albumin/Globulin 0.66 Ratio Thyroid Stimulating 1.300 Hormone (TSH) Bedside Glucose 127 79 Medications Medication Current Medications Sodium Chloride 1,000 ml @ 75 mls/hr [id number] IV Last administered on 02/13/19at 02:05; Admin Dose 75 MLS/HR; Start 02/12/19 at 18:24 IV Flush (NS 3 ml) 3 ml PER PROTOCOL IV ; Start 02/12/19 at 18:30 Ondansetron HCl (Zofran Inj) 4 mg Q6H PRN IV NAUSEA/VOMITING; Start 02/12/19 at 18:30 Acetaminophen (Tylenol Tab) 650 mg Q6H PRN PO .PAIN 1-3 OR TEMP; Start 02/12/19 at 18:30 Acetaminophen/ Hydrocodone Bitart ([place] (5/325)) 1 tab Q6H PRN PO SEVERE PAIN LEVEL 7-10; Start 02/12/19 at 18:30 Heparin Sodium (Porcine) (Heparin (5000 Units/1ml)) 5,000 unit Q12 SC Last administered on 02/13/19at 08:38; Admin Dose 5,000 UNIT; Start 02/12/19 at 21:00 Vancomycin HCl (Vanco Iv Per Pharmacy) VANCOMYCIN PER PHARMACY PER PROTOCOL XX ; Start 02/12/19 at 18:30 Piperacillin Sod/ Tazobactam Sod 100 ml @ 200 mls/hr Q6 IVPB Last administered on 02/13/19at 11:48; Admin Dose 200 MLS/HR; Start 02/12/19 at 18:43 Amlodipine Besylate (Norvasc) 10 mg DAILY PO Last administered on 02/13/19at 08:36; Admin Dose 10 MG; Start 02/13/19 at 09:00 Aspirin (Halfprin) 81 mg DAILY PO Last administered on 02/13/19at 08:38; Admin Dose 81 MG; Start 02/13/19 at 09:00 Atorvastatin Calcium (Lipitor) 40 mg QHS PO Last administered on 02/12/19at 2 3:18; Admin Dose 40 MG; Start 02/12/19 at 21:00 Gabapentin (Neurontin) 300 mg TID PO Last administered on 02/13/19at 13:44; Admin Dose 300 MG; Start 02/12/19 at 21:00 Insulin Glargine (Lantus) 50 unit QHS SC ; Start 02/12/19 at 21:00 Lisinopril (Zestril) 20 mg DAILY PO Last administered on 02/13/19at 08:38; Admin Dose 20 MG; Start 02/13/19 at 09:00 Metoprolol Succinate (Toprol Xl) 25 mg DAILY PO Last administered on 02/13/19 08:38; Admin Dose 25 MG; Start 02/13/19 at 09:00 Diagnostic Test (Pha) (Accu-Chek) 1 ea 02 XX ; Start 02/13/19 at 02:00 Insulin Aspart (Novolog Insulin Pen) NOVOLOG *MODERATE* ALGORITHM WITH MEALS BEDTIME SC ; Start 02/12/19 at 21:00 Insulin Aspart (Novolog Insulin Pen) 20 unit BID WITH MEALS SC Last administered on 02/13/19at 08:16; Admin Dose 20 UNIT; Start 02/12/19 at 20:00 Vancomycin HCl 1.25 gm/Sodium Chloride 250 ml @ 83.333 mls/ hr Q24H IVPB ; Start 02/13/19 at 20:00 Hydralazine HCl (Apresoline) 10 mg Q4H PRN PO ELEVATED SYSTOLIC BP Last administered on 02/12/19at 23:36; Admin Dose 10 MG; Start 02/12/19 at 23:30 Miscellaneous Information (*Rx Drug Level Order Reminder*) ELICEOO TR AT 1900 1900 ONCE XX ; Start 02/15/19 at 19:00; Stop 02/15/19 at 19:01 KANG TILLMAN MD Feb 13, 2019 15:19
--- NOTE | 2019-02-13 19:54 | CONS ---
Assessment/Plan Assessment/Plan Assessment/Plan (Daily) Right foot diabetic ulcer Right foot osteomyelitis DM2 with peripheral neuropathy PAD Hx of right 4th digit amputation Plan Patient tolerated procedure well and skin edges well approximated. No sign of wound dehiscence. Dressings were changed and remain clean dry and intact. No dressing changes needed. Patient may weight bear as tolerated with surgical shoe to the right foot. Recommend ID and vascular consult. Intra op cultures and pathology pending. Reviewed non invasive arterial studies and would benefit from vascular surgery evaluation. Consultation Date/Type/Reason Admit Date/Time Feb 12, 2019 at 17:31 Initial Consult Date Date/Time of Note DATE: 02/13/19 TIME: 19:52 24 HR Interval Summary Free Text/Dictation No acute events overnight. Exam/Review of Systems Exam Vitals Vital Signs Date Temp Pulse Resp B/P (MAP) Pulse Ox O2 O2 Flow FiO2 Time Delivery Rate 02/13/19 98.0 67 18 125/71 98 Room Air 14:30 (89) Intake and Output 02/12/19 02/12/19 02/13/19 1515:00 23:00 07:00 IntakeIntake Total 600 ml 1945 ml OutputOutput Total 5 ml 1200 ml BalanceBalance 595 ml 745 ml Exam incision site well approximated No sign of dehiscence or gapping No proximal streaking No purulent drainage appreciated Right 4th digit amputation stable No pain on palpation absent protective sensations Non invasive arterial studies IMPRESSION: Change from biphasic to monophasic waveforms in the right mid superficial femoral artery consistent with a significant stenosis with monophasic waveforms distally. Monophasic wave form in the left dorsalis pedis artery consistent with a significant stenosis. CT angiogram aorta with bilateral lower extremity runoff can be performed to further evaluate as clinically indicated. Results Result Diagram: 02/13/1931 02/13/19630 Results 24hrs Laboratory Tests Test 02/12/19 22:53 02/13/19 06:30 02/13/19 06:31 02/13/19 08:08 Bedside Glucose 99 127 C-Reactive Protein 1.7 H White Blood Count 9.2 Red Blood Count 3.38 L Hemoglobin 9.8 L Hematocrit 29.6 L Mean Corpuscular 87.6 Volume Mean Corpuscular 29.0 Hemoglobin Mean Corpuscular 33.1 Hemoglobin Concent Red Cell 13.5 Distribution Width Platelet Count 294 Mean Platelet Volume 11.2 H Immature 0.200 Granulocytes % Neutrophils % 79.8 H Lymphocytes % 10.3 L Monocytes % 5.5 Eosinophils % 4.0 Basophils % 0.2 Nucleated Red Blood 0.0 Cells % Immature 0.020 Granulocytes # Neutrophils # 7.3 Lymphocytes # 1.0 Monocytes # 0.5 Eosinophils # 0.4 Basophils # 0.0 Nucleated Red Blood 0.0 Cells # Sodium Level 142 Potassium Level 4.4 Chloride Level 113 H Carbon Dioxide Level 24 Anion Gap 5 Blood Urea Nitrogen 18 Creatinine 1.71 H Est Glomerular 40 L Filtrat Rate mL/min Glucose Level 152 Hemoglobin A1c 8.5 H Calcium Level 8.0 L Phosphorus Level 4.2 Magnesium Level 1.8 Total Bilirubin 0.3 Direct Bilirubin 0.00 Indirect Bilirubin 0.3 Aspartate Amino 18 Transf (AST/SGOT) Alanine 22 Aminotransferase (AL T/SGPT) Alkaline Phosphatase 110 Total Protein 6.0 L Albumin 2.4 L Globulin 3.60 H Albumin/Globulin 0.66 Ratio Thyroid Stimulating 1.300 Hormone (TSH) Test 02/13/19 11:43 02/13/19 17:31 Bedside Glucose 79 215 Medications Medication Current Medications Sodium Chloride 1,000 ml @ 75 mls/hr [id number] IV Last administered on 02/13/19at 18:49; Admin Dose 75 MLS/HR; Start 02/12/19 at 18:24 IV Flush (NS 3 ml) 3 ml PER PROTOCOL IV ; Start 02/12/19 at 18:30 Ondansetron HCl (Zofran Inj) 4 mg Q6H PRN IV NAUSEA/VOMITING; Start 02/12/19 at 18:30 Acetaminophen (Tylenol Tab) 650 mg Q6H PRN PO .PAIN 1-3 OR TEMP; Start 02/12/19 at 18:30 Acetaminophen/ Hydrocodone Bitart ([place] (5/325)) 1 tab Q6H PRN PO SEVERE PAIN LEVEL 7-10; Start 02/12/19 at 18:30 Heparin Sodium (Porcine) (Heparin (5000 Units/1ml)) 5,000 unit Q12 SC Last administered on 02/13/19at 08:38; Admin Dose 5,000 UNIT; Start 02/12/19 at 21:00 Vancomycin HCl (Vanco Iv Per Pharmacy) VANCOMYCIN PER PHARMACY PER PROTOCOL XX ; Start 02/12/19 at 18:30 Piperacillin Sod/ Tazobactam Sod 100 ml @ 200 mls/hr Q6 IVPB Last administered on 02/13/19 17:34; Admin Dose 200 MLS/HR; Start 02/12/19 at 18:43 Amlodipine Besylate (Norvasc) 10 mg DAILY PO Last administered on 02/13/19 08:36; Admin Dose 10 MG; Start 02/13/19 at 09:00 Aspirin (Halfprin) 81 mg DAILY PO Last administered on 02/13/19 08:38; Admin Dose 81 MG; Start 02/13/19 at 09:00 Atorvastatin Calcium (Lipitor) 40 mg QHS PO Last administered on 02/12/19 23:18; Admin Dose 40 MG; Start 02/12/19 at 21:00 Gabapentin (Neurontin) 300 mg TID PO Last administered on 02/13/19 13:44; Admin Dose 300 MG; Start 02/12/19 at 21:00 Lisinopril (Zestril) 20 mg DAILY PO Last administered on 02/13/19 08:38; Admin Dose 20 MG; Start 02/13/19 at 09:00 Metoprolol Succinate (Toprol Xl) 25 mg DAILY PO Last administered on 02/13/19 08:38; Admin Dose 25 MG; Start 02/13/19 at 09:00 Diagnostic Test (Pha) (Accu-Chek) 1 ea 02 XX ; Start 02/13/19 at 02:00 Insulin Aspart (Novolog Insulin Pen) NOVOLOG *MODERATE* ALGORITHM WITH MEALS BEDTIME SC Last administered on 02/13/19 17:33; Admin Dose 4 UNIT; Start 02/12/19 at 21:00 Vancomycin HCl 1.25 gm/Sodium Chloride 250 ml @ 83.333 mls/ hr Q24H IVPB ; Start 02/13/19 at 20:00 Hydralazine HCl (Apresoline) 10 mg Q4H PRN PO ELEVATED SYSTOLIC BP Last administered on 02/12/19 23:36; Admin Dose 10 MG; Start 02/12/19 at 23:30 Miscellaneous Information (*Rx Drug Level Order Reminder*) VANCO TR AT 1900 1900 ONCE XX ; Start 02/15/19 at 19:00; Stop 02/15/19 at 19:01 Insulin Aspart (Novolog Insulin Pen) 10 unit WITH MEALS SC Last administered on 02/13/19at 17:34; Admin Dose 10 UNIT; Start 02/13/19 at 17:35 Insulin Glargine (Lantus) 20 units QHS@2000 SC ; Start 02/13/19 at 20:00 ROSE GUSMAN DPM Feb 13, 2019 19:54
[2019-02-13] MEDS: ATORVASTATIN 40 MG TAB PO SCH (20:25)
[2019-02-13] MEDS: INSULIN GLARGINE [LANTus] (100 UNITS/ML) SYG SC SCH (20:28)
[2019-02-13] MEDS: VANCOMYCIN HCL 1.25 GM in SOD CHLORIDE 0.9% 250 ML IVPB SCH (21:46)
[2019-02-14] MEDS: PIPER-TAZO 3.375 GM IV (PMX) 100 ML IVPB SCH ×4 (00:54→17:03)
[2019-02-14 02:00] VITALS: BP 144/66; PULSE 69; RESP 17
[2019-02-14] MEDS: ACCU-CHEK XX SCH (02:00)
[2019-02-14] MEDS: INSULIN ASPART [NOVOLOG] 3 ML PEN SC SCH ×7 (07:45→20:30)
[2019-02-14 08:00] VITALS: BP 170/68; PULSE 84; RESP 18
[2019-02-14] MEDS: HEPARIN 5,000 UNIT/1 ML VIAL SC SCH ×2 (08:13→20:30)
[2019-02-14] MEDS: LISINOPRIL 20 MG TAB PO SCH (08:14)
[2019-02-14] MEDS: ASPIRIN (EC) 81 MG TAB PO SCH (08:14)
[2019-02-14] MEDS: METOPROLOL (XL) 25 MG TAB PO SCH (08:14)
[2019-02-14] MEDS: GABAPENTIN 300 MG CAP PO SCH ×3 (08:14→20:30)
[2019-02-14] MEDS: AMLODIPINE 10 MG TAB PO SCH (08:14)
[2019-02-14] MEDS: SOD CHLORIDE 0.9% 1,000 ML IV SCH ×3 (10:16→23:44)
[2019-02-14 10:30] VITALS: BP 159/77; PULSE 63
--- NOTE | 2019-02-14 11:08 | PAC ---
Date/Time of Note Date/Time of Note DATE: 02/14/19 TIME: 11:08 Post-Anesthesia Notes Post-Anesthesia Note Last documented vital signs Vital Signs Date Temp Pulse Resp B/P (MAP) Pulse Ox O2 O2 Flow FiO2 Time Delivery Rate 02/14/19 98.0 84 18 170/68 96 08:00 (102) 02/13/19 Room Air 14:30 Activity: WNL Respiratory function: WNL Cardiovascular function: WNL Mental status: Baseline Pain reasonably controlled: Yes Hydration appropriate: Yes Nausea/Vomiting absent: Yes BENITO LOREDO DO Feb 14, 2019 11:08
[2019-02-14 14:00] VITALS: BP 148/62; PULSE 86; RESP 18
--- NOTE | 2019-02-14 17:11 | PN ---
Date/Time of Note Date/Time of Note DATE: 02/14/19 TIME: 17:09 Assessment/Plan VTE Prophylaxis Risk score (from Nsg)>0 risk: 6 SCD applied (from Nsg): No SCD contraindicated: other (foot surgery) Pharmacological prophylaxis: heparin Lines/Catheters IV Catheter Type (from Nrsg): Peripheral IV Assessment/Plan Assessment/Plan 63 yo man history of peripheral arterial disease, type II diabetes, HTN, and neuropathy admitted from podiatry clinic for diabetic foot ulcer requiring debridement. #Diabetic foot ulcer - s/p debridement 02/12 - osei Mireles - vascular workup. - ID consulted #Diabetes type II - Continue home glargine 50, lispro 20 BID. #HTN - Cont home antihypertensives #DLD - Cont home statin DVT: heparin GI: None Result Diagram: 02/13/1963002/13/19630 Subjective 24 Hr Interval Summary Free Text/Dictation Patient doing well. Reports he is ambulating. Symptoms controlled. Exam/Review of Systems Exam Vitals Vital Signs Date Temp Pulse Resp B/P (MAP) Pulse Ox O2 O2 Flow FiO2 Time Delivery Rate 02/14/19 63 159/77 10:30 (104) 02/14/19 98.0 18 96 08:00 02/13/19 Room Air 14:30 Intake and Output 02/13/19 02/13/19 02/14/19 1515:00 23:00 07:00 IntakeIntake Total 820 ml 1225 ml 830 ml OutputOutput Total 1300 ml 700 ml 1100 ml BalanceBalance -480 ml 525 ml -270 ml Exam Gen: Well appearing man sitting up in bed in no distress Eyes: PERRL, no icterus HEENT: Moist mucous membranes, clear oropharynx. Neck: No lymphadenopathy, no JVD Card: Regular rate and rhythm, no murmurs Pulm: Clear to auscultation bilaterally Abd: Soft, nontender, nondistended. Ext: R foot bandaged L foot poor sensation most distal toes to light touch. No ulcers. 2+ DP and PT pulses. Skin: warm, dry, well perfused. Results Results 24hrs Laboratory Tests Test 02/13/19 17:31 02/13/19 20:22 02/13/19 20:23 02/14/19 07:43 Bedside Glucose 215 94 102 Erythrocyte > 130 H Sedimentation Rate Test 02/14/19 11:51 Bedside Glucose 150 Medications Medication Current Medications Sodium Chloride 1,000 ml @ 75 mls/hr [id number] IV Last administered on 02/14/19 14:40; Admin Dose 75 MLS/HR; Start 02/12/19 at 18:24 IV Flush (NS 3 ml) 3 ml PER PROTOCOL IV ; Start 02/12/19 at 18:30 Ondansetron HCl (Zofran Inj) 4 mg Q6H PRN IV NAUSEA/VOMITING; Start 02/12/19 at 18:30 Acetaminophen (Tylenol Tab) 650 mg Q6H PRN PO .PAIN 1-3 OR TEMP; Start 02/12/19 at 18:30 Acetaminophen/ Hydrocodone Bitart ([place] (5/325)) 1 tab Q6H PRN PO SEVERE PAIN LEVEL 7-10; Start 02/12/19 at 18:30 Heparin Sodium (Porcine) (Heparin (5000 Units/1ml)) 5,000 unit Q12 SC Last administered on 02/14/19 08:13; Admin Dose 5,000 UNIT; Start 02/12/19 at 21:00 Vancomycin HCl (Vanco Iv Per Pharmacy) VANCOMYCIN PER PHARMACY PER PROTOCOL XX ; Start 02/12/19 at 18:30 Piperacillin Sod/ Tazobactam Sod 100 ml @ 200 mls/hr Q6 IVPB Last administered on 02/14/19 17:03; Admin Dose 200 MLS/HR; Start 02/12/19 at 18:43 Amlodipine Besylate (Norvasc) 10 mg DAILY PO Last administered on 02/14/19 08:14; Admin Dose 10 MG; Start 02/13/19 at 09:00 Aspirin (Halfprin) 81 mg DAILY PO Last administered on 02/14/19 08:14; Admin Dose 81 MG; Start 02/13/19 at 09:00 Atorvastatin Calcium (Lipitor) 40 mg QHS PO Last administered on 02/13/19 20:25; Admin Dose 40 MG; Start 02/12/19 at 21:00 Gabapentin (Neurontin) 300 mg TID PO Last administered on 02/14/19 12:00; Admin Dose 300 MG; Start 02/12/19 at 21:00 Lisinopril (Zestril) 20 mg DAILY PO Last administered on 02/14/19 08:14; Admin Dose 20 MG; Start 02/13/19 at 09:00 Metoprolol Succinate (Toprol Xl) 25 mg DAILY PO Last administered on 02/14/19 08:14; Admin Dose 25 MG; Start 02/13/19 at 09:00 Diagnostic Test (Pha) (Accu-Chek) 1 ea 02 XX ; Start 02/13/19 at 02:00 Insulin Aspart (Novolog Insulin Pen) NOVOLOG *MODERATE* ALGORITHM WITH MEALS BEDTIME SC Last administered on 02/14/19 11:55; Admin Dose 2 UNIT; Start 02/12/19 at 21:00 Vancomycin HCl 1.25 gm/Sodium Chloride 250 ml @ 83.333 mls/ hr Q24H IVPB Last administered on 02/13/19 21:46; Admin Dose 83.333 MLS/HR; Start 02/13/19 at 20:00 Hydralazine HCl (Apresoline) 10 mg Q4H PRN PO ELEVATED SYSTOLIC BP Last administered on 02/12/19 23:36; Admin Dose 10 MG; Start 02/12/19 at 23:30 Miscellaneous Information (*Rx Drug Level Order Reminder*) VANCO TR AT 1900 1900 ONCE XX ; Start 02/15/19 at 19:00; Stop 02/15/19 at 19:01 Insulin Aspart (Novolog Insulin Pen) 10 unit WITH MEALS SC Last administered on 02/14/19 17:04; Admin Dose 10 UNIT; Start 02/13/19 at 17:35 Insulin Glargine (Lantus) 20 units QHS@2000 SC Last administered on 02/13/19 20:28; Admin Dose 20 UNITS; Start 02/13/19 at 20:00 KANG TILLMAN MD Feb 14, 2019 17:11
[2019-02-14 20:00] VITALS: BP 145/67; PULSE 71; RESP 17
[2019-02-14] MEDS: VANCOMYCIN HCL 1.25 GM in SOD CHLORIDE 0.9% 250 ML IVPB SCH (20:27)
[2019-02-14] MEDS: INSULIN GLARGINE [LANTus] (100 UNITS/ML) SYG SC SCH (20:29)
[2019-02-14] MEDS: ATORVASTATIN 40 MG TAB PO SCH (20:30)
--- NOTE | 2019-02-14 21:50 | CONS ---
DATE OF ADMISSION: 02/12/2019 DATE OF CONSULTATION: 02/14/2019 TYPE OF CONSULTATION: Infectious Disease. REASON FOR CONSULTATION: Antibiotic management. HISTORY OF PRESENT ILLNESS: Farhad Barrientos is a 63-year-old male admitted on 02/12/2019 wit h a history of: 1. Type 2 diabetes. 2. Peripheral artery disease. 3. Hypertension. 4. Neuropathy. The patient was admitted from podiatric clinic for diabetic foot ulcer requiring debridement. The tammie reyes was recently hospitalized in December at [facility] where he had a digit amputation for inf ected ulcer with osteomyelitis. He was then put on Augmentin. He was feeling fine, but came to the [facility] to visit Dr. Cantu. Dr. Cantu was concerned that he had a new large ulcer, possib ly with exposed metatarsal, so he was admitted with a plan for OR. The patient, as noted, has type 2 diabetes, hypertension, neuropathy, peripheral artery disease. He was started on vancomycin and Zos yn. He is on gabapentin. On 02/12/2019, he was taken to surgery by Dr. Cantu. He had right tyrone t excisional debridement, right foot bone resection for a right foot diabetic ulcer, right foot osteo myelitis and diabetes mellitus with peripheral neuropathy. Specimens were sent, bone culture and bon e pathology. On 02/12/2019, an x-ray was done which showed complete destruction of the right 4th toe and distal and mid metatarsal compatible with osteomyelitis. On the , he had an MRI of the righ t foot. Interval transmetatarsal amputation of the fourth ray with residual stump at the metatarsal base. Abnormal bone marrow signal seen throughout the stump which could be residual from surgery, al though additional focus of osteomyelitis is difficult to exclude. Follow up imaging may be obtained in 10 to 14 days to monitor stability or resolution. Findings of osteomyelitis throughout the fifth distal phalanx and possibly early osteomyelitis at the middle and proximal phalanges. He has abnorma l bone marrow edema at the third metatarsal head which could also be sequelae of the adjacent surgery . Followup with attention to this region may also be helpful. There is no drainable abscess. Evalu ation for small fluid collection is limited without IV contrast. An extremity arterial study showed change from a biphasic to monophasic waveforms in the right mid superficial femoral arteries consiste nt with significant stenosis with monophasic waveforms distally, monophasic waveforms in the left roshni salis pedis artery consistent with significant stenosis. CT angiogram of the aorta with bilateral lo wer extremity runoff can be performed to further evaluate as clinically indicated. The patient had g roup B strep, gram-negative rods in his surgical biopsy culture and the sensitivities on the gram-neg ative rods are pending. On the , the patient is status post debridement. White count was 9.2. The patient had no sign of wound dehiscence. No dressing change is needed. Intraoperative cultures and pathology pending. PHYSICAL EXAMINATION: GENERAL: The patient is a well-developed, well-nourished male who is alert, responsive, in no acute distress. VITAL SIGNS: Stable. He is afebrile. SKIN: Without generalized rash. HEENT: Within normal limits. NECK: Supple. LYMPH NODES: None palpable. CHEST: Decreased breath sounds at the bases. HEART: Without murmur or gallop. ABDOMEN: Soft, nontender, without organosplenomegaly or masses. EXTREMITIES: Right foot is bandaged. RECTAL AND GENITAL: Deferred. NEUROLOGIC: He has decreased sensation in distal extremities. IMPRESSION AND PLAN: Continue vancomycin and Zosyn. The patient is stable at the present time. Litzy it the further culture reports. I want to thank the hospitalist and Dr. Cantu. Thank you for th is consult. Dictated By: SACHIN FOX MD, JD/KENNETH Conf#: [id number] DID#: [id number] CC: KANG TILLMAN MD;*EndCC*
--- NOTE | 2019-02-14 22:54 | CONS ---
Assessment/Plan Assessment/Plan Assessment/Plan (Daily) Right foot diabetic ulcer Right foot osteomyelitis DM2 with peripheral neuropathy PAD Hx of right 4th digit amputation Plan Patient tolerated procedure well and skin edges well approximated. No sign of wound dehiscence. Dressings were changed and remain clean dry and intact. No dressing changes needed. PT/OT evaluation to see if patient can remain non weight bearing to right foot. Recommend ID and vascular consult. Intra op bone cultures showing gram neg philomena and group B strep. Intra op pathology pending. Reviewed non invasive arterial studies and would benefit from vascular surgery evaluation. Consultation Date/Type/Reason Admit Date/Time Feb 12, 2019 at 17:31 Initial Consult Date Date/Time of Note DATE: 02/14/19 TIME: 22:54 24 HR Interval Summary Free Text/Dictation No acute events overnight. Exam/Review of Systems Exam Vitals Vital Signs Date Temp Pulse Resp B/P (MAP) Pulse Ox O2 O2 Flow FiO2 Time Delivery Rate 02/14/19 98.0 71 17 145/67 96 20:00 (93) 02/13/19 Room Air 14:30 Intake and Output 02/13/19 02/13/19 02/14/19 1414:59 22:59 06:59 IntakeIntake Total 820 ml 1225 ml 830 ml OutputOutput Total 1300 ml 700 ml 1100 ml BalanceBalance -480 ml 525 ml -270 ml Exam incision site well approximated No sign of dehiscence or gapping No proximal streaking No purulent drainage appreciated Right 4th digit amputation stable No pain on palpation absent protective sensations Non invasive arterial studies IMPRESSION: Change from biphasic to monophasic waveforms in the right mid superficial femoral artery consistent with a significant stenosis with monophasic waveforms distally. Monophasic wave form in the left dorsalis pedis artery consistent with a significant stenosis. CT angiogram aorta with bilateral lower extremity runoff can be performed to further evaluate as clinically indicated. Results Result Diagram: 02/13/19 0631 02/13/19 0631 Results 24hrs Laboratory Tests Test 02/14/19 07:43 02/14/19 11:51 02/14/19 17:02 02/14/19 20:28 Bedside Glucose 102 150 111 101 Medications Medication Current Medications Sodium Chloride 1,000 ml @ 75 mls/hr [id number] IV Last administered on 02/14/19at 14:40; Admin Dose 75 MLS/HR; Start 02/12/19 at 18:24 IV Flush (NS 3 ml) 3 ml PER PROTOCOL IV ; Start 02/12/19 at 18:30 Ondansetron HCl (Zofran Inj) 4 mg Q6H PRN IV NAUSEA/VOMITING; Start 02/12/19 at 18:30 Acetaminophen (Tylenol Tab) 650 mg Q6H PRN PO .PAIN 1-3 OR TEMP; Start 02/12/19 at 18:30 Acetaminophen/ Hydrocodone Bitart ([place] (5/325)) 1 tab Q6H PRN PO SEVERE PAIN LEVEL 7-10; Start 02/12/19 at 18:30 Heparin Sodium (Porcine) (Heparin (5000 Units/1ml)) 5,000 unit Q12 SC Last administered on 02/14/19 20:30; Admin Dose 5,000 UNIT; Start 02/12/19 at 21:00 Vancomycin HCl (Vanco Iv Per Pharmacy) VANCOMYCIN PER PHARMACY PER PROTOCOL XX ; Start 02/12/19 at 18:30 Piperacillin Sod/ Tazobactam Sod 100 ml @ 200 mls/hr Q6 IVPB Last administered on 02/14/19 17:03; Admin Dose 200 MLS/HR; Start 02/12/19 at 18:43 Amlodipine Besylate (Norvasc) 10 mg DAILY PO Last administered on 02/14/19 08:14; Admin Dose 10 MG; Start 02/13/19 at 09:00 Aspirin (Halfprin) 81 mg DAILY PO Last administered on 02/14/19 08:14; Admin Dose 81 MG; Start 02/13/19 at 09:00 Atorvastatin Calcium (Lipitor) 40 mg QHS PO Last administered on 02/14/19 20:30; Admin Dose 40 MG; Start 02/12/19 at 21:00 Gabapentin (Neurontin) 300 mg TID PO Last administered on 02/14/19 20:30; Admin Dose 300 MG; Start 02/12/19 at 21:00 Lisinopril (Zestril) 20 mg DAILY PO Last administered on 02/14/19 08:14; Admin Dose 20 MG; Start 02/13/19 at 09:00 Metoprolol Succinate (Toprol Xl) 25 mg DAILY PO Last administered on 02/14/19 08:14; Admin Dose 25 MG; Start 02/13/19 at 09:00 Diagnostic Test (Pha) (Accu-Chek) 1 ea 02 XX ; Start 02/13/19 at 02:00 Insulin Aspart (Novolog Insulin Pen) NOVOLOG *MODERATE* ALGORITHM WITH MEALS BEDTIME SC Last administered on 02/14/19at 11:55; Admin Dose 2 UNIT; Start 02/12/19 at 21:00 Vancomycin HCl 1.25 gm/Sodium Chloride 250 ml @ 83.333 mls/ hr Q24H IVPB Last administered on 02/14/19at 20:27; Admin Dose 83.333 MLS/HR; Start 02/13/19 at 20:00 Hydralazine HCl (Apresoline) 10 mg Q4H PRN PO ELEVATED SYSTOLIC BP Last administered on 02/12/19at 23:36; Admin Dose 10 MG; Start 02/12/19 at 23:30 Miscellaneous Information (*Rx Drug Level Order Reminder*) VANCO TR AT 1900 1900 ONCE XX ; Start 02/15/19 at 19:00; Stop 02/15/19 at 19:01 Insulin Aspart (Novolog Insulin Pen) 10 unit WITH MEALS SC Last administered on 02/14/19at 17:04; Admin Dose 10 UNIT; Start 02/13/19 at 17:35 Insulin Glargine (Lantus) 20 units QHS@2000 SC Last administered on 02/14/19at 20:29; Admin Dose 20 UNITS; Start 02/13/19 at 20:00 ROSE GUSMAN DPM Feb 14, 2019 22:54
[2019-02-15] MEDS: PIPER-TAZO 3.375 GM IV (PMX) 100 ML IVPB SCH ×3 (00:18→11:58)
[2019-02-15] MEDS: ACCU-CHEK XX SCH (01:30)
[2019-02-15 02:00] VITALS: BP 143/66; PULSE 64; RESP 17
[2019-02-15 08:00] VITALS: BP 188/76; PULSE 96; RESP 18
[2019-02-15] MEDS: INSULIN ASPART [NOVOLOG] 3 ML PEN SC SCH ×7 (08:00→21:00)
[2019-02-15] MEDS: HEPARIN 5,000 UNIT/1 ML VIAL SC SCH ×2 (08:19→20:56)
[2019-02-15] MEDS: GABAPENTIN 300 MG CAP PO SCH ×3 (08:20→20:53)
[2019-02-15] MEDS: ASPIRIN (EC) 81 MG TAB PO SCH (08:20)
[2019-02-15] MEDS: METOPROLOL (XL) 25 MG TAB PO SCH (08:20)
[2019-02-15] MEDS: AMLODIPINE 10 MG TAB PO SCH (08:21)
[2019-02-15] MEDS: LISINOPRIL 20 MG TAB PO SCH (08:21)
[2019-02-15 09:34] VITALS: BP 157/77; PULSE 62
--- NOTE | 2019-02-15 10:45 | CONS ---
DATE OF ADMISSION: 02/12/2019 DATE OF CONSULTATION: 02/15/2019 REFERRING PHYSICIAN: Dr. Kang Chang. REASON FOR CONSULTATION: Right foot wounds and peripheral arterial disease. HISTORY OF PRESENT ILLNESS: This is a 63-year-old gentleman. He is diabetic, hypertensive, he has a chronic right foot wound. I saw him a few weeks ago at the wound center and had actually ordered him some arterial studies but I have not seen him back again. He was admitted a few days ago for surgical revision of his right 4th toe amputation that had dehisced and was a chronic open wound. He was taken to the OR by Dr. Gusman yesterday and the wound was debrided and closed. He did have his arterial studies done and it shows monophasic waveforms transitioning from the proximal to mid SFA, suggesting a severe stenosis. On the left, there are triphasic waveforms all the way down. Lower down in the tibials and the popliteal on the right there are also monophasic waveforms throughout. PAST MEDICAL HISTORY: Significant for diabetes, hypertension, peripheral arterial disease. He has diabetic neuropathy, has had a chronic right 4th toe wound that developed after an amputation that dehisced. MEDICATIONS: Consist of: 1. Vancomycin. 2. Insulin. 3. Norvasc. 4. Aspirin. 5. Zestril. 6. Toprol. 7. Apresoline. 8. Lipitor. 9. Neurontin. 10. NovoLog. 11. Zofran. ALLERGIES: NO KNOWN DRUG ALLERGIES. SOCIAL HISTORY: He is a nonsmoker. Does not drink or use any illicit drugs. FAMILY HISTORY: Noncontributory has had his right 4th toe amputation and debridement. REVIEW OF SYSTEMS: He currently denies any complaints. He has no chest pain or shortness of breath, no nausea, vomiting, diarrhea. No fever, no chills, no recent weight gain or weight loss. He has no pain in the foot. He has actually been walking on the foot since the surgery. PHYSICAL EXAMINATION: GENERAL: He is an elderly gentleman. He speaks Vietnamese. He is in no acute distress. VITAL SIGNS: He has been afebrile. Blood pressure is 157/77, heart rate 62, respiratory rate is 18. He is 96% sat on room air. NECK: He has 2+ radial, brachial, and carotid pulses bilaterally. LUNGS: Clear. HEART: Regular rate and rhythm. ABDOMEN: Soft, nontender, nondistended. EXTREMITIES: He has got 2+ femoral and popliteal pulses bilaterally. His pedal pulses he has 2+ DP on the left, 1+ DP on the right. His right foot is all wrapped up currently. I reviewed his imaging studies of the lower extremities and it does suggest a significant stenosis in the right SFA and obviously with this recent amputation revision, they would benefit from revascularization. His MRI showed a possible osteomyelitis. The level is low. It showed osteomyelitis in the right foot, so he is going to need some likely long-term antibiotics as well. From my standpoint, he can go home with wound care and antibiotics. I will schedule him for an angiogram next week as an outpatient. I discussed that with him, gave him my card and my office contact to schedule it next week. Dictated By: KANG BATRES/KENNETH Conf#: [id number] DID#: [id number] CC: SACHIN FOX MD; ROSE GUSMAN; KANG CHANG MD;*End* MTDD
[2019-02-15] MEDS ORDERED: LIDOCAINE 1% (MPF) 5 ML VIAL SC ONE ×2 (11:00→12:00)
--- NOTE | 2019-02-15 11:24 | PN ---
Date/Time of Note Date/Time of Note DATE: 02/15/19 TIME: 11:22 Assessment/Plan VTE Prophylaxis Risk score (from Ns)>0 risk: 6 SCD applied (from Ns): No SCD contraindicated: low risk/ambulating Pharmacological prophylaxis: NA/contraindicated Pharm contraindication: low risk/ambulating Lines/Catheters [facility] Peripheral IV Assessment/Plan Assessment/Plan 63 yo man history of peripheral arterial disease, type II diabetes, HTN, and neuropathy admitted from podiatry clinic for diabetic foot ulcer requiring debridement. #Diabetic foot ulcer - s/p debridement 02/12 - osei Mireles - Dr. Rader will arrange outpatient angiogram. - ID consulted. - Tentative plan for group home IV antibiotics. Ordered PICC today. #Diabetes type II - Continue home glargine 20 qhs, lispro 05/16/10. #HTN - Cont home antihypertensives #DLD - Cont home statin DVT: heparin GI: None Result Diagram: 02/13/19 0631 02/15/19 0552 Subjective 24 Hr Interval Summary Free Text/Dictation No acute overnight events. Patient ambulating independently, showered today. Exam/Review of Systems Exam Vitals Vital Signs Date Temp Pulse Resp B/P (MAP) Pulse Ox O2 O2 Flow FiO2 Time Delivery Rate 02/15/19 62 157/77 09:34 (103) 02/15/19 98.6 18 96 08:00 02/13/19 Room Air 14:30 Intake and Output 02/14/19 02/14/19 02/15/19 1515:00 23:00 07:00 IntakeIntake Total 1520 ml 915 ml 1200 ml OutputOutput Total 600 ml 525 ml 2000 ml BalanceBalance 920 ml 390 ml -800 ml Exam Gen: Well appearing man sitting up in bed in no distress Eyes: PERRL, no icterus HEENT: Moist mucous membranes, clear oropharynx. Neck: No lymphadenopathy, no JVD Card: Regular rate and rhythm, no murmurs Pulm: Clear to auscultation bilaterally Abd: Soft, nontender, nondistended. Ext: R foot bandaged L foot poor sensation most distal toes to light touch. No ulcers. 2+ DP and PT pulses. Skin: warm, dry, well perfused. Results Results 24hrs Laboratory Tests Test 02/14/19 11:51 02/14/19 17:02 02/14/19 20:28 02/15/19 05:52 Bedside Glucose 150 111 101 Erythrocyte 135.0 H Sedimentation Rate Blood Urea Nitrogen 17 Creatinine 1.70 H Test 02/15/19 08:17 Bedside Glucose 101 Medications Medication Current Medications Sodium Chloride 1,000 ml @ 75 mls/hr [id number] IV Last administered on 02/14/19at 14:40; Admin Dose 75 MLS/HR; Start 02/12/19 at 18:24 IV Flush (NS 3 ml) 3 ml PER PROTOCOL IV ; Start 02/12/19 at 18:30 Ondansetron HCl (Zofran Inj) 4 mg Q6H PRN IV NAUSEA/VOMITING; Start 02/12/19 at 18:30 Acetaminophen (Tylenol Tab) 650 mg Q6H PRN PO .PAIN 1-3 OR TEMP; Start 02/12/19 at 18:30 Acetaminophen/ Hydrocodone Bitart ([place] (5/325)) 1 tab Q6H PRN PO SEVERE PAIN LEVEL 7-10; Start 02/12/19 at 18:30 Heparin Sodium (Porcine) (Heparin (5000 Units/1ml)) 5,000 unit Q12 SC Last administered on 02/15/19at 08:19; Admin Dose 5,000 UNIT; Start 02/12/19 at 21:00 Vancomycin HCl (Vanco Iv Per Pharmacy) VANCOMYCIN PER PHARMACY PER PROTOCOL XX ; Start 02/12/19 at 18:30 Piperacillin Sod/ Tazobactam Sod 100 ml @ 200 mls/hr Q6 IVPB Last administered on 02/15/19at 05:18; Admin Dose 200 MLS/HR; Start 02/12/19 at 18:43 Amlodipine Besylate (Norvasc) 10 mg DAILY PO Last administered on 02/15/19 08:21; Admin Dose 10 MG; Start 02/13/19 at 09:00 Aspirin (Halfprin) 81 mg DAILY PO Last administered on 02/15/19 08:20; Admin Dose 81 MG; Start 02/13/19 at 09:00 Atorvastatin Calcium (Lipitor) 40 mg QHS PO Last administered on 02/14/19at 20:30; Admin Dose 40 MG; Start 02/12/19 at 21:00 Gabapentin (Neurontin) 300 mg TID PO Last administered on 02/15/19 08:20; Admin Dose 300 MG; Start 02/12/19 at 21:00 Lisinopril (Zestril) 20 mg DAILY PO Last administered on 02/15/19 08:21; Admin Dose 20 MG; Start 02/13/19 at 09:00 Metoprolol Succinate (Toprol Xl) 25 mg DAILY PO Last administered on 02/15/19 08:20; Admin Dose 25 MG; Start 02/13/19 at 09:00 Diagnostic Test (Pha) (Accu-Chek) 1 ea 02 XX ; Start 02/13/19 at 02:00 Insulin Aspart (Novolog Insulin Pen) NOVOLOG *MODERATE* ALGORITHM WITH MEALS BEDTIME SC Last administered on 02/14/19 11:55; Admin Dose 2 UNIT; Start at 21:00 Vancomycin HCl 1.25 gm/Sodium Chloride 250 ml @ 83.333 mls/ hr Q24H IVPB Last administered on 02/14/19 20:27; Admin Dose 83.333 MLS/HR; Start 02/13/19 at 20:00 Hydralazine HCl (Apresoline) 10 mg Q4H PRN PO ELEVATED SYSTOLIC BP Last administered on 02/12/19 23:36; Admin Dose 10 MG; Start 02/12/19 at 23:30 Miscellaneous Information (*Rx Drug Level Order Reminder*) [facility] TR AT 1900 1900 ONCE XX ; Start 02/15/19 at 19:00; Stop 02/15/19 at 19:01 Insulin Aspart (Novolog Insulin Pen) 10 unit WITH MEALS SC Last administered on 02/15/19 08:19; Admin Dose 10 UNIT; Start 02/13/19 at 17:35 Insulin Glargine (Lantus) 20 units QHS@2000 SC Last administered on 02/14/19 20:29; Admin Dose 20 UNITS; Start 02/13/19 at 20:00 KANG TILLMAN MD Feb 15, 2019 11:24
[2019-02-15] MEDS: SOD CHLORIDE 0.9% 1,000 ML IV SCH (12:04)
--- NOTE | 2019-02-15 15:01 | CONS ---
Assessment/Plan Assessment/Plan Hospital Course (Demo Recall) No acute events overnight patient is sleeping looks comfortable no fevers. ESR today 135 BUN 17 creatinine 1.70 Microbiology: Intraoperative culture grew Morganella and strep Antimicrobials: Vancomycin, Zosyn Physical examination: Obese well-developed elderly man who is in no distress head atraumatic normocephalic sclera nonicteric vehicle mucosa dry neck is supple chest rise symmetrical breath sounds diminished bases heart S1-S2 abdomen soft bowel sounds present extremities with right lower extremity dressing intact Assessment: 1. Right foot cellulitis, osteomyelitis, status post debridement/bone resection 2. Diabetes 3. Acute kidney insufficiency 4. Obesity Plan: Clinically stable, will change antibiotics to cefepime, await for final cultures and pathology, wound care per podiatry Consultation Date/Type/Reason Admit Date/Time Feb 12, 2019 at 17:31 Initial Consult Date Type of Consult id Date/Time of Note DATE: 02/15/19 TIME: 15:00 Exam/Review of Systems Exam Vitals Vital Signs Date Temp Pulse Resp B/P (MAP) Pulse Ox O2 O2 Flow FiO2 Time Delivery Rate 02/15/19 62 157/77 09:34 (103) 02/15/19 98.6 18 96 08:00 02/13/19 Room Air 14:30 Intake and Output 02/14/19 02/14/19 02/15/19 1515:00 23:00 07:00 IntakeIntake Total 1520 ml 915 ml 1200 ml OutputOutput Total 600 ml 525 ml 2000 ml BalanceBalance 920 ml 390 ml -800 ml Results Result Diagram: 02/13/19 0631 02/15/19 0552 Results 24hrs Laboratory Tests Test 02/14/19 17:02 02/14/19 20:28 02/15/19 05:52 02/15/19 08:17 Bedside Glucose 111 101 101 Erythrocyte 135.0 H Sedimentation Rate Blood Urea Nitrogen 17 Creatinine 1.70 H Test 02/15/19 12:02 Bedside Glucose 141 Medications Medication Current Medications Sodium Chloride 1,000 ml @ 75 mls/hr [id number] IV Last administered on 02/14/19at 14:40; Admin Dose 75 MLS/HR; Start 02/12/19 at 18:24 IV Flush (NS 3 ml) 3 ml PER PROTOCOL IV ; Start 02/12/19 at 18:30 Ondansetron HCl (Zofran Inj) 4 mg Q6H PRN IV NAUSEA/VOMITING; Start 02/12/19 at 18:30 Acetaminophen (Tylenol Tab) 650 mg Q6H PRN PO .PAIN 1-3 OR TEMP; Start 02/12/19 at 18:30 Acetaminophen/ Hydrocodone Bitart ([place] (5/325)) 1 tab Q6H PRN PO SEVERE PAIN LEVEL 7-10; Start 02/12/19 at 18:30 Heparin Sodium (Porcine) (Heparin (5000 Units/1ml)) 5,000 unit Q12 SC Last administered on 02/15/19 08:19; Admin Dose 5,000 UNIT; Start 02/12/19 at 21:00 Vancomycin HCl (Vanco Iv Per Pharmacy) VANCOMYCIN PER PHARMACY PER PROTOCOL XX ; Start 02/12/19 at 18:30 Piperacillin Sod/ Tazobactam Sod 100 ml @ 200 mls/hr Q6 IVPB Last administered on 02/15/19at 11:58; Admin Dose 200 MLS/HR; Start 02/12/19 at 18:43 Amlodipine Besylate (Norvasc) 10 mg DAILY PO Last administered on 02/15/19 08:21; Admin Dose 10 MG; Start 02/13/19 at 09:00 Aspirin (Halfprin) 81 mg DAILY PO Last administered on 02/15/19 08:20; Admin Dose 81 MG; Start 02/13/19 at 09:00 Atorvastatin Calcium (Lipitor) 40 mg QHS PO Last administered on 02/14/19 20:30; Admin Dose 40 MG; Start 02/12/19 at 21:00 Gabapentin (Neurontin) 300 mg TID PO Last administered on 02/15/19 12:04; Admin Dose 300 MG; Start 02/12/19 at 21:00 Lisinopril (Zestril) 20 mg DAILY PO Last administered on 02/15/19 08:21; Admin Dose 20 MG; Start 02/13/19 at 09:00 Metoprolol Succinate (Toprol Xl) 25 mg DAILY PO Last administered on 02/15/19 08:20; Admin Dose 25 MG; Start 02/13/19 at 09:00 Diagnostic Test (Pha) (Accu-Chek) XX ; Start 02/13/19 at 02:00 Insulin Aspart (Novolog Insulin Pen) NOVOLOG *MODERATE* ALGORITHM WITH MEALS BEDTIME SC Last administered on 02/15/19 12:04; Admin Dose 2 UNIT; Start 02/12/19 at 21:00 Vancomycin HCl 1.25 gm/Sodium Chloride 250 ml @ 83.333 mls/ hr Q24H IVPB Last administered on 02/14/19 20:27; Admin Dose 83.333 MLS/HR; Start 02/13/19 at 20:00 Hydralazine HCl (Apresoline) 10 mg Q4H PRN PO ELEVATED SYSTOLIC BP Last administered on 02/12/19at 23:36; Admin Dose 10 MG; Start 02/12/19 at 23:30 Miscellaneous Information (*Rx Drug Level Order Reminder*) [facility] TORRES AT 1900 1900 ONCE XX ; Start 02/15/19 at 19:00; Stop 02/15/19 at 19:01 Insulin Aspart (Novolog Insulin Pen) 10 unit WITH MEALS SC Last administered on 02/15/19 12:03; Admin Dose 10 UNIT; Start 02/13/19 at 17:35 Insulin Glargine (Lantus) 20 units QHS@2000 SC Last administered on 02/14/19 20:29; Admin Dose 20 UNITS; Start 02/13/19 at 20:00 PARK DUEÑAS NP Feb 15, 2019 15:01
[2019-02-15 16:00] VITALS: BP 161/58; PULSE 86; RESP 20
[2019-02-15] MEDS: CEFEPIME 1GM/50 ML (PMX) 50 ML IVPB SCH (17:32)
[2019-02-15] MEDS ORDERED: DEXTROSE 50% 50 ML SYRINGE IV PRN ×2 (18:30)
[2019-02-15] MEDS ORDERED: GLUCAGON 1 MG INJ IM PRN (18:30)
[2019-02-15] MEDS ORDERED: GLUCOSE GEL 15 GRAM TUBE PO PRN ×2 (18:30)
[2019-02-15] MEDS ORDERED: GLUCOSE GEL 15 GRAM TUBE BUCCAL PRN (18:30)
[2019-02-15 20:27] VITALS: BP 145/70; PULSE 72; RESP 18
[2019-02-15] MEDS: ATORVASTATIN 40 MG TAB PO SCH (20:52)
[2019-02-15] MEDS: INSULIN GLARGINE [LANTus] (100 UNITS/ML) SYG SC SCH (20:55)
[2019-02-16] MEDS: ACCU-CHEK XX SCH (01:38)
[2019-02-16 02:09] VITALS: BP 155/76; PULSE 72; RESP 20
[2019-02-16] MEDS: CEFEPIME 1GM/50 ML (PMX) 50 ML IVPB SCH ×2 (03:03→16:16)
[2019-02-16] MEDS: INSULIN ASPART [NOVOLOG] 3 ML PEN SC SCH ×7 (08:00→20:30)
[2019-02-16 08:04] VITALS: BP 159/79; PULSE 65; RESP 16
[2019-02-16] MEDS: HEPARIN 5,000 UNIT/1 ML VIAL SC SCH ×2 (09:33→20:29)
[2019-02-16] MEDS: LISINOPRIL 20 MG TAB PO SCH (09:33)
[2019-02-16] MEDS: AMLODIPINE 10 MG TAB PO SCH (09:34)
[2019-02-16] MEDS: GABAPENTIN 300 MG CAP PO SCH ×3 (09:34→20:29)
[2019-02-16] MEDS: ASPIRIN (EC) 81 MG TAB PO SCH (09:34)
[2019-02-16] MEDS: METOPROLOL (XL) 25 MG TAB PO SCH (09:34)
--- NOTE | 2019-02-16 11:43 | CONS ---
Assessment/Plan Assessment/Plan Hospital Course (Demo Recall) No acute events overnight Microbiology: Intraoperative culture grew Morganella and strep, neg OM per patho Antimicrobials: Cefepime Physical examination: Obese well-developed elderly man who is in no distress head atraumatic normocephalic sclera nonicteric vehicle mucosa dry neck is supple chest rise symmetrical breath sounds diminished bases heart S1-S2 abdomen soft bowel sounds present extremities with right lower extremity dressing intact Assessment: 1. Right foot cellulitis status post debridement/bone resection==> no OM per patho 2. Diabetes 3. Acute kidney insufficiency 4. Obesity Plan: Continue present care, wound care per podiatry, will dw podiatry final rec-s for abx Consultation Date/Type/Reason Admit Date/Time Feb 12, 2019 at 17:31 Initial Consult Date Type of Consult id Date/Time of Note DATE: 02/16/19 TIME: 11:42 Exam/Review of Systems Exam Vitals Vital Signs Date Temp Pulse Resp B/P (MAP) Pulse Ox O2 O2 Flow FiO2 Time Delivery Rate 02/16/19 98.2 65 16 159/79 93 08:04 (105) 02/13/19 Room Air 14:30 Intake and Output 02/15/19 02/15/19 02/16/19 1515:00 23:00 07:00 IntakeIntake Total 910 ml 625 ml 300 ml OutputOutput Total 400 ml 800 ml 900 ml BalanceBalance 510 ml -175 ml -600 ml Results Result Diagram: 02/16/19 0544 02/16/19 0544 Results 24hrs Laboratory Tests Test 02/15/19 12:02 02/15/19 20:53 02/16/19 05:44 02/16/19 08:14 Bedside Glucose 141 143 107 White Blood Count 7.5 Red Blood Count 3.22 L Hemoglobin 9.5 L Hematocrit 28.0 L Mean Corpuscular 87.0 Volume Mean Corpuscular 29.5 Hemoglobin Mean Corpuscular 33.9 Hemoglobin Concent Red Cell 13.2 Distribution Width Platelet Count 253 Mean Platelet Volume 10.9 H Immature 0.500 H Granulocytes % Neutrophils % 68.9 Lymphocytes % 19.1 Monocytes % 7.1 Eosinophils % 4.0 Basophils % 0.4 Nucleated Red Blood 0.0 Cells % Immature 0.040 H Granulocytes # Neutrophils # 5.2 Lymphocytes # 1.4 Monocytes # 0.5 Eosinophils # 0.3 Basophils # 0.0 Nucleated Red Blood 0.0 Cells # Sodium Level 140 Potassium Level 4.4 Chloride Level 111 H Carbon Dioxide Level 28 Anion Gap 1 L Blood Urea Nitrogen 18 Creatinine 1.61 H Est Glomerular 43 L Filtrat Rate mL/min Glucose Level 110 Calcium Level 8.1 L Phosphorus Level 3.8 Magnesium Level 1.7 Medications Medication Current Medications IV Flush (NS 3 ml) 3 ml PER PROTOCOL IV ; Start 02/12/19 at 18:30 Ondansetron HCl (Zofran Inj) 4 mg Q6H PRN IV NAUSEA/VOMITING; Start 02/12/19 at 18:30 Acetaminophen (Tylenol Tab) 650 mg Q6H PRN PO .PAIN 1-3 OR TEMP; Start 02/12/19 at 18:30 Acetaminophen/ Hydrocodone Bitart ([place] (5/325)) 1 tab Q6H PRN PO SEVERE PAIN LEVEL 7-10; Start 02/12/19 at 18:30 Heparin Sodium (Porcine) (Heparin (5000 Units/1ml)) 5,000 unit Q12 SC Last administered on 02/16/19 09:33; Admin Dose 5,000 UNIT; Start 02/12/19 at 21:00 Amlodipine Besylate (Norvasc) 10 mg DAILY PO Last administered on 02/16/19 09:34; Admin Dose 10 MG; Start 02/13/19 at 09:00 Aspirin (Halfprin) 81 mg DAILY PO Last administered on 02/16/19 09:34; Admin Dose 81 MG; Start 02/13/19 at 09:00 Atorvastatin Calcium (Lipitor) 40 mg QHS PO Last administered on 02/15/19 20:52; Admin Dose 40 MG; Start 02/12/19 at 21:00 Gabapentin (Neurontin) 300 mg TID PO Last administered on 02/16/19 09:34; Admin Dose 300 MG; Start 02/12/19 at 21:00 Lisinopril (Zestril) 20 mg DAILY PO Last administered on 02/16/19 09:33; Admin Dose 20 MG; Start 02/13/19 at 09:00 Metoprolol Succinate (Toprol Xl) 25 mg DAILY PO Last administered on 02/16/19 09:34; Admin Dose 25 MG; Start 02/13/19 at 09:00 Diagnostic Test (Pha) (Accu-Chek) 1 ea 02 XX ; Start 02/13/19 at 02:00 Insulin Aspart (Novolog Insulin Pen) NOVOLOG *MODERATE* ALGORITHM WITH MEALS BEDTIME SC Last administered on 02/15/19at 17:33; Admin Dose 4 UNIT; Start 02/12/19 at 21:00 Hydralazine HCl (Apresoline) 10 mg Q4H PRN PO ELEVATED SYSTOLIC BP Last administered on 02/12/19at 23:36; Admin Dose 10 MG; Start 02/12/19 at 23:30 Insulin Aspart (Novolog Insulin Pen) 10 unit WITH MEALS SC Last administered on 02/16/19at 08:19; Admin Dose 10 UNIT; Start 02/13/19 at 17:35 Insulin Glargine (Lantus) 20 units QHS@2000 SC Last administered on 02/15/19at 20:55; Admin Dose 20 UNITS; Start 02/13/19 at 20:00 Cefepime HCl 50 ml @ 100 mls/hr Q12H IVPB Last administered on 02/16/19at 03:03; Admin Dose 100 MLS/HR; Start 02/15/19 at 16:00 Miscellaneous Information 1 ea NOTE XX ; Start 02/15/19 at 18:30 Glucose (Glutose) 15 gm Q15M PRN PO DECREASED GLUCOSE; Start 02/15/19 at 18:30 Glucose (Glutose) 22.5 gm Q15M PRN PO DECREASED GLUCOSE; Start 02/15/19 at 18:30 Dextrose (D50w Syringe) 25 ml Q15M PRN IV DECREASED GLUCOSE; Start 02/15/19 at 18:30 Dextrose (D50w Syringe) 50 ml Q15M PRN IV DECREASED GLUCOSE; Start 02/15/19 at 18:30 Glucagon (Glucagen) 1 mg Q15M PRN IM DECREASED GLUCOSE; Start 02/15/19 at 18:30 Glucose (Glutose) 15 gm Q15M PRN BUCCAL DECREASED GLUCOSE; Start 02/15/19 at 18:30 IV Flush (NS 10 ml) 10 ml PRN PRN IV IV PROTOCOL; Start 02/15/19 at 19:00 PARK DUEÑAS NP Feb 16, 2019 11:43
[2019-02-16 14:37] VITALS: BP 133/72; PULSE 69; RESP 16
--- NOTE | 2019-02-16 14:50 | PN ---
Date/Time of Note Date/Time of Note DATE: 02/16/19 TIME: 14:48 Assessment/Plan VTE Prophylaxis Risk score (from Nsg)>0 risk: 6 SCD applied (from Nsg): Yes Pharmacological prophylaxis: NA/contraindicated Pharm contraindication: low risk/ambulating Lines/Catheters IV Catheter Type (from Nrsg): PICC Line Central line still needed: Yes Assessment/Plan Assessment/Plan 63 yo man history of peripheral arterial disease, type II diabetes, HTN, and neuropathy admitted from podiatry clinic for diabetic foot ulcer requiring debridement. #Diabetic foot ulcer - s/p debridement 02/12 - osei Mireles - Dr. Rader will arrange outpatient angiogram. - plan for snf IV antibiotics per ID recs #Diabetes type II - Continue home glargine 20 qhs, lispro 05/16/10. #HTN - Cont home antihypertensives #DLD - Cont home statin DVT: heparin GI: None Result Diagram: 02/16/19 0544 02/16/1944 Subjective 24 Hr Interval Summary Free Text/Dictation No acute overnight events. Patient doing well. Exam/Review of Systems Exam Vitals Vital Signs Date Temp Pulse Resp B/P (MAP) Pulse Ox O2 O2 Flow FiO2 Time Delivery Rate 02/16/19 98.2 69 16 133/72 98 14:37 (92) 02/13/19 Room Air 14:30 Intake and Output 02/15/19 02/15/19 02/16/19 1515:00 23:00 07:00 IntakeIntake Total 910 ml 625 ml 300 ml OutputOutput Total 400 ml 800 ml 900 ml BalanceBalance 510 ml -175 ml -600 ml Exam Gen: Well appearing man sitting up in bed in no distress Eyes: PERRL, no icterus HEENT: Moist mucous membranes, clear oropharynx. Neck: No lymphadenopathy, no JVD Card: Regular rate and rhythm, no murmurs Pulm: Clear to auscultation bilaterally Abd: Soft, nontender, nondistended. Ext: R foot bandaged L foot poor sensation most distal toes to light touch. No ulcers. 2+ DP and PT pulses. Skin: warm, dry, well perfused. Results Results 24hrs Laboratory Tests Test 02/15/19 20:53 02/16/19 05:44 02/16/19 08:14 02/16/19 12:11 Bedside Glucose 143 107 162 White Blood Count 7.5 Red Blood Count 3.22 L Hemoglobin 9.5 L Hematocrit 28.0 L Mean Corpuscular 87.0 Volume Mean Corpuscular 29.5 Hemoglobin Mean Corpuscular 33.9 Hemoglobin Concent Red Cell 13.2 Distribution Width Platelet Count 253 Mean Platelet Volume 10.9 H Immature 0.500 H Granulocytes % Neutrophils % 68.9 Lymphocytes % 19.1 Monocytes % 7.1 Eosinophils % 4.0 Basophils % 0.4 Nucleated Red Blood 0.0 Cells % Immature 0.040 H Granulocytes # Neutrophils # 5.2 Lymphocytes # 1.4 Monocytes # 0.5 Eosinophils # 0.3 Basophils # 0.0 Nucleated Red Blood 0.0 Cells # Sodium Level 140 Potassium Level 4.4 Chloride Level 111 H Carbon Dioxide Level 28 Anion Gap 1 L Blood Urea Nitrogen 18 Creatinine 1.61 H Est Glomerular 43 L Filtrat Rate mL/min Glucose Level 110 Calcium Level 8.1 L Phosphorus Level 3.8 Magnesium Level 1.7 Medications Medication Current Medications IV Flush (NS 3 ml) 3 ml PER PROTOCOL IV ; Start 02/12/19 at 18:30 Ondansetron HCl (Zofran Inj) 4 mg Q6H PRN IV NAUSEA/VOMITING; Start 02/12/19 at 18:30 Acetaminophen (Tylenol Tab) 650 mg Q6H PRN PO .PAIN 1-3 OR TEMP; Start 02/12/19 at 18:30 Acetaminophen/ Hydrocodone Bitart ([place] (5/325)) 1 tab Q6H PRN PO SEVERE PAIN LEVEL 7-10; Start 02/12/19 at 18:30 Heparin Sodium (Porcine) (Heparin (5000 Units/1ml)) 5,000 unit Q12 SC Last administered on 02/16/19at 09:33; Admin Dose 5,000 UNIT; Start 02/12/19 at 21:00 Amlodipine Besylate (Norvasc) 10 mg DAILY PO Last administered on 02/16/19 09:34; Admin Dose 10 MG; Start 02/13/19 at 09:00 Aspirin (Halfprin) 81 mg DAILY PO Last administered on 02/16/19 09:34; Admin Dose 81 MG; Start 02/13/19 at 09:00 Atorvastatin Calcium (Lipitor) 40 mg QHS PO Last administered on 02/15/19 20:52; Admin Dose 40 MG; Start 02/12/19 at 21:00 Gabapentin (Neurontin) 300 mg TID PO Last administered on 02/16/19 12:14; Admin Dose 300 MG; Start 02/12/19 at 21:00 Lisinopril (Zestril) 20 mg DAILY PO Last administered on 02/16/19 09:33; Admin Dose 20 MG; Start 02/13/19 at 09:00 Metoprolol Succinate (Toprol Xl) 25 mg DAILY PO Last administered on 02/16/19 09:34; Admin Dose 25 MG; Start 02/13/19 at 09:00 Diagnostic Test (Pha) (Accu-Chek) 1 ea 02 XX ; Start 02/13/19 at 02:00 Insulin Aspart (Novolog Insulin Pen) NOVOLOG *MODERATE* ALGORITHM WITH MEALS BEDTIME SC Last administered on 02/16/19 12:17; Admin Dose 2 UNIT; Start 02/12/19 at 21:00 Hydralazine HCl (Apresoline) 10 mg Q4H PRN PO ELEVATED SYSTOLIC BP Last administered on 02/12/19 23:36; Admin Dose 10 MG; Start 02/12/19 at 23:30 Insulin Aspart (Novolog Insulin Pen) 10 unit WITH MEALS SC Last administered on 02/16/19 12:16; Admin Dose 10 UNIT; Start 02/13/19 at 17:35 Insulin Glargine (Lantus) 20 units QHS@2000 SC Last administered on 02/15/19at 20:55; Admin Dose 20 UNITS; Start 02/13/19 at 20:00 Cefepime HCl 50 ml @ 100 mls/hr Q12H IVPB Last administered on 02/16/19 03:03; Admin Dose 100 MLS/HR; Start 02/15/19 at 16:00 Miscellaneous Information 1 ea NOTE XX ; Start 02/15/19 at 18:30 Glucose (Glutose) 15 gm Q15M PRN PO DECREASED GLUCOSE; Start 02/15/19 at 18:30 Glucose (Glutose) 22.5 gm Q15M PRN PO DECREASED GLUCOSE; Start 02/15/19 at 18:30 Dextrose (D50w Syringe) 25 ml Q15M PRN IV DECREASED GLUCOSE; Start 7/12/19 at 18:30 Dextrose (D50w Syringe) 50 ml Q15M PRN IV DECREASED GLUCOSE; Start 02/15/19 at 18:30 Glucagon (Glucagen) 1 mg Q15M PRN IM DECREASED GLUCOSE; Start 02/15/19 at 18:30 Glucose (Glutose) 15 gm Q15M PRN BUCCAL DECREASED GLUCOSE; Start 02/15/19 at 18:30 IV Flush (NS 10 ml) 10 ml PRN PRN IV IV PROTOCOL; Start 02/15/19 at 19:00 KANG TILLMAN MD Feb 16, 2019 14:50
[2019-02-16 20:00] VITALS: BP 132/63; PULSE 65; RESP 19
[2019-02-16] MEDS: ATORVASTATIN 40 MG TAB PO SCH (20:28)
[2019-02-16] MEDS: INSULIN GLARGINE [LANTus] (100 UNITS/ML) SYG SC SCH (20:30)
[2019-02-17 02:00] VITALS: BP 158/72; PULSE 71; RESP 17
[2019-02-17] MEDS: ACCU-CHEK XX SCH (02:00)
[2019-02-17] MEDS: CEFEPIME 1GM/50 ML (PMX) 50 ML IVPB SCH (06:09)
[2019-02-17 07:36] VITALS: BP 183/83; PULSE 62; RESP 16
[2019-02-17] MEDS: INSULIN ASPART [NOVOLOG] 3 ML PEN SC SCH ×7 (08:13→20:57)
[2019-02-17] MEDS: HEPARIN 5,000 UNIT/1 ML VIAL SC SCH ×2 (08:14→20:55)
[2019-02-17] MEDS: ASPIRIN (EC) 81 MG TAB PO SCH (08:15)
[2019-02-17] MEDS: METOPROLOL (XL) 25 MG TAB PO SCH (08:15)
[2019-02-17] MEDS: GABAPENTIN 300 MG CAP PO SCH ×3 (08:15→20:54)
[2019-02-17] MEDS: AMLODIPINE 10 MG TAB PO SCH (08:15)
[2019-02-17] MEDS: LISINOPRIL 20 MG TAB PO SCH (08:15)
--- NOTE | 2019-02-17 12:23 | PN ---
Date/Time of Note Date/Time of Note DATE: 02/17/19 TIME: 12:22 Assessment/Plan VTE Prophylaxis Risk score (from Ns)>0 risk: 8 SCD applied (from Ns): No SCD contraindicated: low risk/ambulating Pharmacological prophylaxis: NA/contraindicated Pharm contraindication: low risk/ambulating Lines/Catheters [facility] PICC Line Central line still needed: Yes Assessment/Plan Assessment/Plan 63 yo man history of peripheral arterial disease, type II diabetes, HTN, and neuropathy admitted from podiatry clinic for diabetic foot ulcer requiring debridement. #Diabetic foot ulcer - s/p debridement 02/12 - osei Mireles - Dr. Rader will arrange outpatient angiogram. - plan for lobsterman IV antibiotics for osteo per ID recs #Diabetes type II - Continue home glargine 20 qhs, lispro 05/16/10. #HTN - Cont home antihypertensives #DLD - Cont home statin DVT: heparin GI: None Result Diagram: 02/16/19 0544 02/16/19 0544 Subjective 24 Hr Interval Summary Free Text/Dictation No acute overnight events. Patient feeling well. Exam/Review of Systems Exam Vitals Vital Signs Date Temp Pulse Resp B/P (MAP) Pulse Ox O2 O2 Flow FiO2 Time Delivery Rate 02/17/19 98.0 62 16 183/83 97 Room Air 07:36 (116) Intake and Output 02/16/19 02/16/19 02/17/19 1515:00 23:00 07:00 IntakeIntake Total 300 ml 1550 ml 800 ml OutputOutput Total 1000 ml 500 ml BalanceBalance 300 ml 550 ml 300 ml Exam Gen: Well appearing man sitting up in bed in no distress Eyes: PERRL, no icterus HEENT: Moist mucous membranes, clear oropharynx. Neck: No lymphadenopathy, no JVD Card: Regular rate and rhythm, no murmurs Pulm: Clear to auscultation bilaterally Abd: Soft, nontender, nondistended. Ext: R foot bandaged L foot poor sensation most distal toes to light touch. No ulcers. 2+ DP and PT pulses. Skin: warm, dry, well perfused. Results Results 24hrs Laboratory Tests Test 02/16/19 17:21 02/16/19 20:28 02/17/19 08:05 Bedside Glucose 217 154 165 Medications Medication Current Medications IV Flush (NS 3 ml) 3 ml PER PROTOCOL IV ; Start 02/12/19 at 18:30 Ondansetron HCl (Zofran Inj) 4 mg Q6H PRN IV NAUSEA/VOMITING; Start 02/12/19 at 18:30 Acetaminophen (Tylenol Tab) 650 mg Q6H PRN PO .PAIN 1-3 OR TEMP; Start 02/12/19 at 18:30 Acetaminophen/ Hydrocodone Bitart ([place] (5/325)) 1 tab Q6H PRN PO SEVERE PAIN LEVEL 7-10; Start 02/12/19 at 18:30 Heparin Sodium (Porcine) (Heparin (5000 Units/1ml)) 5,000 unit Q12 SC Last administered on 02/17/19 08:14; Admin Dose 5,000 UNIT; Start 02/12/19 at 21:00 Amlodipine Besylate (Norvasc) 10 mg DAILY PO Last administered on 02/17/19 08:15; Admin Dose 10 MG; Start 02/13/19 at 09:00 Aspirin (Halfprin) 81 mg DAILY PO Last administered on 02/17/19 08:15; Admin Dose 81 MG; Start 02/13/19 at 09:00 Atorvastatin Calcium (Lipitor) 40 mg QHS PO Last administered on 02/16/19 20:28; Admin Dose 40 MG; Start 02/12/19 at 21:00 Gabapentin (Neurontin) 300 mg TID PO Last administered on 02/17/19 08:15; Admin Dose 300 MG; Start 02/12/19 at 21:00 Lisinopril (Zestril) 20 mg DAILY PO Last administered on 02/17/19 08:15; Admin Dose 20 MG; Start 02/13/19 at 09:00 Metoprolol Succinate (Toprol Xl) 25 mg DAILY PO Last administered on 02/17/19 08:15; Admin Dose 25 MG; Start 02/13/19 at 09:00 Diagnostic Test (Pha) (Accu-Chek) 1 ea 02 XX ; Start 02/13/19 at 02:00 Insulin Aspart (Novolog Insulin Pen) NOVOLOG *MODERATE* ALGORITHM WITH MEALS BEDTIME SC Last administered on 02/17/19 08:13; Admin Dose 2 UNIT; Start 02/12/19 at 21:00 Hydralazine HCl (Apresoline) 10 mg Q4H PRN PO ELEVATED SYSTOLIC BP Last administered on 02/12/19at 23:36; Admin Dose 10 MG; Start 02/12/19 at 23:30 Insulin Aspart (Novolog Insulin Pen) 10 unit WITH MEALS SC Last administered on 02/17/19at 08:13; Admin Dose 10 UNIT; Start 02/13/19 at 17:35 Insulin Glargine (Lantus) 20 units QHS@2000 SC Last administered on 02/16/19at 20:30; Admin Dose 20 UNITS; Start 02/13/19 at 20:00 Cefepime HCl 50 ml @ 100 mls/hr Q12H IVPB Last administered on 02/17/19at 06: 09; Admin Dose 100 MLS/HR; Start 02/15/19 at 16:00 Miscellaneous Information 1 ea NOTE XX ; Start 02/15/19 at 18:30 Glucose (Glutose) 15 gm Q15M PRN PO DECREASED GLUCOSE; Start 02/15/19 at 18:30 Glucose (Glutose) 22.5 gm Q15M PRN PO DECREASED GLUCOSE; Start 02/15/19 at 18:30 Dextrose (D50w Syringe) 25 ml Q15M PRN IV DECREASED GLUCOSE; Start 02/15/19 at 18:30 Dextrose (D50w Syringe) 50 ml Q15M PRN IV DECREASED GLUCOSE; Start 02/15/19 at 18:30 Glucagon (Glucagen) 1 mg Q15M PRN IM DECREASED GLUCOSE; Start 02/15/19 at 18:30 Glucose (Glutose) 15 gm Q15M PRN BUCCAL DECREASED GLUCOSE; Start 02/15/19 at 18:30 IV Flush (NS 10 ml) 10 ml PRN PRN IV IV PROTOCOL; Start 02/15/19 at 19:00 KANG TILLMAN MD Feb 17, 2019 12:23
--- NOTE | 2019-02-17 13:25 | CONS ---
Assessment/Plan Assessment/Plan Hospital Course (Demo Recall) No acute events overnight Microbiology: Intraoperative culture grew Morganella, Enterococcus, Strep, Corynebact. neg OM per patho Antimicrobials: Cefepime Physical examination: Obese well-developed elderly man who is in no distress head atraumatic normocephalic sclera nonicteric vehicle mucosa dry neck is supple chest rise symmetrical breath sounds diminished bases heart S1-S2 a bdomen soft bowel sounds present extremities with right lower extremity dressing intact Assessment: 1. Right foot cellulitis status post debridement/bone resection==> no OM per patho 2. Diabetes 3. Acute kidney insufficiency 4. Obesity Plan: Stable, change abx to Ampicillin and Cipro, continue wound care per podiatry Consultation Date/Type/Reason Admit Date/Time Feb 12, 2019 at 17:31 Initial Consult Date Type of Consult id Date/Time of Note DATE: 02/17/19 TIME: 13:22 Exam/Review of Systems Exam Vitals Vital Signs Date Temp Pulse Resp B/P (MAP) Pulse Ox O2 O2 Flow FiO2 Time Delivery Rate 02/17/19 98.0 62 16 183/83 97 Room Air 07:36 (116) Intake and Output 02/16/19 02/16/19 02/17/19 1515:00 23:00 07:00 IntakeIntake Total 300 ml 1550 ml 800 ml OutputOutput Total 1000 ml 500 ml BalanceBalance 300 ml 550 ml 300 ml Results Result Diagram: 02/16/19 0544 02/16/19 0544 Results 24hrs Laboratory Tests Test 02/16/19 17:21 02/16/19 20:28 02/17/19 08:05 02/17/19 12:23 Bedside Glucose 217 154 165 205 Medications Medication Current Medications IV Flush (NS 3 ml) 3 ml PER PROTOCOL IV ; Start 02/12/19 at 18:30 Ondansetron HCl (Zofran Inj) 4 mg Q6H PRN IV NAUSEA/VOMITING; Start 02/12/19 at 18:30 Acetaminophen (Tylenol Tab) 650 mg Q6H PRN PO .PAIN 1-3 OR TEMP; Start 02/12/19 at 18:30 Acetaminophen/ Hydrocodone Bitart ([place] (5/325)) 1 tab Q6H PRN PO SEVERE PAIN LEVEL 7-10; Start 02/12/19 at 18:30 Heparin Sodium (Porcine) (Heparin (5000 Units/1ml)) 5,000 unit Q12 SC Last administered on 02/17/19 08:14; Admin Dose 5,000 UNIT; Start 02/12/19 at 21:00 Amlodipine Besylate (Norvasc) 10 mg DAILY PO Last administered on 02/17/19 08:15; Admin Dose 10 MG; Start 02/13/19 at 09:00 Aspirin (Halfprin) 81 mg DAILY PO Last administered on 02/17/19 08:15; Admin Dose 81 MG; Start 02/13/19 at 09:00 Atorvastatin Calcium (Lipitor) 40 mg QHS PO Last administered on 02/16/19 2 0:28; Admin Dose 40 MG; Start 02/12/19 at 21:00 Gabapentin (Neurontin) 300 mg TID PO Last administered on 02/17/19 12:22; Admin Dose 300 MG; Start 02/12/19 at 21:00 Lisinopril (Zestril) 20 mg DAILY PO Last administered on 02/17/19 08:15; Admin Dose 20 MG; Start 02/13/19 at 09:00 Metoprolol Succinate (Toprol Xl) 25 mg DAILY PO Last administered on 02/17/19 08:15; Admin Dose 25 MG; Start 02/13/19 at 09:00 Diagnostic Test (Pha) (Accu-Chek) 1 ea 02 XX ; Start 02/13/19 at 02:00 Insulin Aspart (Novolog Insulin Pen) NOVOLOG *MODERATE* ALGORITHM WITH MEALS BEDTIME SC Last administered on 02/17/19 12:25; Admin Dose 4 UNIT; Start 02/12/19 at 21:00 Hydralazine HCl (Apresoline) 10 mg Q4H PRN PO ELEVATED SYSTOLIC BP Last administered on 02/12/19 23:36; Admin Dose 10 MG; Start 02/12/19 at 23:30 Insulin Aspart (Novolog Insulin Pen) 10 unit WITH MEALS SC Last administered on 02/17/19 12:25; Admin Dose 10 UNIT; Start 02/13/19 at 17:35 Insulin Glargine (Lantus) 20 units QHS@2000 SC Last administered on 02/16/19 20:30; Admin Dose 20 UNITS; Start 02/13/19 at 20:00 Cefepime HCl 50 ml @ 100 mls/hr Q12H IVPB Last administered on 02/17/19at 06:09; Admin Dose 100 MLS/HR; Start 02/15/19 at 16:00 Miscellaneous Information 1 ea NOTE XX ; Start 02/15/19 at 18:30 Glucose (Glutose) 15 gm Q15M PRN PO DECREASED GLUCOSE; Start 02/15/19 at 18:30 Glucose (Glutose) 22.5 gm Q15M PRN PO DECREASED GLUCOSE; Start 02/15/19 at 18:30 Dextrose (D50w Syringe) 25 ml Q15M PRN IV DECREASED GLUCOSE; Start 02/15/19 at 18:30 Dextrose (D50w Syringe) 50 ml Q15M PRN IV DECREASED GLUCOSE; Start 02/15/19 at 18:30 Glucagon (Glucagen) 1 mg Q15M PRN IM DECREASED GLUCOSE; Start 02/15/19 at 18:30 Glucose (Glutose) 15 gm Q15M PRN BUCCAL DECREASED GLUCOSE; Start 02/15/19 at 18:30 IV Flush (NS 10 ml) 10 ml PRN PRN IV IV PROTOCOL; Start 02/15/19 at 19:00 PARK DUEÑAS NP Feb 17, 2019 13:25
[2019-02-17 14:12] VITALS: BP 146/70; PULSE 66; RESP 16
[2019-02-17] MEDS: CIPROFLOXACIN 500 MG TAB PO SCH (16:44)
[2019-02-17] MEDS: AMPICILLIN 1 GM/NS (PMX) 50 ML IVPB SCH ×2 (16:44→21:00)
[2019-02-17 20:00] VITALS: BP 149/79; PULSE 64; RESP 17
[2019-02-17] MEDS: ATORVASTATIN 40 MG TAB PO SCH (20:54)
[2019-02-17] MEDS: INSULIN GLARGINE [LANTus] (100 UNITS/ML) SYG SC SCH (20:57)
[2019-02-18 02:00] VITALS: BP 165/86; PULSE 67; RESP 19
[2019-02-18] MEDS: ACCU-CHEK XX SCH (02:00)
[2019-02-18] MEDS: AMPICILLIN 1 GM/NS (PMX) 50 ML IVPB SCH ×3 (06:47→20:11)
[2019-02-18] MEDS: CIPROFLOXACIN 500 MG TAB PO SCH ×2 (06:47→17:32)
[2019-02-18] MEDS: INSULIN ASPART [NOVOLOG] 3 ML PEN SC SCH ×7 (08:16→21:04)
[2019-02-18] MEDS: HEPARIN 5,000 UNIT/1 ML VIAL SC SCH ×2 (08:18→21:05)
[2019-02-18] MEDS: ASPIRIN (EC) 81 MG TAB PO SCH (08:19)
[2019-02-18] MEDS: GABAPENTIN 300 MG CAP PO SCH ×3 (08:19→20:11)
[2019-02-18] MEDS: AMLODIPINE 10 MG TAB PO SCH (08:23)
[2019-02-18] MEDS: METOPROLOL (XL) 25 MG TAB PO SCH (08:23)
[2019-02-18] MEDS: LISINOPRIL 20 MG TAB PO SCH (08:23)
[2019-02-18 08:25] VITALS: BP 167/82; PULSE 68; RESP 17
--- NOTE | 2019-02-18 11:42 | CONS ---
Assessment/Plan Assessment/Plan Hospital Course (Demo Recall) No acute events overnight remains afebrile Microbiology: Bone culture grew Morganella, Enterococcus, Strep, Corynebact. neg OM per patho Antimicrobials: Ampicillin IV, Cipeo Physical examination: Obese well-developed elderly man who is in no distress head atraumatic normocephalic sclera nonicteric vehicle mucosa dry neck is supple chest rise symmetrical breath sounds diminished bases heart S1-S2 abdomen soft bowel sounds present extremities with right lower extremity dressing intact Assessment: 1. Right foot cellulitis status post debridement/bone resection==> no OM per patho 2. Diabetes 3. Acute kidney insufficiency 4. Obesity Plan: Stable, dw podiatry plan of care==> ok dc on IV Ampicillin and PO Cipro for 4 weeks with repeat MRI at the end of therapy DW DR Cantu Consultation Date/Type/Reason Admit Date/Time Feb 12, 2019 at 17:31 Initial Consult Date Type of Consult id Date/Time of Note DATE: 02/18/19 TIME: 11:39 Exam/Review of Systems Exam Vitals Vital Signs Date Temp Pulse Resp B/P (MAP) Pulse Ox O2 O2 Flow FiO2 Time Delivery Rate 02/18/19 97.9 68 17 167/82 97 08:25 (110) 02/17/19 Room Air 14:12 Intake and Output 02/17/19 02/17/19 02/18/19 1515:00 23:00 07:00 IntakeIntake Total 350 ml 400 ml OutputOutput Total 650 ml BalanceBalance -300 ml 400 ml Results Result Diagram: 02/16/19 0544 02/16/19 0544 Results 24hrs Laboratory Tests Test 02/17/19 12:23 02/17/19 16:48 02/17/19 20:53 02/18/19 08:08 Bedside Glucose 205 204 120 187 Medications Medication Current Medications IV Flush (NS 3 ml) 3 ml PER PROTOCOL IV ; Start 02/12/19 at 18:30 Ondansetron HCl (Zofran Inj) 4 mg Q6H PRN IV NAUSEA/VOMITING; Start 02/12/19 at 18:30 Acetaminophen (Tylenol Tab) 650 mg Q6H PRN PO .PAIN 1-3 OR TEMP; Start 02/12/19 at 18:30 Acetaminophen/ Hydrocodone Bitart ([place] (5/325)) 1 tab Q6H PRN PO SEVERE PAIN LEVEL 7-10 Last administered on 02/18/19 08:19; Admin Dose 1 TAB; Start 02/12/19 at 18:30 Heparin Sodium (Porcine) (Heparin (5000 Units/1ml)) 5,000 unit Q12 SC Last administered on 02/18/19 08:18; Admin Dose 5,000 UNIT; Start 02/12/19 at 21:00 Amlodipine Besylate (Norvasc) 10 mg DAILY PO Last administered on 02/18/19 08:23; Admin Dose 10 MG; Start 02/13/19 at 09:00 Aspirin (Halfprin) 81 mg DAILY PO Last administered on 02/18/19 08:19; Admin Dose 81 MG; Start 02/13/19 at 09:00 Atorvastatin Calcium (Lipitor) 40 mg QHS PO Last administered on 02/17/19 20:54; Admin Dose 40 MG; Start 02/12/19 at 21:00 Gabapentin (Neurontin) 300 mg TID PO Last administered on 02/18/19 08:19; Admin Dose 300 MG; Start 02/12/19 at 21:00 Lisinopril (Zestril) 20 mg DAILY PO Last administered on 02/18/19 08:23; Admin Dose 20 MG; Start 02/13/19 at 09:00 Metoprolol Succinate (Toprol Xl) 25 mg DAILY PO Last administered on 02/18/19 08:23; Admin Dose 25 MG; Start 02/13/19 at 09:00 Diagnostic Test (Pha) (Accu-Chek) 1 ea 02 XX ; Start 02/13/19 at 02:00 Insulin Aspart (Novolog Insulin Pen) NOVOLOG *MODERATE* ALGORITHM WITH MEALS BEDTIME SC Last administered on 02/18/19 08:16; Admin Dose 4 UNIT; Start 02/12 at 21:00 Hydralazine HCl (Apresoline) 10 mg Q4H PRN PO ELEVATED SYSTOLIC BP Last administered on 02/12/19 23:36; Admin Dose 10 MG; Start 02/12/19 at 23:30 Insulin Aspart (Novolog Insulin Pen) 10 unit WITH MEALS SC Last administered on 02/18/19 08:17; Admin Dose 10 UNIT; Start 02/13/19 at 17:35 Insulin Glargine (Lantus) 20 units QHS@2000 SC Last administered on 02/17/19at 20:57; Admin Dose 20 UNITS; Start 02/13/19 at 20:00 Miscellaneous Information 1 ea NOTE XX ; Start 02/15/19 at 18:30 Glucose (Glutose) 15 gm Q15M PRN PO DECREASED GLUCOSE; Start 02/15/19 at 18:30 Glucose (Glutose) 22.5 gm Q15M PRN PO DECREASED GLUCOSE; Start 02/15/19 at 18:30 Dextrose (D50w Syringe) 25 ml Q15M PRN IV DECREASED GLUCOSE; Start 02/15/19 at 18:30 Dextrose (D50w Syringe) 50 ml Q15M PRN IV DECREASED GLUCOSE; Start 02/15/19 at 18:30 Glucagon (Glucagen) 1 mg Q15M PRN IM DECREASED GLUCOSE; Start 02/15/19 at 18:30 Glucose (Glutose) 15 gm Q15M PRN BUCCAL DECREASED GLUCOSE; Start 02/15/19 at 18:30 IV Flush (NS 10 ml) 10 ml PRN PRN IV IV PROTOCOL; Start 02/15/19 at 19:00 Ampicillin 50 ml @ 100 mls/hr Q8 IVPB Last administered on 02/18/19at 06:47; Admin Dose 100 MLS/HR; Start 02/17/19 at 14:30 Ciprofloxacin (Cipro) 500 mg BID@06,18 PO Last administered on 02/18/19at 06:47; Admin Dose 500 MG; Start 02/17/19 at 14:00 PARK DUEÑAS NP Feb 18, 2019 11:42
--- NOTE | 2019-02-18 13:56 | PDOCDIS ---
Discharge Instructions CONDITION [id number] Patient Condition: [id number] Stable HOME CARE INSTRUCTIONS: [id number] Diet Instructions: [id number] Low Fat /Cholesterol ACTIVITY: [id number] Activity Restrictions: Prion1h Slowly Increase Activity Rest between Activity Avoid heavy lifting FOLLOW UP/APPOINTMENTS Follow-up Plan Please take your medications as prescribed, see your doctor in the clinic in the next 1 to 2 weeks. LINDSEY CAMPBELL Feb 18, 2019 13:56
[2019-02-18] MEDS ORDERED: CIPR500T4 PO (13:59)
[2019-02-18] MEDS ORDERED: [UNRECOGNIZED DRUG - CODE] IJ (13:59)
--- NOTE | 2019-02-18 14:08 | DS ---
Date/Time of Note Date/Time of Note DATE: 02/18/19 TIME: 14:03 Discharge Summary Admission/Discharge Info Admit Date/Time Feb 12, 2019 at 17:31 Discharge Date/Time Discharge Diagnosis #Diabetic foot ulcer with early osteomyelitis- s/p debridement 02/12 #Diabetes type II: A1c is 8.5 #HTN #DLD # PAD Patient Condition: Stable Procedures Date/Time of Note Date/Time of Note DATE: 02/12/19 TIME: 22:05 Operative Report Preoperative Diagnosis Right foot diabetic ulcer Right foot osteomyelitis DM2 with peripheral neuropathy Postoperative Diagnosis Right foot diabetic ulcer Right foot osteomyelitis DM2 with peripheral neuropathy Operation/Procedure Performed Right foot excisional debridement Right foot bone resection Hx of Present Illness 63 yo man history of peripheral arterial disease, type II diabetes, HTN, and neuropathy admitted from podiatry clinic for diabetic foot ulcer requiring debridement. The patient was recently hospitalized from 12/24-01/01 here at [facility] where he got a digit amputation for infected ulcer with osteomyelitis. Since then has been on Augmentin. He has been feeling fine, denies any symptoms. Came to [facility] clinic today for scheduled visit. Dr. Cantu was concerned that he appeared to have a new large ulcer possibly with exposed metatarsal, so admitted with plan for OR tonight. Hospital Course Patient was admitted and seen by infectious disease and podiatry teams during this hospital stay. Hemoglobin A1c was found to be 8.5, and insulins were given to help control the sugars. Patient was found with diabetic foot ulcer and underwent debridement procedure. Patient was also placed on antibiotics as the wound culture was positive for bacterial growth. Patient was also found with osteomyelitis. Over the course of his hospital stays sugars were stable, labs are stable as well. Patient was able to ambulate, tolerated p.o. diet. Patient will be discharged home today in improved condition and will need 1 more month of both p.o. and IV antibiotics which is presently being set up by [employer] for home use, once those are set up patient will go home later today in improved condition. See below for full list of discharge medications. Home Meds Active Scripts Ciprofloxacin Hcl* (Ciprofloxacin Hcl*) 500 Mg Tablet, 500 MG PO BID@06,18, #60 TAB Prov:LINDSEY CAMPBELL S. 02/18/19 Ampicillin (Ampicillin) 2 Gm Soln, 1 GM IJ Q8 for 30 Days, BOTTLE Prov:LINDSEY CAMPBELL 02/18/19 Ferrous Sulfate* (Ferrous Sulfate*) 325 Mg Tabec, 325 MG PO DAILY, #60 TAB Prov:SANJAY MORAN [employer] EXPORT AGENT 01/01/19 Amoxicillin/Potassium Clav (Amox-Clav 875-125 mg Tablet) 875-125 mg Tab, 1 TAB PO BID for 14 Days, #28 TAB Prov:SANJAY MORAN [employer] EX[employer] AGENT 01/01/19 Reported Medications Insulin Glargine,Hum.rec.anlog (Basaglar Kwikpen U-100) 100 Unit/1 Ml Insuln.p en, 50 UNIT SC QHS, EA 10/23/18 Insulin Lispro (Humalog Kwikpen U-100) 100 Unit/1 Ml Insuln.pen, 20 UNIT SQ BID WITH MEALS, EA 10 MINUTES BEFORE MEALS 10/23/18 Atorvastatin* (Atorvastatin*) 40 Mg Tablet, 40 MG PO QHS, #30 TAB 10/23/18 Sitagliptin* (Januvia*) 100 Mg Tablet, 100 MG PO DAILY, #30 TAB 10/23/18 Metoprolol Succinate* (Toprol XL*) 25 Mg Tab.sr.24h, 25 MG PO DAILY, #30 TAB 05/09/18 Amlodipine Besylate* (Amlodipine Besylate*) 10 Mg Tablet, 10 MG PO DAILY, #30 TAB 05/09/18 Aspirin* (Aspirin* EC) 81 Mg Tablet.dr, 81 MG PO DAILY, TAB 09/07/16 Gabapentin* (Gabapentin*) 300 Mg Capsule, 300 MG PO TID, #90 CAP 09/07/16 Lisinopril* (Lisinopril*) 20 Mg Tablet, 20 MG PO DAILY, #30 TAB 09/07/16 Follow-up Plan Please take your medications as prescribed, see your doctor in the clinic in the next 1 to 2 weeks. Primary Care Provider Not On Staff Doctor Time spent on discharge: > 30 minutes Pending Labs Laboratory Tests Test 02/17/19 16:48 02/17/19 20:53 02/18/19 08:08 02/18/19 12:15 Bedside 204 120 187 Glucose mg/dL (70-220) mg/dL (70-220) mg/dL (70-220) Erythrocyte 115 Sedimentation mm/Hr (0-20) Rate Test 02/18/19 12:27 Bedside 194 Glucose mg/dL (70-220) LINDSEY CAMPBELL Feb 18, 2019 14:08
[2019-02-18 15:05] VITALS: BP 164/85; PULSE 62; RESP 18
[2019-02-18 19:55] VITALS: BP 121/63; PULSE 71; RESP 16
[2019-02-18] MEDS: ATORVASTATIN 40 MG TAB PO SCH (20:11)
[2019-02-18] MEDS: INSULIN GLARGINE [LANTus] (100 UNITS/ML) SYG SC SCH (20:19)
== END 2019-02-18 21:19 | disposition home health service (06) | DRG 617 ==
LOC: PP2 17:31
PROVIDERS: ADMIT Internal Medicine; ATTEND Hospitalist
PROC: 0QBN0ZZ Excision of Right Metatarsal, Open Approach (ICD-10-PCS; 2019-02-12)
PROC: 0Y6M0ZD Detachment at Right Foot, Partial 4th Ray, Open Approach (ICD-10-PCS; principal; 2019-02-12 19:30)
PROC: 02HV33Z Insertion of Infusion Device into Superior Vena Cava, Percutaneous Approach (ICD-10-PCS; 2019-02-15)
DX: E11.621 Type 2 diabetes mellitus with foot ulcer (principal); M86.8X7 Other osteomyelitis, ankle and foot; L03.115 Cellulitis of right lower limb; L97.519 Non-pressure chronic ulcer of other part of right foot with unspecified severity; E11.51 Type 2 diabetes mellitus with diabetic peripheral angiopathy without gangrene; I10 Essential (primary) hypertension; E78.5 Hyperlipidemia, unspecified; E11.69 Type 2 diabetes mellitus with other specified complication; E11.42 Type 2 diabetes mellitus with diabetic polyneuropathy; N28.9 Disorder of kidney and ureter, unspecified; E66.9 Obesity, unspecified; Z89.421 Acquired absence of other right toe(s)
CPT/HCPCS: 36569; 71045; 73630; 73718; 76937; 80048; 80053; 82565; 82962; 83036; 83735; 84100; 84145; 84443; 84520; 85025; 85610; 85651; 85730; 86140; 87070; 87075; 87102; 87116; 88304; 88311; 93922; 97116; 97162; 97166; 97530; J0290; J0360; J0692; J1644; J1815; J2250; J2405; J2543; J2795; J3010; J3370; J7030; J7040; J7050

== ENCOUNTER 2019-03-08 10:30 | Emergency (ER) | payer MEDICARE, OTHER ==
[~2019-03-08] VITALS: Ht 157.5 cm; Wt 80.0 kg
[~2019-03-08 10:30] MED LIST changes: +CARV12.579 PO; +CIPR500T4 PO; +LANT3I SC; +NOVO3I SC; +[UNRECOGNIZED DRUG - CODE] IJ
[2019-03-08 10:37] VITALS: Ht 157.5 cm; Wt 80.0 kg
[2019-03-08] MEDS ORDERED: NICARDipine HCL 30 MG CAPSULE PO ONE (11:00)
--- NOTE | 2019-03-08 12:38 | ERD ---
ER Documentation Chief Complaint Chief Complaint send from [facility]. 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 The patient was seen today at the wound amputation clinic for evaluation and wound check. He indicated that the physician had indicated the wound was well-appearing. However the concern was that the patient had a systolic blood pressure greater than 200 despite taking his antihypertensive medication. The patient states however that he has no chest pain. He denies a headache. He denies any changes in vision. He denies any shortness of breath. He denies any swelling of his lower extr emities. He denies any fevers or shaking or chills. He has been on IV antibiotics through a right upper extremity PICC line for the past several weeks. ROS All systems reviewed and are negative except as per history of present illness. Medications Home Meds Active Scripts Ciprofloxacin Hcl* (Ciprofloxacin Hcl*) 500 Mg Tablet, 500 MG PO BID@, #60 TAB Prov:LINDSEY CAMPBELL S. 02/18/19 Ampicillin (Ampicillin) 2 Gm Soln, 1 GM IJ Q8 for 30 Days, BOTTLE Prov:LINDSEY CAMPBELL S. 02/18/19 Ferrous Sulfate* (Ferrous Sulfate*) 325 Mg Tabec, 325 MG PO DAILY, #60 TAB Prov:SANJAY MORAN LENS BLOCKER 01/01/19 Reported Medications Carvedilol* (Carvedilol*) 12.5 Mg Tablet, 12.5 MG PO BID, #60 TAB 03/08/19 Sitagliptin* (Januvia*) 100 Mg Tablet, 100 MG PO DAILY, #30 TAB 03/08/19 Metoprolol Succinate* (Toprol XL*) 25 Mg Tab.sr.24h, 25 MG PO DAILY, #30 TAB 03/08/19 Atorvastatin* (Atorvastatin*) 40 Mg Tablet, 40 MG PO QHS, #30 TAB 03/08/19 Gabapentin* (Gabapentin*) 300 Mg Capsule, 300 MG PO TID, #90 CAP 03/08/19 Amlodipine Besylate* (Amlodipine Besylate*) 10 Mg Tablet, 10 MG PO DAILY, #30 TAB 03/08/19 Insulin Aspart* (Novolog Insulin Pen*) 100 Unit/Ml Soln, 20 UNIT SC WITH BREAKFAST DINNE, EA 03/08/19 Insulin Glargine* (Lantus*) 100 Unit/Ml Soln, 40 UNIT SC BID, #1 VIAL 03/08/19 Aspirin* (Aspirin* EC) 81 Mg Tablet.dr, 81 MG PO DAILY, TAB 03/08/19 Discontinued Reported Medications Insulin Glargine,Hum.rec.anlog (Basaglar Kwikpen U-100) 100 Unit/1 Ml Insuln.pen, 50 UNIT SC QHS, EA 10/23/18 Insulin Lispro (Humalog Kwikpen U-100) 100 Unit/1 Ml Insuln.pen, 20 UNIT SQ BID WITH MEALS, EA 10 MINUTES BEFORE MEALS 10/23/18 Atorvastatin* (Atorvastatin*) 40 Mg Tablet, 40 MG PO QHS, #30 TAB 10/23/18 Sitagliptin* (Januvia*) 100 Mg Tablet, 100 MG PO DAILY, #30 TAB 10/23/18 Metoprolol Succinate* (Toprol XL*) 25 Mg Tab.sr.24h, 25 MG PO DAILY, #30 TAB 05/09/18 Amlodipine Besylate* (Amlodipine Besylate*) 10 Mg Tablet, 10 MG PO DAILY, #30 TAB 05/09/18 Aspirin* (Aspirin* EC) 81 Mg Tablet.dr, 81 MG PO DAILY, TAB 09/07/16 Gabapentin* (Gabapentin*) 300 Mg Capsule, 300 MG PO TID, #90 CAP 09/07/16 Lisinopril* (Lisinopril*) 20 Mg Tablet, 20 MG PO DAILY, #30 TAB 09/07/16 Discontinued Scripts Amoxicillin/Potassium Clav (Amox-Clav 875-125 mg Tablet) 875-125 mg Tab, 1 TAB PO BID for 14 Days, #28 TAB Prov:SANJAY MORAN LENS BLOCKER 01/01/19 Allergies Allergies: Coded Allergies: No Known Allergy (Unverified , 03/08/19) PMhx/Soc History of Surgery: No Anesthesia Reaction: No Hx Neurological Disorder: No Hx Respiratory Disorders: No Hx Cardiac Disorders: Yes (HTN) Hx Psychiatric Problems: No Hx Miscellaneous Medical Probl: Yes (See note) Hx Alcohol Use: No Hx Substance Use: No Hx Tobacco Use: Yes Smoking Status: Former smoker Physical Exam Vitals Vital Signs Date Temp Pulse Resp B/P (MAP) Pulse Ox O2 O2 Flow FiO2 Time Delivery Rate 03/08/19 67 18 135/74 100 Room Air 12:11 (94) 03/08/19 98.1 67 18 187/88 99 10:37 (121) Physical Exam Constitutional:Well-developed. Well-nourished. HEENT:Normocephalic. Atraumatic.Pupils were equal round reactive to light. Moist mucous membranes.No tonsillar exudates. Funduscopy exam shows sharp optic disks and venous pulsations were present Neck: No nuchal rigidity. No lymphadenopathy. No posterior cervical spine tenderness or step-offs. Respiratory: Not using accessory muscles of respiration.Lungs were clear to auscultation bilaterally. No rhonchi. No rales. No wheezing. Cardiovascular: Regular rate regular rhythm.No murmurs. No rubs were appreciated.S1, S2 normal. GI: Abdomen was soft. Nontender. Non Distended. No pulsatile abdominal masses or bruits. No rebound. No guarding. Bowel sounds were present and normal. Muscle skeletal: Full range of motion of both the upper and lower extremities bilaterally.Normal muscle tone.No assymetrical calf tenderness or swelling. Skin: No petechia, no purpura. No lesions on the palms or the soles of the feet. No maculopapular rash. Right foot wound is wrapped in a dressing and and a Ortho shoe. NEURO: Patient was alert, awake, orientated x3.No facial droop. Gait observed and normal with no ataxia.Speech had regular rate and rhythm. No focal neurological deficits. Result Diagram: 03/08/19 1126 03/08/19 1127 Results 24 hrs Laboratory Tests Test 03/08/19 11:26 03/08/19 11:27 White Blood Count 8.5 10^3/ul Red Blood Count 3.71 10^6/ul Hemoglobin 11.0 g/dl Hematocrit 32.0 % Mean Corpuscular Volume 86.3 fl Mean Corpuscular Hemoglobin 29.6 pg Mean Corpuscular Hemoglobin Concent 34.4 g/dl Red Cell Distribution Width 13.6 % Platelet Count 211 10^3/UL Mean Platelet Volume 11.4 fl Immature Granulocytes % 0.600 % Neutrophils % 67.2 % Lymphocytes % 19.9 % Monocytes % 6.1 % Eosinophils % 5.8 % Basophils % 0.4 % Nucleated Red Blood Cells % 0.0 /100WBC Immature Granulocytes # 0.050 10^3/ul Neutrophils # 5.7 10^3/ul Lymphocytes # 1.7 10^3/ul Monocytes # 0.5 10^3/ul Eosinophils # 0.5 10^3/ul Basophils # 0.0 10^3/ul Nucleated Red Blood Cells # 0.0 10^3/ul Prothrombin Time 13.0 Sec Prothrombin Time Ratio 1.0 INR International Normalized Ratio 0.97 Activated Partial Thromboplast Time 42.8 Sec Sodium Level 138 mmol/L Potassium Level 4.0 mmol/L Chloride Level 108 mmol/L Carbon Dioxide Level 25 mmol/L Anion Gap 5 Blood Urea Nitrogen 24 mg/dl Creatinine 1.69 mg/dl Est Glomerular Filtrat Rate mL/min 41 mL/min Glucose Level 157 mg/dl Calcium Level 8.2 mg/dl Total Bilirubin 0.3 mg/dl Direct Bilirubin 0.00 mg/dl Indirect Bilirubin 0.3 mg/dl Aspartate Amino Transf (AST/SGOT) 22 IU/L Alanine Aminotransferase (ALT/SGPT) 24 IU/L Alkaline Phosphatase 130 IU/L Creatine Kinase 194 IU/L Creatine Kinase Index 1.6 Creatinine Kinase MB (Mass) 3.17 ng/ml Troponin I < 0.012 ng/ml B-Type Natriuretic Peptide 1330 PG/ML Total Protein 5.7 g/dl Albumin 2.5 g/dl Globulin 3.20 g/dl Albumin/Globulin Ratio 0.78 Current Medications Medications Dose Sig/Leelee Start Time Status Last (Trade) Ordered Route PRN Stop Time Admin Dose Reason Admin Nicardipine 30 mg ONCE ONCE 03/08/19 DC 03/08/19 HCl PO 11:00 03/08/19 11:18 (Cardene) 11:01 Procedures/[facility] This patient presented to the emergency department with severely elevated blood pressure. My differential diagnosis included but was not limited to conditions that could end-organ damage such as acute coronary syndrome, acute pulmonary edema, aortic dissection, subarachnoid hemorrhage, intracerebral hemorrhage, cerebral infarction, withdrawal syndromes from beta blockers, or states of catecholamine excess such as pheochromocytoma or drug intoxication. Ancillary lab work was obtained. There was no elevation in the BUN and creatinine to suggest acute renal failure as the patient's BUN was 24 and creati nine 1.69 but this is his baseline. Cardiac enzyme was normal and the 12 lead EKG showed no acute ischemic changes or left ventricular hypertrophy. 12 Lead EKG tracing ordered and reviewed by myself showed: Normal sinus rhythm of 61 bpm and no arrhythmia. IL interval normal. QRS duration normal. No ST segment elevation No ST segment depression. No changes consistent with acute ischemia. BNP was elevated but chest radiograph showed no evidence of pulmonary vascular congestion and the patient was not in respiratory distress with no hypoxia. Given that the patient had an absence of cerebral, ocular, cardiac or renal damage the hypertensive urgency was treated with oral agents in the emergency room with improvement of the patient's blood pressure. The patient likely appeared to be complaint with primary care physician and will follow up with their PCP in the next 24-48 hours. They were instructed to return to the emergency department at anytime if there is any worsening of their condition such as development of chest pain or a headache. They were instructed to resume previous medication regimen or initiate a suitable medication regimen under care of the PCP to enable proper monitoring for drug reactions. The patient was also informed on the adverse side effects and adverse drug interactions of the medications prescribed to them by myself. The patient gave informed consent to t he prescription of the new medication. Departure Diagnosis: Primary Impression: Hypertensive urgency Condition: JUHI Mcclelland MD Mar 08, 2019 12:38
[2019-03-08 13:20] VITALS: BP 153/82; PULSE 65; RESP 16
== END 2019-03-08 13:21 | disposition home or self-care (01) ==
LOC: E/R 10:30
DX: I16.0 Hypertensive urgency (principal); E11.9 Type 2 diabetes mellitus without complications; Z79.4 Long term (current) use of insulin; Z79.82 Long term (current) use of aspirin; Z87.891 Personal history of nicotine dependence
CPT/HCPCS: 71045; 80053; 82550; 82553; 83880; 84484; 85025; 85610; 85730; 93005

== ENCOUNTER 2019-03-19 12:11 | Emergency (ER) | payer MEDICARE, OTHER ==
[~2019-03-19] VITALS: Ht 167.6 cm; Wt 96.7 kg
[~2019-03-19 12:11] MED LIST changes: -AMOX1TAB10 PO; -INSU100I12 SQ; -INSU100I33 SC; -LISI-471 PO
[2019-03-19 12:21] VITALS: Ht 167.6 cm; Wt 96.7 kg
--- NOTE | 2019-03-19 12:30 | ERD ---
ER Documentation Chief Complaint Chief Complaint PICC LINE REMOVAL ON RIGHT ARM HPI 63-year-old male presents for request for PICC line removal. Recent completed antibiotics for a right foot infection. He has a history of diabetes and hypertension. Denies fevers, vomiting, shortness of breath, additional symptoms . ROS All systems reviewed and are negative except as per history of present illness. Medications Home Meds Active Scripts Ciprofloxacin Hcl* (Ciprofloxacin Hcl*) 500 Mg Tablet, 500 MG PO BID@,18, #60 TAB Prov:LINDSEY CAMPBELL S. 02/18/19 Ampicillin (Ampicillin) 2 Gm Soln, 1 GM IJ Q8 for 30 Days, BOTTLE Prov:MIKELINDSEY S. 02/18/19 Ferrous Sulfate* (Ferrous Sulfate*) 325 Mg Tabec, 325 MG PO DAILY, #60 TAB Prov:SANJAY MORAN OVERHAULER 01/01/19 Reported Medications Carvedilol* (Carvedilol*) 12.5 Mg Tablet, 12.5 MG PO BID, #60 TAB 03/08/19 Sitagliptin* (Januvia*) 100 Mg Tablet, 100 MG PO DAILY, #30 TAB 03/08/19 Metoprolol Succinate* (Toprol XL*) 25 Mg Tab.sr.24h, 25 MG PO DAILY, #30 TAB 03/08/19 Atorvastatin* (Atorvastatin*) 40 Mg Tablet, 40 MG PO QHS, #30 TAB 03/08/19 Gabapentin* (Gabapentin*) 300 Mg Capsule, 300 MG PO TID, #90 CAP 03/08/19 Amlodipine Besylate* (Amlodipine Besylate*) 10 Mg Tablet, 10 MG PO DAILY, #30 TAB 03/08/19 Insulin Aspart* (Novolog Insulin Pen*) 100 Unit/Ml Soln, 20 UNIT SC WITH BREAKFAST DINNE, EA 03/08/19 Insulin Glargine* (Lantus*) 100 Unit/Ml Soln, 40 UNIT SC BID, #1 VIAL 03/08/19 Aspirin* (Aspirin* EC) 81 Mg Tablet.dr, 81 MG PO DAILY, TAB 03/08/19 Allergies Allergies: Coded Allergies: No Known Allergy (Unverified , 03/08/19) PMhx/Soc History of Surgery: No Anesthesia Reaction: No Hx Neurological Disorder: No Hx Respiratory Disorders: No Hx Cardiac Disorders: Yes (HTN) Hx Psychiatric Problems: No Hx Miscellaneous Medical Probl: No Hx Alcohol Use: No Hx Substance Use: No Hx Tobacco Use: No Smoking Status: Never smoker FmHx Family History: No diabetes, No coronary disease, No other Physical Exam Vitals Vital Signs Date Temp Pulse Resp B/P (MAP) Pulse Ox O2 O2 Flow FiO2 Time Delivery Rate 03/19/19 98.7 64 17 117/61 98 12:21 (79) Physical Exam Const: No acute distress Head: Atraumatic Eyes: Normal Conjunctiva ENT: Normal External Ears, Nose and Mouth. Neck: Full range of motion. No meningismus. Resp: Clear to auscultation bilaterally Cardio: Regular rate and rhythm, no murmurs Abd: Soft, non tender, non distended. Normal bowel sounds Skin: No petechiae or rashes Back: No midline or flank tenderness Ext: No cyanosis, or edema. Right brachial PICC line in place. No erythema, discharge, bleeding. Neur: Awake and alert Psych: Normal Mood and Affect Procedures/MDM PICC line removed without complications. Patient has no signs of thrombosis, cellulitis, PE, ischemia, deficits. Wound was dressed. Patient will be discharged home with primary care follow-up and return precautions for fevers, redness, new worsening symptoms. Departure Diagnosis: Primary Impression: PIC line (peripherally inserted central catheter) removal Condition: Stable Patient Instructions: Picc Line Care Referrals: DOCTOR,NOT ON STAFF (PCP) Additional Instructions: Recheck for redness, fevers, new or worsening symptoms. See primary doctor for follow-up and ongoing care of diabetes and high blood pressure. DAEL ROSARIO MD Mar 19, 2019 12:30
== END 2019-03-19 12:49 | disposition home or self-care (01) ==
LOC: FTE 12:11
DX: Z45.2 Encounter for adjustment and management of vascular access device (principal); I10 Essential (primary) hypertension; Z79.4 Long term (current) use of insulin; Z79.82 Long term (current) use of aspirin
CPT/HCPCS: 99282